=== PATIENT | female | born 1965 | race African-American/Black ===

== ENCOUNTER 2018-02-17 23:39 | Emergency (ER) | payer SELFPAY ==
--- NOTE | 2018-02-18 00:46 | ER ---
Nurse's Notes [facility] Name: Ratna Ureña Age: 52 yrs Sex: Female : 1965 Arrival Date: 02/17/2018 Time: 23:48 Bed 25 Private MD: Diagnosis: Acute Hyperglycemic episode in a type II diabetes Presentation: 02/18 00:03 Presenting complaint: Patient states: she checked her sugar 3 hours after dinner mg2 tonight and its 516 mg/dl. denies n/v, dizziness. she also took her oral antidiabetic pill after meal. Transition of care: patient was not received from another setting of care. Onset of symptoms was February 17, 2018. Risk Assessment: Do you want to hurt yourself or someone else? Patient reports no desire to harm self or others. Initial Sepsis Screen: Does the patient meet any 2 criteria? No. Patient's initial sepsis screen is negative. Does the patient have a suspected source of infection? No. Patient's initial sepsis screen is negative. Care prior to arrival: None. 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 - Social history:: Smoking status: Patient/guardian denies using tobacco, Patient/guardian denies using alcohol, street drugs, IV drugs. - Ebola Screening: : No symptoms or risks identified at this time. - Family history:: not pertinent. - Hospitalizations: : No recent hospitalization is reported. Screenin:07 Abuse screen: Denies threats or abuse. Denies injuries from another. Nutritional mg2 screening: No deficits noted. Tuberculosis screening: No symptoms or risk factors identified. Fall Risk None identified. Assessment: 00:08 General: Appears in no apparent distress. comfortable, Behavior is calm, cooperative. mg2 Pain: Denies pain. Neuro: Level of Consciousness is awake, alert, obeys commands, Oriented to person, place, time, situation. Cardiovascular: Capillary refill < 3 seconds Patient's skin is warm and dry. Respiratory: Airway is patent Respiratory effort is even, unlabored, Respiratory pattern is regular, symmetrical. GI: No signs and/or symptoms were reported involving the gastrointestinal system. : No signs and/or symptoms were reported regarding the genitourinary system. EENT: No signs and/or symptoms were reported regarding the EENT system. Derm: Skin is intact, Skin is pink, warm \T\ dry. normal. Musculoskeletal: Circulation, motion, and sensation intact. 00:53 Reassessment: patient refused treatment and diagnostic procedures. risk explained by dr rd negrete, ama form signed by the patient. dishcarged. Vital Signs: 00:06 BP 139 / 74; Pulse 91; Resp 18; Temp 97.9(O); Pulse Ox 99% on R/A; Weight 99.79 kg; mg2 Height 5 ft. 5 in. (165.10 cm); Pain 0/10; 00:06 Body Mass Index 36.61 (99.79 kg, 165.10 cm) mg2 ED Course: 02/17 23:48 Patient arrived in ED. oliva 02/18 00:02 Willy Vargas, RN is Primary Nurse. mg2 00:05 Triage completed. mg2 00:07 Arm band placed on. mg2 00:08 Patient has correct armband on for positive identification. Placed in gown. Bed in low mg2 position. Door closed. Warm blanket given. 00:14 Michele Negrete MD is Attending Physician. ma 00:54 No provider procedures requiring assistance completed. Patient did not have IV access mg2 during this emergency room visit. Administered Medications: No medications were administered Point of Care Testing: Blood Glucose: 00:07 Blood Glucose: 337 mg/dL; mg2 Ranges: Outcome: 00:45 Discharge ordered by . ma 00:54 AMA AMA form signed mg2 00:54 Condition: stable 00:54 Discharge instructions given to patient, Instructed on discharge instructions, Demonstrated understanding of instructions. 00:55 Patient left the ED. mg2 Signatures: Zeina Roberto William, MD MD wa Gardose, Michele, RN RN mg2
--- NOTE | 2018-02-18 00:46 | EDPHYS ---
Physician Documentation [facility] Name: Ratna Ureña Age: 52 yrs Sex: Female : 1965 Arrival Date: 02/17/2018 Time: 23:48 Bed 25 Private MD: ED Physician Michele Trejo HPI: 02/18 07:42 This 52 yrs old Black Female presents to ER via Ambulatory with complaints of Low Blood wa Sugar. 07:42 The patient or guardian reports hyperglycemia, that was potentially precipitated by not wa taking her DM meds after eating. states was over 500 when she took her medication, Treatment prior to arrival includes:. Onset: The symptoms/episode began/occurred today. Associated signs and symptoms: Pertinent negatives: decreased urine output, diarrhea, polydipsia, polyphagia, polyuria, vomiting. Current symptoms: In the emergency department the patient's symptoms are unchanged from the initial presentation. The patient has experienced similar episodes in the past. The patient has not recently seen a physician. denies any complaints. denies dizziness, chest pain, SOB, or any other concerns. 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 - Social history:: Smoking status: Patient/guardian denies using tobacco, Patient/guardian denies using alcohol, street drugs, IV drugs. - Ebola Screening: : No symptoms or risks identified at this time. - Family history:: not pertinent. - Hospitalizations: : No recent hospitalization is reported. ROS: 07:45 Constitutional: Negative for fever, chills, and weight loss, Eyes: Negative for injury, wa pain, redness, and discharge, ENT: Negative for injury, pain, and discharge, Neck: Negative for injury, pain, and swelling, Cardiovascular: Negative for chest pain, palpitations, and edema, Respiratory: Negative for shortness of breath, cough, wheezing, and pleuritic chest pain, Abdomen/GI: Negative for abdominal pain, nausea, vomiting, diarrhea, and constipation, Back: Negative for injury and pain, : Negative for injury, bleeding, discharge, and swelling, MS/Extremity: Negative for injury and deformity, Skin: Negative for injury, rash, and discoloration, Neuro: Negative for headache, weakness, numbness, tingling, and seizure, Psych: Negative for depression, anxiety, suicide ideation, homicidal ideation, and hallucinations. Exam: 07:45 Constitutional: This is a well developed, well nourished patient who is awake, alert, wa and in no acute distress. Head/Face: Normocephalic, atraumatic. Eyes: Pupils equal round and reactive to light, extra-ocular motions intact. Lids and lashes normal. Conjunctiva and sclera are non-icteric and not injected. Cornea within normal limits. Periorbital areas with no swelling, redness, or edema. ENT: Nares patent. No nasal discharge, no septal abnormalities noted. Tympanic membranes are normal and external auditory canals are clear. Oropharynx with no redness, swelling, or masses, exudates, or evidence of obstruction, uvula midline. Mucous membranes moist. Neck: Trachea midline, no thyromegaly or masses palpated, and no cervical lymphadenopathy. Supple, full range of motion without nuchal rigidity, or vertebral point tenderness. No Meningismus. Chest/axilla: Normal chest wall appearance and motion. Nontender with no deformity. No lesions are appreciated. Cardiovascular: Regular rate and rhythm with a normal S1 and S2. No gallops, murmurs, or rubs. Normal PMI, no JVD. No pulse deficits. Respiratory: Lungs have equal breath sounds bilaterally, clear to auscultation and percussion. No rales, rhonchi or wheezes noted. No increased work of breathing, no retractions or nasal flaring. Abdomen/GI: Soft, non-tender, with normal bowel sounds. No distension or tympany. No guarding or rebound. No evidence of tenderness throughout. Back: No spinal tenderness. No costovertebral tenderness. Full range of motion. Skin: Warm, dry with normal turgor. Normal color with no rashes, no lesions, and no evidence of cellulitis. MS/ Extremity: Pulses equal, no cyanosis. Neurovascular intact. Full, normal range of motion. Neuro: Awake and alert, GCS 15, oriented to person, place, time, and situation. Cranial nerves II-XII grossly intact. Motor strength 5/5 in all extremities. Sensory grossly intact. Cerebellar exam normal. Normal gait. Vital Signs: 00:06 BP 139 / 74; Pulse 91; Resp 18; Temp 97.9(O); Pulse Ox 99% on R/A; Weight 99.79 kg; mg2 Height 5 ft. 5 in. (165.10 cm); Pain 0/10; 00:06 Body Mass Index 36.61 (99.79 kg, 165.10 cm) mg2 MDM: 00:[address] 07:45 Differential diagnosis: acute asymptomatic hyperglycemia. BG improved on arrival as pt wa took own meds. discussed work up to check electrolyte and kidney function. pt declined. states has appt with her PMD to check all that. will have sign AMA. Data reviewed: vital signs, nurses notes. Administered Medications: No medications were administered Point of Care Testing: Blood Glucose: 00:07 Blood Glucose: 337 mg/dL; mg2 Ranges: Critical Glucose Levels:Adult <50 mg/dl or >400 mg/dl <40 mg/dl or >180 mg/dl Disposition: 02/18/18 00:45 Discharged to Home. Impression: Acute Hyperglycemic episode in a type II diabetes. - Condition is Stable. - Discharge Instructions: Hyperglycemia, [id number]. - Medication Reconciliation Form, Thank You Letter, Antibiotic Education, Prescription Opioid Use form. - Follow up: Private Physician; When: 1 - 2 days; Reason: Recheck today's complaints. - Problem is new. - Symptoms have improved. - Notes: return to ER for worsening concerns. see your doctor tomorrow for further evaluation of your kwame blood sugar Signatures: Michele Trejo MD MD wa Gardose, Michele, RN RN mg2 Corrections: (The following items were deleted from the chart) 00:55 00:45 02/18/2018 00:45 Discharged to Home. Impression: Acute Hyperglycemic episode in a mg2 type II diabetes. Condition is Stable. Forms are Medication Reconciliation Form, Thank You Letter, Antibiotic Education, Prescription Opioid Use. Follow up: Private Physician; When: 1 - 2 days; Reason: Recheck today's complaints. Problem is new. Symptoms have improved. wa
[2018-02-18 00:59] VITALS: BP 139/74; TEMP 97.9; O2SAT 99
== END 2018-02-18 00:55 | disposition home or self-care (01) ==
LOC: ER 23:39
DX: E11.65 Type 2 diabetes mellitus with hyperglycemia (principal); I10 Essential (primary) hypertension; E78.00 Pure hypercholesterolemia, unspecified
CPT/HCPCS: 82962; 99282

== ENCOUNTER 2019-08-10 00:16 | Emergency (ER) | payer SELFPAY ==
--- OUTSIDE RECORDS SUMMARY | 2019-08-10 00:19 | XMS REPORT ---
:1965 Author Organization [facility] Address [address] [place] [address] [address] [place] [address] Care Team Providers Name Role Phone Unavailable Unavailable Unavailable Problems This patient has no known problems. Allergies, Adverse Reactions, Alerts This patient has no known allergies or adverse reactions. Medications This patient has no known medications.
[2019-08-10] MEDS ORDERED: FUROSEMIDE 20 MG/ 2ML VIAL ONE (00:21)
[2019-08-10] MEDS ORDERED: NITROGLYCERIN 1 GM PKT TD ONE (00:21)
[2019-08-10] MEDS ORDERED: FUROSEMIDE 40 MG/4 ML VIAL ONE (00:21)
[2019-08-10] MEDS ORDERED: RSI MEDICATION KIT IV ONE ×2 (00:22→07:02)
[2019-08-10] MEDS ORDERED: ROCURONIUM 50 MG/5 ML VIAL IV ONE ×3 (00:23→07:02)
[2019-08-10 00:38] LABS: Arterial Blood Carboxyhemoglob 0.4 % (0-1.5); Blood Gas Oxyhemoglobin 88.5 % (94-97); Blood O2 Saturation 89.6 % (92-98.5)
[2019-08-10] MEDS ORDERED: SUCCINYLCHOLINE 20 MG/ML (10 ML) IV ONE ×2 (00:47→07:00)
[2019-08-10 00:54] LABS: Absolute Lymphocytes (CBC) 4.5 K/uL (0.7-4.9); Basophils % 0.6 % (0-1.3); Hematocrit 38.7 % (36.0-45.0); Lymphocytes % 48.4 % (15.3-44.8); MPV 11.8 fL (7.6-11.3); Protime INR 1.04; RBC Red Blood Cell Count 4.76 M/uL (3.86-4.86)
[2019-08-10] MEDS ORDERED: CEFEPIME 2 GM VIAL ONE (00:56)
[2019-08-10] MEDS ORDERED: NA CHLORIDE 0.9% 250 ML ONE ×2 (00:57→03:10)
[2019-08-10] MEDS ORDERED: VANCOMYCIN 1 GM/VIAL ONE ×2 (00:57→03:10)
[2019-08-10] MEDS ORDERED: DOPAMINE/D5W 400 MG/250 ML BAG IV ONE (00:57)
[2019-08-10] MEDS ORDERED: NA CHLORIDE 0.9% 100 ML IV ONE (00:57)
[2019-08-10] MEDS ORDERED: NA CHLORIDE 0.9% 1,000 ML ONE (00:59)
[2019-08-10 01:10] LABS: ALT/SGPT 23 U/L (12-78); AST/SGOT 19 U/L (15-37); Albumin 3.2 g/dL (3.4-5.0); Alkaline Phosphatase 113 U/L (45-117); BUN Blood Urea Nitrogen 18 mg/dL (7-18); Bicarbonate 26 mmol/L (21-32); Bilirubin Direct < 0.1 mg/dL (0-0.2); Bilirubin Total 0.3 mg/dL (0.2-1.0); Glucose Level 351 mg/dL (74-106); Lipase 102 U/L (73-393); NT PRO-BNP 796 pg/mL (<125); Potassium 3.9 mmol/L (3.5-5.1); Protein, Total 8.2 g/dL (6.4-8.2); Sodium Level 136 mmol/L (136-145); Troponin (Emerg Dept Use Only) < 0.02 ng/mL (0.0-0.045)
--- NOTE | 2019-08-10 01:17 | EDPHYS ---
Physician Documentation [facility] Name: Ratna Ureña Age: 54 yrs Sex: Female : 1965 Arrival Date: 08/10/2019 Time: 00:17 Bed 2 Private MD: ED Physician Brent Malik HPI: 08/10 00:30 This 54 yrs old Black Female presents to ER via Unassigned with complaints of sob and real ams. 00:30 The patient has shortness of breath at rest. Onset: The symptoms/episode began/occurred real at an unknown time. Duration: The symptoms are continuous, and are steadily getting worse. The patient's shortness of breath has no apparent modifying factors. The patient or guardian reports difficulty breathing. Modifying factors: The symptoms are alleviated by nothing. the symptoms are aggravated by nothing. hx htn. Associated signs and symptoms: Pertinent positives: non-productive cough. Severity of symptoms: At their worst the symptoms were severe in the emergency department the symptoms are unchanged. Associated signs and symptoms: The patient has no apparent associated signs or symptoms. Historical: - Allergies: 00:25 No Known Allergies; jv1 - PMHx: 00:25 Diabetes - NIDDM; High Cholesterol; Hypertension; Vertigo; jv1 - PSHx: 00:25 Tonsillectomy; Appendectomy; Tubal ligation; jv1 - Immunization history:: Adult Immunizations unknown. - Social history:: Smoking status: unknown. - Family history:: not pertinent. - Ebola Screening: : Unable to complete screening because. ROS: 00:30 Eyes: Negative for injury, pain, redness, and discharge, ENT: Negative for injury, real pain, and discharge. 00:30 Cardiovascular: Positive for palpitations. 00:30 Respiratory: Positive for shortness of breath. 00:30 Unable to obtain ROS due to patient distress. Exam: 00:30 ENT: Nares patent. No nasal discharge, no septal abnormalities noted. Tympanic real membranes are normal and external auditory canals are clear. Oropharynx with no redness, swelling, or masses, exudates, or evidence of obstruction, uvula midline. Mucous membranes moist. 00:30 Constitutional: The patient appears in obvious distress, severely distressed. 00:30 Cardiovascular: Rate: tachycardic, Rhythm: regular, Pulses: Pulses are 4+ in bilateral radial, brachial, femoral, popliteal, posterior tibial and and dorsalis pedis arteries.. Heart sounds: normal, normal S1and S2, no S3 or S4, no murmur, no rub, no gallop, Edema: 4+ edema to level of left midcalf and right midcalf, JVD: is not appreciated. 00:30 Respiratory: moderate respiratory distress is noted, severe repiratory distress is noted, Respirations: labored breathing, that is moderate, accessory muscle usage, that is moderate, Breath sounds: decreased breath sounds, that are moderate, rhonchi, that are moderate, are heard diffusely, stridor, is not appreciated, + upper airway congestion. wheezing: that is mild, is scattered. Vital Signs: 00:15 BP 164 / 101; Pulse 133; Resp 40; Temp 95.5(O); Pulse Ox 64% on 100% Non-rebreather jb4 mask; Weight 99.79 kg (R); Height 5 ft. 4 in. (162.56 cm) (R); 00:23 BP 191 / 119; Pulse 111; Resp 24; Pulse Ox 93% on BiPAP; jb4 00:45 BP 160 / 86; Pulse 113; Resp 29; Temp 96.8(C); Pulse Ox 94% on 15 lpm ETT ambu; jb4 00:49 BP 88 / 52; Pulse 102; Resp 16; Temp 96.9(C); Pulse Ox 98% on 100% FiO2 ETT vent; jb4 01:00 BP 81 / 61; Pulse 104; Resp 20; Temp 97.2(C); Pulse Ox 96% on 100% FiO2 ETT vent; jb4 01:15 BP 145 / 92; Pulse 134; Resp 20; Temp 96.5(C); Pulse Ox 97% on 100% FiO2 ETT vent; jb4 01:24 BP 142 / 77; Pulse 105; Resp 20 A; Temp 95.6(C); Pulse Ox 100% on 100% FiO2 ETT vent; jb4 01:45 BP 132 / 78; Pulse 98; Resp 20; Temp 95.9(C); Pulse Ox 97% on 100% FiO2 ETT vent; jb4 02:00 BP 127 / 69; Pulse 93; Resp 20; Temp 95.8(C); Pulse Ox 97% on 100% FiO2 ETT vent; jb4 02:15 BP 124 / 74; Pulse 91; Resp 97; Temp 95.7(C); Pulse Ox 97% on 100% FiO2 ETT vent; jb4 02:30 BP 120 / 59; Pulse 90; Resp 20; Temp 95.8(C); Pulse Ox 97% on 100% FiO2 ETT vent; jb4 02:45 BP 119 / 59; Pulse 91; Resp 20; Temp 96.3(C); Pulse Ox 98% on ETT vent; jb4 03:00 BP 114 / 61; Pulse 93; Resp 20; Temp 96.5(C); Pulse Ox 97% on 100% FiO2 ETT vent; jb4 03:15 BP 98 / 50; Pulse 96; Resp 20; Temp 96.9(C); Pulse Ox 100% on 100% FiO2 ETT vent; jb4 00:15 Body Mass Index 37.76 (99.79 kg, 162.56 cm) 4 Procedures: 01:12 Intubation: Ventilated with 100% NRB prior to procedure. Intubated orally using # 4 real Pan blade with 7.5 mm ETT. was successful on first attempt. Ventilated with Ambu bag. Cricoid pressure applied during procedure. Placement verified by CXR, CO2 detector with (+) color change, auscultating bilateral breath sounds, O2 saturation after procedure was 100 %. Patient tolerated well. Central Line: the site was prepped with Betadine, in sterile fashion, a triple lumen catheter was inserted, in the right in 1 attempts. placement was verified, by blood return, the site was dressed with using sterile technique, the patient tolerated the procedure, well. MDM: 00:[address] [facility] 00:33 Data reviewed: vital signs, nurses notes, lab test result(s), EKG, radiologic studies, [facility] CT scan, plain films. 08/10 00:28 Order name: Basic Metabolic Panel; Complete Time: : [facility] 08/10 00:28 Order name: CBC with Diff; Complete Time: : real 08/10 00:28 Order name: LFT's; Complete Time: : [facility] 08/10 00:28 Order name: Magnesium; Complete Time: : [facility] 08/10 00:28 Order name: NT PRO-BNP; Complete Time: :[address] [facility] 08/10 00:28 Order name: PT-INR; Complete Time: 01:[address] [facility] 08/10 00:28 Order name: Troponin (emerg Dept Use Only); Complete Time: 01:[address] [facility] 08/10 00:28 Order name: Blood Culture Adult (2) [facility] 08/10 00:28 Order name: ABG; Complete Time: 02:[address] [facility] 08/10 00:28 Order name: Lactate; Complete Time: 01:[address] [facility] 08/10 00:28 Order name: Lipase; Complete Time: 01:[address] [facility] 08/10 00:44 Order name: Glucose, Ancillary Testing; Complete Time: 01:32 EDMS 08/10 01:35 Order name: ABG [facility] 08/10 00:28 Order name: XRAY Chest (1 view) [facility] 08/10 00:28 Order name: BIPAP [facility] 08/10 01:12 Order name: Chest Single View XRAY: ett placement [facility] 08/10 01:22 Order name: CT Head Brain wo Cont mw2 08/10 01:35 Order name: ABG Arterial Blood Gas [facility] 08/10 00:28 Order name: EKG; Complete Time: 00:[address] [facility] 08/10 00:28 Order name: Cardiac monitoring; Complete Time: 02:[address] [facility] 08/10 00:28 Order name: EKG - Nurse/Tech; Complete Time: 02:[address] [facility] 08/10 00:28 Order name: IV Saline Lock; Complete Time: 02:[address] [facility] 08/10 00:28 Order name: Labs collected and sent; Complete Time: 02:[address] [facility] 08/10 00:28 Order name: O2 Per Protocol; Complete Time: 02:[address] [facility] 08/10 00:28 Order name: O2 Sat Monitoring; Complete Time: 02:[address] [facility] 08/10 00:28 Order name: Kwan; Complete Time: 02:[address] [facility] 08/10 00:28 Order name: Blood Glucose Level; Complete Time: 02:[address] [facility] 08/10 01:35 Order name: NG Tube; Complete Time: 02:[address] [facility] Administered Medications: 00:20 Drug: Nitro-Bid Ointment 2 % 1 inches Route: Transdermal; Site: anterior chest wall; jv1 00:25 Drug: Lasix 60 mg Route: IVP; Site: left antecubital; jv1 02:24 Follow up: Response: No adverse reaction jv1 00:28 CANCELLED (Duplicate Order): Lasix 40 mg IVP once real 00:35 CANCELLED (Duplicate Order): Rocephin 1 grams IV at per protocol once; Given slow IV real push per pharmacy instructions 00:47 Drug: Etomidate 20 mg Route: IVP; Site: left antecubital; jv1 01:05 Follow up: Response: No adverse reaction jv1 00:50 Drug: Rocuronium 60 mg/min Route: IVP; Site: left antecubital; jv1 01:05 Follow up: Response: No adverse reaction jv1 00:57 Drug: Dopamine drip 5 mcg/kg/min - (DOPamine 400 mg, D5W 250 ml) {Note: started at 10 jv1 mcg/min.} Route: IV; Rate: calculated rate; Site: left antecubital; 01:02 Follow up: Response: No adverse reaction; Blood pressure is elevated; dose changed to jv1 15 mcg/min 01:08 Follow up: Response: No adverse reaction; Dose changes to 10 mcg/min connected to brown jv1 port 01:14 Follow up: Response: No adverse reaction; Dose changes to 5 mcg/min jv1 03:43 Follow up: Response: No adverse reaction; IV Status: Infusion continued upon transfer jb4 01:01 Drug: NS 0.9% 500 ml Route: IV; Rate: bolus; Site: right antecubital; jv1 01:12 Follow up: Response: No adverse reaction; IV Status: Order to discontinue infusion; IV jv1 Intake: 200ml 01:07 Drug: Cefepime 2 grams Route: IVPB; Rate: 200 ml/hr; Infused Over: 30 mins; Site: left jv1 antecubital; 01:37 Follow up: Response: No adverse reaction; IV Status: Completed infusion; IV Intake: jv1 100ml 01:59 Drug: vancoMYCIN 1 grams Route: IVPB; Infused Over: 2 hrs; Site: left antecubital; jv1 03:43 Follow up: Response: No adverse reaction; IV Status: Completed infusion; IV Intake: jb4 250ml 03:10 Drug: vancoMYCIN 1 grams Route: IVPB; Infused Over: 2 hrs; Site: left antecubital; ea 03:44 Follow up: Response: No adverse reaction; IV Status: Infusion continued upon transfer jb4 03:20 Drug: Versed 4 mg Route: IVP; Site: right antecubital; jb4 03:41 Follow up: Response: No adverse reaction jb4 03:38 Drug: fentaNYL (PF) 50 mcg {Note: Pt intubated. Rass score 2.} Route: IVP; Site: right jb4 antecubital; 03:42 Follow up: Response: No adverse reaction jb4 Disposition: 08/10/19 01:16 Transfer ordered to [facility]. Diagnosis are Unspecified combined systolic (congestive) and diastolic (congestive) heart failure, Hypoxemia, Respiratory failure, unspecified, Obesity, unspecified, Hypothermia. - Reason for transfer: Higher level of care. - Accepting physician is to u, [facility]. - Condition is Critical. - Problem is new. - Symptoms have improved. Signatures: Dispatcher [employer] EDOR Brent Malik MD MD cha Bryson, James RN RN jb4 Coleen Tolentino RN RN ea Vicente, Joyce, RN RN jv1 Corrections: (The following items were deleted from the chart) 00:28 00:28 Lasix 40 mg IVP once ordered. real real 00:35 00:28 Rocephin 1 grams IV at per protocol once; Given slow IV push per pharmacy real instructions ordered. real 01:49 01:24 Thorax Wo Con+CT.RAD.BRZ ordered. [facility] EDOR 02:57 01:16 08/10/2019 01:16 Transfer ordered to [facility]. Diagnosis is real Unspecified combined systolic (congestive) and diastolic (congestive) heart failure; Hypoxemia; Respiratory failure, unspecified; Obesity, unspecified. Reason for transfer: Higher level of care. Accepting physician is to u, [facility]. Condition is Critical. Problem is new. Symptoms have improved. real 04:00 02:57 08/10/2019 01:16 Transfer ordered to [facility]. Diagnosis is jb4 Unspecified combined systolic (congestive) and diastolic (congestive) heart failure; Hypoxemia; Respiratory failure, unspecified; Obesity, unspecified; Hypothermia. Reason for transfer: Higher level of care. Accepting physician is to u, [facility]. Condition is Critical. Problem is new. Symptoms have improved. real
[2019-08-10 03:08] LABS: Arterial Blood Carboxyhemoglob 0.7 % (0-1.5); Blood Gas Oxyhemoglobin 92.8 % (94-97); Blood O2 Saturation 94.3 % (92-98.5)
[2019-08-10] MEDS ORDERED: MIDAZOLAM HCL 2 MG/2 ML INJ ONE (03:13)
[2019-08-10] MEDS ORDERED: FENTANYL CITR 100 MCG/2 ML ONE (03:27)
--- NOTE | 2019-08-10 04:02 | ER ---
Nurse's Notes [facility] Name: Ratna Ureña Age: 54 yrs Sex: Female : 1965 Arrival Date: 08/10/2019 Time: 00:17 Bed 2 Private MD: Diagnosis: Unspecified combined systolic (congestive) and diastolic (congestive) heart failure;Hypoxemia;Respiratory failure, unspecified;Obesity, unspecified;Hypothermia Presentation: 08/10 00:17 Acuity: ANTONIO 1 dm5 00:17 Presenting complaint: EMS states: called out for "women doesn't feel right", difficulty dm5 breathing and anxiety upon movement and EMS intervention. pt noted to be cool clammy and diaphoretic upon arrival. Pt slow to respond to questions and lethargic. Pt put on NRB at 15L, initial o2 saturation 64%, pt moved to room 2, MD called to bedside. Transition of care: patient was not received from another setting of care. Onset of symptoms was August 09, 2019. Risk Assessment: Do you want to hurt yourself or someone else? Unable to obtain. Initial Sepsis Screen: Does the patient meet any 2 criteria? Altered Mental Status. HR > 90 bpm. Yes Does the patient have a suspected source of infection? Yes: Productive cough/pneumonia. Care prior to arrival: None. 00:17 Method Of Arrival: EMS: [facility] dm5 Historical: - Allergies: 00:25 No Known Allergies; jv1 - PMHx: 00:25 Diabetes - NIDDM; High Cholesterol; Hypertension; Vertigo; jv1 - PSHx: 00:25 Tonsillectomy; Appendectomy; Tubal ligation; jv1 - Immunization history:: Adult Immunizations unknown. - Social history:: Smoking status: unknown. - Family history:: not pertinent. - Ebola Screening: : Unable to complete screening because. Screenin:15 Abuse screen: Denies threats or abuse. Nutritional screening: No deficits noted. jb4 Tuberculosis screening: No symptoms or risk factors identified. Fall Risk None identified. Assessment: 00:25 General: Appears distressed, ill, obese, Behavior is anxious, drowsy, restless. Pain: jb4 Unable to use pain scale. Patient is disoriented. Neuro: Level of Consciousness is Oriented to person, place, Facial symmetry appears normal, Pupils are PERRLA. Cardiovascular: diaphoretic and cool. Respiratory: Airway is patent Respiratory effort is labored, shallow, grunting Respiratory pattern is symmetrical, hyperventilation Breath sounds with crackles bilaterally. GI: No signs and/or symptoms were reported involving the gastrointestinal system. : No signs and/or symptoms were reported regarding the genitourinary system. EENT: No signs and/or symptoms were reported regarding the EENT system. Derm: Skin has lesions on stage 2 bedsore noted to coccyx Skin is diaphoretic, Skin is normal, Skin temperature is cool. 00:38 Reassessment: Kwan inserted. jb4 00:48 Reassessment: Pt intubated 7.5 ET tube, 23 \\T\\ the teeth. jb4 01:01 Reassessment: Central line placed in right groin by ED provider. jb4 01:15 Reassessment: 16 Fr NG tube placed in left nostril. jb4 01:27 Reassessment: PT bathed and linens changed. jb4 01:28 Reassessment: Pt to Ct. jb4 01:40 Reassessment: Back from CT. jb4 02:00 Reassessment: Patient appears in no apparent distress at this time. Patient and/or jb4 family updated on plan of care and expected duration. Pain level reassessed. Vent and all tubes remain in place. Pt remains unconscious, no s/s of pain or distress noted. 03:00 Reassessment: No changes from previously documented assessment. Patient and/or family jb4 updated on plan of care and expected duration. Pain level reassessed. 03:39 Reassessment: Patient appears in no apparent distress at this time. Patient and/or jb4 family updated on plan of care and expected duration. Pain level reassessed. Respiratory: Airway via oral intubation Respiratory effort is even, unlabored, Respiratory pattern is symmetrical, Breath sounds are coarse bilaterally. Vital Signs: 00:15 BP 164 / 101; Pulse 133; Resp 40; Temp 95.5(O); Pulse Ox 64% on 100% Non-rebreather jb4 mask; Weight 99.79 kg (R); Height 5 ft. 4 in. (162.56 cm) (R); 00:23 BP 191 / 119; Pulse 111; Resp 24; Pulse Ox 93% on BiPAP; jb4 00:45 BP 160 / 86; Pulse 113; Resp 29; Temp 96.8(C); Pulse Ox 94% on 15 lpm ETT ambu; jb4 00:49 BP 88 / 52; Pulse 102; Resp 16; Temp 96.9(C); Pulse Ox 98% on 100% FiO2 ETT vent; jb4 01:00 BP 81 / 61; Pulse 104; Resp 20; Temp 97.2(C); Pulse Ox 96% on 100% FiO2 ETT vent; jb4 01:15 BP 145 / 92; Pulse 134; Resp 20; Temp 96.5(C); Pulse Ox 97% on 100% FiO2 ETT vent; jb4 01:24 BP 142 / 77; Pulse 105; Resp 20 A; Temp 95.6(C); Pulse Ox 100% on 100% FiO2 ETT vent; jb4 01:45 BP 132 / 78; Pulse 98; Resp 20; Temp 95.9(C); Pulse Ox 97% on 100% FiO2 ETT vent; jb4 02:00 BP 127 / 69; Pulse 93; Resp 20; Temp 95.8(C); Pulse Ox 97% on 100% FiO2 ETT vent; jb4 02:15 BP 124 / 74; Pulse 91; Resp 97; Temp 95.7(C); Pulse Ox 97% on 100% FiO2 ETT vent; jb4 02:30 BP 120 / 59; Pulse 90; Resp 20; Temp 95.8(C); Pulse Ox 97% on 100% FiO2 ETT vent; jb4 02:45 BP 119 / 59; Pulse 91; Resp 20; Temp 96.3(C); Pulse Ox 98% on ETT vent; jb4 03:00 BP 114 / 61; Pulse 93; Resp 20; Temp 96.5(C); Pulse Ox 97% on 100% FiO2 ETT vent; jb4 03:15 BP 98 / 50; Pulse 96; Resp 20; Temp 96.9(C); Pulse Ox 100% on 100% FiO2 ETT vent; jb4 00:15 Body Mass Index 37.76 (99.79 kg, 162.56 cm) jb4 ED Course: 00:15 Patient has correct armband on for positive identification. Placed in gown. Bed in low jb4 position. Call light in reach. Side rails up X2. monitor car operator on. Pulse ox on. NIBP on. 00:17 Patient arrived in ED. dm5 00:25 Brent Malik MD is Attending Physician. real 00:25 Arm band placed on right wrist. jv1 00:25 Initial lab(s) drawn, by ED staff, sent to lab. Inserted saline lock: 20 gauge in left jb4 antecubital area, using aseptic technique. Blood collected. 00:39 XRAY Chest (1 view) In Process Unspecified. EDMS 00:45 Inserted saline lock: 20 gauge in right antecubital area, using aseptic technique. jb4 00:48 Assisted provider with intubation using 7.5 mm ETT via oral route. ET tube secured at jb4 23cm at the teeth. Set up intubation tray. Intubated by Brent Malik MD Placement verified by CO2 detector w/ + color change, auscultating bilateral breath sounds, Patient tolerated well. 01:01 Assisted provider with central line placement. Set up central line tray. Triple lumen jb4 line placed in right femoral. Line placed by Brent Malik MD Placement verified by blood return, Dressed with Tegaderm, Blood was collected. Patient tolerated well. 01:44 Triage completed. dm5 01:48 CT Head Brain wo Cont In Process Unspecified. EDMS 02:01 Chest Single View XRAY: ett placement In Process Unspecified. EDMS 02:51 Alexandro Pringle, RAMAN is Primary Nurse. jb4 03:59 Patient transferred, IV remains in place. jb4 Administered Medications: 00:20 Drug: Nitro-Bid Ointment 2 % 1 inches Route: Transdermal; Site: anterior chest wall; jv1 00:25 Drug: Lasix 60 mg Route: IVP; Site: left antecubital; jv1 02:24 Follow up: Response: No adverse reaction jv1 00:28 CANCELLED (Duplicate Order): Lasix 40 mg IVP once real 00:35 CANCELLED (Duplicate Order): Rocephin 1 grams IV at per protocol once; Given slow IV real push per pharmacy instructions 00:47 Drug: Etomidate 20 mg Route: IVP; Site: left antecubital; jv1 01:05 Follow up: Response: No adverse reaction jv1 00:50 Drug: Rocuronium 60 mg/min Route: IVP; Site: left antecubital; jv1 01:05 Follow up: Response: No adverse reaction jv1 00:57 Drug: Dopamine drip 5 mcg/kg/min - (DOPamine 400 mg, D5W 250 ml) {Note: started at 10 jv1 mcg/min.} Route: IV; Rate: calculated rate; Site: left antecubital; 01:02 Follow up: Response: No adverse reaction; Blood pressure is elevated; dose changed to jv1 15 mcg/min 01:08 Follow up: Response: No adverse reaction; Dose changes to 10 mcg/min connected to brown jv1 port 01:14 Follow up: Response: No adverse reaction; Dose changes to 5 mcg/min jv1 03:43 Follow up: Response: No adverse reaction; IV Status: Infusion continued upon transfer jb4 01:01 Drug: NS 0.9% 500 ml Route: IV; Rate: bolus; Site: right antecubital; jv1 01:12 Follow up: Response: No adverse reaction; IV Status: Order to discontinue infusion; IV jv1 Intake: 200ml 01:07 Drug: Cefepime 2 grams Route: IVPB; Rate: 200 ml/hr; Infused Over: 30 mins; Site: left [facility] antecubital; 01:37 Follow up: Response: No adverse reaction; IV Status: Completed infusion; IV Intake: jv1 100ml 01:59 Drug: vancoMYCIN 1 grams Route: IVPB; Infused Over: 2 hrs; Site: left antecubital; jv1 03:43 Follow up: Response: No adverse reaction; IV Status: Completed infusion; IV Intake: jb4 250ml 03:10 Drug: vancoMYCIN 1 grams Route: IVPB; Infused Over: 2 hrs; Site: left antecubital; ea 03:44 Follow up: Response: No adverse reaction; IV Status: Infusion continued upon transfer jb4 03:20 Drug: Versed 4 mg Route: IVP; Site: right antecubital; jb4 03:41 Follow up: Response: No adverse reaction jb4 03:38 Drug: fentaNYL (PF) 50 mcg {Note: Pt intubated. Rass score 2.} Route: IVP; Site: right 4 antecubital; 03:42 Follow up: Response: No adverse reaction jb4 Intake: 01:12 IV: 200ml; Total: 200ml. jv1 01:37 IV: 100ml; Total: 300ml. jv1 03:43 IV: 250ml; Total: 550ml. jb4 Output: 03:45 Urine: 900ml (Kwan); Total: 900ml. jb4 Outcome: 01:16 ER care complete, transfer ordered by MD. noble 03:59 Transferred by ground EMS [facility] to [facility], X-rays sent w/ jb4 patient. 03:59 Condition: stable 03:59 Discharge instructions given to EMS, Instructed on the need for transfer, Demonstrated understanding of instructions. 04:00 Patient left the ED. jb4 Addendum: 08/15/2019 07:28 Addendum: Culture Results: Positive blood culture. Phone call Attempt #1 Spoke with s s desk secretary receptionist at [facility] who reports that they do not have a fax machine. Gave verbal report to secretary receptionist who states he will relay the message to the patient's primary nurse, RAMAN López. Signatures: Dispatcher [employer] EDMelanie Tom RN RN dm5 Anderson, Corey, MD MD cha Smirch, Shelby, RN RN ss Bryson, James, RN RN jb4 Coleen Tolentino RN RN ea Vicente, Joyce, RN RN jv1 Corrections: (The following items were deleted from the chart) 08/10 02:47 01:14 Dopamine drip 5 mcg/kg/min - (DOPamine 400 mg, D5W 250 ml) IV at calculated rate jv1 in left antecubital jv1 :40 00:25 General: Appears distressed, ill, obese, Behavior is anxious, drowsy, restless, jb4 jv1 : 00:25 Pain: Unable to use pain scale. Patient is disoriented. jv1 jb4 : 00:25 Neuro: Level of Consciousness is confused, lethargic, Oriented to person, place, jb4 Facial symmetry appears normal, Pupils are PERRLA, jv1 : 00:25 Cardiovascular: Diaphoretic and cool. jv1 jb4 : 00:25 Respiratory: Airway is patent Respiratory effort is labored, shallow, Grunting jb4 Respiratory pattern is symmetrical, hyperventilation Breath sounds with crackles bilaterally. jv1 00:25 GI: No signs and/or symptoms were reported involving the gastrointestinal system. jb4 jv1 03:40 00:25 : No signs and/or symptoms were reported regarding the genitourinary system. jv1jb4 03:40 00:25 EENT: No signs and/or symptoms were reported regarding the EENT system. jv1 jb4 03:40 00:25 Derm: Skin has lesions on stage 2 bedsore noted to coccyx Skin is diaphoretic, jb4 Skin is Skin temperature is cool jv1 03:40 00:38 Reassessment: Kwan inserted jv1 jb4 03: 00:48 Reassessment: Pt intubated 7.5 ET tube, 23 \\T\\ the teeth. jv1 jb4 03:40 01:01 Reassessment: Central placed in right groin by ED provider. jv1 jb4 03:40 01:15 Reassessment: 16 Fr NG tube placed in left nostril jv1 jb4 :40 01:27 Reassessment: Pt bathed , and linens changed. jv1 jb4 03:40 01:28 Reassessment: to CT j jb4 03:40 01:40 Reassessment: back form CT jv1 jb4 03:57 00:25 BP 164 / 101; Pulse 133bpm; Resp 40bpm; Pulse Ox 64% 02 100% Non-rebreather mask; jb4 Temp 95.5F Oral; 99.79 kg Reported; Height 5 ft. 4 in. Reported; BMI: 37.7; jv1 06:24 03:39 Respiratory: Airway via oral intubation Respiratory effort is even, unlabored, jb4 Respiratory pattern is symmetrical, Breath sounds are clear bilaterally. jb4
[2019-08-10] MEDS ORDERED: ETOMIDATE 20 MG/10 ML VIAL IV ONE (07:00)
[2019-08-10] MEDS ORDERED: NA CHLORIDE 0.9% 2,000 ML ONE (07:02)
[2019-08-10] MEDS ORDERED: MAGNESIUM SULFATE 1 gm IVPB 1 GM/100 ML BAG IV ONE (07:17)
--- NOTE | 2019-08-10 07:55 | RAD REPORT ---
EXAM DESCRIPTION: Amy Single View08/10/2019 2:00 am CLINICAL HISTORY: Device placement endotracheal tube placement IMPRESSION: An endotracheal tube has been inserted with its tip well above the freddy. A nasogastric tube has been placed into the stomach
--- NOTE | 2019-08-10 07:56 | RAD REPORT ---
EXAM DESCRIPTION: Amy Single View08/10/2019 12:39 am CLINICAL HISTORY: Shortness of breath COMPARISON: 2014 FINDINGS: Extensive bilateral alveolar opacities The heart is moderately to markedly enlarged IMPRESSION: Extensive bilateral alveolar lung opacities may represent pulmonary edema or pneumonia
[2019-08-10 09:29] VITALS: BP 114/61; TEMP 96.5; O2SAT 97
--- NOTE | 2019-08-10 11:25 | EKG ---
Test Date: 2019-08-10 Test Time: 00:28:51 Currency Exchange Specialist: NAIN MEASUREMENT RESULTS: Intervals: Rate: 108 KS: 168 QRSD: 158 QT: 428 QTc: 573 [place]: P: 42 KS: 168 QRS: -29 T: 83 INTERPRETIVE STATEMENTS: Sinus tachycardia Left bundle branch block Abnormal ECG Compared to ECG 11/26/2014 06:16:30 Sinus rhythm no longer present Left-axis deviation no longer present Electronically Signed On 08-10-19 11:23:51 PROPERTY TECHNICIAN by Davidson Lam
--- NOTE | 2019-08-10 12:19 | RAD REPORT ---
EXAM DESCRIPTION: CT - Head Brain Wo Cont - 08/10/2019 6:04 am CLINICAL HISTORY: 54 years Female WEAKNESS TECHNIQUE: Contiguous axial CT images obtained through the brain without IV contrast. Coronal and sa gittal reformats also provided. This CT exam was performed according to our departmental dose-optimization program, which includes on e or more of the following dose reduction techniques: automated exposure control, adjustment of the m A and/or kV according to patient size, and/or use of iterative reconstruction technique. COMPARISON: No prior exams provided for comparison. FINDINGS: There is no intracranial hemorrhage, extra-axial collection, or acute transcortical infarc tion. The ventricles are normal in size and contour without mass-effect or midline shift. Osseous structures are normal. The paranasal sinuses and mastoid air cells are clear. IMPRESSION: No acute intracranial abnormalities. Electronically signed by: Autumn Johnson MD 08/10/2019 1:53 AM MENU PLANNER Due to temporary technical issues with the PACS/Fluency reporting system, reports are being signed by the in house radiologist as a courtesy to ensure prompt reporting. The interpreting radiologist is f ully responsible for the content of the report.
== END 2019-08-10 04:00 | disposition short-term general hospital (02) ==
LOC: ER 00:16
PROC: 0BH17EZ Insertion of Endotracheal Airway into Trachea, Via Natural or Artificial Opening (ICD-10-PCS; principal; 2019-08-10)
PROC: 5A1935Z Respiratory Ventilation, Less than 24 Consecutive Hours (ICD-10-PCS; 2019-08-10)
PROC: 06HM33Z Insertion of Infusion Device into Right Femoral Vein, Percutaneous Approach (ICD-10-PCS; 2019-08-10)
DX: J96.91 Respiratory failure, unspecified with hypoxia (principal); I50.40 Unspecified combined systolic (congestive) and diastolic (congestive) heart failure; T68.XXXA Hypothermia, initial encounter; E66.9 Obesity, unspecified; I10 Essential (primary) hypertension
CPT/HCPCS: 31500; 36415; 70450; 71045; 80048; 80076; 82805; 82947; 83605; 83690; 83735; 83880; 84484; 85025; 85610; 87040; 87077; 87186; 87205; 93005; 94002; 94660; 99291; J0330; J0692; J1265; J1940; J2250; J3010; J3475; J7030

== ENCOUNTER 2020-07-09 07:48 | Emergency (ER) | payer OTHER, SELFPAY ==
--- OUTSIDE RECORDS SUMMARY | 2020-07-09 07:51 | XMS REPORT | Clinical Summary ---
:1965 Author Organization [facility] Address [address] [place] [address] Care Team Providers Name Role Phone MD Chris Primary Care Provider Unavailable Allergies No Known Allergies Medications Medication Sig Dispensed Refills Start Date End Date Status atorvastatin Take 20 mg by 0 Act leydi (LIPITOR) 20 MG mouth daily. tablet glipiZIDE Take 5 mg by 0 Active (GLUCOTROL) 5 MG mouth 2 (two) tablet times daily before meals. metFORMIN Take 500 mg by 0 Activ e (GLUCOPHAGE) 500 MG mouth 2 (two) tablet times daily with breakfast and dinner. omeprazole Take 20 mg by 0 Activ e (PRILOSEC) 20 MG mouth daily. capsule amLODIPine-valsartan TAKE 1 TABLET BY 0 07/05/2019 Active -hcthiazid 10-160-25 MOUTH ONCE DAILY mg Tab SITagliptin Take 100 mg by 0 07/03/2018 Ac tive (JANUVIA) 100 MG mouth. tablet aspirin 81 MG Take 1 tablet 30 tablet 11 08/21/2019 08/20/2020 Active chewable tablet (81 mg total) by mouth daily. carvedilol (COREG) Take 1 tablet 60 tablet 08/20/20192020 Active 3.125 MG tablet (3.125 mg total) by mouth 2 (two) times daily. lisinopril Take 1 tablet 30 tablet 11 08/21/2019 08/20/2020 Act leydi (PRINIVIL,ZESTRIL) (2.5 mg total) 2.5 MG tablet by mouth daily. torsemide (DEMADEX) Take 1 tablet 30 tablet 11 08/21/201908/20 Active 10 MG tablet (10 mg total) by mouth daily. meclizine (ANTIVERT) Take 1 tablet 30 tablet 0 08/20/201908/21 12.5 mg tablet (12.5 mg total) by mouth 3 (three) times daily as needed for Dizziness for up to 10 days. pantoprazole Take 1 tablet 30 tablet 0 08/21/2019 09/20/2019 E xpired (PROTONIX) 40 MG (40 mg total) by tablet mouth daily for 30 days. tamsulosin (FLOMAX) Take 1 capsule 30 capsule 0 08/21/201908/2019 0.4 mg Cap 24 hr (0.4 mg total) capsule by mouth daily for 30 days. traMADol (ULTRAM) 50 Take 1 tablet 30 tablet 0 08/20/201908/21 mg tablet (50 mg total) by mouth every 6 (six) hours as needed for up to 10 days. Max Daily Amount: 200 mg Active Problems Problem Noted Date Cardiomyopathy 08/11/2019 CHF (congestive heart failure) 08/10/2019 Elevated troponin 08/10/2019 Acute kidney injury (nontraumatic) 08/10/2019 Fluid overload 08/10/2019 Hyperglycemia 08/10/2019 Pneumonia due to infectious organism 08/10/2019 Acute pulmonary edema 08/10/2019 Cardiogenic shock Acute respiratory failure with hypoxia Encounters Date Type Specialty Care Team Description 08/12/2019 Surgery Tripp Toure MD L CATH & PC I 08/11/2019 Outside Orders Lab [facility] 08/10/2019 Hospital Cardiology Lori Jones Acut e respiratory failure with hypoxia (HCC); - Encounter MD Cardiogenic shock (HCC); 08/20/2019 Gerard Morel, Acute on chronic combined systolic and diastolic heart failure (HCC); ANJANA (acute kidney injury) (HCC); [place] SOB (short ness of breath); MD Travis Acute kidney injury (nontraumatic) (HCC); Acute pulmonary edema (HCC); Acute systolic congestive heart failure (HCC); Ischemic cardio myopathy; Elevated tropon in; Other hypervole love; Hyperglycemia 08/10/2019 Travel 08/10/2019 Orders Only General Internal Medicine after 07/09/2019 Social History Tobacco Use Types Packs/Day Years Used Date Unknown If Ever Smoked Sex Assigned at Date Recorded Not on file Last Filed Vital Signs Vital Sign Reading Time Taken Comments Blood Pressure 120/55 08/20/2019 3:00 PM CLINICAL PROJECT COORDINATOR Pulse 87 08/20/2019 3:00 PM CLINICAL PROJECT COORDINATOR Temperature 36.3 C (97.3 F) 08/20/2019 3:00 PM CLINICAL PROJECT COORDINATOR Respiratory Rate 19 08/20/2019 3:00 PM CLINICAL PROJECT COORDINATOR Oxygen Saturation 98% 08/20/2019 3:00 PM CLINICAL PROJECT COORDINATOR Inhaled Oxygen Concentration 21% 08/18/2019 11:19 PM CLINICAL PROJECT COORDINATOR Weight 94.8 kg (209 lb) 08/20/2019 7:00 AM CLINICAL PROJECT COORDINATOR Height 165.1 cm (5' 5") 08/10/2019 8:19 AM CLINICAL PROJECT COORDINATOR Body Mass Index 34.78 08/10/2019 8:19 AM CLINICAL PROJECT COORDINATOR Plan of Treatment Health Maintenance Due Date Last Done Comments BREAST CANCER SCREENING 1965 COLON CANCER SCREENING COLONOSCOPY 1965 PNEUMOCOCCAL VACCINE 0-64 YRS (1 of 1 - PPSV23) 1969 CERVICAL CANCER SCREENING PAP ONLY (Age 21-65) 1984 INFLUENZA VACCINE (#1) 2020 LIPID PANEL 08/10/2022 08/10/2019 Procedures Procedure Name Priority Date/Time Associated Comments Diagnosis RHYTHM STRIP - SCAN 08/24/2019 4:01 PM CLINICAL PROJECT COORDINATOR REPORT OF PROCEDURE - 08/23/2019 12:30 ENDOSCOPY SCAN PM CLINICAL PROJECT COORDINATOR RHYTHM STRIP - SCAN 08/23/2019 12:30 PM CLINICAL PROJECT COORDINATOR VASCULAR DIAGRAM -SCAN 08/23/2019 12:30 PM CLINICAL PROJECT COORDINATOR CARDIAC CATH REPORT - 08/23/2019 12:30 SCAN PM CLINICAL PROJECT COORDINATOR POCT-GLUCOSE METER Routine 08/20/2019 6:01 Resul ts for this PM CLINICAL PROJECT COORDINATOR procedure are i n the results section. POCT-GLUCOSE METER Routine 08/20/2019 1:03 Resul ts for this PM CLINICAL PROJECT COORDINATOR procedure are i n the results section. POCT-GLUCOSE METER Routine 08/20/2019 8:02 Resul ts for this AM CLINICAL PROJECT COORDINATOR procedure are i n the results section. CBC W/PLT COUNT & AUTO Routine 08/20/2019 4:08 R esults for this DIFFERENTIAL AM CLINICAL PROJECT COORDINATOR procedure are i n the results section. CBC W/PLT COUNT & AUTO Routine 08/20/2019 4:08 R esults for this DIFFERENTIAL AM CLINICAL PROJECT COORDINATOR procedure are i n the results section. MAGNESIUM STAT 08/20/2019 4:08 Results for this AM CLINICAL PROJECT COORDINATOR procedure are i n the results section. BASIC METABOLIC PANEL STAT 08/20/2019 4:08 Re sults for this (7) AM CLINICAL PROJECT COORDINATOR procedure are i n the results section. POCT-GLUCOSE METER Routine 08/19/2019 10:23 Resul ts for this PM CLINICAL PROJECT COORDINATOR procedure are i n the results section. POCT-GLUCOSE METER Routine 08/19/2019 9:44 Resul ts for this PM CLINICAL PROJECT COORDINATOR procedure are i n the results section. POCT-GLUCOSE METER Routine 08/19/2019 7:53 Resul ts for this PM CLINICAL PROJECT COORDINATOR procedure are i n the results section. POCT-GLUCOSE METER Routine 08/19/2019 5:32 Resul ts for this PM CLINICAL PROJECT COORDINATOR procedure are i n the results section. POCT-GLUCOSE METER Routine 08/19/2019 4:51 Resul ts for this PM CLINICAL PROJECT COORDINATOR procedure are i n the results section. POCT-GLUCOSE METER Routine 08/19/2019 4:34 Resul ts for this PM CLINICAL PROJECT COORDINATOR procedure are i n the results section. VASCULAR DIAGRAM -SCAN 08/19/2019 3:41 PM CLINICAL PROJECT COORDINATOR POCT-GLUCOSE METER Routine 08/19/2019 1:07 Resul ts for this PM CLINICAL PROJECT COORDINATOR procedure are i n the results section. POCT-GLUCOSE METER Routine 08/19/2019 8:12 Resul ts for this AM CLINICAL PROJECT COORDINATOR procedure are i n the results section. CBC W/PLT COUNT & AUTO Routine 08/19/2019 3:24 R esults for this DIFFERENTIAL AM CLINICAL PROJECT COORDINATOR procedure are i n the results section. CBC W/PLT COUNT & AUTO Routine 08/19/2019 3:24 R esults for this DIFFERENTIAL AM CLINICAL PROJECT COORDINATOR procedure are i n the results section. MAGNESIUM STAT 08/19/2019 3:24 Results for this AM CLINICAL PROJECT COORDINATOR procedure are i n the results section. BASIC METABOLIC PANEL STAT 08/19/2019 3:24 Re sults for this (7) AM CLINICAL PROJECT COORDINATOR procedure are i n the results section. POCT-GLUCOSE METER Routine 08/18/2019 10:46 Resul ts for this PM CLINICAL PROJECT COORDINATOR procedure are i n the results section. POCT-GLUCOSE METER Routine 08/18/2019 10:13 Resul ts for this PM CLINICAL PROJECT COORDINATOR procedure are i n the results section. ECHOCARDIOGRAM REPORT - 08/18/2019 9:13 SCAN PM CLINICAL PROJECT COORDINATOR POCT-GLUCOSE METER Routine 08/18/2019 5:31 Resul ts for this PM CLINICAL PROJECT COORDINATOR procedure are i n the results section. LIMITED 2D Routine 08/18/2019 2:33 Results for this ECHOCARDIOGRAM PM CLINICAL PROJECT COORDINATOR procedure are in the results section. POCT-GLUCOSE METER Routine 08/18/2019 1:08 Resul ts for this PM CLINICAL PROJECT COORDINATOR procedure are i n the results section. POCT-GLUCOSE METER Routine 08/18/2019 7:20 Resul ts for this AM CLINICAL PROJECT COORDINATOR procedure are i n the results section. CALCIUM, IONIZED Routine 08/18/2019 4:30 Results for this AM CLINICAL PROJECT COORDINATOR procedure are i n the results section. PHOSPHORUS Routine 08/18/2019 4:30 Results for this AM CLINICAL PROJECT COORDINATOR procedure are i n the results section. MAGNESIUM Routine 08/18/2019 4:30 Results for this AM CLINICAL PROJECT COORDINATOR procedure are i n the results section. CBC (HEMOGRAM ONLY) Routine 08/18/2019 4:30 Resu lts for this AM CLINICAL PROJECT COORDINATOR procedure are i n the results section. BASIC METABOLIC PANEL Routine 08/18/2019 4:30 Re sults for this (7) AM CLINICAL PROJECT COORDINATOR procedure are i n the results section. POCT-GLUCOSE METER Routine 08/18/2019 12:13 Resul ts for this AM CLINICAL PROJECT COORDINATOR procedure are i n the results section. POCT-GLUCOSE METER Routine 08/17/2019 5:45 Resul ts for this PM CLINICAL PROJECT COORDINATOR procedure are i n the results section. MR CARDIAC WITHOUT & STAT 08/17/2019 1:46 Res ults for this WITH CONTRAST PM CLINICAL PROJECT COORDINATOR procedure are in the results section. POCT-GLUCOSE METER Routine 08/17/2019 11:51 Resul ts for this AM CLINICAL PROJECT COORDINATOR procedure are i n the results section. POCT-GLUCOSE METER Routine 08/17/2019 8:53 Resul ts for this AM CLINICAL PROJECT COORDINATOR procedure are i n the results section. XR CHEST 1 VIEW Routine 08/17/2019 4:28 Results for this PORTABLE/BEDSIDE AM CLINICAL PROJECT COORDINATOR procedure a re in the results section. CALCIUM, IONIZED Routine 08/17/2019 3:59 Results for this AM CLINICAL PROJECT COORDINATOR procedure are i n the results section. PHOSPHORUS Routine 08/17/2019 3:59 Results for this AM CLINICAL PROJECT COORDINATOR procedure are i n the results section. MAGNESIUM Routine 08/17/2019 3:59 Results for this AM CLINICAL PROJECT COORDINATOR procedure are i n the results section. CBC (HEMOGRAM ONLY) Routine 08/17/2019 3:59 Resu lts for this AM CLINICAL PROJECT COORDINATOR procedure are i n the results section. BASIC METABOLIC PANEL Routine 08/17/2019 3:59 Re sults for this (7) AM CLINICAL PROJECT COORDINATOR procedure are i n the results section. POCT-GLUCOSE METER Routine 08/17/2019 1:15 Resul ts for this AM CLINICAL PROJECT COORDINATOR procedure are i n the results section. POCT-GLUCOSE METER Routine 08/17/2019 12:34 Resul ts for this AM CLINICAL PROJECT COORDINATOR procedure are i n the results section. POCT-GLUCOSE METER Routine 08/16/2019 5:59 Resul ts for this PM CLINICAL PROJECT COORDINATOR procedure are i n the results section. POCT-GLUCOSE METER Routine 08/16/2019 11:49 Resul ts for this AM CLINICAL PROJECT COORDINATOR procedure are i n the results section. POCT-GLUCOSE METER Routine 08/16/2019 9:27 Resul ts for this AM CLINICAL PROJECT COORDINATOR procedure are i n the results section. CALCIUM, IONIZED Routine 08/16/2019 4:40 Results for this AM CLINICAL PROJECT COORDINATOR procedure are i n the results section. PHOSPHORUS Routine 08/16/2019 4:40 Results for this AM CLINICAL PROJECT COORDINATOR procedure are i n the results section. MAGNESIUM Routine 08/16/2019 4:40 Results for this AM CLINICAL PROJECT COORDINATOR procedure are i n the results section. CBC (HEMOGRAM ONLY) Routine 08/16/2019 4:40 Resu lts for this AM CLINICAL PROJECT COORDINATOR procedure are i n the results section. BASIC METABOLIC PANEL Routine 08/16/2019 4:40 Re sults for this (7) AM CLINICAL PROJECT COORDINATOR procedure are i n the results section. XR CHEST 1 VIEW Routine 08/16/2019 4:25 Results for this PORTABLE/BEDSIDE AM CLINICAL PROJECT COORDINATOR procedure a re in the results section. POCT-GLUCOSE METER Routine 08/15/2019 11:25 Resul ts for this PM CLINICAL PROJECT COORDINATOR procedure are i n the results section. POCT-GLUCOSE METER Routine 08/15/2019 5:39 Resul ts for this PM CLINICAL PROJECT COORDINATOR procedure are i n the results section. BASIC METABOLIC PANEL STAT 08/15/2019 5:16 Re sults for this (7) PM CLINICAL PROJECT COORDINATOR procedure are i n the results section. POCT-GLUCOSE METER Routine 08/15/2019 11:49 Resul ts for this AM CLINICAL PROJECT COORDINATOR procedure are i n the results section. POCT-GLUCOSE METER Routine 08/15/2019 7:55 Resul ts for this AM CLINICAL PROJECT COORDINATOR procedure are i n the results section. BLOOD GAS, ARTERIAL Routine 08/15/2019 3:56 Resu lts for this AM CLINICAL PROJECT COORDINATOR procedure are i n the results section. CALCIUM, IONIZED Routine 08/15/2019 3:56 Results for this AM CLINICAL PROJECT COORDINATOR procedure are i n the results section. PHOSPHORUS Routine 08/15/2019 3:56 Results for this AM CLINICAL PROJECT COORDINATOR procedure are i n the results section. MAGNESIUM Routine 08/15/2019 3:56 Results for this AM CLINICAL PROJECT COORDINATOR procedure are i n the results section. CBC (HEMOGRAM ONLY) Routine 08/15/2019 3:56 Resu lts for this AM CLINICAL PROJECT COORDINATOR procedure are i n the results section. BASIC METABOLIC PANEL Routine 08/15/2019 3:56 Re sults for this (7) AM CLINICAL PROJECT COORDINATOR procedure are i n the results section. XR CHEST 1 VIEW Routine 08/15/2019 2:04 Results for this PORTABLE/BEDSIDE AM CLINICAL PROJECT COORDINATOR procedure a re in the results section. POCT-GLUCOSE METER Routine 08/14/2019 11:13 Resul ts for this PM CLINICAL PROJECT COORDINATOR procedure are i n the results section. POCT-GLUCOSE METER Routine 08/14/2019 5:11 Resul ts for this PM CLINICAL PROJECT COORDINATOR procedure are i n the results section. POTASSIUM Routine 08/14/2019 4:02 Results for this PM CLINICAL PROJECT COORDINATOR procedure are i n the results section. POCT-GLUCOSE METER Routine 08/14/2019 11:48 Resul ts for this AM CLINICAL PROJECT COORDINATOR procedure are i n the results section. POCT-GLUCOSE METER Routine 08/14/2019 8:01 Resul ts for this AM CLINICAL PROJECT COORDINATOR procedure are i n the results section. PHOSPHORUS Routine 08/14/2019 6:55 Results for this AM CLINICAL PROJECT COORDINATOR procedure are i n the results section. MAGNESIUM Routine 08/14/2019 6:55 Results for this AM CLINICAL PROJECT COORDINATOR procedure are i n the results section. BASIC METABOLIC PANEL Routine 08/14/2019 6:55 Re sults for this (7) AM CLINICAL PROJECT COORDINATOR procedure are i n the results section. XR CHEST 1 VIEW Routine 08/14/2019 6:16 Results for this PORTABLE/BEDSIDE AM CLINICAL PROJECT COORDINATOR procedure a re in the results section. BLOOD GAS, ARTERIAL Routine 08/14/2019 2:46 Resu lts for this AM CLINICAL PROJECT COORDINATOR procedure are i n the results section. CALCIUM, IONIZED Routine 08/14/2019 2:46 Results for this AM CLINICAL PROJECT COORDINATOR procedure are i n the results section. CBC (HEMOGRAM ONLY) Routine 08/14/2019 2:46 Resu lts for this AM CLINICAL PROJECT COORDINATOR procedure are i n the results section. POCT-GLUCOSE METER Routine 08/13/2019 11:07 Resul ts for this PM CLINICAL PROJECT COORDINATOR procedure are i n the results section. POCT-GLUCOSE METER Routine 08/13/2019 6:14 Resul ts for this PM CLINICAL PROJECT COORDINATOR procedure are i n the results section. POCT-GLUCOSE METER Routine 08/13/2019 3:33 Resul ts for this PM CLINICAL PROJECT COORDINATOR procedure are i n the results section. ECG 12-LEAD Routine 08/13/2019 2:59 PM CLINICAL PROJECT COORDINATOR Procedure Note - Interface, External Ris In - 08/13/2019 2:03 PM CLINICAL PROJECT COORDINATOR Ventricular Rate 91 BPM Atrial Rate 91 BPM P-R Interval 170 ms QRS Duration 142 ms Q-T Interval 418 ms QTC Calculation(Bazett) 514 ms P [place] 48 degrees R [place] -21 degrees T [place] 158 degrees Normal sinus rhythm Possible Left atrial enlarge ment Left bundle branch block Abnormal ECG When compared with ECG of 07:52, T wave inversion no longer e vident in Inferior leads ECG 12-LEAD STAT 08/13/2019 2:59 Results for this PM CLINICAL PROJECT COORDINATOR procedure are i n the results section. BLOOD GAS, ARTERIAL Routine 08/13/2019 11:39 Resu lts for this AM CLINICAL PROJECT COORDINATOR procedure are i n the results section. CALCIUM, IONIZED Routine 08/13/2019 11:38 Results for this AM CLINICAL PROJECT COORDINATOR procedure are i n the results section. PHOSPHORUS Routine 08/13/2019 11:38 Results for this AM CLINICAL PROJECT COORDINATOR procedure are i n the results section. MAGNESIUM Routine 08/13/2019 11:38 Results for this AM CLINICAL PROJECT COORDINATOR procedure are i n the results section. POTASSIUM Routine 08/13/2019 11:38 Results for this AM CLINICAL PROJECT COORDINATOR procedure are i n the results section. POCT-GLUCOSE METER Routine 08/13/2019 10:53 Resul ts for this AM CLINICAL PROJECT COORDINATOR procedure are i n the results section. BLOOD GAS, ARTERIAL Routine 08/13/2019 8:39 Resu lts for this AM CLINICAL PROJECT COORDINATOR procedure are i n the results section. POCT-GLUCOSE METER Routine 08/13/2019 8:24 Resul ts for this AM CLINICAL PROJECT COORDINATOR procedure are i n the results section. XR CHEST 1 VIEW Routine 08/13/2019 4:46 Results for this PORTABLE/BEDSIDE AM CLINICAL PROJECT COORDINATOR procedure a re in the results section. BLOOD GAS, ARTERIAL Routine 08/13/2019 4:45 Resu lts for this AM CLINICAL PROJECT COORDINATOR procedure are i n the results section. CALCIUM, IONIZED Routine 08/13/2019 4:45 Results for this AM CLINICAL PROJECT COORDINATOR procedure are i n the results section. PHOSPHORUS Routine 08/13/2019 4:45 Results for this AM CLINICAL PROJECT COORDINATOR procedure are i n the results section. MAGNESIUM Routine 08/13/2019 4:45 Results for this AM CLINICAL PROJECT COORDINATOR procedure are i n the results section. CBC (HEMOGRAM ONLY) Routine 08/13/2019 4:45 Resu lts for this AM CLINICAL PROJECT COORDINATOR procedure are i n the results section. BASIC METABOLIC PANEL Routine 08/13/2019 4:45 Re sults for this (7) AM CLINICAL PROJECT COORDINATOR procedure are i n the results section. LACTIC ACID, VENOUS STAT 08/13/2019 4:45 Resu lts for this AM CLINICAL PROJECT COORDINATOR procedure are i n the results section. POCT-GLUCOSE METER Routine 08/13/2019 12:15 Resul ts for this AM CLINICAL PROJECT COORDINATOR procedure are i n the results section. POCT-GLUCOSE METER Routine 08/12/2019 11:00 Resul ts for this PM CLINICAL PROJECT COORDINATOR procedure are i n the results section. POCT-GLUCOSE METER Routine 08/12/2019 5:51 Resul ts for this PM CLINICAL PROJECT COORDINATOR procedure are i n the results section. L CATH & PCI 08/12/2019 2:19 Chest pain, PM CLINICAL PROJECT COORDINATOR unspecified type CALCIUM, IONIZED Routine 08/12/2019 12:45 Results for this PM CLINICAL PROJECT COORDINATOR procedure are i n the results section. PHOSPHORUS Routine 08/12/2019 12:45 Results for this PM CLINICAL PROJECT COORDINATOR procedure are i n the results section. POTASSIUM Routine 08/12/2019 12:45 Results for this PM CLINICAL PROJECT COORDINATOR procedure are i n the results section. MAGNESIUM Routine 08/12/2019 12:45 Results for this PM CLINICAL PROJECT COORDINATOR procedure are i n the results section. XR CHEST 1 VIEW Routine 08/12/2019 3:24 Results for this PORTABLE/BEDSIDE AM CLINICAL PROJECT COORDINATOR procedure a re in the results section. BLOOD GAS, ARTERIAL Routine 08/12/2019 3:08 Resu lts for this AM CLINICAL PROJECT COORDINATOR procedure are i n the results section. CALCIUM, IONIZED Routine 08/12/2019 3:08 Results for this AM CLINICAL PROJECT COORDINATOR procedure are i n the results section. PHOSPHORUS Routine 08/12/2019 3:08 Results for this AM CLINICAL PROJECT COORDINATOR procedure are i n the results section. MAGNESIUM Routine 08/12/2019 3:08 Results for this AM CLINICAL PROJECT COORDINATOR procedure are i n the results section. CBC (HEMOGRAM ONLY) Routine 08/12/2019 3:08 Resu lts for this AM CLINICAL PROJECT COORDINATOR procedure are i n the results section. BASIC METABOLIC PANEL Routine 08/12/2019 3:08 Re sults for this (7) AM CLINICAL PROJECT COORDINATOR procedure are i n the results section. POCT-GLUCOSE METER Routine 08/12/2019 12:01 Resul ts for this AM CLINICAL PROJECT COORDINATOR procedure are i n the results section. POCT-GLUCOSE METER Routine 08/11/2019 9:49 Resul ts for this PM CLINICAL PROJECT COORDINATOR procedure are i n the results section. TRANSFUSION SERVICE 08/11/2019 8:54 REPORT - SCAN PM CLINICAL PROJECT COORDINATOR BLOOD GAS, ARTERIAL STAT 08/11/2019 8:27 Resu lts for this PM CLINICAL PROJECT COORDINATOR procedure are i n the results section. HGB/HCT (H&H) - STAT STAT 08/11/2019 8:25 Res ults for this LAB PM CLINICAL PROJECT COORDINATOR procedure are i n the results section. GLUCOSE-STAT LAB STAT 08/11/2019 8:25 Results for this PM CLINICAL PROJECT COORDINATOR procedure are i n the results section. POTASSIUM-STAT LAB STAT 08/11/2019 8:25 Resul ts for this PM CLINICAL PROJECT COORDINATOR procedure are i n the results section. SODIUM NA-STAT LAB STAT 08/11/2019 8:25 Resul ts for this PM CLINICAL PROJECT COORDINATOR procedure are i n the results section. RRL CRITICAL LABS STAT 08/11/2019 8:25 Result s for this (ABG,NA,K,H&H,GLUCOSE) PM CLINICAL PROJECT COORDINATOR proce dure are in the results section. OXYGEN SATURATION, STAT 08/11/2019 8:22 Resul ts for this MEASURED PM CLINICAL PROJECT COORDINATOR procedure are i n the results section. POCT-GLUCOSE METER Routine 08/11/2019 5:06 Resul ts for this PM CLINICAL PROJECT COORDINATOR procedure are i n the results section. PHOSPHORUS Routine 08/11/2019 4:03 Results for this PM CLINICAL PROJECT COORDINATOR procedure are i n the results section. POTASSIUM Routine 08/11/2019 4:03 Results for this PM CLINICAL PROJECT COORDINATOR procedure are i n the results section. BLOOD GAS, ARTERIAL Routine 08/11/2019 1:15 Resu lts for this PM CLINICAL PROJECT COORDINATOR procedure are i n the results section. POCT-GLUCOSE METER Routine 08/11/2019 12:20 Resul ts for this PM CLINICAL PROJECT COORDINATOR procedure are i n the results section. MAGNESIUM Routine 08/11/2019 8:22 Results for this AM CLINICAL PROJECT COORDINATOR procedure are i n the results section. POTASSIUM Routine 08/11/2019 8:22 Results for this AM CLINICAL PROJECT COORDINATOR procedure are i n the results section. CALCIUM, IONIZED Routine 08/11/2019 7:11 Results for this AM CLINICAL PROJECT COORDINATOR procedure are i n the results section. POCT-GLUCOSE METER Routine 08/11/2019 5:47 Resul ts for this AM CLINICAL PROJECT COORDINATOR procedure are i n the results section. XR CHEST 1 VIEW Routine 08/11/2019 4:53 Results for this PORTABLE/BEDSIDE AM CLINICAL PROJECT COORDINATOR procedure a re in the results section. BLOOD GAS, ARTERIAL Routine 08/11/2019 4:50 Resu lts for this AM CLINICAL PROJECT COORDINATOR procedure are i n the results section. OXYGEN SATURATION, Routine 08/11/2019 4:50 Resul ts for this MEASURED AM CLINICAL PROJECT COORDINATOR procedure are i n the results section. TROPONIN I Routine 08/11/2019 4:49 Results for this AM CLINICAL PROJECT COORDINATOR procedure are i n the results section. PHOSPHORUS Routine 08/11/2019 4:49 Results for this AM CLINICAL PROJECT COORDINATOR procedure are i n the results section. MAGNESIUM Routine 08/11/2019 4:49 Results for this AM CLINICAL PROJECT COORDINATOR procedure are i n the results section. CBC (HEMOGRAM ONLY) Routine 08/11/2019 4:49 Resu lts for this AM CLINICAL PROJECT COORDINATOR procedure are i n the results section. BASIC METABOLIC PANEL Routine 08/11/2019 4:49 Re sults for this (7) AM CLINICAL PROJECT COORDINATOR procedure are i n the results section. POCT-GLUCOSE METER Routine 08/10/2019 11:53 Resul ts for this PM CLINICAL PROJECT COORDINATOR procedure are i n the results section. BLOOD GAS, ARTERIAL Routine 08/10/2019 11:16 Resu lts for this PM CLINICAL PROJECT COORDINATOR procedure are i n the results section. MAGNESIUM Routine 08/10/2019 11:15 Results for this PM CLINICAL PROJECT COORDINATOR procedure are i n the results section. CALCIUM, IONIZED Routine 08/10/2019 11:15 Results for this PM CLINICAL PROJECT COORDINATOR procedure are i n the results section. POTASSIUM Routine 08/10/2019 11:15 Results for this PM CLINICAL PROJECT COORDINATOR procedure are i n the results section. TROPONIN I Routine 08/10/2019 11:15 Results for this PM CLINICAL PROJECT COORDINATOR procedure are i n the results section. ECHOCARDIOGRAM REPORT - 08/10/2019 9:22 SCAN PM CLINICAL PROJECT COORDINATOR RESPIRATORY PANEL [facility] Routine 08/10/2019 8:01 R esults for this PM CLINICAL PROJECT COORDINATOR procedure are i n the results section. RAPID INFLUENZA A&B Routine 08/10/2019 8:01 Resu lts for this SCREEN PM CLINICAL PROJECT COORDINATOR procedure are i n the results section. BLOOD GAS, ARTERIAL Routine 08/10/2019 7:51 Resu lts for this PM CLINICAL PROJECT COORDINATOR procedure are i n the results section. OXYGEN SATURATION, Routine 08/10/2019 6:32 Resul ts for this MEASURED PM CLINICAL PROJECT COORDINATOR procedure are i n the results section. BLOOD GAS, ARTERIAL Routine 08/10/2019 6:32 Resu lts for this PM CLINICAL PROJECT COORDINATOR procedure are i n the results section. POTASSIUM Routine 08/10/2019 5:51 Results for this PM CLINICAL PROJECT COORDINATOR procedure are i n the results section. MAGNESIUM Routine 08/10/2019 5:51 Results for this PM CLINICAL PROJECT COORDINATOR procedure are i n the results section. TROPONIN I Routine 08/10/2019 5:51 Results for this PM CLINICAL PROJECT COORDINATOR procedure are i n the results section. POCT-GLUCOSE METER Routine 08/10/2019 5:37 Resul ts for this PM CLINICAL PROJECT COORDINATOR procedure are i n the results section. BLOOD GAS, ARTERIAL ÁNGEL 08/10/2019 2:32 Resu lts for this PM CLINICAL PROJECT COORDINATOR procedure are i n the results section. OXYGEN SATURATION, STAT 08/10/2019 2:32 Resul ts for this MEASURED PM CLINICAL PROJECT COORDINATOR procedure are i n the results section. XR CHEST 1 VIEW STAT 08/10/2019 2:22 Results for this PORTABLE/BEDSIDE PM CLINICAL PROJECT COORDINATOR procedure a re in the results section. MAGNESIUM Routine 08/10/2019 12:08 Results for this PM CLINICAL PROJECT COORDINATOR procedure are i n the results section. POCT-GLUCOSE METER Routine 08/10/2019 11:58 Resul ts for this AM CLINICAL PROJECT COORDINATOR procedure are i n the results section. BLOOD CULTURE Routine 08/10/2019 9:41 Results fo r this AM CLINICAL PROJECT COORDINATOR procedure are i n the results section. BLOOD CULTURE Routine 08/10/2019 9:34 Results fo r this AM CLINICAL PROJECT COORDINATOR procedure are i n the results section. URINALYSIS W/ REFLEX Routine 08/10/2019 9:24 Res ults for this URINE CULTURE AM CLINICAL PROJECT COORDINATOR procedure are in the results section. PROCALCITONIN STAT 08/10/2019 9:17 Results fo r this AM CLINICAL PROJECT COORDINATOR procedure are i n the results section. HEMOGLOBIN A1C Routine 08/10/2019 9:17 Results f or this AM CLINICAL PROJECT COORDINATOR procedure are i n the results section. TROPONIN I Routine 08/10/2019 9:17 Results for this AM CLINICAL PROJECT COORDINATOR procedure are i n the results section. ECG 12-LEAD Routine 08/10/2019 7:52 AM CLINICAL PROJECT COORDINATOR Procedure Note - Interface, External Ris In - 08/10/2019 6:55 AM CLINICAL PROJECT COORDINATOR Ventricular Rate 90 BPM Atrial Rate 90 BPM P-R Interval 170 ms QRS Duration 144 ms Q-T Interval 424 ms QTC Calculation(Bazett) 518 ms P [place] 67 degrees R [place] -8 degrees T [place] 247 degrees Normal sinus rhythm Left bundle branch block Abnormal ECG No previous ECGs available ECG 12-LEAD STAT 08/10/2019 7:52 AM CLINICAL PROJECT COORDINATOR Resu lts for this procedure are i n the results section . 2D ECHO W/ DOPPLER STAT 08/10/2019 7:38 AM CLINICAL PROJECT COORDINATOR Results for this (CW/PW/COLOR) procedure are in the results section . ABORH, MANUAL STAT 08/10/2019 7:32 AM CLINICAL PROJECT COORDINATOR Res ults for this procedure are i n the results section . BLOOD GAS, ARTERIAL STAT 08/10/2019 6:44 AM CLINICAL PROJECT COORDINATOR Results for this procedure are i n the results section . BRONCHIAL CULTURE + GRAM STAT 08/10/2019 6:42 AM CLINICAL PROJECT COORDINATOR Results for this STAIN procedure are i n the results section . (CELLAVISION MANUAL DIFF) STAT 08/10/2019 6:37 AM CLINICAL PROJECT COORDINATOR Results for this procedure are i n the results section . CBC W/PLT COUNT & AUTO STAT 08/10/2019 6:37 AM CLINICAL PROJECT COORDINATOR Results for this DIFFERENTIAL procedure are i n the results section . TYPE AND SCREEN, AUTOMATED STAT 08/10/2019 6:37 AM CLINICAL PROJECT COORDINATOR Results for this procedure are i n the results section . LACTIC ACID, ARTERIAL STAT 08/10/2019 6:37 AM CLINICAL PROJECT COORDINATOR Results for this procedure are i n the results section . CALCIUM, IONIZED STAT 08/10/2019 6:37 AM CLINICAL PROJECT COORDINATOR Results for this procedure are i n the results section . TROPONIN I STAT 08/10/2019 6:37 AM CLINICAL PROJECT COORDINATOR Resu lts for this procedure are i n the results section . LIPID PANEL STAT 08/10/2019 6:37 AM CLINICAL PROJECT COORDINATOR Resu lts for this procedure are i n the results section . CBC W/PLT COUNT & AUTO STAT 08/10/2019 6:37 AM CLINICAL PROJECT COORDINATOR Results for this DIFFERENTIAL procedure are i n the results section . FIBRINOGEN STAT 08/10/2019 6:37 AM CLINICAL PROJECT COORDINATOR Resu lts for this procedure are i n the results section . APTT STAT 08/10/2019 6:37 AM CLINICAL PROJECT COORDINATOR Resu lts for this procedure are i n the results section . PROTHROMBIN TIME/INR STAT 08/10/2019 6:37 AM CLINICAL PROJECT COORDINATOR Results for this procedure are i n the results section . PHOSPHORUS STAT 08/10/2019 6:37 AM CLINICAL PROJECT COORDINATOR Resu lts for this procedure are i n the results section . MAGNESIUM STAT 08/10/2019 6:37 AM CLINICAL PROJECT COORDINATOR Resu lts for this procedure are i n the results section . HEPATIC FUNCTION PANEL Routine 08/10/2019 6:37 AM CLINICAL PROJECT COORDINATOR Results for this procedure are i n the results section . COMPREHENSIVE METABOLIC Routine 08/10/2019 6:37 AM CLINICAL PROJECT COORDINATOR Results for this PANEL procedure are i n the results section . B-TYPE NATRIURETIC FACTOR Routine 08/10/2019 6:37 AM CLINICAL PROJECT COORDINATOR Results for this (BNP) procedure are i n the results section . XR ABDOMEN / KUB 1 VIEW STAT 08/10/2019 5:43 AM CLINICAL PROJECT COORDINATOR Results for this procedure are i n the results section . XR CHEST 1 VIEW STAT 08/10/2019 5:41 AM CLINICAL PROJECT COORDINATOR R esults for this PORTABLE/BEDSIDE procedure a re in the results section . MISCELLANEOUS LAB ORDER Routine 08/09/2019 2:47 PM CLINICAL PROJECT COORDINATOR after 07/09/2019 Results RHYTHM STRIP - SCAN (08/24/2019 4:01 PM CLINICAL PROJECT COORDINATOR)Only the most recent of2 results within the time period is included. Narrative Performed At This result has an attachment that is no t available. EKG-SCANNED (08/23/2019 12:30 PM CLINICAL PROJECT COORDINATOR) Narrative Performed At This result has an attachment that is no t available. VASCULAR DIAGRAM -SCAN (08/23/2019 12:30 PM CLINICAL PROJECT COORDINATOR)Only the most recent of2 results within the time period is included. Narrative Performed At This result has an attachment that is no t available. CARDIAC CATH REPORT - SCAN (08/23/2019 12:30 PM CLINICAL PROJECT COORDINATOR) Narrative Performed At This result has an attachment that is no t available. POC-Glucose meter (08/20/2019 6:01 PM CLINICAL PROJECT COORDINATOR)Only the most recent of49 results within the time period is included. POC-Glucose Meter 112 (H)Comment: 70 - 110 mg/dL [facility] : TESTED AT [facility] [address], [id number]: Line Patrolman/Technic martine ID = [id number] for CASSIE QUIROZ Specimen Blood Performing Organization Address City/State/Zipcode Phone Number [address] [address] CENTER CBC with platelet count + automated diff (08/20/2019 4:08 AM CLINICAL PROJECT COORDINATOR)Only the most recent of3 resultswithin the time period is included. Pathologist Sig nature WBC 11.9 (H) 3.5 - 10.5 [facility] K/L [facility] RBC 3.71 (L) 3.93 - 5.22 [facility] M/L [facility] Hemoglobin 9.4 (L) 11.2 - 15.7 [facility] GM/DL [facility] Hematocrit 29.6 (L) 34.1 - 44.9 % [facility] MCV 79.8 79.4 - 94.8 fL [facility] MCH 25.3 (L) 25.6 - 32.2 pg [facility] MCHC 31.8 (L) 32.2 - 35.5 [facility] GM/DL [facility] RDW 14.6 (H) 11.7 - 14.4 % [facility] Platelets 232 150 - 450 K/CU [facility] MPV 12.8 (H) 9.4 - 12.3 fL [facility] nRBC 0 0 - 0 /100 WBC [facility] % Neutros 56 % [facility] % Lymphs 30 % [facility] % Monos 8 % [facility] % Eos 3 % [facility] % Baso 1 % [facility] # Neutros 6.73 (H) 1.56 - 6.13 [facility] # Lymphs 3.56 1.18 - 3.74 [facility] # Monos 0.95 (H) 0.24 - 0.36 [facility] # Eos 0.40 (H) 0.04 - 0.36 [facility] # Baso 0.07 0.01 - 0.08 [facility] Immature 2 (H) 0 - 1 % [facility] Granulocytes-Relative [facility] Specimen Blood Performing Organization Address City/State/Zipcode Phone Number [facility] [address] [place] [address] CENTER Magnesium (08/20/2019 4:08 AM CLINICAL PROJECT COORDINATOR)Only the most recent of17 resultswithin the time period is included. Pathologist Sig nature Magnesium 1.9 1.6 - 2.6 mg/dL [facility] Specimen Blood Narrative Performed At Line Patrolman ID - CHEYENNE W [facility] Performing Organization Address City/[facility]/Zipcode Phone Number [facility] [address] [place] [address] CENTER Basic metabolic panel (08/20/2019 4:08 AM CLINICAL PROJECT COORDINATOR)Only the most recent of11 results within the time period is included. Sodium 141 136 - 145 meq/L [facility] Potassium 3.8 3.5 - 5.1 meq/L [facility] Chloride 104 98 - 107 meq/L [facility] CO2 30 (H) 22 - 29 meq/L [facility] BUN 24 (H) 7 - 21 mg/dL [facility] Creatinine 1.43 (H) 0.57 - 1.25 [facility] mg/dL [facility] Glucose 82 70 - 105 mg/dL [facility] Calcium 9.2 8.4 - 10.2 [facility] mg/dL [facility] EGFR 46Comment: ESTIMATED mL/min/1.73 sq [facility] GFR IS NOT m [facility] ACCURATE GREENWICH CREATININE CLEARANCE IN PREDICTING GLOMERULAR FILTRATION RATE. ESTIMATED GFR IS NOT APPLICABLE FOR DIALYSIS PATIENTS. Specimen Blood Narrative Performed At Line Patrolman ID - CHEYENNE W [facility] Performing Organization Address City/State/Zipcode Phone Number [facility] [address] [place] [address] CENTER ECHOCARDIOGRAM REPORT - SCAN (08/18/2019 9:13 PM CLINICAL PROJECT COORDINATOR) Narrative Performed At This result has an attachment that is no t available. Limited 2D Echocardiogram (08/18/2019 2:33 PM CLINICAL PROJECT COORDINATOR) Pathologist Sig nature Ejection Fraction [facility] ECHO HEARTLAB [facility]CK [facility] Specimen Narrative Performed At Transthoracic Echocardiography Report (T TE) [facility] ECHO HEARTLAB [facility] Demographics Patient Name RATNA AMBROCIO Date of Study 08/18/2019 JUSTIN Gender Female Visit Number [id number] Race Black Room Number C826 Number Date of 1965 Referring Physician Tripp Toure MD Age 54 year(s) Outcome Analyst Ana Blanton, [facility] Riding Teacher Lisa Gant [facility] Interpreting Oumou Branch MD Procedure Type of Study TTE procedure:LIMITED 2D ECHOCARDIOGRAM (Routine) Indications:Known or suspected heart carson lure. Clinical History Pericardial effusion, CHF, Cardiogenic shock, Acute respiratory failure w/ hypoxia, Elevated troponin, ANJANA, Fluid overload, PNA, Acute pulmonary edema, CMP, L cath/PCI 08/12/19 HGB 9.0 HCT 29.2 % Height: 66 inches Weight: 98.88 kg (218 lbs) BSA: 2.07 m^2 BMI: 35.19 kg/m^2 HR: 76 bpm BP: 116/62 mmHg Summary 1. LV is moderately enlarged. All segments are hypokinetic. Estimated LVEF by qualitative assessment is aaogaylr-td-whbvqhxj reduced (30%) . 2. A small to moderate pericardial effusion is present . Greatest. 1.2 cm. 3. RV chamber size is normal . Global RV systolic function is normal . Previous Study Compared to the study on 08/10/2019 the LV systolic function has slightly improved. The pericardial effusion is slightly better. Signature Findings Technical Quality: Technically adequate exam. Left Ventricle Limited 2D exam and Doppler exam to address study indication. The left ventricle is chamber size (by PSLAX dimension) is moderately enlarged (femal e - LVIDd 5.7-6.1cm) . No evidence of LV hypertrop hy. Estimated LVEF by qualitative assessment is mowidlmem-pf-mvdentvw reduced (30%) . All of the LV segments are moderately hypokinetic . Left Atrium LA size is normal (16-34 ml/m2) . Right Ventricle RV chamber size is normal . Global RV systolic function is normal . Right Atrium RA size is normal. Aortic Valve Normal AoV structure. Mitral Valve Mild MV leaflet thickening. Tricuspid Valve TV structure is normal. Pulmonic Valve PV is partially visualized. Aorta Aortic root size (SInus of Valsalva diameter) is norm al . Pericardium A small to moderate pericardial effusion is present . Greatest pericardial end-diastolic size is approx . 1.2 cm. Pericardial tamponade physiology is not evident . IVC/SVC/PA/PV/Pleural The estimated RA pressure by IVC dynamics 5-10mmHg . Chambers/Structures Left Atrium LA Volume: 53 ml LA Vol. Index: 26 ml/m^2 Left Ventricle LVIDd: 5.92 cm LVIDs: 4.74 cm LV Septum Diastolic: 0.8 cm LV PW Diastolic: 0.82 cm LV FS: 19.9 % LVOT Diameter: 1.84 cm Aorta Ao Root S of Jenn.: 3.05 cm Doppler/Quantitative Measurements LVOT LVOT Diameter: 1.84 cm LVOT Area: 2.66 cm^2 Procedure Note Interface, External Ris In - 08/18/2019 5:23 PM CLINICAL PROJECT COORDINATOR Transthoracic Echocardiography Report (TTE) Demographics Patient Name RATNA AMBROCIO Date of Study 08/18/2019 JUSTIN Gende r Female Visit Number [id number] Race Black Room Number [id number] Number Date of 1965 Refer ring Physician Tripp Toure MD Age 54 year(s) Sonog rapher Ana Blanton, [facility] Riding Teacher Lisa Gant, [facility] Inter preting Oumou Branch MD Procedure Type of Study TTE procedure:LIMITED 2D ECHO CARDIOGRAM (Routine) Indications:Known or suspected heart carson lure. Clinical History Pericardial effusion, CHF, Cardiogenic s hock, Acute respiratory failure w/ hypoxia, Elevated troponin, ANJANA, Fluid o verload, PNA, Acute pulmonary edema, CMP, L cath/PCI 08/12/19 HGB 9.0 HCT 29.2 % Height: 66 inches Weight: 98.88 kg (218 lbs) BSA: 2.07 m^2 BMI: 35.19 kg/m^2 HR: 76 bpm BP: 116/62 mmHg Summary 1. LV is moderately enlarged. All segme nts are hypokinetic. Estimated LVEF by qualitative assessmen t is vyhajfio-ay-oqdtkwlq reduced (30%) . 2. A small to moderate pericardial effu jessica is present . Greatest. 1.2 cm. 3. RV chamber size is normal . Global R V systolic function is normal . Previous Study Compared to the study on 08/10/2019 the LV systolic function has slightly improved. The pericardial effusion is s lightly better. Signature Findings Technical Quality: Technically adequate exam. Left Ventricle Limited 2D exam and Doppler exam to address study indication. The left ventricle is chamber size (by PSLAX dimension) is moderately enlarged (female - LVIDd 5.7-6.1cm) . No evidence of LV hypertrophy. Estimated LVEF b y qualitative assessment is bxelkrpsz-mq-hqf erely reduced (30%) . All of the LV segments are mod erately hypokinetic . Left Atrium LA size is bairon l (16-34 ml/m2) . Right Ventricle RV chamber size is normal . Global RV systol ic function is normal . Right Atrium RA size is bairon l. Aortic Valve Normal AoV struc ture. Mitral Valve Mild MV leaflet thickening. Tricuspid Valve TV structure is normal. Pulmonic Valve PV is partially visualized. Aorta Aortic root size (SInus of Valsalva diameter) is normal . Pericardium A small to moder ate pericardial effusion is present . Greatest pericar dial end-diastolic size is approx. 1.2 cm. Pericardial tamp onade physiology is not evident . IVC/SVC/PA/PV/Pleural The estimated RA pressure by IVC dynamics 5-10mmHg . Chambers/Structures Left Atrium LA Volume: 53 ml LA Vol. Index: 26 ml/m^2 Left Ventricle LVIDd: 5.92 cm LVIDs: 4.74 cm LV Septum Diastolic: 0.8 cm LV PW Diastolic: 0.82 cm LV FS: 19.9 % LVOT Diameter: 1.84 cm Aorta Ao Root S of Jenn.: 3.05 cm Doppler/Quantitative Measurements LVOT LVOT Diameter: 1.84 cm LVOT Area: 2.66 cm^2 Performing Organization Address City/State/Zipcode Phone Number [facility] [employer] [facility]ART[facility]ON [facility] Calcium, Ionized (08/18/2019 4:30 AM CLINICAL PROJECT COORDINATOR)Only the most recent of12 results within the time period is included. Pathologist Sig nature Calcium, Ion 1.07 (L) 1.12 - 1.27 mmol/L [facility] pH, Blood 7.54 [facility] Specimen Blood Performing Organization Address City/State/Zipcode Phone Number [facility] [address] [place] [address] CENTER CBC (Hemogram only) (08/18/2019 4:30 AM CLINICAL PROJECT COORDINATOR)Only the most recent of8 results within the time period is included. Pathologist Sig nature WBC 10.7 (H) 3.5 - 10.5 K/L [facility] RBC 3.57 (L) 3.93 - 5.22 M/L [facility] Hemoglobin 9.0 (L) 11.2 - 15.7 GM/DL [facility] Hematocrit 29.2 (L) 34.1 - 44.9 % [facility] MCV 81.8 79.4 - 94.8 fL [facility] MCH 25.2 (L) 25.6 - 32.2 pg [facility] MCHC 30.8 (L) 32.2 - 35.5 GM/DL [facility] RDW 14.6 (H) 11.7 - 14.4 % [facility] Platelets 136 (L) 150 - 450 K/CU MM [facility] MPV 13.0 (H) 9.4 - 12.3 fL [facility] nRBC 0 0 - 0 /100 WBC [facility] Specimen Blood Performing Organization Address City/State/Zipcode Phone Number [facility] [address] [place] [address] CENTER Phosphorus (08/18/2019 4:30 AM CLINICAL PROJECT COORDINATOR)Only the most recent of12 resultswithin the time period is included. Pathologist Sig nature Phosphorus 3.0 2.3 - 4.7 mg/dL [facility] Specimen Blood Narrative Performed At Line Patrolman ID - JEANA Derrick [facility] Performing Organization Address City/State/Zipcode Phone Number [facility] [address] [place] [address] CENTER MR cardiac without & with IV contrast (08/17/2019 1:46 PM CLINICAL PROJECT COORDINATOR) Specimen Narrative Performed At FINAL REPORT [facility] MRI - Chest: 08/17/2019 1:47 PM. Comparison: None available. Clinical History: 54 years old Female with echocardiographic evidence of left ventricular systolic dy sfunction. Indication: This study is performed to assess myocardial damage, viability, and to quantitate left ventri cular and valvular function. Technique: Leny Achieva 1.5 Anya [facility] scanner. * Turbo spin echo and gradient echo imag ing for anatomic definition. * Dynamic cine imaging for cardiac chamb er, wall-motion, and valvular analysis. * Flow quantification sequences for hemo dynamics. * Navigator-gated, whole-heart coronary MRA sequence for cardiac chamber anatomy and coronary artery orig ins. * T2 weighted STIR imaging (with triple IR preparation) for edema analysis. * Delayed gadolinium-enhancement analysi s (inversion recovery gradient echo sequence) after injection of gadolinium-chelate (15 cc of gadobutrol ). RESULT: Potential study limitations: None. CHEST: The chest wall is unremarkable. The me diastinum appears normal. No significant adenopathy is identified. This study was not optimized to assess the lungs however, limited leola ging reveals no gross abnormalities. The main pulmonary artery is enlarged (m ain PA: 3.4 cm). There is moderate to severe pericardial effusion, predominantly along the lateral wall of the left ventricle VASCULAR: The aortic root is symmetric and normal in dimension. The sinotubular junction is preserved. The ascending thoracic aorta and aortic arch: Normal in course, caliber and contour. The arch vessel b ranching pattern demonstrates a common trunk of the innominate and lef t common carotid artery. The imaged arch branch vessels are patent pr oximally. The descending thoracic aorta: Normal in course, caliber and contour. There is no acute aortic pathology, such as dissection, intramural hematoma, or contained rupture. CARDIAC CHAMBERS: The cardiac chambers have normal atriove ntricular and ventriculoarterial concordance, as well as normal systemic and pulmonary venous return. Normal interatr ial septum The interventricular septum appears intact. The cardiac chamber sizes are mild left atrial and moderate left v entricular enlargement. Left Ventricle: The left ventricle is moderately enlarge d, and has moderately reduced systolic function. The left ventricular myocardium is normal in thickness. Quantitative left ventricular functional values are as follows: EDV = 228 cc (normal 88-168 cc); EDVi = 109 cc/m2 (normal 57-92 cc/m2). ESV = 155 cc (normal 23-60 cc); ESVi = 74 cc/m2 (normal 15-34 cc/m2). Stroke volume = 74 cc (normal 58-114 cc) ; SVi = 35 cc/m2 (normal 38-63 cc/m2). LVEF = 32 % (normal 55-75%). Cardiac Output = 6.0 l/min.; Cardiac I ndex = 2.9 l/min/m2. LV mass = 160 gm (normal 72-144 cc); LVMi = 77 gm/m2 (normal 48-77 gm/m2). There is no focal/circumferential increa sed myocardial signal intensity on T2 STIR imaging to suggest myocardial inflammation or edema. Delayed-enhancement imaging reveals unif ormly "nulled" myocardium, signifying that there has been no prior ischemic myocardial damage. There is also no definite evidence of in terstitial fibrosis to suggest an infiltrative process. No mural or apical left ventricular thro mbus is identified. Right ventricle: The right ventricle is normal in size an d shape, and has normal systolic function. Quantitative right ve ntricular functional values are as follows: EDV = 118 cc (normal 84-168 cc); EDVi = 57 cc/m2 (normal 55-92 cc/m2). ESV = 54 cc (normal 17-69 cc); ESVi = 26 cc/m2 (normal 12-38 cc/m2). Stroke volume = 64 cc (normal 57-108 cc) ; SVi = 81 cc/m2 (normal 36-60 cc/m2). RVEF = 54 % (normal 54-78%). VALVES: The mitral valve is mildly thickened. Th ere is trivial mitral regurgitation. Integrating LV volumetric and aortic josafat w quantification data reveals: *Quantitative mitral regurgitant volume: 13 cc/beat *Quantitative mitral regurgitant fractio n: 18 % The aortic valve is structurally normal. There is no aortic regurgitation. Flow quantification through the ascendin g aorta: *Forward volume: 61 cc/beat *Reverse volume: 1 cc/beat *Net forward volume: 60 cc/beat *Aortic regurgitant fraction: 2 % The tricuspid valve is structurally norm al. There is trivial tricuspid regurgitation. Flow quantification sequences through th e SVC and right upper lobe pulmonary vein reveal abnormal flow adrian erns consistent with normal right and elevated left atrial pressures . ABDOMEN: Limited imaging through the upper abdome n reveals no abnormalities of the imaged organs. IMPRESSION: The constellation of finding s is most suggestive of a dilated, non-ischemic cardiomyopathy. 1. Normal left ventricular size with m oderately reduced global systolic function (LVEF: 32%, LVEDVi: 10 9 cc/m2). No discrete myocardial fibrosis on delayed-enhanceme nt imaging to suggest an infiltrative process or prior ischemic i njury. 2. Normal right ventricular size and sys tolic function, (RVEF: 54%; LVEDVi: 57 cc/m2). 3. No significant valvular abnormalities . 4. There is moderate to severe pericardi al effusion, predominantly along the lateral wall of the left ventr icle. No evidence of tamponade physiology noted. Signed: Lino Carrasquillo MD Report Verified Date/Time: 08/17/2019 19:05:37 Procedure Note Interface, External Ris In - 08/17/2019 7:07 PM CLINICAL PROJECT COORDINATOR FINAL REPORT Cardiovascular MRI - Chest: 08/17/2019 1 :47 PM. Comparison: None available. Clinical History: 54 years old Female w ith echocardiographic evidence of left ventricular systolic dy sfunction. Indication: This study is performed to assess myocardial damage, viability, and to quantitate left ventri cular and valvular function. Technique: Leny Achieva 1.5 Anya MR I scanner. * Turbo spin echo and gradient echo imag ing for anatomic definition. * Dynamic cine imaging for cardiac chamb er, wall-motion, and valvular analysis. * Flow quantification sequences for hemo dynamics. * Navigator-gated, whole-heart coronary MRA sequence for cardiac chamber anatomy and coronary artery orig ins. * T2 weighted STIR imaging (with triple IR preparation) for edema analysis. * Delayed gadolinium-enhancement analysi s (inversion recovery gradient echo sequence) after injection of gadolinium-chelate (15 cc of gadobutrol ). RESULT: Potential study limitations: None. CHEST: The chest wall is unremarkable. The med iastinum appears normal. No significant adenopathy is identified. T his study was not optimized to assess the lungs however, limited leola ging reveals no gross abnormalities. The main pulmonary artery is enlarged (m ain PA: 3.4 cm). There is moderate to severe pericardial effusion, predominantly along the lateral wall of the left ventricle VASCULAR: The aortic root is symmetric and normal in dimension. The sinotubular junction is preserved. The ascending thoracic aorta and aortic arch: Normal in course, caliber and contour. The arch vessel br anching pattern demonstrates a common trunk of the innominate and lef t common carotid artery. The imaged arch branch vessels are patent pr oximally. The descending thoracic aorta: Normal i n course, caliber and contour. There is no acute aortic pathology, such as dissection, intramural hematoma, or contained rupture. CARDIAC CHAMBERS: The cardiac chambers have normal atriove ntricular and ventriculoarterial concordance, as well as normal systemic and pulmonary venous return. Normal interatr ial septum The interventricular septum appears intact. The cardiac chamber sizes are mild left atrial and moderate left v entricular enlargement. Left Ventricle: The left ventricle is moderately enlarge d, and has moderately reduced systolic function. The left ventricular myocardium is normal in thickness. Quantitative left ventricular functional values are as follows: EDV = 228 cc (normal 88-168 cc); EDVi = 109 cc/m2 (normal 57-92 cc/m2). ESV = 155 cc (normal 23-60 cc); ESVi = 74 cc/m2 (normal 15-34 cc/m2). Stroke volume = 74 cc (normal 58-114 cc) ; SVi = 35 cc/m2 (normal 38-63 cc/m2). LVEF = 32 % (normal 55-75%). Cardiac Output = 6.0 l/min.; Cardiac In dex = 2.9 l/min/m2. LV mass = 160 gm (normal 72-144 cc); L VMi = 77 gm/m2 (normal 48-77 gm/m2). There is no focal/circumferential increa sed myocardial signal intensity on T2 STIR imaging to suggest myocardial inflammation or edema. Delayed-enhancement imaging reveals unif ormly "nulled" myocardium, signifying that there has been no prior ischemic myocardial damage. There is also no definite evidence of in terstitial fibrosis to suggest an infiltrative process. No mural or apical left ventricular thro mbus is identified. Right ventricle: The right ventricle is normal in size an d shape, and has normal systolic function. Quantitative right ve ntricular functional values are as follows: EDV = 118 cc (normal 84-168 cc); EDVi = 57 cc/m2 (normal 55-92 cc/m2). ESV = 54 cc (normal 17-69 cc); ESVi = 26 cc/m2 (normal 12-38 cc/m2). Stroke volume = 64 cc (normal 57-108 cc) ; SVi = 81 cc/m2 (normal 36-60 cc/m2). RVEF = 54 % (normal 54-78%). VALVES: The mitral valve is mildly thickened. Th ere is trivial mitral regurgitation. Integrating LV volumetric and aortic josafat w quantification data reveals: *Quantitative mitral regurgitant volume: 13 cc/beat *Quantitative mitral regurgitant fractio n: 18 % The aortic valve is structurally normal. There is no aortic regurgitation. Flow quantification through the ascendin g aorta: *Forward volume: 61 cc/beat *Reverse volume: 1 cc/beat *Net forward volume: 60 cc/beat *Aortic regurgitant fraction: 2 % The tricuspid valve is structurally norm al. There is trivial tricuspid regurgitation. Flow quantification sequences through th e SVC and right upper lobe pulmonary vein reveal abnormal flow adrian erns consistent with normal right and elevated left atrial pressures . ABDOMEN: Limited imaging through the upper abdome n reveals no abnormalities of the imaged organs. IMPRESSION: The constellation of finding s is most suggestive of a dilated, non-ischemic cardiomyopathy. 1. Normal left ventricular size with mo derately reduced global systolic function (LVEF: 32%, LVEDVi: 10 9 cc/m2). No discrete myocardial fibrosis on delayed-enhanceme nt imaging to suggest an infiltrative process or prior ischemic i njury. 2. Normal right ventricular size and sys tolic function, (RVEF: 54%; LVEDVi: 57 cc/m2). 3. No significant valvular abnormalities . 4. There is moderate to severe pericardi al effusion, predominantly along the lateral wall of the left ventr icle. No evidence of tamponade physiology noted. Signed: Lino Carrasquillo MD Report Verified Date/Time: 08/17/2019 1 9:05:37 Performing Organization Address City/State/Zipcode Phone Number [facility] XR chest 1 view portable / bedside (08/17/2019 4:28 AM CLINICAL PROJECT COORDINATOR)Only the most recent of9 resultswithin the time period is included. Specimen Narrative Performed At FINAL REPORT [facility] RAD, CHEST, 1 VIEW, NON DEPT INDICATION: Atelectasis COMPARISON: Prior day's exam FINDINGS: Portable frontal view of the c hest. IMPRESSION: Support Lines: None. Lungs and pleura: Interstitial congestio n is more prominent in the current examination, likely differences in technique. No pneumothorax. Heart and mediastinum: Stable enlargemen t of the cardiac silhouette. Additional findings: None. Signed: JR Mohr Robert MD Report Verified Date/Time: 08/17/2019 07:08:44 Reading Location: [employer] Reading Room Procedure Note Interface, External Ris In - 08/17/2019 7:11 AM CLINICAL PROJECT COORDINATOR FINAL REPORT RAD, CHEST, 1 VIEW, NON DEPT INDICATION: Atelectasis COMPARISON: Prior day's exam FINDINGS: Portable frontal view of the c hest. IMPRESSION: Support Lines: None. Lungs and pleura: Interstitial congestio n is more prominent in the current examination, likely differences in technique. No pneumothorax. Heart and mediastinum: Stable enlargemen t of the cardiac silhouette. Additional findings: None. Signed: JR Mohr Robert MD Report Verified Date/Time: 08/17/2019 0 7:08:44 Reading Location: [employer] Reading Room Performing Organization Address City/State/Zipcode Phone Number [facility] Blood gas, arterial (08/15/2019 3:56 AM CLINICAL PROJECT COORDINATOR)Only the most recent of14 results within the time period is included. Pathologist Sig nature pH, Arterial 7.42 7.35 - 7.45 [facility] pCO2, Arterial 44 35 - 45 mmHg [facility] pO2, Arterial 78 (L) 80 - 90 mmHg [facility] O2 Sat, Arterial 95.1 (L) 96.0 - 97.0 % [facility] HCO3, Arterial 28 21 - 29 mmol/L [facility] Base Excess, Arterial 3.0 -2.0 - 3.0 [facility] mmol/L [facility] Patient Temperature 38.0 C [facility] FIO2 21.0 % [facility] Specimen Blood, Arterial Performing Organization Address City/[facility]/Zipcode Phone Number [facility] [address] [place] [address] CENTER Potassium (08/14/2019 4:02 PM CLINICAL PROJECT COORDINATOR)Only the most recent of7 resultswithin the time period is included. Pathologist Sig nature Potassium 4.1Comment: Specimen 3.5 - 5.1 meq/L [facility] slightly hemolyzed [facility] Specimen Blood Narrative Performed At Line Patrolman ID - JEANA Meza [facility] Performing Organization Address [facility] CentercoMobiTX Phone Number [facility] [address] [place] [address] [place] ECG 12 lead (08/13/2019 2:59 PM CLINICAL PROJECT COORDINATOR)Only the most recent of2 resultswithin the time period is included. Specimen Narrative Performed At Ventricular Rate 91 BPM GE MUSE Atrial Rate 91 BPM P-R Interval 170 ms QRS Duration 142 ms Q-T Interval 418 ms QTC Calculation(Bazett) 514 ms P [place] 48 degrees R [place] -21 degrees T [place] 158 degrees Normal sinus rhythm Left atrial enlargement Left bundle branch block Abnormal ECG When compared with ECG of 10-AUG-2019 07 :52, T wave inversion no longer evident in In ferior leads Confirmed by MD Patel Roberto ([id number]) on 08/14 11:48:21 AM Procedure Note Interface, External Ris In - 08/14/2019 11:48 AM CLINICAL PROJECT COORDINATOR Ventricular Rate 91 BPM Atrial Rate 91 BPM P-R Interval 170 ms QRS Duration 142 ms Q-T Interval 418 ms QTC Calculation(Bazett) 514 ms P [place] 48 degrees R [place] -21 degrees T [place] 158 degrees Normal sinus rhythm Left atrial enlargement Left bundle branch block Abnormal ECG When compared with ECG of 10-AUG-2019 07 :52, T wave inversion no longer evident in In ferior leads Confirmed by MD Patel Roberto ([id number]) on 08/14/2019 11:48:21 AM Performing Organization Address City/[facility]/Zipcode Phone Number [employer] MUSE Lactic acid, venous (08/13/2019 4:45 AM CLINICAL PROJECT COORDINATOR) Pathologist Sig [facility] Lactate, Venous 0.8 0.5 - 2.2 mmol/L [facility] Specimen Blood Narrative Performed At Line Patrolman KESHA Meza [facility] Performing Organization Address [facility] Cent[facility]oid Phone Number [address] [address] [place] TRANSFUSION SERVICE REPORT - SCAN (08/11/2019 8:54 PM CLINICAL PROJECT COORDINATOR) Narrative Performed At This result has an attachment that is no t available. Potassium-Stat Lab (08/11/2019 8:25 PM CLINICAL PROJECT COORDINATOR) Pathologist Sig [facility] Potassium 4.0 3.6 - 5.5 meq/L [facility] Specimen Blood, Arterial Performing Organization Address [facility] Cent[facility]oid Phone Number [address] [address] [place] Sodium Na-Stat Lab (08/11/2019 8:25 PM CLINICAL PROJECT COORDINATOR) Pathologist Sig [facility] Sodium 141 135 - 148 meq/L [facility] Specimen Blood, Arterial Performing Organization Address [facility] Centercoid Phone Number [address] [address] [place] Glucose-Stat Lab (08/11/2019 8:25 PM CLINICAL PROJECT COORDINATOR) Pathologist Sig nature Glucose 212 (H) 70 - 110 mg/dL [facility] Specimen Blood, Arterial Performing Organization Address City/[facility] Centercode Phone Number [address] [address] [place] HGB/HCT (H&H)-Stat Lab (08/11/2019 8:25 PM CLINICAL PROJECT COORDINATOR) Pathologist Sig nature Hemoglobin 11.1 (L) 12.0 - 15.0 g/dL [facility] Hematocrit 33.0 (L) 36.0 - 45.0 % [facility] Specimen Blood, Arterial Performing Organization Address [facility]/Zipcode Phone Number [address] [address] [place] Oxygen saturation, measured (08/11/2019 8:22 PM CLINICAL PROJECT COORDINATOR)Only the most recent of4 resultswithin the time period is included. Pathologist Sig nature O2 Saturation (Measured) 59.9 % [facility] Specimen Blood Performing Organization Address [facility] Centercode Phone Number [address] [phone] [place] Troponin I (08/11/2019 4:49 AM CLINICAL PROJECT COORDINATOR)Only the most recent of5 resultswithin the time period is included. Pathologist Sig nature Troponin I 0.17 (H) 0.00 - 0.03 ng/mL [facility] Specimen Blood Narrative Performed At Troponin I (TnI) levels must be interpreted [facility] in the context of the presenting symptoms and the clinical findings. Elevated TnI levels indicate myocardial damage, but are not specific for ischemic heart disease. Elevated TnI levels are seen in patients with other cardiac conditions (including myocarditis and congestive heart failure), and slight TnI elevations occur in patients with other conditions, including sepsis, renal failure, acidosis, acute neurological disease, and persistent tachyarrhythmia. Line Patrolman ID - JEANA M Performing Organization Address [facility] Centercode Phone Number [address] [address] [place] ECHOCARDIOGRAM REPORT - SCAN (08/10/2019 9:22 PM CLINICAL PROJECT COORDINATOR) Narrative Performed At This result has an attachment that is no t available. Respiratory Panel [facility] (08/10/2019 8:01 PM CLINICAL PROJECT COORDINATOR) Human Metapneumovirus Not detected Not detected, [facility] Rhinovirus Not detected Not detected, [facility] Influenza A Not detected Not detected, [facility] INFLUENZA A (NO [facility]) [facility] Influenza A subtype H1 [facility] Influenza A Subtype H3 [facility] Influenza A Subtype [facility] H1-2009 [facility] Influenza B Not detected Not detected, [facility] Respiratory Syncytial Not detected Not detected, [facility] Virus [facility] Parainfluenza Virus 1 Not detected Not detected, [facility] Parainfluenza Virus 2 Not detected Not detected, [facility] Parainfluenza virus 3 Not detected Not detected, [facility] Parainfluenza Virus 4 Not detected Not detected, [facility] Adenovirus Not detected Not detected, [facility] Coronavirus 229E Not detected Not detected, [facility] Coronavirus HKU1 Not detected Not detected, [facility] Coronavirus NL63 Not detected Not detected, [facility] Coronavirus OC43 Not detected Not detected, [facility] Bordetella Pertussis Not detected Not detected, [facility] Chlamydophila Not detected Not detected, [facility] Pneumoniae [facility] Mycoplasma Pneumoniae Not detected Not detected, [facility] Specimen Nasopharyngeal - Nasopharyngeal wall str ucture (body structure) Narrative Performed At Other viruses and bacteria not targeted by [facility] this PCR panel cannot be excluded; therefore clinical correlation and follow up of serology, culture results, and other molecular studies is required. The results are not intended to be used as the sole means for clinical diagnosis or patient management decisions. This sample was tested at the [facility] using the SeesawArray Respiratory Panel. It is FDA cleared and has been verified and approved by the [facility] for clinical use on nasopharyngeal swab specimens. The performance of the FilmArray RP has not been established in individuals who received influenza vaccine. Recent administration of a nasal influenza vaccine may cause false positive results for Influenza A and/or Influenza B. Performing Organization Address [facility]/Zipcode Phone Number [address] [address] [place] Rapid Influenza A&B Screen (08/10/2019 8:01 PM CLINICAL PROJECT COORDINATOR) Rapid Influenza A Negative Negative, [facility] Antigen Inconclusive [facility] Rapid influenza B Negative Negative, [facility] Antigen Inconclusive [facility] Specimen Nasal - Nasopharyngeal wall structure (b doyle structure) Performing Organization Address [facility]/Zipcode Phone Number [address] [address] [place] Blood Culture - Routine (Right Venipuncture) (08/10/2019 9:41 AM CLINICAL PROJECT COORDINATOR)Only the most recent of2 resultswithin the time period is included. Pathologist Sig nature Result No growth in 5 days [facility] Specimen Blood - Entire right upper arm (body str ucture) Performing Organization Address [facility] Centercode Phone Number [address] [address] [place] Urinalysis w/Microscopic + Reflex to Culture (08/10/2019 9:24 AM CLINICAL PROJECT COORDINATOR) Pathologist Sig nature Color, UA Colorless [facility] Clarity, UA Clear [facility] Specific [place], 1.007 1.001 - 1.035 [facility] pH, UA 5.0 5.0 - 8.0 [facility] Protein, UA Negative Negative [facility] Glucose, UA Negative Negative [facility] Ketones, UA Negative Negative [facility] Bilirubin, UA Negative Negative [facility] Blood, UA Negative Negative [facility] Nitrite, UA Negative Negative [facility] Leukocytes, UA Negative Negative [facility] Urobilinogen, UA 0.2 0.2 - 1.0 mg/dL [facility] RBC, UA 0 /HPF [facility] WBC, UA 1 /HPF [facility] Hyaline Casts, UA 7 /LPF [facility] Amorphous Crystals Rare [facility] Specimen Source [facility] Specimen Urine - Urinary catheter, device (physic al object) Narrative Performed At Line Patrolman ID - [auto] [facility] Line Patrolman ID - tech Performing Organization Address [facility]/Zipcode Phone Number [address] [address] [place] Procalcitonin (08/10/2019 9:17 AM CLINICAL PROJECT COORDINATOR) Pathologist Sig nature Procalcitonin 20.02 (HH) <0.05 ng/mL [facility] Specimen Blood - Arterial line (physical object) Narrative Performed At SEPSIS RISK (ng/mL) [facility] Low: 0.05-0.50 Intermediate: 0.51-2.00 High: >=2.01 Performing Organization Address [facility] Centercoid Phone Number [address] [address] [place] Hemoglobin A1c (08/10/2019 9:17 AM CLINICAL PROJECT COORDINATOR) Pathologist Sig nature Hemoglobin A1C 10.0 (H) 4.3 - 6.1 % [facility] Specimen Blood - Arterial line (physical object) Performing Organization Address [facility] Centercode Phone Number [address] [address] [place] 2D Echo W/Doppler(CW/PW/Color) (08/10/2019 7:38 AM CLINICAL PROJECT COORDINATOR) Pathologist Sig nature Ejection Fraction [facility] ECHO [facility] CP[facility] Specimen Narrative Performed At Transthoracic Echocardiography Report (T TE) [facility] ECHO [facility]ART[facility]ON [facility] Demographics Patient Name RATNA AMBROCIO Date of Study 08/10/2019 JUSTIN Gender Female Visit Number [id number] Race Black Room Number [id number] Number Date of 1965 Referring Physician Lori Jones Age 54 year(s) Outcome Analyst Christian Morrell i Riding Teacher Fernando Lafleur Interpreting Rahul Massey Physician Derrick Dillon Procedure Type of Study TTE procedure:2DECHO W DOPPLER(CW/PW/COLOR) (STAT) Indications:Respiratory failure or hypox emia . Clinical History CHF CARDIOGENICK SHOCK RESPIRATORY FAILURE Height: 66 inches Weight: 98.88 kg (218 lbs) BSA: 2.07 m^2 BMI: 35.19 kg/m^2 HR: 107 bpm BP: 113/69 mmHg Summary A moderate circumferential pericardial effusion is present . Greatest pericardial end-diastolic size is approx. 1.4 cm, posteriorly. tamponade physiology is not evident, but clinical correlation recommended since unable to assess PA pressure. The estimated RA pressure by IVC dynamics 11-15mmHg . The left ventricle is chamber size (by PSLAX dimension) is normal (female - LVIDd 3.8-5.2cm) . Normal LV wall thickness. All of the LV segments are severely hypokinetic . Estimated LVEF by qualitative assessment is severely reduced (20-24%) . No significant valve disease detected. Signature Findings Left Ventricle The left ventricle is chamber size (by PSLAX dimension) is normal (female - LVIDd 3.8-5.2cm) . Normal LV wall thickness. All of the LV segments are severely hypokinetic . Estimated LVEF by qualitative assessment is severely reduced (20-24%) . Left Atrium LA size is normal . Right Ventricle Normal right ventricle structure and function. Right Atrium RA cavity size is normal . Aortic Valve Mild AoV cusp thickening. Mitral Valve Normal MV structure. Trace mitral regurgitation. Tricuspid Valve A trace of tricuspid regurgitation. Unable to estimate peak systolic PA pressure; inadequate TR velocity signal. Pulmonic Valve Normal PV structure and function by limited views and Doppler. Aorta Aortic root size (SInus of Valsalva diameter) is norm al . Pericardium A moderate circumferential pericardial effusion is present . Greatest pericardial end-diastolic size is approx. 1.4 cm, posteriorly. IVC/SVC/PA/PV/Pleural The estimated RA pressure by IVC dynamics 11-15mmHg . Chambers/Structures Left Atrium LA Volume: 48.92 ml LA Area: 17.44 cm^2 LA Vol. Index: 24 ml/m^2 Left Ventricle LVIDd: 5.21 cm LVEDV:130.03 ml LV Septum Diastolic: 0.87 cm LV Septum Systolic: 0.85 cm LV PW Diastolic: 0.9 cm LV Length: 7.78 cm LV PW Systolic: 1.07 cm LVEDV Toure's:135.6 ml LVEDVI: 66 ml/m^2 LVESV Toure's:103.93 ml LVESVI: 50 ml/m^2 LVEF Toure's: 23.4 % LVOT Diameter: 1.94 cm Aorta Ascending Aorta: 2.57 cm Doppler/Quantitative Measurements Aortic Valve Peak Velocity: 1.32 m/s Mean Velocity: 0.91 m/s Peak Gradient: 7 mmHg Mean Gradient: 3.8 mmHg AV Area (continuity): 1.63 cm^2 AV VTI: 23.18 cm AV DVI: 0.55 LVOT Peak Velocity: 0.78 m/s Peak Gradient: 2.41 mmHg Mean Velocity: 0.45 m/s Mean Gradient: 1.04 mmHg LVOT Diameter: 1.94 cm LVOT VTI: 12.79 cm LVOT Area: 2.96 cm^2 LVOT SV:37.79 ml LVOT CO: 4.04 l/min LVOT CI: 1.95 l/min/m^2 Procedure Note Interface, External Ris In - 08/10/2019 11:08 AM CLINICAL PROJECT COORDINATOR Transthoracic Echocardiography Report (TTE) Demographics Patient Name RATNA AMBROCIO Date of Study 08/10/2019 JUSTIN Chelsi aparicio Female Visit Number [id number] Race Black Room Number [id number] Number Date of 1965 Refer [facility] Physician Lori Jones Age 54 year(s) Sonog valentina Christiansimeon Moreno Riding Teacher Fernando subramanianing Rahul Massey Physi gigi Dillon MD Procedure Type of Study TTE procedure:2DECHO W DOPPLE R(CW/PW/COLOR) (STAT) Indications:Respiratory failure or hypox emia . Clinical History CHF CARDIOGENICK SHOCK RESPIRATORY FAILURE Height: 66 inches Weight: 98.88 kg (218 lbs) BSA: 2.07 m^2 BMI: 35.19 kg/m^2 HR: 107 bpm BP: 113/69 mmHg Summary A moderate circumferential pericardial effusion is present . Greatest pericardial end-diastolic size is appro x. 1.4 cm, posteriorly. tamponade physiology is not evident, but clinical correlation recommended since unable to assess PA pressure. The estim ated RA pressure by IVC dynamics 11-15mmHg . The left ventricle is chamber size (by PSLAX dimension) is normal (female - LVIDd 3.8-5.2cm) . Normal LV wall thi ckness. All of the LV segments are severely hypokinetic . Estimated LVEF b y qualitative assessment is severely reduced (20-24%) . No significant valve disease detected. Signature Findings Left Ventricle The left ventric le is chamber size (by PSLAX dimension) is no rmal (female - LVIDd 3.8-5.2cm) . Normal LV wall t hickness. All of the LV segments are severely hyp okinetic . Estimated LVEF by qualitative asse ssment is severely reduced (20-24%) . Left Atrium LA size is bairon l . Right Ventricle Normal right tanisha tricle structure and function. Right Atrium RA cavity size i s normal . Aortic Valve Mild AoV cusp th ickening. Mitral Valve Normal MV struct ure. Trace mitral regurgitation. Tricuspid Valve A trace of tricu spid regurgitation. Unable to estima te peak systolic PA pressure; inadequate TR ve locity signal. Pulmonic Valve Normal PV struct ure and function by limited views and Doppler. Aorta Aortic root size (SInus of Valsalva diameter) is normal . Pericardium A moderate circu mferential pericardial effusion is present . Greate st pericardial end-diastolic size is approx. 1.4 c m, posteriorly. IVC/SVC/PA/PV/Pleural The estimated RA pressure by IVC dynamics 11-15mmHg . Chambers/Structures Left Atrium LA Volume: 48.92 ml LA Area: 17.44 cm^2 LA Vol. Index: 24 ml/m^2 Left Ventricle LVIDd: 5.21 cm LVEDV:130.03 ml LV Septum Diastolic: 0.87 cm LV Septum Systolic: 0.85 cm LV PW Diastolic: 0.9 cm LV Length: 7.78 cm LV PW Systolic: 1.07 cm LVEDV Toure's:135.6 ml LVEDVI: 66 ml/m^2 LVESV Toure's:103.93 ml LVESVI: 50 ml/m^2 LVEF Toure's: 23.4 % LVOT Diameter: 1.94 cm Aorta Ascending Aorta: 2.57 cm Doppler/Quantitative Measurements Aortic Valve Peak Velocity: 1.32 m/s Mean Velocity: 0.91 m/s Peak Gradient: 7 mmHg Mean Gradient: 3.8 mmHg AV Area (continuity): 1.63 cm^2 AV VTI: 23.18 cm AV DVI: 0.55 LVOT Peak Velocity: 0.78 m/s Pea k Gradient: 2.41 mmHg Mean Velocity: 0.45 m/s Ashli n Gradient: 1.04 mmHg LVOT Diameter: 1.94 cm LVO T VTI: 12.79 cm LVOT Area: 2.96 cm^2 LVO T SV:37.79 ml LVOT CO: 4.04 l/min LVO T CI: 1.95 l/min/m^2 Performing Organization Address City/[facility] Cent[facility] Phone Number [facility] MKCKESSON CPACS ABORH, manual (08/10/2019 7:32 AM CLINICAL PROJECT COORDINATOR) Pathologist Sig nature ABO Grouping A [facility] Rh Factor POS [facility] Specimen Blood Performing Organization Address [facility]/Zipcode Phone Number [address] [address] Bronchial culture + gram stain (08/10/2019 6:42 AM CLINICAL PROJECT COORDINATOR) Result No growth [facility] Gram Stain Result <1+ WBCs [facility] Gram Stain Result No organisms seen [facility] Specimen BAL - Lung structure (body structure) Performing Organization Address [facility] Centercode Phone Number [address] [address] CENTER Manual Differential (08/10/2019 6:37 AM CLINICAL PROJECT COORDINATOR) Pathologist Sig nature % Neutros 75 % [facility] % Lymphs 14 % [facility] % Monos 5 % [facility] % Bands 6 0 - 10 % [facility] # Neutros 7.05 (H) 1.56 - 6.13 K/ul [facility] # Lymphs 1.32 1.18 - 3.74 K/ul [facility] # Monos 0.47 (H) 0.24 - 0.36 K/uL [facility] # Bands 0.56 0.00 - 0.80 K/uL [facility] Total Counted [address] [facility] nRBC (manual) 1 (H) 0 - 0 /100 WBC [facility] WBC Morphology Normal [facility] Platelet Morphology Normal [facility] Polychromasia 1+ few [facility] Hypochromia 1+ few [facility] Specimen Blood Performing Organization Address [facility] Centercoid Phone Number [address] [address] CENTER Type and screen, automated (08/10/2019 6:37 AM CLINICAL PROJECT COORDINATOR) Pathologist Sig nature ABO/RH AUTOMATED A POSITIVE [facility] Ab Scrn NEGATIVE [facility] Specimen Blood Performing Organization Address [facility] Phone Number [address] [address] Lactic Acid, Arterial (08/10/2019 6:37 AM CLINICAL PROJECT COORDINATOR) Pathologist Sig nature Lactate, Art 2.1 0.5 - 2.2 mmol/L [facility] Specimen Blood, Arterial Narrative Performed At Line Patrolman KESHA - TONY [facility] Performing Organization Address [facility] Centercoid Phone Number [address] [address] CENTER aPTT (08/10/2019 6:37 AM CLINICAL PROJECT COORDINATOR) Pathologist Sig nature PTT 27.5 22.5 - 36.0 seconds [facility] Specimen Blood Performing Organization Address [facility] Centercode Phone Number [address] [address] CENTER Prothromin time/INR (08/10/2019 6:37 AM CLINICAL PROJECT COORDINATOR) Pathologist Sig nature Protime 14.4 (H) 11.9 - 14.2 seconds [facility] INR 1.2 <=5.9 [facility] Specimen Blood Narrative Performed At Effective 12/16/2018: PT Reference Range [facility] Change New: 11.9-14.2 Previous: 11.7-14.7 RECOMMENDED COUMADIN/WARFARIN INR THERAPY RANGES STANDARD DOSE: 2.0-3.0 Includes: PROPHYLAXIS for venous thrombosis, systemic embolization; TREATMENT for venous thrombosis and/or pulmonary embolus. HIGH RISK: Target INR is 2.5-3.5 for patients wiht mechanical heart valves. Performing Organization Address City/[facility] Centercoid Phone Number [address] [address] CENTER Fibrinogen (08/10/2019 6:37 AM CLINICAL PROJECT COORDINATOR) Pathologist Sig nature Fibrinogen 455 (H) 225 - 434 mg/dl [facility] Specimen Blood Performing Organization Address [facility] Phone Number [address] [address] CENTER B-type Natriuretic Factor (BNP) (08/10/2019 6:37 AM CLINICAL PROJECT COORDINATOR) Pathologist Sig nature BNP 415 (H) 0 - 100 pg/mL [facility] Specimen Blood Narrative Performed At Line Patrolman ID - BS [facility] Performing Organization Address [facility] Phone Number [address] [address] CENTER Hepatic function panel (08/10/2019 6:37 AM CLINICAL PROJECT COORDINATOR) Pathologist Sig nature Protein, Total 6.7 6.0 - 8.3 gm/dL [facility] Albumin 3.2 (L) 3.5 - 5.0 g/dL [facility] Total Bilirubin 0.3 0.2 - 1.2 mg/dL [facility] Bilirubin, Direct 0.2 0.1 - 0.5 mg/dL [facility] Alkaline Phosphatase 84 40 - 150 U/L [facility] AST 15 5 - 34 U/L [facility] ALT 12 6 - 55 U/L [facility] Specimen Blood Narrative Performed At Line Patrolman ID - BS [facility] [place] Performing Organization Address [facility] Centercode Phone Number [address] [address] [place] Lipid panel (08/10/2019 6:37 AM CLINICAL PROJECT COORDINATOR) Pathologist Sig nature Triglycerides 58 mg/dL [facility] Cholesterol 165 mg/dL [facility] [place] HDL 53 mg/dL [facility] [place] LDL Calculated 100 mg/dL [facility] [place] Specimen Blood Narrative Performed At Triglyceride Reference Range: [facility] Low Risk <150 Borderline 150-199 High Risk 200-499 Very High Risk >=500 Cholesterol Reference Range: Low Risk <200 Borderline 200-239 High Risk >240 HDL Cholesterol Reference Range: Low Risk >=60 High Risk <40 LDL Cholesterol Reference Range: Optimal <100 Near Optimal 100-129 Borderline 130-159 High 160-189 Very High >=190 Line Patrolman ID - BS Performing Organization Address City/[facility]/Zipcode Phone Number [address] [address] [place] Comprehensive metabolic panel (08/10/2019 6:37 AM CLINICAL PROJECT COORDINATOR) Protein, Total 6.7 6.0 - 8.3 [facility] gm/dL [facility] Albumin 3.2 (L) 3.5 - 5.0 [facility] g/dL [facility] Alkaline 84 40 - 150 U/L [facility] Phosphatase [facility] Total Bilirubin 0.3 0.2 - 1.2 [facility] mg/dL [facility] Sodium 134 (L) 136 - 145 [facility] meq/L [facility] Potassium 4.3 3.5 - 5.1 [facility] meq/L [facility] Chloride 105 98 - 107 [facility] meq/L [facility] CO2 23 22 - 29 meq/L [facility] BUN 22 (H) 7 - 21 mg/dL [facility] Creatinine 1.33 (H) 0.57 - 1.25 [facility] mg/dL [facility] Glucose 378 (H) 70 - 105 [facility] mg/dL [facility] Calcium 8.3 (L) 8.4 - 10.2 [facility] mg/dL [facility] AST 15 5 - 34 U/L [facility] ALT 12 6 - 55 U/L [facility] EGFR 50Comment: mL/min/1.73 [facility] ESTIMATED GFR IS sq [facility] NOT ACCURATE MEDICAL CENTER CREATININE CLEARANCE IN PREDICTING GLOMERULAR FILTRATION RATE. ESTIMATED GFR IS NOT APPLICABLE FOR DIALYSIS PATIENTS. Specimen Blood Narrative Performed At Line Patrolman ID - BS [facility] Performing Organization Address City/State/Zipcode Phone Number [facility] [address] [place] [address] CENTER XR abdomen / KUB 1 view (08/10/2019 5:43 AM CLINICAL PROJECT COORDINATOR) Specimen Narrative Performed At FINAL REPORT GE RIS RAD, CHEST, 1 VIEW, NON DEPT, RAD, ABDOM EN/KUB, 1 VIEW AP INDICATION: chf COMPARISON: None FINDINGS: Portable frontal view of the c hest. IMPRESSION: Chest x-ray Support Lines: Endotracheal tube termina elijah 2.7 cm above the freddy. Enteric tube courses into the stomach. Lungs and pleura: Perihilar opacities an d bibasilar consolidation with air bronchograms concerning for pne umonia or alveolar edema. Small pleural effusions may be present, particularly on the left. No pneumothorax. Heart and mediastinum: Enlarged cardiac silhouette suggests cardiomegaly. Mediastinal contours are w ithin normal limits. Additional findings: None. Abdominal x-ray: NG tube tip terminates in the stomach. B owel gas pattern is nonobstructive/nonspecific. No pneumatos is intestinalis. No portal venous gas. Moderate fecal burden. Supin e imaging suboptimal for exclusion of free air. Degenerative dewey ges of the spine. Signed: Jaylan Jo MD Report Verified Date/Time: 08/10/2019 06:03:22 Procedure Note Interface, External Ris In - 08/10/2019 6:05 AM CLINICAL PROJECT COORDINATOR FINAL REPORT RAD, CHEST, 1 VIEW, NON DEPT, RAD, ABDOM EN/KUB, 1 VIEW AP INDICATION: chf COMPARISON: None FINDINGS: Portable frontal view of the c hest. IMPRESSION: Chest x-ray Support Lines: Endotracheal tube termina elijah 2.7 cm above the freddy. Enteric tube courses into the stomach. Lungs and pleura: Perihilar opacities an d bibasilar consolidation with air bronchograms concerning for pne umonia or alveolar edema. Small pleural effusions may be present, particularly on the left. No pneumothorax. Heart and mediastinum: Enlarged cardiac silhouette suggests cardiomegaly. Mediastinal contours are w ithin normal limits. Additional findings: None. Abdominal x-ray: NG tube tip terminates in the stomach. B owel gas pattern is nonobstructive/nonspecific. No pneumatos is intestinalis. No portal venous gas. Moderate fecal burden. Supin e imaging suboptimal for exclusion of free air. Degenerative dewey ges of the spine. Signed: Jaylan Jo MD Report Verified Date/Time: 08/10/2019 0 6:03:22 Performing Organization Address City/State/Zipcode Phone Number [employer] RIS Resp panel (08/09/2019 2:47 PM CLINICAL PROJECT COORDINATOR) Pathologist Sig nature Scan Result [facility] Specimen Nasal Narrative Performed At This result has an attachment that is no t available. Performing Organization Address City/State/Zipcode Phone Number [facility] [address] [facility] Insurance Payer Benefit Plan / Subscriber ID Effective Dates Phone Addre ss Type Group [employer] - MGD [employer] HMO POS [id number] 2019-Present HMO/POS CARE QPOS Advance Directives For more information, please contact: [phone] Code Status Date Activated Date Inactivated Comments Full Code 08/10/2019 5:18 AM 08/20/2019 8:56 PM This code status was determined by: Patient
--- OUTSIDE RECORDS SUMMARY | 2020-07-09 07:56 | XMS REPORT | Continuity of Care Document ---
:1965 Author Organization [facility] t Address [address] [place] [address] Care Team Providers Name Role Phone Chris HARTMANN Primary Care Physician Unavailable Lab, Fam Pob I Attending Clinician Unavailable Amalia HARTMANN Attending Clinician Doctor Unassigned, Name Attending Clinician Unavailable Tuan Jones MD Attending Clinician Maria Teresa HARTMANN, Kennetha Attending Clinician Jenna HARTMANN, Travis Attending Clinician [phone] Mesfin HARTMANN Attending Clinician [facility] Attending Clinician Unavailable TUAN JONES Attending Clinician Unavailable TUAN JONES Admitting Clinician Unavailable Payers Payer Name Policy Type Policy Number Effective Date Expiration Date Isac eldridge AETNA - MGD [id number] [address] [facility] CAREAETNA HMO 00:00:00 - Medical POS Center [id number] Problems Condition Condition Condition Status Onset Resolution Last Treating Co mments Source Name Details Category Date Date Treatment Clinician Date Cardiomyop Cardiomyop Disease Active [facility] athy 08-11 [facility] Medical 00 Center CHF CHF Disease Active [facility] (congestiv (congestiv 08-10 Elizabeth kes - e heart e heart 00:00: Medical failure) failure) 00 Center Elevated Elevated Disease Active [facility] troponin troponin 08[facility]10 [facility] - [facility]: Medical 00 [place] Acute Acute Disease Active [facility] kidney kidney 08-10 [facility] - injury injury 00:00: Medical (nontrauma (nontrauma 00 Ce nter tic) tic) Fluid Fluid Disease Active [facility] overload overload 08-10 [facility] - 00:[facility]: Medical 00 [place] Hyperglyce Hyperglyce Disease Active [facility] love love 08-10 [facility] - 00:[facility]: Medical 00 [place] Pneumonia Pneumonia Disease Active [facility] due to due to 08-10 [facility] - infectious infectious 00:00: Me dical organism organism 00 [place] Acute Acute Disease Active [facility] pulmonary pulmonary 08-10 Luke s - edema edema 00:00: Medical 00 [place] Cardiogeni Cardiogeni Disease Active [facility] shock c shock [facility] Acute Acute Disease Active [facility] respirator respirator Elizabeth kes - y failure y failure Medi julissa with with Center hypoxia hypoxia Allergies, Adverse Reactions, Alerts This patient has no known allergies or adverse reactions. Social History Social Habit Start Date Stop Date Quantity Comments Source Sex Assigned At [facility] Medications Ordered Filled Start Stop Current Ordering Indication Dosage Frequency Signature Comments Components Source Medication Medication Date Date Medication? Clinician (SIG) Name Name aspirin 81 No 81mg QD Take [address] [facility] MG chewable 08-21 tablet (81 L ukes - tablet 00:00: 23:59 mg total) Medic al 00 :00 by mouth Center daily. lisinopril No 2.5mg QD Take [address] [facility] (PRINIVIL,Z 08-21 tablet [facility] - ESTRIL) 2.5 00:00: 23:59 (2.5 mg Me dical MG tablet 00 :00 total) by Cente r mouth daily. torsemide No 10mg QD Take 1 [facility] (DEMADEX) 08-21 tablet (10 [facility]enny [facility] - 10 MG 00:00: 23:59 mg total) Medica l tablet 00 :00 by mouth Center daily. pantoprazol No 40mg QD Take [address] [facility] [address] e 08-21 tablet (40 [facility] - (PROTONIX) 00:00: 23:59 mg total) M edical 40 MG 00 :00 by mouth Center tablet daily for 30 days. tamsulosin 2020- No .4mg QD Take [address] (FLOMAX) 08-21 03- capsule [facility] - 0.4 mg Cap 00:00: 23:59 (0.4 mg Med ical 24 hr 00 :00 total) by Center capsule mouth daily for 30 days. atorvastati 2019-0 Yes 20mg QD Take [address] n (LIPITOR) 08-20 by mouth Luke s - 20 MG 18:56: daily. Medical tablet 23 Center glipiZIDE 0 Yes 5mg Take [address] [facility] (GLUCOTROL) 08-20 by mouth 2 Elizabeth kes - 5 MG tablet 18:56: (two) Medic al 23 times Center daily before meals. metFORMIN 0 Yes 500mg Take [address] [facility] (GLUCOPHAGE 1-31 mg by [facility] - ) 500 MG 18:56: mouth 2 Medica l tablet 23 (two) Center times daily with breakfast and dinner. omeprazole Yes 20mg QD Take [address] (PRILOSEC) 08-20 by mouth [facility] - 20 MG 18:56: daily. Medical capsule 23 Center carvedilol 2020- No 3.125mg Q.5D Take [address] (COREG) 08-20 tablet [facility] - 3.125 MG 00:00: 23:59 (3.125 mg Med ical tablet 00 :00 total) by Center mouth 2 (two) times daily. meclizine 2019- No 12.5mg Take [address] (ANTIVERT) 08-20 02-10 tablet [facility] - 12.5 mg 00:00: 23:59 (12.5 mg Medic al tablet 00 :00 total) by Center mouth 3 (three) times daily as needed for Dizziness for up to 10 days. traMADol 2020- No 50mg Take [address] [facility] (ULTRAM) 50 08-20 02-10 tablet (50 L ukes - mg tablet 00:00: 23:59 mg total) Me dical 00 :00 by mouth Center every 6 (six) hours as needed for up to 10 days. Max Daily Amount: 200 mg amLODIPine- 2018-07 Yes TAKE [address] [facility] [facility] valsartan-h 2-16 TABLET BY [facility]enny es - cthiazid 00:00: MOUTH ONCE Med ical 10-160-25 00 DAILY Center mg Tab SITagliptin 2017-07 Yes 100mg Take [address] (JANUVIA) 2-14 mg by [facility] - 100 MG 00:00: mouth. Medical tablet 00 Center Vital Signs Vital Name Observation Time Observation Value Comments Source Systolic blood 2019-08-20 15:00:00 120 mm[Hg] [facility] Diastolic blood 2019-08-20 15:00:00 55 mm[Hg] [facility] S t [facility] Heart rate 2019-08-20 15:00:00 87 /min [facility] Body temperature 2019-08-20 15:00:00 36.28 Stefanie [facility] Respiratory rate 2019-08-20 15:00:00 19 /min [facility] Oxygen saturation in 2019-08-20 15:00:00 98 /min [facility] Arterial blood by Medical Ce nter Pulse oximetry Body weight 2019-08-20 07:00:00 94.802 kg [facility] BMI 2019-08-20 07:00:00 34.78 kg/m2 [facility] Body height 2019-08-10 08:19:00 165.1 cm [facility] Procedures Procedure Date / Time Performing Clinician Source Performed RHYTHM STRIP - SCAN 2019-08-24 16:01:15 Provider, Default [facility] REPORT OF PROCEDURE - 2019-08-23 12:30:11 Provider, Default [facility] ENDOSCOPY SCAN [facility] RHYTHM STRIP - SCAN 2019-08-23 12:30:09 Provider, Default [facility] VASCULAR DIAGRAM -SCAN 2019-08-23 12:30:08 Provider, Default [facility] CARDIAC CATH REPORT - SCAN 2019-08-23 12:30:06 Provider, Default [facility] POCT-GLUCOSE METER 2019-08-20 18:01:00 Alisia [facility] POCT-GLUCOSE METER 2019-08-20 13:03[facility] 2019-08-20 08:02:00 [facility] BASIC METABOLIC PANEL (7) 2019-08-20 04:08:00 [facility] MAGNESIUM 2019-08-20 04:08:00 [facility] W/PLT COUNT & AUTO 2019-08-20 04:08:00 [facility] POCT-GLUCOSE METER 2019-08-19 22:23:00 [facility] 2019-08-19 21:44:00 [facility] POCT-GLUCOSE METER 2019-08-19 19:53:00 [facility] POCT-GLUCOSE METER 2019-08-19 17:32:00 [facility] PO[facility]UCOSE METER 2019-08-19 16:51:00 [facility] POCT-GLUCOSE METER 2019-08-19 16:34:00 [facility] VASCULAR DIAGRAM -SCAN 2019-08-19 15:41:28 Lynnette Fernández [facility] POCT-GLUCOSE METER 2019-08-19 13:07:00 [facility]SE [facility]ER 2019-08-19 08:12:00 Gerard Morel [facility] BASIC METABOLIC PANEL (7) 2019-08-19 03:24:00 [facility] 2019-08-19 03:24:00 [facility] CBC W/PLT COUNT & AUTO 2019-08-19 03:24:00 [facility] POCT-GLUCOSE METER 2019-08-18 22:46:00 Maria Teresa [facility] POCT-GLUCOSE METER 2019-08-18 22:13:00 Maria Teresa [facility] ECHOCARDIOGRAM REPORT - 2019-08-18 21:13:[address]nette Fernández [facility] SCAN Scanning [facility] POCT-GLUCOSE METER 2019-08-18 17:31:00 Maria Teresa [facility] LIMITED 2D ECHOCARDIOGRAM 2019-08-18 14:33:05 Tripp Toure [facility] POCT-GLUCOSE METER 2019-08-18 13:08:00 Maria Teresa [facility] POCT-GLUCOSE METER 2019-08-18 07:20:00 Maria Teresa [facility] BASIC METABOLIC PANEL (7) 2019-08-18 04:30:00 Shaylee Fraire [facility] CBC (HEMOGRAM ONLY) 2019-08-18 04:30:00 [facility]UM 2019-08-18 04:30:00 [facility] PHOSPHORUS 2019-08-18 04:30:00 [facility]o [facility] CALCIUM, IONIZED 2019-08-18 04:30:00 Juno [facility] POCT-GLUCOSE METER 2019-08-18 00:13:00 Maria Teresa [facility] POCT-GLUCOSE METER 2019-08-17 17:45:00 Maria Teresa [facility] MR CARDIAC WITHOUT & WITH 2019-08-17 13:46:00 Tripp Toure [facility] POCT-GLUCOSE METER 2019-08-17 11:51:00 Maria Teresa [facility] POCT-GLUCOSE METER 2019-08-17 08:53:00 Maria Teresa [facility] XR CHEST 1 VIEW 2019-08-17 04:28:[address] [facility] PORTABLE/BEDSIDE Medical [place] BASIC METABOLIC PANEL (7) 2019-08-17 03:59:00 Shaylee Fraire [facility] CBC (HEMOGRAM ONLY) 2019-08-17 03:59:00 [facility]UM 2019-08-17 03:59:00 Shaylee Fraire [facility] PHOSPHORUS 2019-08-17 03:59:00 Juno [facility] CALCIUM, IONIZED 2019-08-17 03:59:00 Juno [facility] POCT-GLUCOSE METER 2019-08-17 01:15:00 Gerard Morel [facility] POCT-GLUCOSE METER 2019-08-17 00:34:00 Gerard Morel [facility] POCT-GLUCOSE METER 2019-08-16 17:59:00 Muedie [facility] POCT-GLUCOSE METER 2019-08-16 11:49:00 Muedie [facility] POCT-GLUCOSE METER 2019-08-16 09:27:00 Gerard Morel [facility] BASIC METABOLIC PANEL (7) 2019-08-16 04:40:00 Shaylee Fraire [facility] CBC (HEMOGRAM ONLY) 2019-08-16 04:40:00 Shaylee Fraire [facility] MAGNESIUM 2019-08-16 04:40:00 Shaylee Fraire [facility] PHOSPHORUS 2019-08-16 04:40:00 Juno [facility] CALCIUM, IONIZED 2019-08-16 04:40:00 Juno [facility] XR CHEST 1 VIEW 2019-08-16 04:25:00 [facility] POCT-GLUCOSE METER 2019-08-15 23:25:00 Muigai, [facility] POCT-GLUCOSE METER 2019-08-15 17:39:00 Maria Teresa [facility] BASIC METABOLIC PANEL (7) 2019-08-15 17:16:00 Delmis Hill [facility] POCT-GLUCOSE METER 2019-08-15 11:49:00 Maria Teresa [facility] POCT-GLUCOSE METER 2019-08-15 07:55:00 Maria Teresa [facility] BASIC METABOLIC PANEL (7) 2019-08-15 03:56:00 Shaylee Fraire [facility] CBC (HEMOGRAM ONLY) 2019-08-15 03:56:00 [facility] MAGNESIUM 2019-08-15 03:56:00 [facility]o [facility] PHOSPHORUS 2019-08-15 03:56:00 [facility] CALCIUM, IONIZED 2019-08-15 03:56:00 Juno [facility] BLOOD GAS, ARTERIAL 2019-08-15 03:56:[address] [facility] XR CHEST 1 VIEW 2019-08-15 02:04:00 [facility] POCT-GLUCOSE METER 2019-08-14 23:13:00 Maria Teresa [facility] POCT-GLUCOSE METER 2019-08-14 17:11:00 Maria Teresa [facility] POTASSIUM 2019-08-14 16:02:00 Delmis Hill [facility] POCT-GLUCOSE METER 2019-08-14 11:48:00 Muedie [facility] POCT-GLUCOSE METER 2019-08-14 08:01:00 Maria Teresa [facility] BASIC METABOLIC PANEL (7) 2019-08-14 06:55:00 Shaylee Fraire [facility] MAGNESIUM 2019-08-14 06:55:00 Shaylee Fraire [facility] PHOSPHORUS 2019-08-14 06:55:00 [facility] XR CHEST 1 VIEW 2019-08-14 06:16:00 Shaylee Fraire [facility]/BEDSIDE Medical Center CBC (HEMOGRAM ONLY) 2019-08-14 02:46:[address] [facility] CALCIUM, IONIZED 2019-08-14 02:46:00 Juno [facility] BLOOD GAS, ARTERIAL 2019-08-14 02:46:00 [facility] POCT-GLUCOSE METER 2019-08-13 23:07:00 Gerard Morel [facility] POCT-GLUCOSE METER 2019-08-13 18:14:00 Muedie [facility] POCT-GLUCOSE METER 2019-08-13 15:33:00 MuGerard irizarry [facility] ECG 12-LEAD 2019-08-13 14:59:37 Unknown, Hl7 Doctor [facility] BLOOD GAS, ARTERIAL 2019-08-13 11:39:00 Delmis Hill [facility] POTASSIUM 2019-08-13 11:38:00 Delmis Hill [facility] MAGNESIUM 2019-08-13 11:38:00 Delmis Hill [facility] PHOSPHORUS 2019-08-13 11:38:00 Delmis Hill [facility] CALCIUM, IONIZED 2019-08-13 11:38:00 Delmis Hill [facility] POCT-GLUCOSE METER 2019-08-13 10:53:00 MuGerard irizarry [facility] BLOOD GAS, ARTERIAL 2019-08-13 08:39:00 Delmis Hill [facility] POCT-GLUCOSE METER 2019-08-13 08:24:00 Gerard Morel [facility] XR CHEST 1 VIEW 2019-08-13 04:46:00 Juno [facility]/BEDSIDE Medical [place] LACTIC ACID, VENOUS 2019-08-13 04:45:[address] [facility] BASIC METABOLIC PANEL (7) 2019-08-13 04:45:00 Shaylee Fraire [facility] CBC (HEMOGRAM ONLY) 2019-08-13 04:45:[address] [facility] MAGNESIUM 2019-08-13 04:45:00 Juno [facility] PHOSPHORUS 2019-08-13 04:45:00 Juno [facility] CALCIUM, IONIZED 2019-08-13 04:45:00 Juno [facility] BLOOD GAS, ARTERIAL 2019-08-13 04:45:[address] [facility] POCT-GLUCOSE METER 2019-08-13 00:15:00 Maria Teresa [facility] POCT-GLUCOSE METER 2019-08-12 23:00:00 Maria Teresa [facility] POCT-GLUCOSE METER 2019-08-12 17:51:00 Maria Teresa [facility] L CATH & PCI 2019-08-12 14:19:00 Tripp Toure [facility] MAGNESIUM 2019-08-12 12:45:00 Delmis Hill [facility] POTASSIUM 2019-08-12 12:45:00 Delmis Hill [facility] PHOSPHORUS 2019-08-12 12:45:00 Delmis Hill [facility] CALCIUM, IONIZED 2019-08-12 12:45:00 Delmis Hill [place] XR CHEST 1 VIEW 2019-08-12 03:24:00 [facility] Medical [place] BASIC METABOLIC PANEL (7) 2019-08-12 03:08:00 Shaylee Fraire [facility] CBC (HEMOGRAM ONLY) 2019-08-12 03:08:[address] [facility] MAGNESIUM 2019-08-12 03:08:00 Juno [facility] PHOSPHORUS 2019-08-12 03:08:00 Juno [facility] CALCIUM, IONIZED 2019-08-12 03:08:00 Juno [facility] BLOOD GAS, ARTERIAL 2019-08-12 03:08:[address] [facility] POCT-GLUCOSE METER 2019-08-12 00:01:00 Gerard Morel [facility] POCT-GLUCOSE METER 2019-08-11 21:49:00 Gerard Morel [facility] TRANSFUSION SERVICE REPORT 2019-08-11 20:54:09 ProviderLynnette [facility] BLOOD GAS, ARTERIAL 2019-08-11 20:27:00 Sheldon Dun[facility]arp [facility] RRL CRITICAL LABS 2019-08-11 20:25:00 [facility] ([facility]G,NA,K,H&H,GLUCOSE) [facility] C enter SODIUM NA-STAT LAB 2019-08-11 20:25:00 Donnell Dunbare Polycarp [facility] POTASSIUM-STAT LAB 2019-08-11 20:25:00 Bettina Tanwie Polycarp [facility] GLUCOSE-STAT LAB 2019-08-11 20:25:00 Donnell Dunbare Polycarp [facility] HGB/HCT (H&H) - STAT LAB 2019-08-11 20:25:00 Sheldon Dunbara [facility] OXYGEN SATURATION, 2019-08-11 20:22:00 Donnell Dunbare Polycarp [facility] POCT-GLUCOSE METER 2019-08-11 17:06:00 Lori Jones [facility] POTASSIUM 2019-08-11 16:03:00 Delmis Hill [facility] PHOSPHORUS 2019-08-11 16:03:00 Delmis Hill [facility] BLOOD GAS, ARTERIAL 2019-08-11 13:15:00 Delmis Hill [facility] POCT-GLUCOSE METER 2019-08-11 12:20:00 Lori Jones [facility] POTASSIUM 2019-08-11 08:22:00 Delmis Hill [facility] MAGNESIUM 2019-08-11 08:22:00 Delmis Hill [facility] CALCIUM, IONIZED 2019-08-11 07:11:00 [facility] POCT-GLUCOSE METER 2019-08-11 05:47:00 [facility] 1 VIEW 2019-08-11 04:53:00 [facility] [place] OXYGEN SATURATION, 2019-08-11 04:50:00 [facility]LOOD [facility], ARTERIAL 2019-08-11 04:50:[address] [facility] BASIC METABOLIC PANEL (7) 2019-08-11 04:49:00 Shaylee Fraire [facility] CBC (HEMOGRAM ONLY) 2019-08-11 04:49:00 Shaylee Fraire [facility] MAGNESIUM 2019-08-11 04:49:00 Shaylee Fraire [facility] PHOSPHORUS 2019-08-11 04:49:00 Juno [facility] TROPONIN I 2019-08-11 04:49:00 Delmis Hill [facility] POCT-GLUCOSE METER 2019-08-10 23:53:00 [facility] BLOOD GAS, ARTERIAL 2019-08-10 23:16:00 Delmis Hill [facility] TROPONIN I 2019-08-10 23:15:00 Delmis Hill [facility] POTASSIUM 2019-08-10 23:15:00 Delmis Hill [facility] CALCIUM, IONIZED 2019-08-10 23:15:00 Delmis Hill [place] MAGNESIUM 2019-08-10 23:15:00 Delmis Hill [facility] ECHOCARDIOGRAM REPORT - 2019-08-10 21:22:04 Provider, Default CH I [facility] RAPID INFLUENZA A&B SCREEN 2019-08-10 20:01:00 Delmis Hill [facility] RESPIRATORY PANEL [facility] 2019-08-10 20:01:00 Delmis Hill [facility] BLOOD GAS, ARTERIAL 2019-08-10 19:51:00 Delmis Hill [facility] BLOOD GAS, ARTERIAL 2019-08-10 18:32:00 Delims Hill [facility] OXYGEN SATURATION, 2019-08-10 18:32:00 Delmis Hill [facility] TROPONIN I 2019-08-10 17:51:00 Delmis Hill [facility] MAGNESIUM 2019-08-10 17:51:00 Delmis Hill [facility] POTASSIUM 2019-08-10 17:51:00 Delmis Hill [facility] POCT-GLUCOSE METER 2019-08-10 17:37:00 Lori Jones [facility] OXYGEN SATURATION, 2019-08-10 14:32:00 Delmis Hill [facility] BLOOD GAS, ARTERIAL 2019-08-10 14:32:00 Gerard Morel [facility] XR CHEST 1 VIEW 2019-08-10 14:22:00 Delmis Hill [facility] PORTABLE/BEDSIDE Medical Center MAGNESIUM 2019-08-10 12:08:00 Delmis Hill [facility] POCT-GLUCOSE METER 2019-08-10 11:58:00 Karen Lori [facility] BLOOD CULTURE 2019-08-10 09:41:00 Delmis Hill [facility] BLOOD CULTURE 2019-08-10 09:34:00 Delmis Hill [facility] URINALYSIS W/ REFLEX URINE 2019-08-10 09:24:00 Delmis Hill [facility] TROPONIN I 2019-08-10 09:17:00 Delmis Hill [facility] HEMOGLOBIN A1C 2019-08-10 09:17:00 Delmis Hill [facility] PROCALCITONIN 2019-08-10 09:17:00 Delmis Hill [facility] ECG 12-LEAD 2019-08-10 07:52:14 Unknown, Hl7 Doctor [facility] 2D ECHO W/ DOPPLER 2019-08-10 07:38:37 Shaylee Fraire [facility] (CW/PW/COLOR) [facility] ABORH, MANUAL 2019-08-10 07:32:00 Mar Lau [facility] BLOOD GAS, ARTERIAL 2019-08-10 06:44:00 Shaylee Fraire [facility] BRONCHIAL CULTURE + GRAM 2019-08-10 06:42:00 Shaylee Fraire CH, I [facility] B-TYPE NATRIURETIC FACTOR 2019-08-10 06:37:00 Shaylee Fraire [facility] (BNP) [facility] COMPREHENSIVE METABOLIC 2019-08-10 06:37:00 Shaylee Fraire [facility] HEPATIC FUNCTION PANEL 2019-08-10 06:37:00 Shaylee Fraire [facility] MAGNESIUM 2019-08-10 06:37:00 Shaylee Fraire [facility] PHOSPHORUS 2019-08-10 06:37:00 Shaylee Fraire [facility] PROTHROMBIN TIME/INR 2019-08-10 06:37:00 Shaylee Fraire [facility] APTT 2019-08-10 06:37:00 Shaylee Fraire [facility] FIBRINOGEN 2019-08-10 06:37:00 [facility] LIPID PANEL 2019-08-10 06:37:00 [facility] TROPONIN I 2019-08-10 06:37:00 [facility] CALCIUM, IONIZED 2019-08-10 06:37:00 Juno [facility] LACTIC ACID, ARTERIAL 2019-08-10 06:37:00 Shaylee Fraire [facility] TYPE AND SCREEN, AUTOMATED 2019-08-10 06:37:00 [facility] CBC W/PLT COUNT & AUTO 2019-08-10 06:37:00 Juno [facility] (CELLAVISION MANUAL DIFF) 2019-08-10 06:37:00 Shaylee Fraire [facility] XR ABDOMEN / KUB 1 VIEW 2019-08-10 05:43:00 Shaylee Fraire [facility] XR CHEST 1 VIEW 2019-08-10 05:41:00 Shaylee Fraire [facility]/BEDSIDE Medical Center MISCELLANEOUS LAB ORDER 2019-08-09 14:47:00 Lori Jones [facility] Plan of Care Planned Activity Planned Date Details Comments Source Future Scheduled 2022-08-10 Lipid panel [facility] s - Test 00:00:00 (procedure) [code = Medical Center 39507928] Future Scheduled 2020-03-21 INFLUENZA VACCINE (#1) [facility] - Test 00:00:00 [code = INFLUENZA Medical Ce nter VACCINE (#1)] Future Scheduled 1984 Screening for [facility]enny es - Test 00:00:00 malignant neoplasm of Medica l Center cervix (procedure) [code = 703426965] Future Scheduled 1969 PNEUMOCOCCAL VACCINE [facility] - Test 00:00:00 0-64 YRS (1 of 1 - Medical C enter PPSV23) [code = PNEUMOCOCCAL VACCINE 0-64 YRS (1 of 1 - PPSV23)] Future Scheduled [address] [facility] - Test 00:00:00 malignant neoplasm of [facility] breast (procedure) [code = 614511700] Future Scheduled [address] [facility] - Test 00:00:00 malignant neoplasm of [facility] colon (procedure) [code = 433932451] Encounters Start End Encounter Admission Attending Care Care Encounter Source Date/Time Date/Time Type Type Clinicians Facility Department ID 2020-07-08 2020-07-08 Laboratory Lab, [facility] [id number] 10:53:20 11:13:20 Only Fam Pob I [facility] [id number] Hiram [id number] Professio [phone] [place] [address] [address] 2019-12-06 2019-12-06 [facility] [id number] 08:03:38 08:33:38 ne Visit Ree Hiram [id number] [place] [id number] Profjessicaio [phone] [facility] [address] [facility] 2019-09-06 2019-09-06 Office Amalia [facility] [id number] 11:49:56 12:57:57 Visit Ree Hiram [id number] [place] [id number] Professio [phone] [facility] [address] [facility] 2019-09-06 2019-09-06 Orders Doctor MONO [id number] 00:00:00 00:00:00 Only Unassigned, HEMANTH [id number] [facility] [id number] [id number] Results Test Description Test Time Test Comments Results Result Comments Source POC-Glucose meter 2019-08-20 18:12:00 Test Item Value Reference Range Interpretation Comme nts POC-Glucose Meter (test code = 112 mg/dL 70-110 H : TESTED AT [facility] [address] [place] [address]) [facility], 7[address] 30: Floor Installer/Techni gigi ID = [id number] for CASSIE QUIROZ Lab Interpretation (test code = Abnormal 24337-9) [facility] [id number] 18:12:00 Test Item Value Reference Range Interpretation Comments POC-GLUCOSE METER 112 mg/dL 70-110 H : TESTED A T [facility] 6720 (BEAKER) (test code = [facility] [place], [address]38) [address]: Floor Installer/Techni gigi ID = [id number] for DANETTE GEORGENDDemi POCT-GLUCOSE [id number] 13:45:00 Test Item Value Reference Range Interpretation Comments POC-GLUCOSE METER 176 mg/dL 70-110 H : TESTED A T [facility] 6720 (BEAKER) (test code = [facility], 1538) [address]: Floor Installer/Techni gigi ID = [id number] for DANETTE GEORGENDY POCT-GLUCOSE [id number] 08:14:00 Test Item Value Reference Range Interpretation Comments POC-GLUCOSE METER 71 mg/dL 70-110 : TESTED A T [facility] 6720 (BEAKER) (test code = [facility] [place], 1538) [address]: Floor Installer/Techni gigi ID = [id number] for CASSIE GRANT Basic metabolic [id number] 05:21:00 Test Item Value Reference Range Interpretation Comments Sodium (test code = 141 meq/L 082-054 5212-2) Potassium (test code = 3.8 meq/L 3.5-5.1 2823-3) Chloride (test code = 104 meq/L 98-107 2075-0) CO2 (test code = 30 meq/L 22-29 H 8-9) BUN (test code = 24 mg/dL 7-21 H 3094-0) Creatinine (test code 1.43 mg/dL 0.57-1.25 H = 2160-0) Glucose (test code = 82 mg/dL 70-105 2345-7) Calcium (test code = 9.2 mg/dL 8.4-10.2 38280-3) EGFR (test code = 46 mL/min/1.73 [place] [address]-3) NOT ACCURATE CREATININE CLEARANCE IN PREDICTING GLOMERULAR FILTRATION RATE . ESTIMATED GFR I S NOT APPLICABLE FOR DIALYSIS PATIENTS. ALON (test code = ALON) Floor Installer ID Marisa QUINN W Lab Interpretation Abnormal (test code = 05180-2) [facility] 05:21:00 Test Item Value Reference Range Interpretation Comments Magnesium (test code = 1.9 mg/dL 1.6-2.6 41821-8) ALON (test code = ALON) Floor Installer ID Marisa QUINN W Lab Interpretation (test Normal code = 27018-2) [facility] 05:21:00 Test Item Value Reference Range Interpretation Comments MAGNESIUM (BEAKER) (test code = 1.9 mg/dL 1.6-2.6 627) Floor Installer ID Marisa QUINN WBASIC METABOLIC [id number] 05:21:00 Test Item Value Reference Range Interpretation Comments SODIUM (BEAKER) 141 meq/L 136-145 (test code = 381) POTASSIUM (BEAKER) 3.8 meq/L 3.5-5.1 (test code = 379) CHLORIDE (BEAKER) 104 meq/L 98-107 (test code = 382) CO2 (BEAKER) (test 30 meq/L 22-29 H code = 355) BLOOD UREA NITROGEN 24 mg/dL 7-21 H (BEAKER) (test code = 354) CREATININE (BEAKER) 1.43 mg/dL 0.57-1.25 H (test code = 358) GLUCOSE RANDOM 82 mg/dL 70-105 (BEAKER) (test code = 652) CALCIUM (BEAKER) 9.2 mg/dL 8.4-10.2 (test code = 697) EGFR (BEAKER) (test 46 mL/min/1.73 ESTIMA SOLO GFR IS code = 1092) sq m NOT ACCURATE CREATININE CLEARANCE IN PREDICTING GLOMERULAR FILTRATION RATE . ESTIMATED GFR I S NOT APPLICABLE FOR DIALYSIS PATIEN TS. Floor Installer ID Marisa QUINN WCBC with platelet count + automated [id number] 04:48:00 Test Item Value Reference Range Interpretation Comments WBC (test code = 6690-2) 11.9 3.5- 10.5 K/L H RBC (test code = 789-8) 3.71 3.93- 5.22 M/L L MCHC (test code = 786-4) 31.8 32.2- 35.5 GM/DL L Hematocrit (test code = 4544-3) 29.6 % 34.1-44.9 L MCV (test code = 787-2) 79.8 fL 79.4-94.8 MCH (test code = 785-6) 25.3 pg 25.6-32.2 L RDW (test code = 788-0) 14.6 % 11.7-14.4 H Platelets (test code = 777-3) 232 150- 450 K/CU MM MPV (test code = 28698-5) 12.8 fL 9.4-12.3 H nRBC (test code = 413) 0 0- 0 /100 WBC % Neutros (test code = 429) 56 % % Lymphs (test code = 430) 30 % % Monos (test code = 431) 8 % % Eos (test code = 432) 3 % % Baso (test code = 437) 1 % # Neutros (test code = 670) 6.73 1.56- 6.13 K/L H # Lymphs (test code = 414) 3.56 1.18- 3.74 K/L # Monos (test code = 415) 0.95 0.24- 0.36 K/L H # Eos (test code = 416) 0.40 0.04- 0.36 K/L H # Baso (test code = 417) 0.07 0.01- 0.08 K/L Immature Granulocytes-Relative 2 % 0-1 H (test code = 2801) Lab Interpretation (test code = Abnormal 08310-8) [facility] W/PLT COUNT & AUTO [id number] 04:48:00 Test Item Value Reference Range Interpretation Comments WHITE BLOOD CELL COUNT (BEAKER) 11.9 K/ L 3.5-10.5 H (test code = 775) RED BLOOD CELL COUNT (BEAKER) 3.71 M/ L 3.93-5.22 L (test code = 761) HEMOGLOBIN (BEAKER) (test code = 9.4 GM/DL 11.2-15.7 L 410) HEMATOCRIT (BEAKER) (test code = 29.6 % 34.1-44.9 L 411) MEAN CORPUSCULAR VOLUME (BEAKER) 79.8 fL 79.4-94.8 (test code = 753) MEAN CORPUSCULAR HEMOGLOBIN 25.3 pg 25.6-32.2 L (BEAKER) (test code = 751) MEAN CORPUSCULAR HEMOGLOBIN CONC 31.8 GM/DL 32.2-35.5 L (BEAKER) (test code = 752) RED CELL DISTRIBUTION WIDTH 14.6 % 11.7-14.4 H (BEAKER) (test code = 412) PLATELET COUNT (BEAKER) (test 232 K/CU MM 150-450 code = 756) MEAN PLATELET VOLUME (BEAKER) 12.8 fL 9.4-12.3 H (test code = 754) NUCLEATED RED BLOOD CELLS 0 /100 WBC 0-0 (BEAKER) (test code = 413) NEUTROPHILS RELATIVE PERCENT 56 % (BEAKER) (test code = 429) LYMPHOCYTES RELATIVE PERCENT 30 % (BEAKER) (test code = 430) MONOCYTES RELATIVE PERCENT 8 % (BEAKER) (test code = 431) EOSINOPHILS RELATIVE PERCENT 3 % (BEAKER) (test code = 432) BASOPHILS RELATIVE PERCENT 1 % (BEAKER) (test code = 437) NEUTROPHILS ABSOLUTE COUNT 6.73 K/ L 1.56-6.13 H (BEAKER) (test code = 670) LYMPHOCYTES ABSOLUTE COUNT 3.56 K/ L 1.18-3.74 (BEAKER) (test code = 414) MONOCYTES ABSOLUTE COUNT (BEAKER) 0.95 K/ L 0.24-0.36 H (test code = 415) EOSINOPHILS ABSOLUTE COUNT 0.40 K/ L 0.04-0.36 H (BEAKER) (test code = 416) BASOPHILS ABSOLUTE COUNT (BEAKER) 0.07 K/ L 0.01-0.08 (test code = 417) IMMATURE GRANULOCYTES-RELATIVE 2 % 0-1 H PERCENT (BEAKER) (test code = 2801) POCT-GLUCOSE [id number] 22:35:00 Test Item Value Reference Range Interpretation Comments POC-GLUCOSE METER 198 mg/dL 70-110 H : TESTED A T [facility] 6720 (BEAKER) (test code [facility], = 1538) [address]: Floor Installer/Techni gigi ID = [id number] for Renee Norton POCT-GLUCOSE [id number] 21:56:00 Test Item Value Reference Range Interpretation Comments POC-GLUCOSE METER 209 mg/dL 70-110 H : TESTED A T [facility] 6720 (BEAKER) (test code = [facility], [facility]8) [address]: Floor Installer/Techni gigi ID = [id number] for AMY KRISHNA, EPEKA POCT-GLUCOSE [id number] 20:07:00 Test Item Value Reference Range Interpretation Comments POC-GLUCOSE METER 205 mg/dL 70-110 H : TESTED A T [facility] 6720 (BEAKER) (test code = [facility], [facility]8) [address]: Floor Installer/Techni gigi ID = [id number] for ME MALIK, LAURA POCT-GLUCOSE [id number] 17:43:00 Test Item Value Reference Range Interpretation Comments POC-GLUCOSE METER 112 mg/dL 70-110 H : TESTED A T [facility] 6720 (BEAKER) (test code = [facility], [facility]8) [address]: Floor Installer/Techni gigi ID = [id number] for REVA-MILADY, S HIKARA POCT-GLUCOSE [id number] 17:03:00 Test Item Value Reference Range Interpretation Comments POC-GLUCOSE METER 57 mg/dL 70-110 L : TESTED A T [facility] 6720 (BEAKER) (test code = [facility], [facility]8) [address]: Floor Installer/Techni gigi ID = [id number] for TAYL OR-MILADY, SHIKARA POCT-GLUCOSE [id number] 16:46:00 Test Item Value Reference Range Interpretation Comments POC-GLUCOSE METER 57 mg/dL 70-110 L : TESTED A T [facility] 6720 (BEAKER) (test code = [facility], [facility]8) [address]: Floor Installer/Techni gigi ID = [id number] for TAYL OR-MILADY, SHIKARA POCT-GLUCOSE [id number] 13:18:00 Test Item Value Reference Range Interpretation Comments POC-GLUCOSE METER 197 mg/dL 70-110 H : TESTED A T [facility] 6720 (BEAKER) (test code = [facility], [facility]8) [address]: Floor Installer/Techni gigi ID = [id number] for REVA-MILADY, S HIKARA POCT-GLUCOSE [id number] 08:23:00 Test Item Value Reference Range Interpretation Comments POC-GLUCOSE METER 294 mg/dL 70-110 H : [facility] ([facility] (test code = [place], 1538) [address]: Floor Installer/Techni gigi ID = [id number] for Isac GOMEZ [id number] 05:37:00 Test Item Value Reference Range Interpretation Comments MAGNESIUM (BEAKER) (test code = 1.9 mg/dL 1.6-2.6 627) Floor Installer ID - JEANA MBASIC METABOLIC [id number] 05:37:00 Test Item Value Reference Range Interpretation Comments SODIUM (BEAKER) 137 meq/L 136-145 (test code = 381) POTASSIUM (BEAKER) 3.6 meq/L 3.5-5.1 (test code = 379) CHLORIDE (BEAKER) 100 meq/L 98-107 (test code = 382) CO2 (BEAKER) (test 27 meq/L 22-29 code = 355) BLOOD UREA NITROGEN 20 mg/dL 7-21 (BEAKER) (test code = 354) CREATININE (BEAKER) 1.34 mg/dL 0.57-1.25 H (test code = 358) GLUCOSE RANDOM 272 mg/dL 70-105 H (BEAKER) (test code = 652) CALCIUM (BEAKER) 8.8 mg/dL 8.4-10.2 (test code = 697) EGFR (BEAKER) (test 50 mL/min/1.73 ESTIMA SOLO GFR IS code = 1092) sq m NOT ACCURATE CREATININE CLEARANCE IN PREDICTING GLOMERULAR FILTRATION RATE . ESTIMATED GFR I S NOT APPLICABLE FOR DIALYSIS PATIEN TS. Floor Installer ID - JEANA [facility] W/PLT COUNT & AUTO [id number] 04:37:00 Test Item Value Reference Range Interpretation Comments WHITE BLOOD CELL COUNT (BEAKER) 10.5 K/ L 3.5-10.5 (test code = 775) RED BLOOD CELL COUNT (BEAKER) 3.73 M/ L 3.93-5.22 L (test code = 761) HEMOGLOBIN (BEAKER) (test code = 9.5 GM/DL 11.2-15.7 L 410) HEMATOCRIT (BEAKER) (test code = 30.2 % 34.1-44.9 L 411) MEAN CORPUSCULAR VOLUME (BEAKER) 81.0 fL 79.4-94.8 (test code = 753) MEAN CORPUSCULAR HEMOGLOBIN 25.5 pg 25.6-32.2 L (BEAKER) (test code = 751) MEAN CORPUSCULAR HEMOGLOBIN CONC 31.5 GM/DL 32.2-35.5 L (BEAKER) (test code = 752) RED CELL DISTRIBUTION WIDTH 14.4 % 11.7-14.4 (BEAKER) (test code = 412) PLATELET COUNT (BEAKER) (test 196 K/CU MM 150-450 code = 756) MEAN PLATELET VOLUME (BEAKER) 13.1 fL 9.4-12.3 H (test code = 754) NUCLEATED RED BLOOD CELLS 0 /100 WBC 0-0 (BEAKER) (test code = 413) NEUTROPHILS RELATIVE PERCENT 53 % (BEAKER) (test code = 429) LYMPHOCYTES RELATIVE PERCENT 32 % (BEAKER) (test code = 430) MONOCYTES RELATIVE PERCENT 8 % (BEAKER) (test code = 431) EOSINOPHILS RELATIVE PERCENT 4 % (BEAKER) (test code = 432) BASOPHILS RELATIVE PERCENT 1 % (BEAKER) (test code = 437) NEUTROPHILS ABSOLUTE COUNT 5.56 K/ L 1.56-6.13 (BEAKER) (test code = 670) LYMPHOCYTES ABSOLUTE COUNT 3.33 K/ L 1.18-3.74 (BEAKER) (test code = 414) MONOCYTES ABSOLUTE COUNT (BEAKER) 0.88 K/ L 0.24-0.36 H (test code = 415) EOSINOPHILS ABSOLUTE COUNT 0.38 K/ L 0.04-0.36 H (BEAKER) (test code = 416) BASOPHILS ABSOLUTE COUNT (BEAKER) 0.07 K/ L 0.01-0.08 (test code = 417) IMMATURE GRANULOCYTES-RELATIVE 3 % 0-1 H PERCENT (BEAKER) (test code = 2801) POCT-GLUCOSE [id number] 22:58:00 Test Item Value Reference Range Interpretation Comments POC-GLUCOSE METER 393 mg/dL 70-110 H : TESTED Beth T [facility] 6720 (BEAKER) (test code = [place], 1538) [address]: Floor Installer/Techni gigi ID = [id number] for WH ITE, NEVILLE POCT-GLUCOSE [id number] 22:25:00 Test Item Value Reference Range Interpretation Comments POC-GLUCOSE METER 409 mg/dL 70-110 HH : Notified RN/MD: (JOSE) (test code = TESTED AT [facility] 6720 1538) [facility], [address]: Floor Installer/Techni gigi ID = [id number] for NEVILLE ESPINOZA POCT-GLUCOSE [id number] 17:43:00 Test Item Value Reference Range Interpretation Comments POC-GLUCOSE METER 227 mg/dL 70-110 H : TESTED A T [facility] 6720 (JOSE) (test code = NATHEN Barragan [facility], 1538) [address]: Floor Installer/Techni gigi ID = [id number] for GONZALEZ VILLEGAS Limited 2D [id number] 17:23:31Ejection FractionSLEH ECHO HEARTLAB MKCKESSON CPACSInterface, External Ris In - 08/18/2019 5:23 PM CSTTransthoracic Echocardiography Report (TTE) Demographics Patient Name MAO AMBROCIO Date of Study 08/18/2019 JUSTIN GenderFemale Visit Number [id number] Race Black Room Number C826 Number Date of 1965 Referring Physician Tripp Augustin Age 54 year(s) 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 LV is moderately enlarged. All segments are hypokinetic. Estimated LVEF by qualitative assessment is xtzsidhs-ij-nogaaqcy reduced (30%) . 2. A small to moderate pericardial effusion is present . Greatest. 1.2 cm. 3. RV chamber size is normal . GlobalRV systolic function is normal . Previous Study [...] No evidence of LV hypertrophy. Estimated LVEF by qualitative assessment is koqofreis-nx-pnjbqddg reduced (30%) . All of the LV segments are moderately hypokinetic . Left Atrium LA size is normal(16-34 ml/m2) . Right Ventricle RV chamber size is normal . Global RVsystolic function is normal . Right Atrium RA size is normal. Aortic Valve Normal AoV structure. Mitral Valve Mild MV leaflet thickening. Tricuspid Valve TV structure is normal. Pulmonic Valve PV is partially visualized. Aorta Aortic root size (SInus of Valsalva diameter) is normal . Pericardium A small to moderate pericardial effusion is present . Greatest pericardial end-diastolic size is approx. 1.2 cm. Pericardial tamponade physiology is not evident . IVC/SVC/PA/PV/Pleural The estimated RA pressure by IVC dynamics 5-10mmHg . Chambers/Structures Left Atrium LA Volume: 53 ml LAVol. Index: 26 ml/m^2 Left Ventricle LVIDd: 5.92 cm LVIDs: 4.74 cm LV Septum Diastolic: 0.8 cm LV PW Diastolic: 0.82 cm LV FS: 19.9 % LVOT Diameter: 1.84 cm Aorta Ao Root Sof Jenn.: 3.05 cm Doppler/Quantitative Measurements LVOT LVOT Diameter: 1.84 cm LVOT Area: 2.66 cm^2[facility] [id number] 13:20:00 Test Item Value Reference Range Interpretation Comments POC-GLUCOSE METER 335 mg/dL 70-110 H : TESTED A T [facility] 6720 (BEAKER) (test code = NATHEN Barragan [place], 1538) [address]: Floor Installer/Techni gigi ID = [id number] for GONZALEZ VILLEGAS POCT-GLUCOSE [id number] 07:31:00 Test Item Value Reference Range Interpretation Comments POC-GLUCOSE METER 182 mg/dL 70-110 H : TESTED A T [facility] 6720 (BEAKER) (test code = NATHEN Barragan [facility], 1538) [address]: Floor Installer/Techni gigi ID = [id number] for GONZALEZ VILLEGAS [id number] 05:42:00 Test Item Value Reference Range Interpretation Comments Phosphorus (test code = 3.0 mg/dL 2.3-4.7 2777-1) ALON (test code = ALON) Floor Installer ID - JEANA M Lab Interpretation (test Normal code = 81485-6) [facility] 05:42:00 Test Item Value Reference Range Interpretation Comments PHOSPHORUS (BEAKER) (test code = 3.0 mg/dL 2.3-4.7 604) Floor Installer ID - JEANA [id number] 05:42:00 Test Item Value Reference Range Interpretation Comments MAGNESIUM (BEAKER) (test code = 2.1 mg/dL 1.6-2.6 627) Floor Installer ID - JEANA MBASIC METABOLIC [id number] 05:42:00 Test Item Value Reference Range Interpretation Comments SODIUM (BEAKER) 140 meq/L 136-145 (test code = 381) POTASSIUM (BEAKER) 3.7 meq/L 3.5-5.1 (test code = 379) CHLORIDE (BEAKER) 104 meq/L 98-107 (test code = 382) CO2 (BEAKER) (test 30 meq/L 22-29 H code = 355) BLOOD UREA NITROGEN 21 mg/dL 7-21 (BEAKER) (test code = 354) CREATININE (BEAKER) 1.18 mg/dL 0.57-1.25 (test code = 358) GLUCOSE RANDOM 191 mg/dL 70-105 H (BEAKER) (test code = 652) CALCIUM (BEAKER) 8.8 mg/dL 8.4-10.2 (test code = 697) EGFR (BEAKER) (test 57 mL/min/1.73 ESTIMA SOLO GFR IS code = 1092) sq m NOT ACCURATE CREATININE CLEARANCE IN PREDICTING GLOMERULAR FILTRATION RATE . ESTIMATED GFR I S NOT APPLICABLE FOR DIALYSIS PATIEN TS. Floor Installer ID - JEANA [facility] (Hemogram only)2019-08-18 05:07:00 Test Item Value Reference Range Interpretation Comments WBC (test code = 6690-2) 10.7 3.5- 10.5 K/L H RBC (test code = 789-8) 3.57 3.93- 5.22 M/L L MCHC (test code = 786-4) 30.8 32.2- 35.5 GM/DL L Hematocrit (test code = 4544-3) 29.2 % 34.1-44.9 L MCV (test code = 787-2) 81.8 fL 79.4-94.8 MCH (test code = 785-6) 25.2 pg 25.6-32.2 L RDW (test code = 788-0) 14.6 % 11.7-14.4 H Platelets (test code = 777-3) 136 150- 450 K/CU MM L MPV (test code = 20149-5) 13.0 fL 9.4-12.3 H nRBC (test code = 413) 0 0- 0 /100 WBC Lab Interpretation (test code = Abnormal 69743-4) [facility] (HEMOGRAM ONLY)2019-08-18 05:07:00 Test Item Value Reference Range Interpretation Comments WHITE BLOOD CELL COUNT (BEAKER) 10.7 K/ L 3.5-10.5 H (test code = 775) RED BLOOD CELL COUNT (BEAKER) 3.57 M/ L 3.93-5.22 L (test code = 761) HEMOGLOBIN (BEAKER) (test code = 9.0 GM/DL 11.2-15.7 L 410) HEMATOCRIT (BEAKER) (test code = 29.2 % 34.1-44.9 L 411) MEAN CORPUSCULAR VOLUME (BEAKER) 81.8 fL 79.4-94.8 (test code = 753) MEAN CORPUSCULAR HEMOGLOBIN 25.2 pg 25.6-32.2 L (BEAKER) (test code = 751) MEAN CORPUSCULAR HEMOGLOBIN CONC 30.8 GM/DL 32.2-35.5 L (BEAKER) (test code = 752) RED CELL DISTRIBUTION WIDTH 14.6 % 11.7-14.4 H (BEAKER) (test code = 412) PLATELET COUNT (BEAKER) (test 136 K/CU MM 150-450 L code = 756) MEAN PLATELET VOLUME (BEAKER) 13.0 fL 9.4-12.3 H (test code = 754) NUCLEATED RED BLOOD CELLS 0 /100 WBC 0-0 (BEAKER) (test code = 413) Calcium, [id number] 04:59:00 Test Item Value Reference Range Interpretation Comments Calcium, Ion (test code = 1993-) 1.07 mmol/L 1.12-1.27 L pH, Blood (test code = 44213-6) 7.54 Lab Interpretation (test code = Abnormal 57483-6) [facility], [id number] 04:59:00 Test Item Value Reference Range Interpretation Comments CALCIUM IONIZED (BEAKER) (test 1.07 mmol/L 1.12-1.27 L code = 698) PH, BLOOD (BEAKER) (test code = 7.54 1810) POCT-GLUCOSE [id number] 00:24:00 Test Item Value Reference Range Interpretation Comments POC-GLUCOSE METER 252 mg/dL 70-110 H : TESTED A T [facility] 6720 (BEAKER) (test code = [place], 1538) [address]: Floor Installer/Techni gigi ID = [id number] for RAJESH CHONG MR, CARDIAC, [id number] 19:05:00Reason for exam:->MyocarditisFINAL REPORT Cardiovascular MRI - Chest: 08/17/2019 1:47 PM. Comparison: None available. Clinical History: 54 years old Female with echocardiographic evidence of left ventricular systolic dysfunction. Indication: This study is performed to assess myocardial damage, viability,and to quantitate left ventricular and valvular function. Technique: Leny Achieva 1.5 Anya MRI scanner.* Turbo spin echo and gradient echo imaging for anatomic definition.* Dynamic cine imaging for cardiac chamber, wall-motion, and valvular analysis.* Flow quantification sequences for hemodynamics.* Navigator-gated, whole-heart coronary MRA sequence for cardiac chamber anatomy and coronary artery origins.* T2 weighted STIR imaging (with triple IR preparation) for edema analysis.* Delayed gadolinium-enhancement analysis (inversion recovery gradient echo sequence) after injection of gadolinium-chelate (15 cc of gadobutrol ). RESULT: Potential study limitations: None. CHEST: The chest wall is u nremarkable. The mediastinum appears normal. No significant adenopathy is identified. This study was not optimized to assess the lungs however, limited imaging reveals no gross abnormalities. The main pulmonary artery is enlarged (main PA: 3.4 cm). There is moderate to severe pericardial effusion, p redominantly along the lateral wall of the left ventricle VASCULAR:The aortic root is symmetric and normal in dimension. The sinotubular junction is preserved. The ascending thoracic aorta and aortic arch: Normal in course, caliber and contour. The arch vessel branching pattern demonstrates a common trunk of the innominate and left common carotid artery. The imaged arch branch vessels are patent proximally. The descending thoracic aorta: Normal in course, caliber and contour. There is no acuteaortic pathology, such as dissection, intramural hematoma, or contained rupture. CARDIAC CHAMBERS:The cardiac chambers have normal atrioventricular and ventriculoarterial concordance, as well as normalsystemic and pulmonary venous return. Normal interatrial septum The interventricular septum appearsintact. The cardiac chamber sizes are mild left atrial and moderate left ventricular enlargement. Le ft Ventricle:The left ventricle is moderately enlarged, and has moderately reduced systolic function. The left ventricular myocardium is normal in thickness. Quantitative left ventricular functional values are as follows:EDV = 228 cc (normal 88-168 cc); EDVi = 109 cc/m2 (normal 57-92 cc/m2).ESV = 155 cc (normal 23-60 cc); ESVi = 74 cc/m2 (normal 15-34 cc/m2).Stroke volume = 74 cc (normal 58-114 cc); SVi = 35 cc/m2 (normal 38-63 cc/m2).LVEF = 32 % (normal 55-75%).Cardiac Output = 6.0 l/min.; Cardiac Index = 2.9 l/min/m2.LV mass = 160 gm (normal 72-144 cc); LVMi = 77 gm/m2 (normal 48-77 gm/m2). There is no focal/circumferential increased myocardial signal intensity on T2 STIR imaging to suggest myocardial inflammation or edema. Delayed-enhancement imaging reveals uniformly "nulled" myocardium, signifying that there has been no prior ischemic myocardial damage. There is also no definite evidence of interstitial fibrosis to suggest an infiltrative process. No mural or apical left ventricular thrombus is identified. Right ventricle:The right ventricle is normal in size and shape, and has normal systolic function. Quantitative right ventricular functional values are as follows:EDV = 118 cc (normal 84-168 cc); EDVi = 57 cc/m2 (normal 55-92 cc/m2).ESV = 54 cc (normal 17-69 cc); ESVi = 26 cc/m2 (normal 12-38 cc/m2).Stroke volume = 64 cc (normal 57-108 cc); SVi = 81 cc/m2 (normal 36-60 cc/m2).RVEF = 54 % (normal 54-78%). VALVES:The mitral valve is mildly thickened. There is trivial mitral regurgitation.Integrating LV volumetric and aortic flow quantification data reveals:*Quantitative mitral regurgitant volume: 13 cc/beat*Quantitative mitral regurgitant fraction: 18 % The aortic valve is structurally normal. There is no aortic regurgitation.Flow quantification through the ascending aorta:*Forward volume: 61 cc/beat*Reverse volume: 1 cc/beat*Net forward volume: 60 cc/beat*Aorticregurgitant fraction: 2 % The tricuspid valve is structurally normal. There is trivial tricuspid reg urgitation. Flow quantification sequences through the SVC and right upper lobe pulmonary vein revealabnormal flow patterns consistent with normal right and elevated left atrial pressures. ABDOMEN:Limited imaging through the upper abdomen reveals no abnormalities of the imaged organs. IMPRESSION: The constellation of findings is most suggestive of a dilated, non-ischemic cardiomyopathy. 1. Normal left ventricular size with moderately reduced global systolic function (LVEF: 32%, LVEDVi: 109 cc/m2).No discrete myocardial fibrosis on delayed-enhancement imaging to suggest an infiltrative process orprior ischemic injury. 2. Normal right ventricular size and systolic function, (RVEF: 54%; LVEDVi: 57 cc/m2). 3. No significant valvular abnormalities. 4. There is moderate to severe pericardial effusion, predominantly along the lateral wall of the left ventricle. No evidence of tamponade physiology noted. Signed: Zenon Carrasquillo MDReport Verified Date/Time: 08/17/2019 19:05:37 MR cardiac without & with IV [id number] 19:05:00Interface, External Ris In - 08/17/2019 7:07 PM CSTFINAL REPORT Cardiovascular MRI - Chest: 08/17/2019 1:47 PM. Comparison: None available. Clinical History: 54 years old Female with echocardiographic evidence of left ventricular systolic dysfunction. Indication: This study is performed to assess myocardial damage, viability, and to quantitate left ventricular and valvular function. Technique: Leny Achieva 1.5 Anya MRI scanner.* Turbo spin echo and gradient echo imaging for anatomic definition.* Dynamic cine imaging for cardiac chamber, wall-motion, and valvular analysis.* Flow quantification sequences for hemodynamics.* Navigator- gated, whole-heart coronary MRA sequence for cardiac chamber anatomy and coronary artery origins.* T2 weighted STIR imaging (with tripleIR preparation) for edema analysis.* Delayed gadolinium-enhancement analysis (inversion recovery gradient echo sequence) after injection of gadolinium-chelate (15 cc of gadobutrol ). RESULT: Potential study limitations: None. CHEST: The chest wall is unremarkable. The mediastinum appears normal. No significant adenopathy is identified. This study was not optimized to assess the lungs however, limited imaging reveals no gross abnormalities. The main pulmonary artery is enlarged (main PA: 3.4 cm). There is moderate to severe pericardial effusion, predominantly along the lateral wall of the left ventricle VASCULAR:The aortic root is symmetric and normal in dimension. The sinotubular junction is preserved. The ascending thoracic aorta and aortic arch: Normal in course, caliber and contour. The arch vessel branching pattern demonstrates a common trunk of the innominate and left common carotidartery. The imaged arch branch vessels are patent proximally. The descending thoracic aorta: Normal in course, caliber and contour. There is no acute aortic pathology, such as dissection, intramuralhematoma, or contained rupture. CARDIAC CHAMBERS:The cardiac chambers have normal atrioventricular and ventriculoarterial concordance, as well as normal systemic and pulmonary venous return. Normal inte ratrial septum The interventricular septum appears intact. The cardiac chamber sizes are mild leftatrial and moderate left ventricular enlargement. Left Ventricle:The left ventricle is moderately enlarged, and has moderately reduced systolic function. The left ventricular myocardium is normal in thickness. Quantitative left ventricular functional values are as follows:EDV = 228 cc (normal 88-168 cc); EDVi = 109 cc/m2 (normal 57-92 cc/m2).ESV = 155 cc (normal 23-60 cc); ESVi = 74 cc/m2 (mombtk00-37 cc/m2).Stroke volume = 74 cc (normal 58-114 cc); SVi = 35 cc/m2 (normal 38-63 cc/m2).LVEF = 32 % (normal 55- 75%).Cardiac Output = 6.0 l/min.; Cardiac Index = 2.9 l/min/m2.LV mass = 160 gm (normal 72-144 cc); LVMi = 77 gm/m2 (normal 48-77 gm/m2). There is no focal/circumferential increased myocardial signal intensity on T2 STIR imaging to suggest myocardial inflammation or edema. Delayed-enhancement imaging reveals uniformly "nulled" myocardium, signifying that there has been no prior ischemic myocardial damage. There is also no definite evidence of interstitial fibrosis to suggest an infiltrative process. No mural or apical left ventricular thrombus is identified. Right ventricle:The right ventricle is normal in size and shape, and has normal systolic function. Quantitative right ventricular functional values are as follows:EDV = 118 cc (normal 84-168 cc); EDVi = 57 cc/m2 (normal 55-92 cc/m2).ESV = 54 cc (normal 17-69 cc); ESVi = 26 cc/m2 (normal 12-38 cc/m2).Stroke volume = 64 cc (normal 57-108 cc); SVi = 81 cc/m2 (normal 36-60 cc/m2).RVEF = 54 % (normal 54-78%). VALVES:Themitral valve is mildly thickened. There is trivial mitral regurgitation.Integrating LV volumetric and aortic flow quantification data reveals:*Quantitative mitral regurgitant volume: 13 cc/beat*Quantitative mitral regurgitant fraction: 18 % The aortic valve is structurally normal. There is no aortic regurgitation.Flow quantification through the ascending aorta:*Forward volume: 61 cc/beat*Reverse volume: 1 cc/beat*Net forward volume: 60 cc/beat*Aortic regurgitant fraction: 2 % The tricuspid valve isstructurally normal. There is trivial tricuspid regurgitation. Flow quantification sequences through the SVC and right upper lobe pulmonary vein reveal abnormal flow patterns consistent with normal right and elevated left atrial pressures. ABDOMEN:Limited imaging through the upper abdomen reveals no abnormalities of the imaged organs. IMPRESSION: The constellation of findings is most suggestive of a dilated, non-ischemic cardiomyopathy. 1. Normal left ventricular size with moderately reduced global systolic function (LVEF: 32%, LVEDVi: 109 cc/m2). No discrete myocardial fibrosis on delayed-enhancement imaging to suggest an infiltrative process or prior ischemic injury. 2. Normal right ventricular size and systolic function, (RVEF: 54%; LVEDVi: 57 cc/m2). 3. No significant valvular abnormalities. 4. There is moderate to severe pericardial effusion, predominantly along the lateral wall of the left ventricle. No evidence of tamponade physiology noted. Signed: Zenon Carrasquilloepdavid VerifiedDate/Time: 08/17/2019 19:05:37 [facility] [id number] 17:57:00 Test Item Value Reference Range Interpretation Comments POC-GLUCOSE METER 292 mg/dL 70-110 H : TESTED A T [facility] ([employer]) (test code = [facility], 1538) 12802: Floor Installer/Techni gigi ID = [id number] for BELL MILAN POCT-GLUCOSE [id number] 12:03:00 Test Item Value Reference Range Interpretation Comments POC-GLUCOSE METER 203 mg/dL 70-110 H : TESTED A T [facility] [address] ([employer]) (test code = [facility], 1538) 63480: Floor Installer/Techni gigi ID = [id number] for ERWIN BELL Simms POCT-GLUCOSE [id number] 09:04:00 Test Item Value Reference Range Interpretation Comments POC-GLUCOSE METER 175 mg/dL 70-110 H : TESTED A T [facility] (BEAKER) (test code = [facility] [place], 1538) 21762: Floor Installer/Techni gigi ID = [id number] for LIZ ROSADO RAD, CHEST, 1 VIEW, NON [id number] 07:08:00Reason for exam:- >AtelectasisShould this be performed at the bedside?->YesFINAL REPORT RAD, CHEST, 1 VIEW, NON DEPT INDICATION: Atelectasis COMPARISON:Prior day's exam FINDINGS: Portable frontal view of the chest. IMPRESSION: Support Lines: None. Lungs and pleura: Interstitial congestion is more prominent in the current examination, likely differences in technique. No pneumothorax.Heart and mediastinum: Stable enlargement of the cardiac silhouette .Additional findings: None. Signed: JR Mohr Robert MDReport Verified Date/Time: 08/17/2019 07:08:44 Reading Location: [facility] Reading Room XR chest 1 view portable / [id number] 07:08:00Interface, External Ris In - 08/17/2019 7:11 AM CSTFINAL REPORT RAD, CHEST, 1 VIEW, NON DEPT INDICATION: Atelectasis COMPARISON: Prior day's exam FINDINGS: Portable frontal viewof the chest. IMPRESSION: Support Lines: None. Lungs and pleura: Interstitial congestion is more prominent in the current examination, likely differences in technique. No pneumothorax.Heart and mediastinum: Stable enlargement of the cardiac silhouette.Additional findings: None. Signed: JR Mohr Robert MDReport Verified Date/Time: 08/17/2019 07:08:44 Reading Location: [facility] Rad[facility] Reading Room [facility] [id number] 04:49:00 Test Item Value Reference Range Interpretation Comments MAGNESIUM (BEAKER) 2.3 mg/dL 1.6-2.6 Specimen moderately (test code = 627) hemolyzed Floor Installer ID - JEANA [id number] 04:49:00 Test Item Value Reference Range Interpretation Comments PHOSPHORUS (BEAKER) 2.8 mg/dL 2.3-4.7 Specimen moderately (test code = 604) hemolyzed Floor Installer ID - JEANA MBASIC METABOLIC [id number] 04:49:00 Test Item Value Reference Range Interpretation Comments SODIUM (BEAKER) 141 meq/L 136-145 (test code = 381) POTASSIUM (BEAKER) 4.2 meq/L 3.5-5.1 Specimen moderately (test code = 379) hemolyzed CHLORIDE (BEAKER) 106 meq/L 98-107 (test code = 382) CO2 (BEAKER) (test 28 meq/L 22-29 code = 355) BLOOD UREA NITROGEN 26 mg/dL 7-21 H (BEAKER) (test code = 354) CREATININE (BEAKER) 1.22 mg/dL 0.57-1.25 Specimen moderately (test code = 358) hemolyzed GLUCOSE RANDOM 181 mg/dL 70-105 H (BEAKER) (test code = 652) CALCIUM (BEAKER) 8.5 mg/dL 8.4-10.2 (test code = 697) EGFR (BEAKER) (test 55 mL/min/1.73 ESTIMA SOLO GFR IS code = 1092) sq m NOT ACCURATE CREATININE CLEARANCE IN PREDICTING GLOMERULAR FILTRATION RATE . ESTIMATED GFR I S NOT APPLICABLE FOR DIALYSIS PATIEN TS. Floor Installer ID - JEANA MCALCIUM, [id number] 04:44:00 Test Item Value Reference Range Interpretation Comments CALCIUM IONIZED (BEAKER) (test 1.14 mmol/L 1.12-1.27 code = 698) PH, BLOOD (BEAKER) (test code = 7.43 1810) CBC (HEMOGRAM ONLY)2019-08-17 04:26:00 Test Item Value Reference Range Interpretation Comments WHITE BLOOD CELL COUNT (BEAKER) 10.2 K/ L 3.5-10.5 (test code = 775) RED BLOOD CELL COUNT (BEAKER) 3.32 M/ L 3.93-5.22 L (test code = 761) HEMOGLOBIN (BEAKER) (test code = 8.4 GM/DL 11.2-15.7 L 410) HEMATOCRIT (BEAKER) (test code = 26.7 % 34.1-44.9 L 411) MEAN CORPUSCULAR VOLUME (BEAKER) 80.4 fL 79.4-94.8 (test code = 753) MEAN CORPUSCULAR HEMOGLOBIN 25.3 pg 25.6-32.2 L (BEAKER) (test code = 751) MEAN CORPUSCULAR HEMOGLOBIN CONC 31.5 GM/DL 32.2-35.5 L (BEAKER) (test code = 752) RED CELL DISTRIBUTION WIDTH 14.6 % 11.7-14.4 H (BEAKER) (test code = 412) PLATELET COUNT (BEAKER) (test 176 K/CU MM 150-450 code = 756) MEAN PLATELET VOLUME (BEAKER) 12.8 fL 9.4-12.3 H (test code = 754) NUCLEATED RED BLOOD CELLS 0 /100 WBC 0-0 (BEAKER) (test code = 413) POCT-GLUCOSE [id number] 01:27:00 Test Item Value Reference Range Interpretation Comments POC-GLUCOSE METER 190 mg/dL 70-110 H : TESTED A T [facility] 67[facility] (BEAKER) (test code = [facility], 153) 74597: Floor Installer/Techni gigi ID = [id number] for October POCT-GLUCOSE [id number] 00:45:00 Test Item Value Reference Range Interpretation Comments POC-GLUCOSE METER 163 mg/dL 70-110 H : TESTED A T [facility] [address] (BEAKER) (test code = [facility], 153) 74636: Floor Installer/Techni gigi ID = [id number] for JUAN MANUEL OSMAN POCT-GLUCOSE [id number] 18:11:00 Test Item Value Reference Range Interpretation Comments POC-GLUCOSE METER 159 mg/dL 70-110 H : TESTED A T [facility] [address] (BEAKER) (test code = [facility], 153) 67010: Floor Installer/Techni gigi ID = [id number] for GONZALEZ VILLEGAS POCT-GLUCOSE [id number] 12:01:00 Test Item Value Reference Range Interpretation Comments POC-GLUCOSE METER 265 mg/dL 70-110 H : TESTED A T [facility] [address] (BEAKER) (test code = [facility] [place], 1538) 02041: Floor Installer/Techni gigi ID = [id number] for MA GONZALEZ PETERSEN POCT-GLUCOSE [id number] 09:38:00 Test Item Value Reference Range Interpretation Comments POC-GLUCOSE METER 258 mg/dL 70-110 H : TESTED A T [facility] [address] (BEAKER) (test code = NATHEN Barragan [facility], 1538) 03313: Floor Installer/Techni gigi ID = [id number] for GONZALEZ VILLEGAS Blood Culture - Routine (Right Venipuncture)2019-08-16 08:00:00 Test Item Value Reference Range Interpretation Comments Result (test code = No growth in 5 days 6463-4) [id number] 08:00:00 Test Item Value Reference Range Interpretation Comments CULTURE (BEAKER) (test No growth in 5 days code = 1095) BLOOD [id number] 08:00:00 Test Item Value Reference Range Interpretation Comments CULTURE (BEAKER) (test No growth in 5 days code = 1095) RAD, CHEST, 1 VIEW, NON [id number] 07:07:00Reason for exam:->Mechanical ventilationShould this be performed at the bedside?->YesFINAL REPORT RAD, CHEST, 1 VIEW, NON DEPT INDICATION: Mechanical ventilation C OMPARISON: Prior day's exam FINDINGS: Portable frontal view of the chest. IMPRESSION: Support Lines: None. Lungs and pleura: Bibasilar subsegmental atelectasis versus atypical infection. Edema should be excluded clinically. No pneumothorax.Heart and mediastinum: Stable contours. Additional findings: None. Signed: JR Mohr Robert MDReport Verified Date/Time: 08/16/2019 07:07:14 Reading Location: [facility] Radiology Reading Room CALCIUM, [id number] 06:31:00 Test Item Value Reference Range Interpretation Comments CALCIUM IONIZED (BEAKER) (test 1.12 mmol/L 1.12-1.27 code = 698) PH, BLOOD (BEAKER) (test code = 7.40 1810) [id number] 05:20:00 Test Item Value Reference Range Interpretation Comments PHOSPHORUS (BEAKER) (test code = 3.2 mg/dL 2.3-4.7 604) Floor Installer KESHA QUINN [id number] 05:20:00 Test Item Value Reference Range Interpretation Comments MAGNESIUM (BEAKER) (test code = 2.3 mg/dL 1.6-2.6 627) Floor Installer KESHA QUINN WBASIC METABOLIC [id number] 05:20:00 Test Item Value Reference Range Interpretation Comments SODIUM (BEAKER) 138 meq/L 136-145 (test code = 381) POTASSIUM (BEAKER) 3.8 meq/L 3.5-5.1 (test code = 379) CHLORIDE (BEAKER) 103 meq/L 98-107 (test code = 382) CO2 (BEAKER) (test 26 meq/L 22-29 code = 355) BLOOD UREA NITROGEN 41 mg/dL 7-21 H (BEAKER) (test code = 354) CREATININE (BEAKER) 1.81 mg/dL 0.57-1.25 H (test code = 358) GLUCOSE RANDOM 314 mg/dL 70-105 H (BEAKER) (test code = 652) CALCIUM (BEAKER) 9.0 mg/dL 8.4-10.2 (test code = 697) EGFR (BEAKER) (test 35 mL/min/1.73 ESTIMA SOLO GFR IS code = 1092) sq m NOT ACCURATE CREATININE CLEARANCE IN PREDICTING GLOMERULAR FILTRATION RATE . ESTIMATED GFR I S NOT APPLICABLE FOR DIALYSIS PATIEN TS. Floor Installer KESHA QUINN WCBC (HEMOGRAM ONLY)2019-08-16 05:06:00 Test Item Value Reference Range Interpretation Comments WHITE BLOOD CELL COUNT (BEAKER) 10.2 K/ L 3.5-10.5 (test code = 775) RED BLOOD CELL COUNT (BEAKER) 3.58 M/ L 3.93-5.22 L (test code = 761) HEMOGLOBIN (BEAKER) (test code = 8.8 GM/DL 11.2-15.7 L 410) HEMATOCRIT (BEAKER) (test code = 29.1 % 34.1-44.9 L 411) MEAN CORPUSCULAR VOLUME (BEAKER) 81.3 fL 79.4-94.8 (test code = 753) MEAN CORPUSCULAR HEMOGLOBIN 24.6 pg 25.6-32.2 L (BEAKER) (test code = 751) MEAN CORPUSCULAR HEMOGLOBIN CONC 30.2 GM/DL 32.2-35.5 L (BEAKER) (test code = 752) RED CELL DISTRIBUTION WIDTH 14.6 % 11.7-14.4 H (BEAKER) (test code = 412) PLATELET COUNT (BEAKER) (test 186 K/CU MM 150-450 code = 756) MEAN PLATELET VOLUME (BEAKER) 12.5 fL 9.4-12.3 H (test code = 754) NUCLEATED RED BLOOD CELLS 0 /100 WBC 0-0 (BEAKER) (test code = 413) POCT-GLUCOSE [id number] 23:36:00 Test Item Value Reference Range Interpretation Comments POC-GLUCOSE METER 370 mg/dL 70-110 H : TESTED A T [facility] 67[address] (BEAKER) (test code = [facility], 1538) 03322: Floor Installer/Techni gigi ID = [id number] for NICOLASA BRYANT POCT-GLUCOSE [id number] 17:52:00 Test Item Value Reference Range Interpretation Comments POC-GLUCOSE METER 264 mg/dL 70-110 H : TESTED A T [facility] [address] (BEAKER) (test code = [facility], 1538) 29116: Floor Installer/Techni gigi ID = [id number] for BELL MILAN BASIC METABOLIC [id number] 17:16:00 Test Item Value Reference Range Interpretation Comments SODIUM (BEAKER) 141 meq/L 136-145 (test code = 381) POTASSIUM (BEAKER) 4.0 meq/L 3.5-5.1 (test code = 379) CHLORIDE (BEAKER) 105 meq/L 98-107 (test code = 382) CO2 (BEAKER) (test 27 meq/L 22-29 code = 355) BLOOD UREA NITROGEN 41 mg/dL 7-21 H (BEAKER) (test code = 354) CREATININE (BEAKER) 1.90 mg/dL 0.57-1.25 H (test code = 358) GLUCOSE RANDOM 249 mg/dL 70-105 H (BEAKER) (test code = 652) CALCIUM (BEAKER) 8.9 mg/dL 8.4-10.2 (test code = 697) EGFR (BEAKER) (test 33 mL/min/1.73 ESTIMA SOLO GFR IS code = 1092) sq m NOT ACCURATE CREATININE CLEARANCE IN PREDICTING GLOMERULAR FILTRATION RATE . ESTIMATED GFR I S NOT APPLICABLE FOR DIALYSIS PATIEN TS. Floor Installer ID - DARRIAN WPOCT-GLUCOSE [id number] 12:02:00 Test Item Value Reference Range Interpretation Comments POC-GLUCOSE METER 329 mg/dL 70-110 H : TESTED A T [facility] [address] (BEAKER) (test code = [facility] [employer] [facility], 1538) 55383: Floor Installer/Techni gigi ID = [id number] for BELL MILAN POCT-GLUCOSE [id number] 08:08:00 Test Item Value Reference Range Interpretation Comments POC-GLUCOSE METER 162 mg/dL 70-110 H : TESTED A T [facility] [address] ([employer]) (test code = [employer] [facility], 1538) 04575: Floor Installer/Techni gigi ID = [id number] for BELL MILAN RAD, CHEST, 1 VIEW, NON [id number] 06:15:00Reason for exam:->Mechanical ventilationShould this be performed at the bedside?->YesFINAL REPORT RAD, CHEST, 1 VIEW, NON DEPT INDICATION: Mechanical ventilation C OMPARISON: Prior day's exam FINDINGS: Portable frontal view of the chest. IMPRESSION: Support Lines: Stable. Lungs and pleura: Unchanged scattered parenchymal opacities and and right pleural opacity. No pneumothorax.Heart and mediastinum: Stable contours. Additional findings: None. Signed: Farida Whitmore MDReport Verified Date/Time: 08/15/2019 06:15:16 Blood gas, [id number] 05:55:00 Test Item Value Reference Range Interpretation Comments pH, Arterial (test code = 2744-1) 7.42 7.35-7.45 pCO2, Arterial (test code = 44 35- 45 mmHg 2019-02) pO2, Arterial (test code = 2703-7) 78 80- 90 mmHg L O2 Sat, Arterial (test code = 95.1 % 96-97 L 2708-6) HCO3, Arterial (test code = 28 mmol/L 21-29 1960-4) Base Excess, Arterial (test code = 3.0 mmol/L -2-3 1925-7) Patient Temperature (test code = 38.0 C 8310-5) FIO2 (test code = 1819) 21 % Lab Interpretation (test code = Abnormal 33363-1) [facility] [id number] 05:55:00 Test Item Value Reference Range Interpretation Comments PH ARTERIAL (BEAKER) (test code = 7.42 7.35-7.45 383) PCO2 ARTERIAL (BEAKER) (test code 44 mmHg 35-45 = 384) PO2 ARTERIAL (BEAKER) (test code = 78 mmHg 80-90 L 385) O2 SATURATION ARTERIAL (BEAKER) 95.1 % 96.0-97.0 L (test code = 386) HCO3 ARTERIAL (BEAKER) (test code 28 mmol/L 21-29 = 388) BASE EXCESS ARTERIAL (BEAKER) 3.0 mmol/L -2.0-3.0 (test code = 387) PATIENT TEMPERATURE (BEAKER) (test 38.0 C code = 1818) FIO2 (BEAKER) (test code = 1819) 21.0 % CALCIUM, [id number] 05:55:00 Test Item Value Reference Range Interpretation Comments CALCIUM IONIZED (BEAKER) (test 1.09 mmol/L 1.12-1.27 L code = 698) PH, BLOOD (BEAKER) (test code = 7.43 1810) [id number] 04:48:00 Test Item Value Reference Range Interpretation Comments MAGNESIUM (BEAKER) 2.3 mg/dL 1.6-2.6 Specimen slightly (test code = 627) hemolyzed Floor Installer ID - CHEYENNE [id number] 04:48:00 Test Item Value Reference Range Interpretation Comments PHOSPHORUS (BEAKER) 3.2 mg/dL 2.3-4.7 Specimen slightly (test code = 604) hemolyzed Floor Installer ID - CHEYENNE WBASIC METABOLIC [id number] 04:48:00 Test Item Value Reference Range Interpretation Comments SODIUM (BEAKER) 143 meq/L 136-145 (test code = 381) POTASSIUM (BEAKER) 4.0 meq/L 3.5-5.1 Specimen slightly (test code = 379) hemolyzed CHLORIDE (BEAKER) 108 meq/L 98-107 H (test code = 382) CO2 (BEAKER) (test 26 meq/L 22-29 code = 355) BLOOD UREA NITROGEN 41 mg/dL 7-21 H (BEAKER) (test code = 354) CREATININE (BEAKER) 1.87 mg/dL 0.57-1.25 H Specimen slightly (test code = 358) hemolyzed GLUCOSE RANDOM 176 mg/dL 70-105 H (BEAKER) (test code = 652) CALCIUM (BEAKER) 8.8 mg/dL 8.4-10.2 (test code = 697) EGFR (BEAKER) (test 34 mL/min/1.73 ESTIMA SOLO GFR IS code = 1092) sq m NOT ACCURATE CREATININE CLEARANCE IN PREDICTING GLOMERULAR FILTRATION RATE . ESTIMATED GFR I S NOT APPLICABLE FOR DIALYSIS PATIEN TS. Floor Installer ID - CHEYENNE [facility] (HEMOGRAM ONLY)2019-08-15 04:22:00 Test Item Value Reference Range Interpretation Comments WHITE BLOOD CELL COUNT (BEAKER) 13.4 K/ L 3.5-10.5 H (test code = 775) RED BLOOD CELL COUNT (BEAKER) 3.59 M/ L 3.93-5.22 L (test code = 761) HEMOGLOBIN (BEAKER) (test code = 9.0 GM/DL 11.2-15.7 L 410) HEMATOCRIT (BEAKER) (test code = 29.2 % 34.1-44.9 L 411) MEAN CORPUSCULAR VOLUME (BEAKER) 81.3 fL 79.4-94.8 (test code = 753) MEAN CORPUSCULAR HEMOGLOBIN 25.1 pg 25.6-32.2 L (BEAKER) (test code = 751) MEAN CORPUSCULAR HEMOGLOBIN CONC 30.8 GM/DL 32.2-35.5 L (BEAKER) (test code = 752) RED CELL DISTRIBUTION WIDTH 14.5 % 11.7-14.4 H (BEAKER) (test code = 412) PLATELET COUNT (BEAKER) (test 170 K/CU MM 150-450 code = 756) MEAN PLATELET VOLUME (BEAKER) 12.1 fL 9.4-12.3 (test code = 754) NUCLEATED RED BLOOD CELLS 0 /100 WBC 0-0 (BEAKER) (test code = 413) POCT-GLUCOSE [id number] 23:25:00 Test Item Value Reference Range Interpretation Comments POC-GLUCOSE METER 165 mg/dL 70-110 H : TESTED A T [facility] (BEAKER) (test code = [facility], 1538) 13372: Floor Installer/Techni gigi ID = [id number] for NICOLASA BRYANT POCT-GLUCOSE [id number] 17:23:00 Test Item Value Reference Range Interpretation Comments POC-GLUCOSE METER 190 mg/dL 70-110 H : TESTED A T [facility] 67[facility] (BEAKER) (test code = [facility] [employer] [facility], 1538) 09537: Floor Installer/Techni gigi ID = [id number] for BELL MILAN [id number] 16:38:00 Test Item Value Reference Range Interpretation Comments Potassium (test code = 4.1 meq/L 3.5-5.1 Speci men 2823-3) slightly hemolyzed ALON (test code = ALON) Floor Installer ID - JEANA M Lab Interpretation Normal (test code = 33565-5) [id number] 16:38:00 Test Item Value Reference Range Interpretation Comments POTASSIUM (BEAKER) 4.1 meq/L 3.5-5.1 Specimen slightly (test code = 379) hemolyzed Floor Installer ID - JEANA MPOCT-GLUCOSE [id number] 11:59:00 Test Item Value Reference Range Interpretation Comments POC-GLUCOSE METER 238 mg/dL 70-110 H : TESTED A T [facility]20 (BEAKER) (test code = [facility] [employer] [facility], 1538) 97734: Floor Installer/Techni ggii ID = [id number] for BELL MILAN ECG 12 [id number] 11:48:25Interface, External Ris In 08/14/2019 11:48 AM CSTVentricular Rate 91 BPMAtrial Rate 91 BPMP-R Interval 170 msQRS Duration 142 msQ-T Interval 418 msQTC Calculation(Bazett) 514 msP [place] 48 degreesR [place] -21 degreesT [place] 158 degreesNormal sinus rhythmLeft atrial enlargementLeft bundle branch blockAbnormal ECGWhen compared with ECG of 10-AUG-2019 07:52,T wave inversion no longer evident in Inferior leadsConfirmed by MD Patel Roberto ([id number]) on 08/14/2019 11:48:21 [facility] NON [id number] 08:50:00Reason for exam:->Mechanical ventilationShould this be performed at the bedside?->YesFINAL REPORT Portable chest. CLINICAL HISTORY: Mechanical ventilation. COMPARI SON STUDY: Chest x-ray from yesterday. FINDINGS: The cardiac silhouette is enlarged. The pulmonary parenchyma demonstrates portal venous congestion with increased interstitial and airspace opacities, similar to slightly more pronounced as compared to previous. There has been interval intubation and rem oval of the nasogastric tube. The remaining support lines and tubes are unchanged. No pneumothorax is seen. Degenerative changes are noted. IMPRESSION: Extubation and removal of nasogastric tube. Slight worsening of pulmonary opacities. Signed: Maicol Jaimeeport Verified Date/Time: 08/14/2019 0 8:50:12 Reading Location: [address] Ortho Consult Reading Room POCT-GLUCOSE [id number] 08:12:00 Test Item Value Reference Range Interpretation Comments POC-GLUCOSE METER 230 mg/dL 70-110 H : TESTED A T [facility] [address] (BEAKER) (test code = MILDREDKYLIE Barragan [facility], 1538) 91689: Floor Installer/Techni gigi ID = [id number] for BELL MILAN [id number] 07:22:00 Test Item Value Reference Range Interpretation Comments PHOSPHORUS (BEAKER) (test code = 4.1 mg/dL 2.3-4.7 604) Floor Installer ID - JEANA [id number] 07:22:00 Test Item Value Reference Range Interpretation Comments MAGNESIUM (BEAKER) (test code = 2.2 mg/dL 1.6-2.6 627) Floor Installer ID - JEANA MBASIC METABOLIC [id number] 07:22:00 Test Item Value Reference Range Interpretation Comments SODIUM (BEAKER) 144 meq/L 136-145 (test code = 381) POTASSIUM (BEAKER) 3.7 meq/L 3.5-5.1 (test code = 379) CHLORIDE (BEAKER) 107 meq/L 98-107 (test code = 382) CO2 (BEAKER) (test 28 meq/L 22-29 code = 355) BLOOD UREA NITROGEN 35 mg/dL 7-21 H (BEAKER) (test code = 354) CREATININE (BEAKER) 1.82 mg/dL 0.57-1.25 H (test code = 358) GLUCOSE RANDOM 221 mg/dL 70-105 H (BEAKER) (test code = 652) CALCIUM (BEAKER) 8.5 mg/dL 8.4-10.2 (test code = 697) EGFR (BEAKER) (test 35 mL/min/1.73 ESTIMA SOLO GFR IS code = 1092) sq m NOT ACCURATE CREATININE CLEARANCE IN PREDICTING GLOMERULAR FILTRATION RATE . ESTIMATED GFR I S NOT APPLICABLE FOR DIALYSIS PATIEN TS. Floor Installer ID - JEANA [facility] [place] (HEMOGRAM ONLY)2019-08-14 03:02:00 Test Item Value Reference Range Interpretation Comments WHITE BLOOD CELL COUNT (BEAKER) 12.3 K/ L 3.5-10.5 H (test code = 775) RED BLOOD CELL COUNT (BEAKER) 3.35 M/ L 3.93-5.22 L (test code = 761) HEMOGLOBIN (BEAKER) (test code = 8.7 GM/DL 11.2-15.7 L 410) HEMATOCRIT (BEAKER) (test code = 27.3 % 34.1-44.9 L 411) MEAN CORPUSCULAR VOLUME (BEAKER) 81.5 fL 79.4-94.8 (test code = 753) MEAN CORPUSCULAR HEMOGLOBIN 26.0 pg 25.6-32.2 (BEAKER) (test code = 751) MEAN CORPUSCULAR HEMOGLOBIN CONC 31.9 GM/DL 32.2-35.5 L (BEAKER) (test code = 752) RED CELL DISTRIBUTION WIDTH 14.5 % 11.7-14.4 H (BEAKER) (test code = 412) PLATELET COUNT (BEAKER) (test 200 K/CU MM 150-450 code = 756) MEAN PLATELET VOLUME (BEAKER) 12.5 fL 9.4-12.3 H (test code = 754) NUCLEATED RED BLOOD CELLS 0 /100 WBC 0-0 (BEAKER) (test code = 413) CALCIUM, [id number] 03:02:00 Test Item Value Reference Range Interpretation Comments CALCIUM IONIZED (BEAKER) (test 1.10 mmol/L 1.12-1.27 L code = 698) PH, BLOOD (BEAKER) (test code = 7.38 1810) BLOOD GAS, [id number] 02:59:00 Test Item Value Reference Range Interpretation Comments PH ARTERIAL (BEAKER) (test code = 7.37 7.35-7.45 383) PCO2 ARTERIAL (BEAKER) (test code 52 mmHg 35-45 H = 384) PO2 ARTERIAL (BEAKER) (test code = 146 mmHg 80-90 H 385) O2 SATURATION ARTERIAL (BEAKER) 98.8 % 96.0-97.0 H (test code = 386) HCO3 ARTERIAL (BEAKER) (test code 29 mmol/L 21-29 = 388) BASE EXCESS ARTERIAL (BEAKER) 3.6 mmol/L -2.0-3.0 H (test code = 387) PATIENT TEMPERATURE (BEAKER) (test 37.5 C code = 1818) FIO2 (BEAKER) (test code = 1819) 24.0 % POCT-GLUCOSE [id number] 23:18:00 Test Item Value Reference Range Interpretation Comments POC-GLUCOSE METER 218 mg/dL 70-110 H : TESTED A T [facility] 6720 (BEAKER) (test code = [facility] or[employer]io [facility], 1538) [address]: Floor Installer/Techni gigi ID = [id number] for DO HALEIGHDEMARIO NICOLASA POCT-GLUCOSE [id number] 18:25:00 Test Item Value Reference Range Interpretation Comments POC-GLUCOSE METER 201 mg/dL 70-110 H : TESTED A T [facility] 6720 (BEAKER) (test code = [facility] [employer] [facility], 1538) [address]: Floor Installer/Techni gigi ID = [id number] for GONZALEZ VILLEGAS POCT-GLUCOSE [id number] 16:02:00 Test Item Value Reference Range Interpretation Comments POC-GLUCOSE METER 189 mg/dL 70-110 H : TESTED A T [facility] 6720 (BEAKER) (test code = NATHEN [place], 1538) [address]: Floor Installer/Techni gigi ID = [id number] for CO ONCE, [place] [id number] 12:13:00 Test Item Value Reference Range Interpretation Comments MAGNESIUM (BEAKER) 2.4 mg/dL 1.6-2.6 Specimen slightly (test code = 627) hemolyzed Floor Installer ID - JEANA MCheck Serum Potassium level 2 hours after oral potassium replacement completed or 30 min after intravenous potassium replacement. [id number] 12:13:00 Test Item Value Reference Range Interpretation Comments PHOSPHORUS (BEAKER) 3.8 mg/dL 2.3-4.7 Specimen slightly (test code = 604) hemolyzed Floor Installer ID - JEANA MCheck Serum Potassium level 2 hours after oral potassium replacement completed or 30 min after intravenous potassium replacement. [id number] 12:13:00 Test Item Value Reference Range Interpretation Comments POTASSIUM (BEAKER) 4.1 meq/L 3.5-5.1 Specimen slightly (test code = 379) hemolyzed Floor Installer ID - JEANA MCheck Serum Potassium level 2 hours after oral potassium replacement completed or 30 min after intravenous potassium replacement.BLOOD GAS, [id number] 11:52:00 Test Item Value Reference Range Interpretation Comments PH ARTERIAL (BEAKER) (test code = 7.44 7.35-7.45 383) PCO2 ARTERIAL (BEAKER) (test code 44 mmHg 35-45 = 384) PO2 ARTERIAL (BEAKER) (test code = 155 mmHg 80-90 H 385) O2 SATURATION ARTERIAL (BEAKER) 99.0 % 96.0-97.0 H (test code = 386) HCO3 ARTERIAL (BEAKER) (test code 29 mmol/L 21-29 = 388) BASE EXCESS ARTERIAL (BEAKER) 4.3 mmol/L -2.0-3.0 H (test code = 387) PATIENT TEMPERATURE (BEAKER) (test 37.5 C code = 1818) FIO2 (BEAKER) (test code = 1819) 36.0 % CALCIUM, [id number] 11:49:00 Test Item Value Reference Range Interpretation Comments CALCIUM IONIZED (BEAKER) (test 1.12 mmol/L 1.12-1.27 code = 698) PH, BLOOD (BEAKER) (test code = 7.45 1810) Check serum Ionized Calcium level after 4 hours after IV Calcium replacement. POCT-GLUCOSE [id number] 11:05:00 Test Item Value Reference Range Interpretation Comments POC-GLUCOSE METER 207 mg/dL 70-110 H : TESTED A T [facility] 6720 (BEAKER) (test code = [facility]agan [facility], 1538) [address]: Floor Installer/Techni gigi ID = [id number] for CO ONCE, [place] BLOOD GAS, [id number] 08:57:00 Test Item Value Reference Range Interpretation Comments PH ARTERIAL (BEAKER) (test code = 7.40 7.35-7.45 383) PCO2 ARTERIAL (BEAKER) (test code 47 mmHg 35-45 H = 384) PO2 ARTERIAL (BEAKER) (test code = 209 mmHg 80-90 H 385) O2 SATURATION ARTERIAL (BEAKER) 99.4 % 96.0-97.0 H (test code = 386) HCO3 ARTERIAL (BEAKER) (test code 28 mmol/L 21-29 = 388) BASE EXCESS ARTERIAL (BEAKER) 2.9 mmol/L -2.0-3.0 (test code = 387) PATIENT TEMPERATURE (BEAKER) (test 37.5 C code = 1818) FIO2 (BEAKER) (test code = 1819) 40.0 % POCT-GLUCOSE [id number] 08:36:00 Test Item Value Reference Range Interpretation Comments POC-GLUCOSE METER 267 mg/dL 70-110 H : TESTED A T [facility] 6720 (BEAKER) (test code = [facility], 1538) 88767: Floor Installer/Techni gigi ID = [id number] for CO ONCE, [place] RAD, CHEST, 1 VIEW, NON [id number] 08:19:00Reason for exam:->Mechanical ventilationShould this be performed at the bedside?->YesFINAL REPORT RAD, CHEST, 1 VIEW, NON DEPT INDICATION: Mechanical ventilation C OMPARISON: Prior day's exam FINDINGS: Portable frontal view of the chest. IMPRESSION: Support Lines: NG tube descends below the diaphragm. ET tube is unchanged. Right IJ catheter tip overlies the SVC Lungs and pleura: Inspiration is decreased intervertebral there is increased interstitial edema No p neumothorax.Heart and mediastinum: Stable contours. Stable surgical changes.Additional findings: None. Signed: Vilma Nicoleeport Verified Date/Time: 08/13/2019 08:19:28 [facility] [id number] 05:56:00 Test Item Value Reference Range Interpretation Comments PHOSPHORUS (BEAKER) (test code = 4.5 mg/dL 2.3-4.7 604) Floor Installer ID - JEANA [id number] 05:56:00 Test Item Value Reference Range Interpretation Comments MAGNESIUM (BEAKER) (test code = 2.4 mg/dL 1.6-2.6 627) Floor Installer ID - JEANA MBASIC METABOLIC [id number] 05:56:00 Test Item Value Reference Range Interpretation Comments SODIUM (BEAKER) 143 meq/L 136-145 (test code = 381) POTASSIUM (BEAKER) 4.2 meq/L 3.5-5.1 (test code = 379) CHLORIDE (BEAKER) 107 meq/L 98-107 (test code = 382) CO2 (BEAKER) (test 27 meq/L 22-29 code = 355) BLOOD UREA NITROGEN 33 mg/dL 7-21 H (BEAKER) (test code = 354) CREATININE (BEAKER) 1.57 mg/dL 0.57-1.25 H (test code = 358) GLUCOSE RANDOM 317 mg/dL 70-105 H (BEAKER) (test code = 652) CALCIUM (BEAKER) 8.8 mg/dL 8.4-10.2 (test code = 697) EGFR (BEAKER) (test 41 mL/min/1.73 ESTIMA SOLO GFR IS code = 1092) sq m NOT ACCURATE CREATININE CLEARANCE IN PREDICTING GLOMERULAR FILTRATION RATE . ESTIMATED GFR I S NOT APPLICABLE FOR DIALYSIS PATIEN TS. Floor Installer ID - JEANA [facility] (HEMOGRAM ONLY)2019-08-13 05:45:00 Test Item Value Reference Range Interpretation Comments WHITE BLOOD CELL COUNT (BEAKER) 13.0 K/ L 3.5-10.5 H (test code = 775) RED BLOOD CELL COUNT (BEAKER) 3.93 M/ L 3.93-5.22 (test code = 761) HEMOGLOBIN (BEAKER) (test code = 9.9 GM/DL 11.2-15.7 L 410) HEMATOCRIT (BEAKER) (test code = 31.9 % 34.1-44.9 L 411) MEAN CORPUSCULAR VOLUME (BEAKER) 81.2 fL 79.4-94.8 (test code = 753) MEAN CORPUSCULAR HEMOGLOBIN 25.2 pg 25.6-32.2 L (BEAKER) (test code = 751) MEAN CORPUSCULAR HEMOGLOBIN CONC 31.0 GM/DL 32.2-35.5 L (BEAKER) (test code = 752) RED CELL DISTRIBUTION WIDTH 14.6 % 11.7-14.4 H (BEAKER) (test code = 412) PLATELET COUNT (BEAKER) (test 147 K/CU MM 150-450 L code = 756) MEAN PLATELET VOLUME (BEAKER) 13.2 fL 9.4-12.3 H (test code = 754) NUCLEATED RED BLOOD CELLS 0 /100 WBC 0-0 (BEAKER) (test code = 413) BLOOD GAS, [id number] 05:45:00 Test Item Value Reference Range Interpretation Comments PH ARTERIAL (BEAKER) (test code = 7.37 7.35-7.45 383) PCO2 ARTERIAL (BEAKER) (test code 48 mmHg 35-45 H = 384) PO2 ARTERIAL (BEAKER) (test code = 206 mmHg 80-90 H 385) O2 SATURATION ARTERIAL (BEAKER) 99.3 % 96.0-97.0 H (test code = 386) HCO3 ARTERIAL (BEAKER) (test code 27 mmol/L 21-29 = 388) BASE EXCESS ARTERIAL (BEAKER) 1.2 mmol/L -2.0-3.0 (test code = 387) PATIENT TEMPERATURE (BEAKER) (test 37.5 C code = 1818) FIO2 (BEAKER) (test code = 1819) 40.0 % CALCIUM, [id number] 05:45:00 Test Item Value Reference Range Interpretation Comments CALCIUM IONIZED (BEAKER) (test 1.11 mmol/L 1.12-1.27 L code = 698) PH, BLOOD (BEAKER) (test code = 7.38 1810) Lactic acid, [id number] 05:44:00 Test Item Value Reference Range Interpretation Comments Lactate, Venous (test code 0.8 mmol/L 0.5-2.2 = 2872) ALON (test code = ALON) Floor Installer ID - JEANA M Lab Interpretation (test Normal code = 73559-0) [facility], [id number] 05:44:00 Test Item Value Reference Range Interpretation Comments LACTATE BLOOD VENOUS (2) (BEAKER) 0.8 mmol/L 0.5-2.2 (test code = 2872) Floor Installer ID - JEANA MPOCT-GLUCOSE [id number] 00:27:00 Test Item Value Reference Range Interpretation Comments POC-GLUCOSE METER 261 mg/dL 70-110 H : TESTED A T [facility] 6720 (BEAKER) (test code = [facility], 1538) 88063: Floor Installer/Techni gigi ID = [id number] for DO MUSAOctober POCT-GLUCOSE [id number] 23:11:00 Test Item Value Reference Range Interpretation Comments POC-GLUCOSE METER 259 mg/dL 70-110 H : TESTED A T [facility] 6720 (BEAKER) (test code = [facility], 1538) 51515: Floor Installer/Techni gigi ID = [id number] for DO MUSAOctober POCT-GLUCOSE [id number] 18:03:00 Test Item Value Reference Range Interpretation Comments POC-GLUCOSE METER 272 mg/dL 70-110 H : TESTED A T [facility] 6720 (BEAKER) (test code = [facility], 1538) 58960: Floor Installer/Techni gigi ID = [id number] for YAKOV HAYWARD [id number] 13:20:00 Test Item Value Reference Range Interpretation Comments MAGNESIUM (BEAKER) 2.1 mg/dL 1.6-2.6 Specimen slightly (test code = 627) hemolyzed Floor Installer ID - Marbin Serum Potassium level 2 hours after oral potassium replacement completed or 30 min after intravenous potassium replacement. [id number] 13:20:00 Test Item Value Reference Range Interpretation Comments PHOSPHORUS (BEAKER) 3.4 mg/dL 2.3-4.7 Specimen slightly (test code = 604) hemolyzed Floor Installer ID - Marbin Serum Potassium level 2 hours after oral potassium replacement completed or 30 min after intravenous potassium replacement. [id number] 13:20:00 Test Item Value Reference Range Interpretation Comments POTASSIUM (BEAKER) 3.8 meq/L 3.5-5.1 Specimen slightly (test code = 379) hemolyzed Floor Installer ID - [place] Serum Potassium level 2 hours after oral potassium replacement completed or 30 min after intravenous potassium replacement.CALCIUM, [id number] 13:10:00 Test Item Value Reference Range Interpretation Comments CALCIUM IONIZED (BEAKER) (test 1.12 mmol/L 1.12-1.27 code = 698) PH, BLOOD (BEAKER) (test code = 7.49 1810) Check serum Ionized Calcium level after 4 hours after IV Calcium replacement. Bronchial culture + gram [id number] 13:08:00 Test Item Value Reference Range Interpretation Comments Result (test code = 6463-4) No growth Gram Stain Result (test No organisms seen code = 1123) [facility] + [facility]AM [id number] 13:08:00 Test Item Value Reference Range Interpretation Comments CULTURE (BEAKER) (test code No growth = 1095) GRAM STAIN RESULT (BEAKER) <1+ WBCs (test code = 1123) GRAM STAIN RESULT (BEAKER) No organisms seen (test code = 47386) Resp [id number] 07:16:00Scan ResultQUEST NON-INTERFACED LABCHI [facility] HospitalRAD, [facility]ST, 1 VIEW, NON [id number] 05:35:00Reason for exam:- >Mechanical ventilationShould this be performed at the bedside?->YesFINAL REPORT RAD, CHEST, 1 VIEW, NON DEPT INDICATION: Mechanical ventilation COMPARISON: Prior day's exam FINDINGS: Portable frontal view of the chest. IMPRESSION: Support Lines: Stable. Lungs and pleura: Unchanged bibasilar opacities and trace pleural effusions. No new airspace consolidation. No pneumothorax.Heart and mediastinum: Stable contours. Stable surgical changes.Additional findings: None. Signed: Farida Whitmore MDRs[facility]ary[facility] Verified Date/Time: 08/12/2019 05:35:26 CALCIUM, [id number] 04:40:00 Test Item Value Reference Range Interpretation Comments CALCIUM IONIZED (BEAKER) (test 1.11 mmol/L 1.12-1.27 L code = 698) PH, BLOOD (BEAKER) (test code = 7.50 1810) BLOOD GAS, [id number] 04:39:00 Test Item Value Reference Range Interpretation Comments PH ARTERIAL (BEAKER) (test code = 7.49 7.35-7.45 H 383) PCO2 ARTERIAL (BEAKER) (test code 37 mmHg 35-45 = 384) PO2 ARTERIAL (BEAKER) (test code = 141 mmHg 80-90 H 385) O2 SATURATION ARTERIAL (BEAKER) 99.0 % 96.0-97.0 H (test code = 386) HCO3 ARTERIAL (BEAKER) (test code 27 mmol/L 21-29 = 388) BASE EXCESS ARTERIAL (BEAKER) 4.1 mmol/L -2.0-3.0 H (test code = 387) PATIENT TEMPERATURE (BEAKER) (test 37.5 C code = 1818) FIO2 (BEAKER) (test code = 1819) 40.0 % [id number] 03:53:00 Test Item Value Reference Range Interpretation Comments MAGNESIUM (BEAKER) 1.9 mg/dL 1.6-2.6 Specimen slightly (test code = 627) hemolyzed Floor Installer ID Marisa QUINN [id number] 03:53:00 Test Item Value Reference Range Interpretation Comments PHOSPHORUS (BEAKER) 3.6 mg/dL 2.3-4.7 Specimen slightly (test code = 604) hemolyzed Floor Installer ID - [place] WBASIC METABOLIC [id number] 03:53:00 Test Item Value Reference Range Interpretation Comments SODIUM (BEAKER) 140 meq/L 136-145 (test code = 381) POTASSIUM (BEAKER) 3.9 meq/L 3.5-5.1 Specimen slightly (test code = 379) hemolyzed CHLORIDE (BEAKER) 106 meq/L 98-107 (test code = 382) CO2 (BEAKER) (test 25 meq/L 22-29 code = 355) BLOOD UREA NITROGEN 27 mg/dL 7-21 H (BEAKER) (test code = 354) CREATININE (BEAKER) 1.66 mg/dL 0.57-1.25 H Specimen slightly (test code = 358) hemolyzed GLUCOSE RANDOM 254 mg/dL 70-105 H (BEAKER) (test code = 652) CALCIUM (BEAKER) 8.9 mg/dL 8.4-10.2 (test code = 697) EGFR (BEAKER) (test 39 mL/min/1.73 ESTIMA SOLO GFR IS code = 1092) sq m NOT ACCURATE CREATININE CLEARANCE IN PREDICTING GLOMERULAR FILTRATION RATE . ESTIMATED GFR I S NOT APPLICABLE FOR DIALYSIS PATIEN TS. Floor Installer ID - [facility] (HEMOGRAM ONLY)2019-08-12 03:24:00 Test Item Value Reference Range Interpretation Comments WHITE BLOOD CELL COUNT (BEAKER) 13.1 K/ L 3.5-10.5 H (test code = 775) RED BLOOD CELL COUNT (BEAKER) 4.07 M/ L 3.93-5.22 (test code = 761) HEMOGLOBIN (BEAKER) (test code = 10.3 GM/DL 11.2-15.7 L 410) HEMATOCRIT (BEAKER) (test code = 32.2 % 34.1-44.9 L 411) MEAN CORPUSCULAR VOLUME (BEAKER) 79.1 fL 79.4-94.8 L (test code = 753) MEAN CORPUSCULAR HEMOGLOBIN 25.3 pg 25.6-32.2 L (BEAKER) (test code = 751) MEAN CORPUSCULAR HEMOGLOBIN CONC 32.0 GM/DL 32.2-35.5 L (BEAKER) (test code = 752) RED CELL DISTRIBUTION WIDTH 14.4 % 11.7-14.4 (BEAKER) (test code = 412) PLATELET COUNT (BEAKER) (test 137 K/CU MM 150-450 L code = 756) MEAN PLATELET VOLUME (BEAKER) 12.4 fL 9.4-12.3 H (test code = 754) NUCLEATED RED BLOOD CELLS 0 /100 WBC 0-0 (BEAKER) (test code = 413) POCT-GLUCOSE [id number] 00:12:00 Test Item Value Reference Range Interpretation Comments POC-GLUCOSE METER 226 mg/dL 70-110 H : TESTED A T [facility] 6720 (BEAKER) (test code = [place], 1538) [address]: Floor Installer/Techni gigi ID = [id number] for October POCT-GLUCOSE [id number] 22:01:00 Test Item Value Reference Range Interpretation Comments POC-GLUCOSE METER 201 mg/dL 70-110 H : TESTED A T [facility] 6720 (BEAKER) (test code = NATHEN Barragan [facility], 1538) [address]: Floor Installer/Techni gigi ID = [id number] for Ana Hoover HGB/HCT (H&H)-Stat [id number] 20:34:00 Test Item Value Reference Range Interpretation Comments Hemoglobin (test code = 786-4) 11.1 g/dL 12-15 L Hematocrit (test code = 4544-3) 33.0 % 36-45 L Lab Interpretation (test code = Abnormal 91656-8) [facility]-Stat [id number] 20:34:00 Test Item Value Reference Range Interpretation Comments Glucose (test code = 2345-7) 212 mg/dL 70-110 H Lab Interpretation (test code = Abnormal 10048-3) [facility] CenterBLOOD [facility]AS, [id number] 20:34:00 Test Item Value Reference Range Interpretation Comments PH ARTERIAL (BEAKER) (test code = 7.53 7.35-7.45 H 383) PCO2 ARTERIAL (BEAKER) (test code 33 mmHg 35-45 L = 384) PO2 ARTERIAL (BEAKER) (test code = 120 mmHg 80-90 H 385) O2 SATURATION ARTERIAL (BEAKER) 98.7 % 96.0-97.0 H (test code = 386) HCO3 ARTERIAL (BEAKER) (test code 26 mmol/L 21-29 = 388) BASE EXCESS ARTERIAL (BEAKER) 3.7 mmol/L -2.0-3.0 H (test code = 387) PATIENT TEMPERATURE (BEAKER) (test 37.0 C code = 1818) FIO2 (BEAKER) (test code = 1819) 100.0 % GLUCOSE-STAT [id number] 20:34:00 Test Item Value Reference Range Interpretation Comments GLUCOSE RANDOM (BEAKER) (test code 212 mg/dL 70-110 H = 652) HGB/HCT (H&H) - STAT [id number] 20:34:00 Test Item Value Reference Range Interpretation Comments HEMOGLOBIN (BEAKER) (test code = 11.1 g/dL 12.0-15.0 L 410) HEMATOCRIT (BEAKER) (test code = 33.0 % 36.0-45.0 L 411) Oxygen saturation, [id number] 20:33:00 Test Item Value Reference Range Interpretation Comments O2 Saturation (Measured) (test code = 59.9 % 02917-4) [facility] [id number] 20:33:00 Test Item Value Reference Range Interpretation Comments Sodium (test code = 2951-2) 141 meq/L 135-148 Lab Interpretation (test code = Normal 89772-7) [facility]assium[facility]Stat [id number] 20:33:00 Test Item Value Reference Range Interpretation Comments Potassium (test code = 2823-3) 4.0 meq/L 3.6-5.5 Lab Interpretation (test code = Normal 92284-7) [facility] [id number] 20:33:00 Test Item Value Reference Range Interpretation Comments SODIUM (BEAKER) (test code = 381) 141 meq/L 135-148 POTASSIUM-STAT [id number] 20:33:00 Test Item Value Reference Range Interpretation Comments POTASSIUM (BEAKER) (test code = 4.0 meq/L 3.6-5.5 379) OXYGEN SATURATION, [id number] 20:33:00 Test Item Value Reference Range Interpretation Comments O2 SATURATION (MEASURED) (BEAKER) 59.9 % (test code = 1455) [id number] 19:30:00 Test Item Value Reference Range Interpretation Comments PHOSPHORUS (BEAKER) 3.6 mg/dL 2.3-4.7 Specimen slightly (test code = 604) hemolyzed Floor Installer ID - BSCheck Serum Potassium level 2 hours after oral potassium replacement completed or 30min after intravenous potassium replacement.POTASSIUM 2019-08-11 19:03:00 Test Item Value Reference Range Interpretation Comments POTASSIUM (BEAKER) 4.9 meq/L 3.5-5.1 Specimen slightly (test code = 379) hemolyzed Floor Installer ID - BSCheck Serum Potassium level 2 hours after oral potassium replacement completed or 30min after intravenous potassium replacement.POCT- GLUCOSE [id number] 17:18:00 Test Item Value Reference Range Interpretation Comments POC-GLUCOSE METER 187 mg/dL 70-110 H : TESTED A T [facility] 6720 (BEAKER) (test code = [facility], 1538) 52423: Floor Installer/Techni gigi ID = [id number] for GONZALEZ VILLEGAS BLOOD GAS, [id number] 13:29:00 Test Item Value Reference Range Interpretation Comments PH ARTERIAL (BEAKER) (test code = 7.51 7.35-7.45 H 383) PCO2 ARTERIAL (BEAKER) (test code 34 mmHg 35-45 L = 384) PO2 ARTERIAL (BEAKER) (test code = 165 mmHg 80-90 H 385) O2 SATURATION ARTERIAL (BEAKER) 99.3 % 96.0-97.0 H (test code = 386) HCO3 ARTERIAL (BEAKER) (test code 27 mmol/L 21-29 = 388) BASE EXCESS ARTERIAL (BEAKER) 4.0 mmol/L -2.0-3.0 H (test code = 387) PATIENT TEMPERATURE (BEAKER) (test 37.5 C code = 1818) FIO2 (BEAKER) (test code = 1819) 40.0 % POCT-GLUCOSE [id number] 12:31:00 Test Item Value Reference Range Interpretation Comments POC-GLUCOSE METER 354 mg/dL 70-110 H : TESTED A T [facility] 6720 (BEAKER) (test code = [facility], 1538) 62638: Floor Installer/Techni gigi ID = [id number] for MA GONZALEZ PETERSEN [id number] 08:49:00 Test Item Value Reference Range Interpretation Comments MAGNESIUM (BEAKER) 2.4 mg/dL 1.6-2.6 Specimen moderately (test code = 627) hemolyzed Floor Installer ID - JEANA [id number] 08:49:00 Test Item Value Reference Range Interpretation Comments POTASSIUM (BEAKER) 3.8 meq/L 3.5-5.1 Specimen moderately (test code = 379) hemolyzed Floor Installer ID - JEANA MRAD, CHEST, 1 VIEW, NON [id number] 08:45:00Reason for exam:->Mechanical ventilationShould this be performed at the bedside?->Yes FINAL REPORT RAD, CHEST, 1 VIEW, NON DEPT INDICATION: Mechanical ventilation COMPARISON: Prior day's exam FINDINGS: Portable frontal view of the chest. IMPRESSION: Support Lines: Right IJ catheter tip overlies the SVC. ET tube tip is 3 cm superior to the freddy. NG tube descends below the diaphragm. Lungs and pleura: Decreased airspace and pleural opacities. No pneumothorax.Heart and mediastinum: Stable contours. Stable surgical changes.Additional findings: None. Signed: Vilma Nicole MDReport Verified Date/Time: 08/11/2019 08:45:03 Reading Location: [facility] Radiology Reading Room Respiratory Panel [id number] 07:26:00 Test Item Value Reference Range Interpretation Comments Human Metapneumovirus Not detected Not detected, (test code = 29048-0) Equivocal Rhinovirus (test code = Not detected Not detected, 25554-4) Equivocal INFLUENZA A (NO Not detected Not detected, SUBTYPE) (test code = Equivocal 90173-1) Influenza A subtype H1 (test code = 11242-9) Influenza A Subtype H3 (test code = 28933-2) Influenza A Subtype H1-2009 (test code = 76331-7) Influenza B (test code Not detected Not detected, = 20173-3) Equivocal Respiratory Syncytial Not detected Not detected, Virus (test code = Equivocal 83706-7) Parainfluenza Virus 1 Not detected Not detected, (test code = 75711-7) Equivocal Parainfluenza Virus 2 Not detected Not detected, (test code = 41030-4) Equivocal Parainfluenza virus 3 Not detected Not detected, (test code = 71976-3) Equivocal Parainfluenza Virus 4 Not detected Not detected, (test code = 93504-7) Equivocal Adenovirus (test code = Not detected Not detected, 56090-4) Equivocal Coronavirus 229E (test Not detected Not detected, code = 02545-5) Equivocal Coronavirus HKU1 (test Not detected Not detected, code = 10807-2) Equivocal Coronavirus NL63 (test Not detected Not detected, code = 01350-2) Equivocal Coronavirus OC43 (test Not detected Not detected, code = 78529-4) Equivocal Bordetella Pertussis Not detected Not detected, (test code = 08410-8) Equivocal Chlamydophila Not detected Not detected, Pneumoniae (test code = Equivocal 65153-8) Mycoplasma Pneumoniae Not detected Not detected, (test code = 97746-6) Equivocal ALON (test code = ALON) Other viruses and bacteria not targeted by this PCR panel cannot be excluded; therefore clinical correlation and follow up of serology, culture results, and other molecular studies is required. The results are not intended to be used as the sole means for clinical diagnosis or patient management decisions. This sample was tested at the [facility] Molecular Diagnostics Laboratory using the BeVocalArray Respiratory Panel. It is FDA cleared and has been verified and approved by the [facility] Molecular Diagnostics Laboratory for clinical use on nasopharyngeal swab specimens. The performance of the FilmArray RP has not been established in individuals who received influenza vaccine. Recent administration of a nasal influenza vaccine may cause false positive results for Influenza A and/orInfluenza B. [facility] [id number] 07:26:00 Test Item Value Reference Range Interpretation Comments HUMAN METAPNEUMOVIRUS Not detected Not detected, (BEAKER) (test code = 2683) Equivocal RHINOVIRUS (BEAKER) (test Not detected Not detected, code = 2684) Equivocal INFLUENZA A (BEAKER) (test Not detected Not detected, code = 2685) Equivocal INFLUENZA A (NO SUBTYPE) (test code = 3606) INFLUENZA A SUBTYPE H1 (BEAKER) (test code = 2686) INFLUENZA A SUBTYPE H3 (BEAKER) (test code = 2687) INFLUENZA A SUBTYPE H1-2009 (BEAKER) (test code = 3198) INFLUENZA B (BEAKER) (test Not detected Not detected, code = 2688) Equivocal RESPIRATORY SYNCYTIAL VIRUS Not detected Not detected, (BEAKER) (test code = 3199) Equivocal PARAINFLUENZA VIRUS 1 Not detected Not detected, (BEAKER) (test code = 2691) Equivocal PARAINFLUENZA VIRUS 2 Not detected Not detected, (BEAKER) (test code = 2692) Equivocal PARAINFLUENZA VIRUS 3 Not detected Not detected, (BEAKER) (test code = 2693) Equivocal PARAINFLUENZA VIRUS 4 Not detected Not detected, (BEAKER) (test code = 3200) Equivocal ADENOVIRUS (BEAKER) (test Not detected Not detected, code = 2694) Equivocal CORONAVIRUS 229E (BEAKER) Not detected Not detected, (test code = 3201) Equivocal CORONAVIRUS HKU1 (BEAKER) Not detected Not detected, (test code = 3202) Equivocal CORONAVIRUS NL63 (BEAKER) Not detected Not detected, (test code = 3203) Equivocal CORONAVIRUS OC43 (BEAKER) Not detected Not detected, (test code = 3204) Equivocal BORDETELLA PERTUSSIS Not detected Not detected, (BEAKER) (test code = 3205) Equivocal CHLAMYDOPHILA PNEUMONIAE Not detected Not detected, (BEAKER) (test code = 3206) Equivocal MYCOPLASMA PNEUMONIAE Not detected Not detected, (BEAKER) (test code = 3207) Equivocal Other viruses and bacteria not targeted by this PCR panel cannot be excluded; therefore clinical correlation and follow up of serology, culture results, and other molecular studies is required. The results are not intended to be used as the sole means for clinical diagnosis or patient management decisions. This sample was tested at the [facility] Molecular Diagnostics Laboratory using the BeVocalArray Respiratory Panel. It is FDA cleared and has been verified and approved by the [facility] Molecular Diagnostics Laboratory for clinical use on nasopharyngeal swab specimens.The performance of the FilmArrayRP has not been established in individuals who received influenza vaccine. Recent administration ofa nasal influenza vaccine may cause false positive results for Influenza A and/orInfluenza B.CALCIUM, [id number] 07:18:00 Test Item Value Reference Range Interpretation Comments CALCIUM IONIZED (BEAKER) (test 1.13 mmol/L 1.12-1.27 code = 698) PH, BLOOD (BEAKER) (test code = 7.60 1810) [id number] 06:09:00 Test Item Value Reference Range Interpretation Comments MAGNESIUM (BEAKER) 2.2 mg/dL 1.6-2.6 Specimen slightly (test code = 627) hemolyzed Floor Installer ID - JEANA [id number] 06:09:00 Test Item Value Reference Range Interpretation Comments PHOSPHORUS (BEAKER) 1.7 mg/dL 2.3-4.7 L Specimen slightly (test code = 604) hemolyzed Floor Installer ID - JEANA MBASIC METABOLIC [id number] 06:09:00 Test Item Value Reference Range Interpretation Comments SODIUM (BEAKER) 137 meq/L 136-145 (test code = 381) POTASSIUM (BEAKER) 3.6 meq/L 3.5-5.1 Specimen slightly (test code = 379) hemolyzed CHLORIDE (BEAKER) 104 meq/L 98-107 (test code = 382) CO2 (BEAKER) (test 25 meq/L 22-29 code = 355) BLOOD UREA NITROGEN 21 mg/dL 7-21 (BEAKER) (test code = 354) CREATININE (BEAKER) 1.39 mg/dL 0.57-1.25 H Specimen slightly (test code = 358) hemolyzed GLUCOSE RANDOM 322 mg/dL 70-105 H (BEAKER) (test code = 652) CALCIUM (BEAKER) 9.0 mg/dL 8.4-10.2 (test code = 697) EGFR (BEAKER) (test 48 mL/min/1.73 ESTIMA SOLO GFR IS code = 1092) sq m NOT ACCURATE CREATININE CLEARANCE IN PREDICTING GLOMERULAR FILTRATION RATE . ESTIMATED GFR I S NOT APPLICABLE FOR DIALYSIS PATIEN TS. Floor Installer ID - JEANA MPOCT-GLUCOSE [id number] 05:58:00 Test Item Value Reference Range Interpretation Comments POC-GLUCOSE METER 301 mg/dL 70-110 H : Notified RN/MD: Will (BEAKER) (test code = Repeat Test: TESTED AT 1538) [facility] [address] [facility], [address]: Floor Installer/Techni gigi ID = [id number] for DO October Troponin [id number] 05:46:00 Test Item Value Reference Range Interpretation Comments Troponin I (test code = 0.17 ng/mL 0-0.03 H 73650-9) ALON (test code = ALON) Troponin I (TnI) levels must be interpreted in the context of the presenting symptoms and the clinical findings. Elevated TnI levels indicate myocardial damage, but are not specific for ischemic heart disease. Elevated TnI levels are seen in patients with other cardiac conditions (including myocarditis and congestive heart failure), and slight TnI elevations occur in patients with other conditions, including sepsis, renal failure, acidosis, acute neurological disease, and persistent tachyarrhythmia.Opera tor ID - JEANA M Lab Interpretation (test Abnormal code = 12381-3) [facility] [id number] 05:46:00 Test Item Value Reference Range Interpretation Comments TROPONIN I (BEAKER) (test code = 0.17 ng/mL 0.00-0.03 H 397) Troponin I (TnI) levels must be interpreted in the context of the presenting symptoms and the clinical findings. Elevated TnI levels indicate myocardial damage, but are not specific for ischemic heart disease. Elevated TnI levels are seen in patients with other cardiac conditions (including myocarditis and congestive heart failure), and slight TnI elevations occur in patients with other conditions, including sepsis, renal failure, acidosis, acute neurological disease, and persistent tachyarrhythmia.Floor Installer ID - JEANA MCBC (HEMOGRAM ONLY) 2019-08-11 05:24:00 Test Item Value Reference Range Interpretation Comments WHITE BLOOD CELL COUNT (BEAKER) 12.2 K/ L 3.5-10.5 H (test code = 775) RED BLOOD CELL COUNT (BEAKER) 4.19 M/ L 3.93-5.22 (test code = 761) HEMOGLOBIN (BEAKER) (test code = 10.9 GM/DL 11.2-15.7 L 410) HEMATOCRIT (BEAKER) (test code = 32.2 % 34.1-44.9 L 411) MEAN CORPUSCULAR VOLUME (BEAKER) 76.8 fL 79.4-94.8 L (test code = 753) MEAN CORPUSCULAR HEMOGLOBIN 26.0 pg 25.6-32.2 (BEAKER) (test code = 751) MEAN CORPUSCULAR HEMOGLOBIN CONC 33.9 GM/DL 32.2-35.5 (BEAKER) (test code = 752) RED CELL DISTRIBUTION WIDTH 14.1 % 11.7-14.4 (BEAKER) (test code = 412) PLATELET COUNT (BEAKER) (test 147 K/CU MM 150-450 L code = 756) MEAN PLATELET VOLUME (BEAKER) 12.3 fL 9.4-12.3 (test code = 754) NUCLEATED RED BLOOD CELLS 0 /100 WBC 0-0 (BEAKER) (test code = 413) BLOOD GAS, [id number] 05:16:00 Test Item Value Reference Range Interpretation Comments PH ARTERIAL (BEAKER) (test code = 7.57 7.35-7.45 H 383) PCO2 ARTERIAL (BEAKER) (test code 30 mmHg 35-45 L = 384) PO2 ARTERIAL (BEAKER) (test code = 121 mmHg 80-90 H 385) O2 SATURATION ARTERIAL (BEAKER) 98.7 % 96.0-97.0 H (test code = 386) HCO3 ARTERIAL (BEAKER) (test code 26 mmol/L 21-29 = 388) BASE EXCESS ARTERIAL (BEAKER) 5.0 mmol/L -2.0-3.0 H (test code = 387) PATIENT TEMPERATURE (BEAKER) (test 38.0 C code = 1818) FIO2 (BEAKER) (test code = 1819) 50.0 % OXYGEN SATURATION, [id number] 05:12:00 Test Item Value Reference Range Interpretation Comments O2 SATURATION (MEASURED) (BEAKER) 69.3 % (test code = 1455) TROPONIN [id number] 00:20:00 Test Item Value Reference Range Interpretation Comments TROPONIN I (BEAKER) (test code = 0.22 ng/mL 0.00-0.03 HH 397) Troponin I (TnI) levels must be interpreted in the context of the presenting symptoms and the clinical findings. Elevated TnI levels indicate myocardial damage, but are not specific for ischemic heart disease. Elevated TnI levels are seen in patients with other cardiac conditions (including myocarditis and congestive heart failure), and slight TnI elevations occur in patients with other conditions, including sepsis, renal failure, acidosis, acute neurological disease, and persistent tachyarrhythmia.Floor Installer ID - BSPOCT-GLUCOSE METER 2019-08-11 00:05:00 Test Item Value Reference Range Interpretation Comments POC-GLUCOSE METER 260 mg/dL 70-110 H : [facility] (BE[facility]ER[facility] (test code = [address] [place], [address]) [address]: Floor Installer/Techni gigi ID = [id number] for DO October [id number] 00:00:00 Test Item Value Reference Range Interpretation Comments MAGNESIUM (BEAKER) 2.2 mg/dL 1.6-2.6 Specimen slightly (test code = 627) hemolyzed Floor Installer ID - [id number] 00:00:00 Test Item Value Reference Range Interpretation Comments POTASSIUM (BEAKER) 3.6 meq/L 3.5-5.1 Specimen slightly (test code = 379) hemolyzed Floor Installer ID - BSBLOOD GAS, [id number] 23:59:00 Test Item Value Reference Range Interpretation Comments PH ARTERIAL (BEAKER) (test code = 7.57 7.35-7.45 H 383) PCO2 ARTERIAL (BEAKER) (test code 29 mmHg 35-45 L = 384) PO2 ARTERIAL (BEAKER) (test code = 108 mmHg 80-90 H 385) O2 SATURATION ARTERIAL (BEAKER) 98.4 % 96.0-97.0 H (test code = 386) HCO3 ARTERIAL (BEAKER) (test code 26 mmol/L 21-29 = 388) BASE EXCESS ARTERIAL (BEAKER) 4.6 mmol/L -2.0-3.0 H (test code = 387) PATIENT TEMPERATURE (BEAKER) (test 38.0 C code = 1818) FIO2 (BEAKER) (test code = 1819) 50.0 % CALCIUM, [id number] 23:59:00 Test Item Value Reference Range Interpretation Comments CALCIUM IONIZED (BEAKER) (test 1.09 mmol/L 1.12-1.27 L code = 698) PH, BLOOD (BEAKER) (test code = 7.58 1810) Check serum Ionized Calcium level after 4 hours after IV Calcium replacement. Rapid Influenza A&B [id number] 21:04:00 Test Item Value Reference Range Interpretation Comments Rapid Influenza A Antigen Negative Negative, Inconclusive (test code = 63926-6) Rapid influenza B Antigen Negative Negative, Inconclusive (test code = 61639-0) Lab Interpretation (test code Normal = 28617-6) [facility]FL[facility]ZA [facility]&B [id number] 21:04:00 Test Item Value Reference Range Interpretation Comments RAPID INFLUENZA A AG (BEAKER) Negative Negative, Inconclusive (test code = 1622) RAPID INFLUENZA B AG (BEAKER) Negative Negative, Inconclusive (test code = 1623) BLOOD GAS, [id number] 20:08:00 Test Item Value Reference Range Interpretation Comments PH ARTERIAL (BEAKER) (test code = 7.56 7.35-7.45 H 383) PCO2 ARTERIAL (BEAKER) (test code 29 mmHg 35-45 L = 384) PO2 ARTERIAL (BEAKER) (test code = 124 mmHg 80-90 H 385) O2 SATURATION ARTERIAL (BEAKER) 98.8 % 96.0-97.0 H (test code = 386) HCO3 ARTERIAL (BEAKER) (test code 25 mmol/L 21-29 = 388) BASE EXCESS ARTERIAL (BEAKER) 3.7 mmol/L -2.0-3.0 H (test code = 387) PATIENT TEMPERATURE (BEAKER) (test 38.0 C code = 1818) FIO2 (BEAKER) (test code = 1819) 50.0 % OXYGEN SATURATION, [id number] 19:14:00 Test Item Value Reference Range Interpretation Comments O2 SATURATION (MEASURED) (BEAKER) 63.1 % (test code = 1455) BLOOD GAS, [id number] 18:51:00 Test Item Value Reference Range Interpretation Comments PH ARTERIAL (BEAKER) (test code = 7.61 7.35-7.45 HH 383) PCO2 ARTERIAL (BEAKER) (test code 23 mmHg 35-45 L = 384) PO2 ARTERIAL (BEAKER) (test code = 176 mmHg 80-90 H 385) O2 SATURATION ARTERIAL (BEAKER) 99.4 % 96.0-97.0 H (test code = 386) HCO3 ARTERIAL (BEAKER) (test code 22 mmol/L 21-29 = 388) BASE EXCESS ARTERIAL (BEAKER) 1.8 mmol/L -2.0-3.0 (test code = 387) PATIENT TEMPERATURE (BEAKER) (test 38.0 C code = 1818) FIO2 (BEAKER) (test code = 1819) 50.0 % TROPONIN [id number] 18:40:00 Test Item Value Reference Range Interpretation Comments TROPONIN I (BEAKER) (test code = 0.22 ng/mL 0.00-0.03 HH 397) Troponin I (TnI) levels must be interpreted in the context of the presenting symptoms and the clinical findings. Elevated TnI levels indicate myocardial damage, but are not specific for ischemic heart disease. Elevated TnI levels are seen in patients with other cardiac conditions (including myocarditis and congestive heart failure), and slight TnI elevations occur in patients with other conditions, including sepsis, renal failure, acidosis, acute neurological disease, and persistent tachyarrhythmia.Floor Installer ID - [id number] 18:32:00 Test Item Value Reference Range Interpretation Comments POTASSIUM (BEAKER) (test code = 3.7 meq/L 3.5-5.1 379) Floor Installer ID - [id number] 18:32:00 Test Item Value Reference Range Interpretation Comments MAGNESIUM (BEAKER) (test code = 2.6 mg/dL 1.6-2.6 627) Floor Installer ID - BSPOCT-GLUCOSE [id number] 17:52:00 Test Item Value Reference Range Interpretation Comments POC-GLUCOSE METER 305 mg/dL 70-110 H : TESTED A T [facility] [address] (BEAKER) (test code = N[address] [place], [address]38) [address]: Floor Installer/Techni gigi ID = [id number] for Isac GOMEZ BLOOD GAS, [id number] 14:40:00 Test Item Value Reference Range Interpretation Comments PH ARTERIAL (BEAKER) (test code = 7.57 7.35-7.45 H 383) PCO2 ARTERIAL (BEAKER) (test code 24 mmHg 35-45 L = 384) PO2 ARTERIAL (BEAKER) (test code = 211 mmHg 80-90 H 385) O2 SATURATION ARTERIAL (BEAKER) 99.6 % 96.0-97.0 H (test code = 386) HCO3 ARTERIAL (BEAKER) (test code 21 mmol/L 21-29 = 388) BASE EXCESS ARTERIAL (BEAKER) 0.3 mmol/L -2.0-3.0 (test code = 387) PATIENT TEMPERATURE (BEAKER) (test 37.0 C code = 1818) FIO2 (BEAKER) (test code = 1819) 60.0 % OXYGEN SATURATION, [id number] 14:38:00 Test Item Value Reference Range Interpretation Comments O2 SATURATION (MEASURED) (BEAKER) 67.6 % (test code = 1455) RAD, CHEST, 1 VIEW, NON [id number] 14:31:00Reason for exam:->line placementFINAL REPORT RAD, CHEST, 1 VIEW, NON DEPT INDICATION: line placement COMPARISON: Prior day's exam FINDINGS: Portable frontal view of the chest. IMPRESSION: Support Lines: Right IJ catheter tip overlies the SVC. ET tube tip is 2 cm superior to the freddy. NG tube descends below the diaphragm. Lungs and pleura: Decreased airspace and pleural opacities. No pneumothorax.Heart and mediastinum: Stable contours. Stable surgical changes.Additional findings: None. Signed: Vilma Nicoleeport Verified Date/Time: 08/10/2019 14:31:42 Reading Location: [facility] Radiology Read ing Room [id number] 14:04:00 Test Item Value Reference Range Interpretation Comments MAGNESIUM (BEAKER) (test code = 1.9 mg/dL 1.6-2.6 627) Floor Installer ID - ROSIANGManual [id number] 12:45:00 Test Item Value Reference Range Interpretation Comments % Neutros (test code = 2816) 75 % % Lymphs (test code = 2817) 14 % % Monos (test code = 2818) 5 % % Bands (test code = 2826) 6 % 0-10 # Neutros (test code = 2830) 7.05 K/ul 1.56-6.13 H # Lymphs (test code = 2831) 1.32 K/ul 1.18-3.74 # Monos (test code = 2832) 0.47 K/uL 0.24-0.36 H # Bands (test code = 2840) 0.56 K/uL 0-0.8 Total Counted (test code = 1351) 100 nRBC (manual) (test code = 1353) 1 0- 0 /100 WBC H WBC Morphology (test code = 487) Normal Platelet Morphology (test code = Normal 486) Polychromasia (test code = 478) 1+ few Hypochromia (test code = 963) 1+ few Lab Interpretation (test code = Abnormal 63809-5) [facility] W/PLT COUNT & AUTO [id number] 12:45:00 Test Item Value Reference Range Interpretation Comments WHITE BLOOD CELL COUNT (BEAKER) 9.4 K/ L 3.5-10.5 (test code = 775) RED BLOOD CELL COUNT (BEAKER) 4.13 M/ L 3.93-5.22 (test code = 761) HEMOGLOBIN (BEAKER) (test code = 10.5 GM/DL 11.2-15.7 L 410) HEMATOCRIT (BEAKER) (test code = 33.6 % 34.1-44.9 L 411) MEAN CORPUSCULAR VOLUME (BEAKER) 81.4 fL 79.4-94.8 (test code = 753) MEAN CORPUSCULAR HEMOGLOBIN 25.4 pg 25.6-32.2 L (BEAKER) (test code = 751) MEAN CORPUSCULAR HEMOGLOBIN CONC 31.3 GM/DL 32.2-35.5 L (BEAKER) (test code = 752) RED CELL DISTRIBUTION WIDTH 14.2 % 11.7-14.4 (BEAKER) (test code = 412) PLATELET COUNT (BEAKER) (test 168 K/CU MM 150-450 code = 756) MEAN PLATELET VOLUME (BEAKER) 12.4 fL 9.4-12.3 H (test code = 754) NUCLEATED RED BLOOD CELLS 0 /100 WBC 0-0 (BEAKER) (test code = 413) (CELLAVISION MANUAL DIFF)2019-08-10 12:45:00 Test Item Value Reference Range Interpretation Comments NEUTROPHILS - REL 75 % (CELLAVISION)(BEAKER) (test code = 2816) LYMPHOCYTES - REL 14 % (CELLAVISION)(BEAKER) (test code = 2817) MONOCYTES - REL 5 % (CELLAVISION)(BEAKER) (test code = 2818) BANDS - REL (CELLAVISION)(BEAKER) 6 % 0-10 (test code = 2826) NEUTROPHILS - ABS 7.05 K/ul 1.56-6.13 H (CELLAVISION)(BEAKER) (test code = 2830) LYMPHOCYTES - ABS 1.32 K/ul 1.18-3.74 (CELLAVISION)(BEAKER) (test code = 2831) MONOCYTES - ABS 0.47 K/uL 0.24-0.36 H (CELLAVISION)(BEAKER) (test code = 2832) BANDS - ABS (CELLAVISION)(BEAKER) 0.56 K/uL 0.00-0.80 (test code = 2840) TOTAL COUNTED (BEAKER) (test code 100 = 1351) MANUAL NRBC PER 100 CELLS (BEAKER) 1 /100 WBC 0-0 H (test code = 1353) WBC MORPHOLOGY (BEAKER) (test code Normal = 487) PLT MORPHOLOGY (BEAKER) (test code Normal = 486) POLYCHROMATOPHILLIC RBCS(BEAKER) 1+ few (test code = 478) HYPOCHROMIA (BEAKER) (test code = 1+ few 963) POCT-GLUCOSE [id number] 12:10:00 Test Item Value Reference Range Interpretation Comments POC-GLUCOSE METER 366 mg/dL 70-110 H : TESTED A T [facility] [address] (BEAKER) (test code = [place], [address]38) [address]: Floor Installer/Techni gigi ID = [id number] for Isac GOMEZ 2D Echo W/Doppler(CW/PW/Color)2019-08-10 11:07:54Ejection FractionSLEH ECHO HEARTLAB MKCKESSON CPACSInterface, External Ris In - 08/10/2019 11:08 AM C STTransthoracic Echocardiography Report (TTE) Demographics Patient Name MAO AMBROCIO Date of Study 08/10/2019 JUSTIN GenderFemale Visit Number [id number] Race Black Room Number C826 Number Date of 1965 Referring Physician Lori Jones Age 54 year(s) 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 Greatest pericardial end-diastolic size is approx. 1.4 cm, posteriorly. tamponade physiology is not evident, but clinical correlation recommended since unable to assess PA pressure. The estimated RA pressure by IVC dynamics 11- 15mmHg . The left ventricle is chamber size [...] TR velocity signal. Pulmonic Valve Normal PV st ructure and function by limited views and Doppler. Aorta Aortic root size (SInus of Valsalva diameter) is normal . Pericardium A moderate circumferential pericardial effusion is present . Greatest pericardial end-diastolic size is approx. 1.4 cm, posteriorly. IVC/SVC/PA/PV/Pleural The estimated RA pressure by IVC dynamics 11-15mmHg . Chambers/Structures Left Atrium LA Volume: 48.92 ml LA Area: 17.44 cm^2 LA Vol. Index: 24 ml/m^2 Left Ventricle LVIDd: 5.21 cm LVEDV:130.03 ml LV Septum Diastolic: 0.87cm LV Septum Systolic: 0.85 cm LV PW [...] LVOT CO: 4.04 l/min LVOT CI: 1.95 l/min/m^2CCity [facility] CenterUrinalysis w/Microscopic + Reflex to [id number] 11:01:00 Test Item Value Reference Range Interpretation Comments Color, UA (test code = Colorless 5778-6) Clarity, UA (test code Clear = 5767-9) Specific [place], UA 1.007 1.001-1.035 (test code = 5811-5) pH, UA (test code = 5.0 5.0-8.0 5803-2) Protein, UA (test code Negative Negative = 65415-5) Glucose, UA (test code Negative Negative = 365) Ketones, UA (test code Negative Negative = 2514-8) Bilirubin, UA (test Negative Negative code = 26587-8) Blood, UA (test code = Negative Negative 80126-8) Nitrite, UA (test code Negative Negative = 5802-4) Leukocytes, UA (test Negative Negative code = 5799-2) Urobilinogen, UA (test 0.2 mg/dL 0.2-1 code = 00284-6) RBC, UA (test code = 0 /HPF 26488-3) WBC, UA (test code = 1 /HPF 5821-4) Hyaline Casts, UA (test 7 /LPF code = 06776-1) Amorphous Crystals Rare (test code = 67360-2) Specimen Source (test code = 2795) ALON (test code = ALON) Floor Installer ID - [auto]Floor Installer ID - tech [facility]/ REFLEX URINE [id number] 11:01:00 Test Item Value Reference Range Interpretation Comments COLOR (BEAKER) (test code = 470) Colorless CLARITY (BEAKER) (test code = 469) Clear SPECIFIC GRAVITY UA (BEAKER) (test 1.007 1.001-1.035 code = 468) PH UA (BEAKER) (test code = 467) 5.0 5.0-8.0 PROTEIN UA (BEAKER) (test code = Negative Negative 464) GLUCOSE UA (BEAKER) (test code = Negative Negative 365) KETONES UA (BEAKER) (test code = Negative Negative 371) BILIRUBIN UA (BEAKER) (test code = Negative Negative 462) BLOOD UA (BEAKER) (test code = 461) Negative Negative NITRITE UA (BEAKER) (test code = Negative Negative 465) LEUKOCYTE ESTERASE UA (BEAKER) Negative Negative (test code = 466) UROBILINOGEN UA (BEAKER) (test code 0.2 mg/dL 0.2-1.0 = 463) RBC UA (BEAKER) (test code = 519) 0 /HPF WBC UA (BEAKER) (test code = 520) 1 /HPF HYALINE CASTS (BEAKER) (test code = 7 /LPF 514) AMORPHOUS CRYSTALS (BEAKER) (test Rare code = 1584) SOURCE(BEAKER) (test code = 2795) Floor Installer ID - [auto]Floor Installer ID - [id number] 10:34:00 Test Item Value Reference Range Interpretation Comments Procalcitonin (test code = 20.02 ng/mL <0.05 97688-4) ALON (test code = ALON) SEPSIS RISK (ng/mL)Low: 0.05-0.50Intermedi ate: 0.51-2.00High: >=2.01 Lab Interpretation (test Abnormal code = 36809-7) [facility] [id number] 10:34:00 Test Item Value Reference Range Interpretation Comments PROCALCITONIN (BEAKER) (test code 20.02 ng/mL <0.05 HH = 3036) SEPSIS RISK (ng/mL)Low: 0.05-0.50Intermediate: 0.51-2.00High: >=2.01Hemoglobin [id number] 10:24:00 Test Item Value Reference Range Interpretation Comments Hemoglobin A1C (test code = 4548-4) 10.0 % 4.3-6.1 H Lab Interpretation (test code = Abnormal 89196-4) [facility] CenterHEMOGLOBIN [id number] 10:24:00 Test Item Value Reference Range Interpretation Comments HEMOGLOBIN A1C (BEAKER) (test code = 10.0 % 4.3-6.1 H 368) TROPONIN [id number] 10:12:00 Test Item Value Reference Range Interpretation Comments TROPONIN I (BEAKER) (test code = 0.23 ng/mL 0.00-0.03 397) Troponin I (TnI) levels must be interpreted in the context of the presenting symptoms and the clinical findings. Elevated TnI levels indicate myocardial damage, but are not specific for ischemic heart disease. Elevated TnI levels are seen in patients with other cardiac conditions (including myocarditis and congestive heart failure), and slight TnI elevations occur in patients with other conditions, including sepsis, renal failure, acidosis, acute neurological disease, and persistent tachyarrhythmia.Floor Installer ID - LAABORH, [id number] 07:55:00 Test Item Value Reference Range Interpretation Comments ABO Grouping (test code = 2588) A Rh Factor (test code = 2589) POS [facility] CenterCALCIUM, [id number] 07:39:00 Test Item Value Reference Range Interpretation Comments CALCIUM IONIZED (BEAKER) (test 0.98 mmol/L 1.12-1.27 L code = 698) PH, BLOOD (BEAKER) (test code = 7.50 1810) Type and screen, [id number] 07:35:00 Test Item Value Reference Range Interpretation Comments ABO/RH AUTOMATED (BEAKER) (test A POSITIVE code = 2260) Ab Scrn (test code = 890-4) NEGATIVE [id number] 07:29:00 Test Item Value Reference Range Interpretation Comments Protein, Total (test 6.7 6.0- 8.3 gm/dL code = 2885-2) Albumin (test code = 3.2 g/dL 3.5-5 L 31029-7) Alkaline Phosphatase 84 U/L 40-150 (test code = 6768-6) Total Bilirubin (test 0.3 mg/dL 0.2-1.2 code = 1974-2) Sodium (test code = 134 meq/L 136-145 L 2951-2) Potassium (test code = 4.3 meq/L 3.5-5.1 2823-3) Chloride (test code = 105 meq/L 98-107 2075-0) CO2 (test code = 23 meq/L 22-29 8-9) BUN (test code = 22 mg/dL 7-21 H 3094-0) Creatinine (test code 1.33 mg/dL 0.57-1.25 H = 2160-0) Glucose (test code = 378 mg/dL 70-105 H 2345-7) Calcium (test code = 8.3 mg/dL 8.4-10.2 L 18021-1) AST (test code = 15 U/L 5-34 1920-8) ALT (test code = 12 U/L 6-55 1742-6) EGFR (test code = 50 mL/min/1.73 [place] [address]-3) NOT ACCURATE CREATININE CLEARANCE IN PREDICTING GLOMERULAR FILTRATION RATE . ESTIMATED GFR I S NOT APPLICABLE FOR DIALYSIS PATIENTS. ALON (test code = ALON) Floor Installer ID - BS Lab Interpretation Abnormal (test code = 15118-2) [facility] [id number] 07:29:00 Test Item Value Reference Range Interpretation Comments Triglycerides (test 58 mg/dL code = 2571-8) Cholesterol (test code 165 mg/dL = 2093-3) HDL (test code = 53 mg/dL 2084-9) LDL Calculated (test 100 mg/dL code = 70301-7) ALON (test code = ALON) Triglyceride Reference Range: Low Risk <150 Borderline 150-199 High Risk 200-499 Very High Risk >=500 Cholesterol Reference Range: Low Risk <200 Borderline 200-239 High Risk >240 HDL Cholesterol Reference Range: Low Risk >=60 High Risk <40 LDL Cholesterol Reference Range: Optimal <100 Near Optimal 100-129 Borderline 130-159 High 160-189 Very High >=190 Floor Installer ID - BS [facility] function [id number] 07:29:00 Test Item Value Reference Range Interpretation Comments Protein, Total (test code = 6.7 6.0- 8.3 gm/dL 2885-2) Albumin (test code = 3.2 g/dL 3.5-5 L 42679-0) Total Bilirubin (test code = 0.3 mg/dL 0.2-1.2 1974-2) Bilirubin, Direct (test code 0.2 mg/dL 0.1-0.5 = 1968-7) Alkaline Phosphatase (test 84 U/L 40-150 code = 6768-6) AST (test code = 1920-8) 15 U/L 5-34 ALT (test code = 1742-6) 12 U/L 6-55 ALON (test code = ALON) Floor Installer ID - BS Lab Interpretation (test Abnormal code = 48862-0) [facility]2020-[facility] 07:29:00 Test Item Value Reference Range Interpretation Comments PHOSPHORUS (BEAKER) (test code = 3.3 mg/dL 2.3-4.7 604) Floor Installer ID - [id number] 07:29:00 Test Item Value Reference Range Interpretation Comments MAGNESIUM (BEAKER) (test code = 1.4 mg/dL 1.6-2.6 L 627) Floor Installer ID - BSLIPID [id number] 07:29:00 Test Item Value Reference Range Interpretation Comments TRIGLYCERIDES (BEAKER) (test code = 58 mg/dL 540) CHOLESTEROL (BEAKER) (test code = 165 mg/dL 631) HDL CHOLESTEROL (BEAKER) (test code 53 mg/dL = 976) LDL CHOLESTEROL CALCULATED (BEAKER) 100 mg/dL (test code = 633) Triglyceride Reference Range: Low Risk <150 Borderline 150-199 High Risk 200-499 Very High Risk >=500Cholesterol Reference Range: Low Risk <200 Borderline 200-239 High Risk >240HDL Cholesterol Reference Range: Low Risk >=60 High Risk <40LDL Cholesterol Reference Range: Optimal <100 Near Optimal 100-129 Borderline 130-159 High 160-189 Very High >=190 Floor Installer ID - BSHEPATIC FUNCTION [id number] 07:29:00 Test Item Value Reference Range Interpretation Comments TOTAL PROTEIN (BEAKER) (test code = 6.7 gm/dL 6.0-8.3 770) ALBUMIN (BEAKER) (test code = 1145) 3.2 g/dL 3.5-5.0 L BILIRUBIN TOTAL (BEAKER) (test code 0.3 mg/dL 0.2-1.2 = 377) BILIRUBIN DIRECT (BEAKER) (test 0.2 mg/dL 0.1-0.5 code = 706) ALKALINE PHOSPHATASE (BEAKER) (test 84 U/L 40-150 code = 346) AST (SGOT) (BEAKER) (test code = 15 U/L 5-34 353) ALT (SGPT) (BEAKER) (test code = 12 U/L 6-55 347) Floor Installer ID - BSCOMPREHENSIVE METABOLIC [id number] 07:29:00 Test Item Value Reference Range Interpretation Comments TOTAL PROTEIN 6.7 gm/dL 6.0-8.3 (BEAKER) (test code = 770) ALBUMIN (BEAKER) 3.2 g/dL 3.5-5.0 L (test code = 1145) ALKALINE PHOSPHATASE 84 U/L 40-150 (BEAKER) (test code = 346) BILIRUBIN TOTAL 0.3 mg/dL 0.2-1.2 (BEAKER) (test code = 377) SODIUM (BEAKER) (test 134 meq/L 136-145 L code = 381) POTASSIUM (BEAKER) 4.3 meq/L 3.5-5.1 (test code = 379) CHLORIDE (BEAKER) 105 meq/L 98-107 (test code = 382) CO2 (BEAKER) (test 23 meq/L 22-29 code = 355) BLOOD UREA NITROGEN 22 mg/dL 7-21 H (BEAKER) (test code = 354) CREATININE (BEAKER) 1.33 mg/dL 0.57-1.25 H (test code = 358) GLUCOSE RANDOM 378 mg/dL 70-105 H (BEAKER) (test code = 652) CALCIUM (BEAKER) 8.3 mg/dL 8.4-10.2 L (test code = 697) AST (SGOT) (BEAKER) 15 U/L 5-34 (test code = 353) ALT (SGPT) (BEAKER) 12 U/L 6-55 (test code = 347) EGFR (BEAKER) (test 50 mL/min/1.73 ESTIMA SOLO GFR IS code = 1092) sq m NOT ACCURATE CREATININE CLEARANCE IN PREDICTING GLOMERULAR FILTRATION RATE . ESTIMATED GFR I S NOT APPLICABLE FOR DIALYSIS PATIEN TS. Floor Installer ID - BSB-type Natriuretic Factor (BNP)2019-08-10 07:27:00 Test Item Value Reference Range Interpretation Comments BNP (test code = 54806-6) 415 pg/mL 0-100 H ALON (test code = ALON) Floor Installer ID - BS Lab Interpretation (test Abnormal code = 16166-9) [facility] Center[facility] NATRIURETIC FACTOR (BNP)2019-08-10 07:27:00 Test Item Value Reference Range Interpretation Comments B-TYPE NATRIURETIC PEPTIDE (BEAKER) 415 pg/mL 0-100 H (test code = 700) Floor Installer ID - BSTROPONIN [id number] 07:27:00 Test Item Value Reference Range Interpretation Comments TROPONIN I (BEAKER) (test code = 0.15 ng/mL 0.00-0.03 H 397) Troponin I (TnI) levels must be interpreted in the context of the presenting symptoms and the clinical findings. Elevated TnI levels indicate myocardial damage, but are not specific for ischemic heart disease. Elevated TnI levels are seen in patients with other cardiac conditions (including myocarditis and congestive heart failure), and slight TnI elevations occur in patients with other conditions, including sepsis, renal failure, acidosis, acute neurological disease, and persistent tachyarrhythmia.Floor Installer ID - [id number] 07:09:00 Test Item Value Reference Range Interpretation Comments Fibrinogen (test code = 3255-7) 455 mg/dl 225-434 H Lab Interpretation (test code = Abnormal 82685-5) [facility] CenterProthromin time/[id number] 07:09:00 Test Item Value Reference Range Interpretation Comments Protime (test code = 14.4 11.9- 14.2 H 5902-2) seconds INR (test code = 1.2 <=5.9 6301-6) ALON (test code = ALON) Effective 12/16/2018: PT Reference Range ChangeNew: 11.9-14.2 Previous: 11.7-14.7 RECOMMENDED COUMADIN/WARFARIN INR THERAPY RANGESSTANDARD DOSE: 2.0-3.0 Includes: PROPHYLAXIS for venous thrombosis, systemic embolization; TREATMENT for venous thrombosis and/or pulmonary embolus.HIGH RISK: Target INR is 2.5-3.5 for patients wiht mechanical heart valves. Lab Interpretation Abnormal (test code = 11782-3) [facility]eraPTT2020-[facility] 07:09:00 Test Item Value Reference Range Interpretation Comments PTT (test code = 14014-6) 27.5 22.5- 36.0 seconds Lab Interpretation (test code = Normal 24502-5) [facility] CenterLactic Acid, [id number] 07:09:00 Test Item Value Reference Range Interpretation Comments Lactate, Art (test code = 2.1 mmol/L 0.5-2.2 6294) ALON (test code = ALON) Floor Installer ID - LA Lab Interpretation (test Normal code = 23038-8) [facility] CenterPROTHROMBIN TIME/[id number] 07:09:00 Test Item Value Reference Range Interpretation Comments PROTIME (BEAKER) (test code = 14.4 seconds 11.9-14.2 H 759) INR (BEAKER) (test code = 370) 1.2 <=5.9 Effective 12/16/2018: PT Reference Range ChangeNew: 11.9-14.2 Previous: 11.7- 14.7RECOMMENDED COUMADIN/WARFARIN INR THERAPY RANGESSTANDARD DOSE: 2.0-3.0 Includes: PROPHYLAXIS for venous thrombosis, systemic embolization; TREATMENT for venous thrombosis and/or pulmonary embolus.HIGH RISK: Target INR is2.5-3.5 for patients wiht mechanical heart valves.LACTIC ACID, [id number] 07:09:00 Test Item Value Reference Range Interpretation Comments LACTATE BLOOD ARTERIAL (2) 2.1 mmol/L 0.5-2.2 (BEAKER) (test code = 2874) Floor Installer ID - [id number] 07:09:00 Test Item Value Reference Range Interpretation Comments FIBRINOGEN LEVEL (BEAKER) (test 455 mg/dl 225-434 H code = 658) [id number] 07:09:00 Test Item Value Reference Range Interpretation Comments PARTIAL THROMBOPLASTIN TIME 27.5 seconds 22.5-36.0 (BEAKER) (test code = 760) BLOOD GAS, [id number] 06:52:00 Test Item Value Reference Range Interpretation Comments PH ARTERIAL (BEAKER) (test code = 7.41 7.35-7.45 383) PCO2 ARTERIAL (BEAKER) (test code 37 mmHg 35-45 = 384) PO2 ARTERIAL (BEAKER) (test code 198 mmHg 80-90 H = 385) O2 SATURATION ARTERIAL (BEAKER) 99.4 % 96.0-97.0 H (test code = 386) HCO3 ARTERIAL (BEAKER) (test code 23 mmol/L 21-29 = 388) BASE EXCESS ARTERIAL (BEAKER) -0.9 mmol/L -2.0-3.0 (test code = 387) PATIENT TEMPERATURE (BEAKER) 37.5 C (test code = 1818) FIO2 (BEAKER) (test code = 1819) 100.0 % RAD, CHEST, 1 VIEW, NON [id number] 06:03:00Reason for exam:->chfShould this be performed at the bedside?->YesFINAL REPORT RAD, CHEST, 1 VIEW, NON DEPT, RAD, ABDOMEN/KUB, 1 VIEW AP INDICATION: chf COMPARISON: None FINDINGS: Portable frontal view of the chest. IMPRESSION: Chest x-raySupport Lines: Endotracheal tube terminates 2.7 cm above the freddy. Enteric tube courses into the stomach. Lungs and pleura: Perihilar opacities and bibasilar consolidation with air bronchograms concerning for pneumonia or alveolar edema. Small pleural effusions may be present, particularly on the left. No pneumothorax.Heart and mediastinum: Enlarged cardiac silhouette suggests cardiomegaly. Mediastinalcontours are within normal limits. Additional findings: None. Abdominal x-ray:NG tube tip terminatesin the stomach. Bowel gas pattern is nonobstructive/nonspecific. No pneumatosis intestinalis. No portal venous gas. Moderate fecal burden. Supine imaging suboptimal for exclusion of free air. Degenerative changes of the spine. Signed: Jaylan Jo MDReport Verified Date/Time: 08/10/2019 06:03:22 RAD, ABDOMEN/KUB, 1 VIEW [id number] 06:03:00Reason for exam:->check tube placementShould this be performed at the bedside?->YesFINAL REPORT RAD, CHEST, 1 VIEW, NON DEPT, RAD, ABDOMEN/KUB, 1 VIEW AP INDICATION: chf COMPARISON: None FINDINGS: Portable frontal view of the chest. IMPRESSION: Chest x-raySupport Lines: Endotracheal tube terminates 2.7 cm above the freddy. Enteric tube courses into the stomach. Lungs and pleura: Perihilar opacities and bibasilar consolidation with air bronchograms concerning for pneumonia or alveolar edema. Small pleural effusions may be present, particularly on the left. No pneumothorax.Heart and mediastinum: Enlarged cardiac silhouette suggests cardiomegaly. Mediastinal contours are within normal limits. Additional findings: None. Abdominal x-ray:NG tube tip terminatesin the stomach. Bowel gas pattern is nonobstructive/nonspecific. No pneumatosis intestinalis. No portal venous gas. Moderate fecal burden. Supine imaging suboptimal for exclusion of free air. Degenerative changes of the spine. Signed: Jaylan Jo MDReport Verified Date/Time: 08/10/2019 06:03:22 XR abdomen / KUB 1 [id number] 06:03:00Interface, External Ris In - 08/10/2019 6:05 AM CSTFINAL REPORT RAD, CHEST, 1 VIEW, NON DEPT, RAD, ABDOMEN/KUB, 1 VIEW AP INDICATION: chf COMPARISON: None FINDINGS: Portable frontal view of the chest. IMPRESSION: Chest x-raySupport Lines: Endotracheal tube terminates 2.7 cm above the freddy. Enteric tube courses into the stomach. Lungs and pleura: Perihilar opacities and bibasilar consolidation with air bronchograms concerning for pneumonia or alveolar edema. Small pleural effusions may be present, particularly on the left. No pneumothorax.Heart and mediastinum: Enlarged cardiac silhouette suggests cardiomegaly. Mediastinal contours are within normal limits. Additional findings: None. Abdominal x-ray:NG tube tip terminates in the stomach. Bowel gas pattern is nonobstructive/nonspecific. No pneumatosis intestinalis. No portal venous gas. Moderate fecal burden. Supine imaging suboptimal for exclusion of free air. Degenerative changes of the spine. Signed: Jaylan JoMDReport Verified Date/Time: 08/10/2019 06:03:22 [facility]
--- OUTSIDE RECORDS SUMMARY | 2020-07-09 07:56 | XMS REPORT | Summary of Care ---
:1965 Author Organization [facility] Address [address] [place] [address] Care Team Providers Name Role Phone Pcp, Does Not Have A Primary Care Provider Reason for Visit Reason Comments LAB Encounter Details Date Type Department Care Team Description 07/08/2020 Laboratory Only [facility] Briana Danielson, [place] [address] [facility] [address] [place], [place] [id number] Exposure to Medicine - [facility], Adc Fam Pob I SARS-associated [address] [facility] coronaviru s ([address] Dx) [place] [address] Allergies No Known Allergiesdocumented as of this encounter (statuses as of 07/08/2020) Medications Medication Sig Dispensed Refills Start Date End Date Status omeprazole 40 mg Take 1 capsule 30 capsule 1 04/27/2018 Active capsule by mouth daily. Mzbkilrooc-Gydlvwicm-AN Take 1 tablet by 90 tablet 3 0 Active TZ 10-160-25 mg mouth daily. TabIndications: Essential hypertension atorvastatin 40 mg Take 1 tablet by 90 tablet 3 09/06/2019 Active tabletIndications: mouth at Hyperlipidemia, bedtime. unspecified hyperlipidemia type glipizide-metformin Take 1 tablet by 270 tablet 3 09/06/2019 Active 5-500 mg per mouth 3 (three) tabletIndications: Type times daily 2 diabetes mellitus before meals. with hyperglycemia, without long-term current use of insulin SITagliptin (JANUVIA) Take 1 tablet by 90 tablet 3 09/06/2019 Active 100 mg mouth daily. tabletIndications: Type 2 diabetes mellitus with hyperglycemia, without long-term current use of insulin Insulin Glargine inject 20 Units 5 Each 3 09/06/2019 Active (LANTUS SOLOSTAR U-100 under the skin INSULIN) 100 unit/mL (3 daily. mL) injectionIndications: Type 2 diabetes mellitus with hyperglycemia, without long-term current use of insulin Insulin [place], Use as directed 50 Each 5 09/06/2019 Active Disposable, (EASY COMFORT PEN NEEDLES) 31 gauge x 5/16" NdleIndications: Type 2 diabetes mellitus with hyperglycemia, without long-term current use of insulin documented as of this encounter (statuses as of 07/08/2020) Active Problems Not on filedocumented as of this encounter (statuses as of 07/08/2020) Social History Tobacco Use Types Packs/Day Years Used Date Never Smoker Smokeless Tobacco: Never Used Alcohol Use Drinks/Week oz/Week Comments No 0 Standard drinks or equivalent 0.0 Sex Assigned at Date Recorded Not on file documented as of this encounter Last Filed Vital Signs Not on filedocumented in this encounter Nursing Notes Fatimah Hoskins MA - 07/08/2020 12:00 PM Francisco Ureña is a 55 year old female here for a Rule Out Covid-19 Nasopharyngeal Swab. Patient educated on plan of care for visit, swabbing technique, risks and benefits of test and length of time to receive results. Verbal consent obtained to perform test. CDC Fact Sheet for Patients provided to patient. All droplet and contact precautions taken with appropriate PPE worn while interacting with patient. - Goggles - N95 Mask - Gloves - Gown RR=16 O2 Sat=97 Patient swabbed using appropriate nasopharyngeal technique, and patient tolerated well. Patient was discharged in stable condition. 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 documented in this encounter Plan of Treatment Name Type Priority Associated Diagnoses Order S chedule COVID-19 (MOLECULAR LAB Routine Exposure to Expected : 07/08/2020, TESTING SARS-associated Expires: 021 NUCLEIC ACID coronavirus AMPLIFICATION) Health Maintenance Due Date Last Done Comments HEPATITIS C (HCV) SCREEN 1965 PNEUMOCOCCAL 0-64 YEARS COMBINED 1969 SERIES (1 of 1 - PPSV23) EYE EXAM 1973 Depression Screening 1975 DTaP,Tdap,and Td Vaccines (1 - 1982 Tdap) PAP SMEAR 1984 Breast Cancer Screening 2003 (MAMMOGRAM) COLON CANCER SCREENING ANNUAL 2013 FIT/FOBT COLON CANCER SCREENING FIT DNA 2013 EVERY 3 YEARS COLON CANCER SCREENING 2013 SIGMOIDOSCOPY EVERY 5 YEARS COLONOSCOPY 2013 Colorectal Cancer Screening 2013 Zoster Recombinant Vaccine 2013 (SHINGRIX) (1 of 2) LDL-C 07/19/2017 07/19/2016 URINE MICROALBUMIN 07/19/2017 07/19/2016 CREATININE (SERUM) 04/27/2019 04/27/2018, 07/19/2016, 11/03/2015 HgA1C 03/06/2020 09/06/2019, 07/03/2018, 10/18/2016, Additional history exists INFLUENZA VACCINE (#1) 2020 FOOT EXAM 09/06/2020 09/06/2019, 09/06/2019 documented as of this encounter Results Not on filedocumented in this encounter Visit Diagnoses Diagnosis Exposure to SARS-associated coronavirus - Primary documented in this encounter Additional Health Concerns Infection Onset Date Last Indicated Resolved Time COVID-19 Rule Out 07/08/2020 07/08/2020 documented as of this encounter Guarantor Name Account Type Relation to Date of Phone Billing Patient Address Ratna Ureña Personal/Family Self 1965 [address] (Home) [place] [address] (Work) documented as of this encounter
--- NOTE | 2020-07-09 08:55 | EDPHYS ---
Physician Documentation [facility] Name: Ratna Ureña Age: 55 yrs Sex: Female : 1965 Arrival Date: 07/09/2020 Time: 07:52 Bed 14 Private MD: ED Physician Prasanna Natarajan HPI: 07/09 07:53 This 55 yrs old Black Female presents to ER via Unassigned with complaints of diarrhea, rn muscle aches, headache. 07:53 The patient presents to the emergency department with diarrhea. Onset: The rn symptoms/episode began/occurred 2 day(s) ago. Possible causes: unknown. The symptoms are aggravated by nothing. The symptoms are alleviated by nothing. Severity of symptoms: At their worst the symptoms were mild in the emergency department the symptoms have improved. The patient has not experienced similar symptoms in the past. The patient has been recently seen by a physician:. Reports 2 days of diarrhea, non-bloody, myalgias, headache, fatigue, and now loss of taste and smell, + exposure to COVID, nephew, got tested yesterday, called 911 today to come in and possibly get faster test. Reports back and abd pain improved, abd pain resolved. . Historical: - Allergies: 08:02 No Known Allergies; vg1 - Home Meds: 08:02 valsartan Oral [Active]; Glipizide Oral [Active]; Januvia oral oral [Active]; vg1 Lisinopril Oral [Active]; - PMHx: 08:02 Diabetes - NIDDM; High Cholesterol; Hypertension; Vertigo; vg1 - PSHx: 08:02 Tonsillectomy; Appendectomy; Tubal ligation; vg1 - Immunization history:: Adult Immunizations up to date, Flu vaccine is not up to date. - Social history:: Smoking status: Patient denies any tobacco usage or history of. - Family history:: not pertinent. - Hospitalizations: : No recent hospitalization is reported. ROS: 07:53 Constitutional: Negative for fever, chills, and weight loss, Eyes: Negative for injury, rn pain, redness, and discharge, Neck: Negative for injury, pain, and swelling, Cardiovascular: Negative for chest pain, palpitations, and edema, Respiratory: Negative for shortness of breath, cough, wheezing, and pleuritic chest pain, Abdomen/GI: Negative for abdominal pain, nausea, vomiting, and constipation, Back: Negative for injury MS/Extremity: Negative for injury and deformity, Skin: Negative for injury, rash, and discoloration, Neuro: Negative for numbness, tingling, and seizure. Exam: 07:53 Constitutional: This is a well developed, well nourished patient who is awake, alert, rn and in no acute distress. Head/Face: Normocephalic, atraumatic. ENT: MMM Cardiovascular: Regular rate and rhythm. No pulse deficits. Respiratory: Speaking full unlabored sentences. No increased work of breathing, no retractions or nasal flaring. Abdomen/GI: soft, non-tender, non-distended, no masses, neg porter Skin: Warm, dry MS/ Extremity: Pulses equal, no cyanosis. Neuro: Awake and alert, GCS 15 Vital Signs: 07:45 BP 119 / 59; Pulse 82; Resp 16; Temp 98.6; Pulse Ox 97% on R/A; Weight 97.52 kg; Height vg1 5 ft. 5 in. (165.10 cm); Pain 0/10; 09:08 BP 109 / 55; Pulse 77; Resp 17; Pulse Ox 99% on R/A; tw2 07:45 Body Mass Index 35.78 (97.52 kg, 165.10 cm) vg1 MDM: 07:52 Patient medically screened. rn 08:51 Differential diagnosis: viral gastroenteritis, gastroenteritis, flu, COVID-19. Data rn reviewed: vital signs, nurses notes, lab test result(s), and as a result, I will discharge patient. Counseling: I had a detailed discussion with the patient and/or guardian regarding: the historical points, exam findings, and any diagnostic results supporting the discharge/admit diagnosis, lab results, the need for outpatient follow up, to return to the emergency department if symptoms worsen or persist or if there are any questions or concerns that arise at home. Special discussion: I discussed with the patient/guardian in detail that at this point there is no indication for admission to the hospital. It is understood, however, that if the symptoms persist or worsen the patient needs to return immediately for re-evaluation. ED course: Flu neg, COVID sent yesterday, stable vitals, benign abd exam. . 07/09 07:53 Order name: Flu; Complete Time: 08:51 rn Administered Medications: No medications were administered Disposition: 07/09/20 08:55 Discharged to Home. Impression: Coronavirus infection, unspecified, Diarrhea, unspecified. - Condition is Stable. - Discharge Instructions: Diarrhea, Adult, COVID-19. - Medication Reconciliation Form, Thank You Letter, Antibiotic Education, Prescription Opioid Use, Work release form form. - Follow up: Private Physician; When: As needed; Reason: Recheck today's complaints, Re-evaluation by your physician. - Problem is new. - Symptoms have improved. Signatures: Dispatcher [employer] EDMS Prasanna Natarajan MD MD rn Wise, Tara, RN RN tw2 Tanya Butler RN RN vg1 Corrections: (The following items were deleted from the chart) 09:09 08:55 07/09/2020 08:55 Discharged to Home. Impression: Coronavirus infection, tw2 unspecified; Diarrhea, unspecified. Condition is Stable. Forms are Medication Reconciliation Form, Thank You Letter, Antibiotic Education, Prescription Opioid Use. Follow up: Private Physician; When: As needed; Reason: Recheck today's complaints, Re-evaluation by your physician. Problem is new. Symptoms have improved. rn
--- NOTE | 2020-07-09 08:55 | ER ---
Nurse's Notes [facility] Name: Ratna Ureña Age: 55 yrs Sex: Female : 1965 Arrival Date: 07/09/2020 Time: 07:52 Bed 14 Private MD: Diagnosis: Coronavirus infection, unspecified;Diarrhea, unspecified Presentation: 07/09 07:45 Chief complaint: EMS states: Back pain and diarrhea that started last night. Stated vg1 patient also has loss of taste. At this time patient does not have any back pain. 07:45 Coronavirus screen: Client denies travel out of the [place] in the last 14 days. Client vg1 presents with at least one sign or symptom that may indicate coronavirus-19. Standard/surgical mask placed on the client. Provider contacted for isolation considerations. Ebola Screen: Patient negative for fever greater than or equal to 101.5 degrees Fahrenheit, and additional compatible Ebola Virus Disease symptoms. Initial Sepsis Screen: Does the patient meet any 2 criteria? No. Patient's initial sepsis screen is negative. Does the patient have a suspected source of infection? No. Patient's initial sepsis screen is negative. Risk Assessment: Do you want to hurt yourself or someone else? Patient reports no desire to harm self or others. Onset of symptoms was July 06, 2020. 07:45 Method Of Arrival: EMS: [facility] vg1 07:45 Acuity: ANTONIO 4 vg1 Historical: - Allergies: 08:02 No Known Allergies; vg1 - Home Meds: 08:02 valsartan Oral [Active]; Glipizide Oral [Active]; Januvia oral oral [Active]; vg1 Lisinopril Oral [Active]; - PMHx: 08:02 Diabetes - NIDDM; High Cholesterol; Hypertension; Vertigo; vg1 - PSHx: 08:02 Tonsillectomy; Appendectomy; Tubal ligation; vg1 - Immunization history:: Adult Immunizations up to date, Flu vaccine is not up to date. - Social history:: Smoking status: Patient denies any tobacco usage or history of. - Family history:: not pertinent. - Hospitalizations: : No recent hospitalization is reported. Screenin:56 Abuse screen: Denies threats or abuse. Nutritional screening: No deficits noted. tw2 Tuberculosis screening: No symptoms or risk factors identified. Fall Risk None identified. Assessment: 07:55 General: Appears in no apparent distress. comfortable, Behavior is calm, cooperative. vg1 Pain: Denies pain. Neuro: Level of Consciousness is awake, alert, obeys commands, Oriented to person, place, time, situation. Cardiovascular: Capillary refill < 3 seconds in bilateral fingers Patient's skin is warm and dry. Respiratory: Airway is patent Respiratory effort is even, unlabored, Respiratory pattern is regular, symmetrical. GI: Abdomen is flat, non-distended, Reports diarrhea. : No signs and/or symptoms were reported regarding the genitourinary system. EENT: No signs and/or symptoms were reported regarding the EENT system. Derm: Skin is pink, warm \T\ dry. Musculoskeletal: Range of motion: intact in all extremities. 09:08 Reassessment: Patient appears in no apparent distress at this time. No changes from tw2 previously documented assessment. Patient and/or family updated on plan of care and expected duration. Pain level reassessed. Patient is alert, oriented x 3, equal unlabored respirations, skin warm/dry/pink. Vital Signs: 07:45 BP 119 / 59; Pulse 82; Resp 16; Temp 98.6; Pulse Ox 97% on R/A; Weight 97.52 kg; Height vg1 5 ft. 5 in. (165.10 cm); Pain 0/10; 09:08 BP 109 / 55; Pulse 77; Resp 17; Pulse Ox 99% on R/A; tw2 07:45 Body Mass Index 35.78 (97.52 kg, 165.10 cm) vg1 ED Course: 07:52 Patient arrived in ED. rn 07:52 Prasanna Natarajan MD is Attending Physician. rn 07:52 Bed in low position. tw2 07:56 Tanya Butler RN is Primary Nurse. vg1 08:01 Triage completed. vg1 08:09 Flu Sent. vg1 08:56 Arm band placed on. tw2 09:08 No provider procedures requiring assistance completed. Patient did not have IV access tw2 during this emergency room visit. Administered Medications: No medications were administered Outcome: 08:55 Discharge ordered by MD. rn 09:08 Discharged to home ambulatory. tw2 09:08 Condition: stable 09:08 Discharge instructions given to patient, Instructed on discharge instructions, follow up and referral plans. Demonstrated understanding of instructions, follow-up care. 09:09 Patient left the ED. tw2 Signatures: Prasanna Natarajan MD MD rn Jazmine Silva RN RN tw2 Tanya Butler RN RN vg1
[2020-07-11 09:07] VITALS: BP 109/55; O2SAT 99
== END 2020-07-09 09:09 | disposition home or self-care (01) ==
LOC: ER 07:48
DX: U07.1 COVID-19 (principal); R19.7 Diarrhea, unspecified; E11.9 Type 2 diabetes mellitus without complications; I10 Essential (primary) hypertension; E78.00 Pure hypercholesterolemia, unspecified
CPT/HCPCS: 87804; 99283

== ENCOUNTER 2020-09-14 02:56 | Observation (INO) | payer SELFPAY ==
--- OUTSIDE RECORDS SUMMARY | 2020-09-14 03:03 | XMS REPORT | Continuity of Care Document ---
:1965 Author Organization [facility] t Address [address] [place] [place] [address] Care Team Providers Name Role Phone Pcp Primary Care Physician Unavailable Amalia HARTMANN Attending Clinician Travis West MD Attending Clinician [phone] VESNA MARINA Attending Clinician Unavailable VESNA MARINA Admitting Clinician Unavailable Payers Payer Name Policy Type Policy Number Effective Date Expiration Date S jazmyn AETNA - MGD [id number] [address] [facility] CAREAETNA O 00:00:00 - Medical POS Center [id number] Problems Condition Condition Condition Status Onset Resolution Last Treating Co mments Source Name Details Category Date Date Treatment Clinician Date Cardiomyop Cardiomyop Disease Active [facility] athy 08-11 [facility] Fluid Fluid Disease Active [facility] overload overload 08-10 [facility] Hyperglyce Hyperglyce Disease Active 2019- [facility] love love 08-10 [facility] Pneumonia Pneumonia Disease Active 2020- [facility] due to due to 08-10 [facility] - infectious infectious 00:00: Me dical organism organism 00 Center Acute Acute Disease Active 2019- [facility] pulmonary pulmonary 08-10 [facility] - edema edema 00:00: Medical 00 Center CHF CHF Disease Active [facility] (congestiv (congestiv 08-10 [facility] kes - e heart e heart 00:00: Medical failure) failure) 00 Center Elevated Elevated Disease Active [facility] troponin troponin 08-10 [facility] 00 [facility] Acute Acute Disease Active [facility] kidney kidney 08-10 [facility] - injury injury 00:00: Medical (nontrauma (nontrauma 00 Ce nter tic) tic) Cardiogeni Cardiogeni Disease Active [facility] c shock c shock [facility] Acute Acute Disease Active [facility] respirator respirator kes - y failure y failure Medi julissa with with Center hypoxia hypoxia Allergies, Adverse Reactions, Alerts This patient has no known allergies or adverse reactions. Social History Social Habit Start Date Stop Date Quantity Comments Source Sex Assigned At [facility] Medications Ordered Filled Start Stop [...] dical MG tablet 00 :00 total) by [facility] mouth daily. torsemide No 10mg QD Take [...] Center tablet daily for 30 days. tamsulosin No .4mg QD Take [address] (FLOMAX) 08-21 capsule [facility] - 0.4 mg Cap 00:00: 23:59 (0.4 mg Med ical 24 hr 00 :00 total) by Center capsule mouth daily for 30 days. atorvastati 2019-0 Yes 20mg QD Take [address] n (LIPITOR) 08-20 by mouth [facility] - 20 MG 18:56: daily. Medical tablet 23 Center glipiZIDE 2019-0 Yes 5mg Take [address] (GLUCOTROL) 31 by mouth 2 [facility] kes - 5 MG tablet 18:56: (two) Medic al 23 times Center daily before meals. metFORMIN 2019-0 Yes 500mg Take [address] [facility] (GLUCOPHAGE 1-31 mg by [facility] - ) 500 MG 18:56: mouth 2 Medica l tablet 23 (two) Center times daily with breakfast and dinner. omeprazole 0 Yes 20mg QD Take [address] (PRILOSEC) 08-20 by mouth [facility] - 20 MG 18:56: daily. Medical capsule 23 Center carvedilol 2020- No 3.125mg Q.5D Take [address] (COREG) 08-20 tablet [facility] - 3.125 MG 00:00: 23:59 (3.125 mg Med ical tablet 00 :00 total) by Center mouth 2 (two) times daily. amLODIPine- 2018-07 Yes TAKE [address] [facility] valsartan-h 2-16 TABLET BY [facility]enny [facility] - cthiazid 00:00: MOUTH ONCE Med ical 10-160-25 00 DAILY Center mg Tab SITagliptin 2017-07 Yes 100mg Take [address] (JANUVIA) 2-14 mg by [facility] - 100 MG 00:00: mouth. Medical tablet 00 Center Procedures This patient has no known procedures. Plan of Care Planned Activity Planned Date Details Comments Source Future Scheduled 2022-08-[address] [address] [facility] - Test 00:00:00 (procedure) [code = Medical Center 43648772] Future Scheduled 2020-03-21 INFLUENZA VACCINE (#1) [facility] - Test 00:00:00 [code = INFLUENZA Medical nter VACCINE (#1)] Future Scheduled [address] [facility] - Test 00:00:00 malignant neoplasm of Medica l Center cervix (procedure) [code = 360129729] Future Scheduled [address] [facility] - Test 00:00:00 0-64 YRS (1 of 1 - Medical C enter PPSV23) [code = PNEUMOCOCCAL VACCINE 0-64 YRS (1 of 1 - PPSV23)] Future Scheduled [address] [facility] - Test 00:00:[address] [facility] breast (procedure) [code = 652409326] Future Scheduled [address] [facility] - Test 00:00:[address] [facility] colon (procedure) [code = 846458807] Encounters Start End Encounter Admission Attending Care Care Encounter Source Date/Time Date/Time Type Type Clinicians Facility Department ID 2020-09-07 2020-09-07 Guadalupe Holland [facility] [id number] 00:00:00 00:00:00 Ree Romero [id number] [place] [id number] [facility] [id number] [facility] [address] Building Results Test Description Test Time Test Comments Results Result Comments Source POCT-GLUCOSE METER 2019-08-20 18:12:00 Test Item Value Reference Range Interpretation Comme nts POC-GLUCOSE METER (BEAKER) 112 mg/dL 70-110 H : TESTED AT [facility] [address] [facility] (test code = 1538) [facility], [address]: Pharmacy Scheduler/Techni gigi ID = [id number] for QUIROZ, ERANDY POCT-GLUCOSE [id number] 13:45:00 Test Item Value Reference Range Interpretation Comments POC-GLUCOSE METER 176 mg/dL 70-110 H : TESTED A T [facility] [address] (BEAKER) (test code = [facility], 1538) [address]: Pharmacy Scheduler/Techni gigi ID = [id number] for ZA VALA, ERANDY POCT-GLUCOSE [id number] 08:14:00 Test Item Value Reference Range Interpretation Comments POC-GLUCOSE METER 71 mg/dL 70-110 : TESTED A T [facility] [address] (BEAKER) (test code = [facility], 1538) [address]: Pharmacy Scheduler/Techni gigi ID = [id number] for ZAVA LA, ERANDY [id number] 05:21:00 Test Item Value Reference Range Interpretation Comments MAGNESIUM (BEAKER) (test code = 1.9 mg/dL 1.6-2.6 627) Pharmacy Scheduler ID Marisa QUINN WBASIC METABOLIC [id number] 05:21:00 Test Item Value Reference Range Interpretation [...] S NOT APPLICABLE FOR DIALYSIS PATIEN TS. Pharmacy Scheduler ID Marisa QUINN WCBC W/PLT COUNT & AUTO [id number] 04:48:00 Test Item Value Reference Range Interpretation [...] PERCENT (BEAKER) (test code = 2801) POCT-GLUCOSE [id number] 22:35:00 Test Item Value Reference Range Interpretation Comments POC-GLUCOSE METER 198 mg/dL 70-110 H : TESTED A T [facility] [address] (BEAKER) (test code [facility], = 1538) [address]: Pharmacy Scheduler/Techni gigi ID = [id number] for Egbe , Renee POCT-GLUCOSE [id number] 21:56:00 Test Item Value Reference Range Interpretation Comments POC-GLUCOSE METER 209 mg/dL 70-110 H : TESTED A T [facility] [address] (BEAKER) (test code = [facility], 1538) [address]: Pharmacy Scheduler/Techni gigi ID = [id number] for WE NZY, EPEKA POCT-GLUCOSE [id number] 20:07:00 Test Item Value Reference Range Interpretation Comments POC-GLUCOSE METER 205 mg/dL 70-110 H : TESTED A T [facility] [address] (BEAKER) (test code = [facility], [facility]8) [address]: Pharmacy Scheduler/Techni gigi ID = [id number] for MALIKIRASEMA CamposOE POCT-GLUCOSE [id number] 17:43:00 Test Item Value Reference Range Interpretation Comments POC-GLUCOSE METER 112 mg/dL 70-110 H : TESTED A T [facility] [address] (BEAKER) (test code = [facility], [facility]) [address]: Pharmacy Scheduler/Techni gigi ID = [id number] for REVA-MILADY, S HIKARA POCT-GLUCOSE [id number] 17:03:00 Test Item Value Reference Range Interpretation Comments POC-GLUCOSE METER 57 mg/dL 70-110 L : TESTED A T [facility] [address] (BEAKER) (test code = [facility], [facility]) [address]: Pharmacy Scheduler/Techni gigi ID = [id number] for TAYL OR-MILADY, SHIKARA POCT-GLUCOSE [id number] 16:46:00 Test Item Value Reference Range Interpretation Comments POC-GLUCOSE METER 57 mg/dL 70-110 L : TESTED A T [facility] [address] (BEAKER) (test code = [facility], [facility]) [address]: Pharmacy Scheduler/Techni gigi ID = [id number] for TAYL OR-MILADY, SHIKARA POCT-GLUCOSE [id number] 13:18:00 Test Item Value Reference Range Interpretation Comments POC-GLUCOSE METER 197 mg/dL 70-110 H : TESTED A T [facility] [address] (BEAKER) (test code = [facility], [facility]) [address]: Pharmacy Scheduler/Techni gigi ID = [id number] for REVA-MILADY, S HIKARA POCT-GLUCOSE [id number] 08:23:00 Test Item Value Reference Range Interpretation Comments POC-GLUCOSE METER 294 mg/dL 70-110 H : TESTED A T [facility] [address] (BEAKER) (test code = [facility], [facility]) [address]: Pharmacy Scheduler/Techni gigi ID = [id number] for REVA-MILADY, S HIKARA [id number] 05:37:00 Test Item Value Reference Range Interpretation Comments MAGNESIUM (BEAKER) (test code = 1.9 mg/dL 1.6-2.6 627) Pharmacy Scheduler ID - JEANA MBASIC METABOLIC [id number] 05:37:00 Test Item Value Reference Range Interpretation [...] S NOT APPLICABLE FOR DIALYSIS PATIEN TS. Pharmacy Scheduler ID - JEANA MCBC W/PLT COUNT & AUTO [id number] 04:37:00 Test Item Value Reference Range Interpretation [...] PERCENT (BEAKER) (test code = 2801) POCT-GLUCOSE [id number] 22:58:00 Test Item Value Reference Range Interpretation Comments POC-GLUCOSE METER 393 mg/dL 70-110 H : TESTED A T [facility] [address] (JOSE) (test [facility] = [facility]agan [facility], 1538) [address]: Pharmacy Scheduler/Techni gigi ID = [id number] for WH ITE, NEVILLE POCT-GLUCOSE [id number] 22:25:00 Test Item Value Reference Range Interpretation Comments POC-GLUCOSE METER 409 mg/dL 70-110 HH : Notified RN/MD: (JOSE) (test code = TESTED AT [facility] [address] 1538) [facility] [place] [address]: Pharmacy Scheduler/Techni gigi ID = [id number] for WH ITE, NEVILLE POCT-GLUCOSE [id number] 17:43:00 Test Item Value Reference Range Interpretation Comments POC-GLUCOSE METER 227 mg/dL 70-110 H : TESTED A T [facility] [address] (BEAKER) (test code = [facility], 1538) [address]: Pharmacy Scheduler/Techni gigi ID = [id number] for GONZALEZ VILLEGAS POCT-GLUCOSE [id number] 13:20:00 Test Item Value Reference Range Interpretation Comments POC-GLUCOSE METER 335 mg/dL 70-110 H : TESTED A T [facility] [address] (BEAKER) (test code = [facility], 1538) [address]: Pharmacy Scheduler/Techni gigi ID = [id number] for NATASHA VILLEGASNA POCT-GLUCOSE [id number] 07:31:00 Test Item Value Reference Range Interpretation Comments POC-GLUCOSE METER 182 mg/dL 70-110 H : TESTED A T [facility] [address] (BEAKER) (test code = [facility], 1538) [address]: Pharmacy Scheduler/Techni gigi ID = [id number] for CHARLES LDIVNATASHA IBARRANA [id number] 05:42:00 Test Item Value Reference Range Interpretation Comments PHOSPHORUS (BEAKER) (test code = 3.0 mg/dL 2.3-4.7 604) Pharmacy Scheduler ID - JEANA [id number] 05:42:00 Test Item Value Reference Range Interpretation Comments MAGNESIUM (BEAKER) (test code = 2.1 mg/dL 1.6-2.6 627) Pharmacy Scheduler ID - JEANA MBASIC METABOLIC [id number] 05:42:00 Test Item Value Reference Range Interpretation [...] S NOT APPLICABLE FOR DIALYSIS PATIEN TS. Pharmacy Scheduler ID - JEANA MCBC (HEMOGRAM ONLY)2019-08-18 05:07:00 Test Item Value Reference [...] 0-0 (BEAKER) (test code = 413) CALCIUM, [id number] 04:59:00 Test Item Value Reference Range Interpretation Comments CALCIUM IONIZED (BEAKER) (test 1.07 mmol/L 1.12-1.27 L code = 698) PH, BLOOD (BEAKER) (test code = 7.54 1810) POCT-GLUCOSE [id number] 00:24:00 Test Item Value Reference Range Interpretation Comments POC-GLUCOSE METER 252 mg/dL 70-110 H : TESTED A T [facility] [address] (JOSE) (test code = [place] [place], 1538) [address]: Pharmacy Scheduler/Techni gigi ID = [id number] for RAJESH CHONG MR, CARDIAC, [id number] 19:05:00Reason for exam:->MyocarditisFINAL REPORT Cardiovascular MRI - [...] of tamponade physiology noted. Signed: Lino Carrasquillo [facility] Verified Date/Time: 08/17/2019 19:05:37 POCT-GLUCOSE METER 2019-08-17 17:57:00 Test Item Value Reference Range Interpretation Comments POC-GLUCOSE METER 292 mg/dL 70-110 H : TESTED A T [facility] [address] (BEAKER) (test code = [facility], 1538) [address]: Pharmacy Scheduler/Techni gigi ID = [id number] for BELL MILAN POCT-GLUCOSE [id number] 12:03:00 Test Item Value Reference Range Interpretation Comments POC-GLUCOSE METER 203 mg/dL 70-110 H : TESTED A T [facility] [address] (BEAKER) (test code = [facility] R [facility], 1538) [address]: Pharmacy Scheduler/Techni gigi ID = [id number] for ERWIN Y, BELL POCT-GLUCOSE [id number] 09:04:00 Test Item Value Reference Range Interpretation Comments POC-GLUCOSE METER 175 mg/dL 70-110 H : TESTED A T [facility] [address] (BEAKER) (test code = [facility], 1538) [address]: Pharmacy Scheduler/Techni gigi ID = [id number] for LIZ ROSADO RAD, CHEST, 1 VIEW, NON [id number] 07:08:00Reason for exam:- >AtelectasisShould this be performed [...] MDReport Verified Date/Time: 08/17/2019 07:08:44 Reading Location: [facility] Radiology Reading Room [id number] 04:49:00 Test Item Value Reference Range Interpretation Comments MAGNESIUM (BEAKER) 2.3 mg/dL 1.6-2.6 Specimen moderately (test code = 627) hemolyzed Pharmacy Scheduler ID - JEANA [id number] 04:49:00 Test Item Value Reference Range Interpretation Comments PHOSPHORUS (BEAKER) 2.8 mg/dL 2.3-4.7 Specimen moderately (test code = 604) hemolyzed Pharmacy Scheduler ID - JEANA MBASIC METABOLIC [id number] 04:49:00 Test Item Value Reference Range Interpretation [...] S NOT APPLICABLE FOR DIALYSIS PATIEN TS. Pharmacy Scheduler ID - JEANA MCALCIUM, [id number] 04:44:00 Test Item Value Reference Range Interpretation [...] 0-0 (BEAKER) (test code = 413) POCT-GLUCOSE [id number] 01:27:00 Test Item Value Reference Range Interpretation Comments POC-GLUCOSE METER 190 mg/dL 70-110 H : TESTED A T [facility] [address] (BEAKER) (test code = [facility] [place], 1538) [address]: Pharmacy Scheduler/Techni gigi ID = [id number] for DO MUSAOctober POCT-GLUCOSE [id number] 00:45:00 Test Item Value Reference Range Interpretation Comments POC-GLUCOSE METER 163 mg/dL 70-110 H : TESTED A T [facility] [address] (BEAKER) (test code = [facility], 1538) 26[address]: Pharmacy Scheduler/Techni gigi ID = [id number] for PA RRIS, JUAN ADNEE POCT-GLUCOSE [id number] 18:11:00 Test Item Value Reference Range Interpretation Comments POC-GLUCOSE METER 159 mg/dL 70-110 H : TESTED A T [facility] [address] (BEAKER) (test code = [facility], 1538) 20841: Pharmacy Scheduler/Techni gigi ID = [id number] for VA LDIVIEZ, GONZALEZ POCT-GLUCOSE [id number] 12:01:00 Test Item Value Reference Range Interpretation Comments POC-GLUCOSE METER 265 mg/dL 70-110 H : TESTED A T [facility] [address] (BEAKER) (test code = [facility], 1538) 96603: Pharmacy Scheduler/Techni gigi ID = [id number] for VA LDIVIEZ, GONZALEZ POCT-GLUCOSE [id number] 09:38:00 Test Item Value Reference Range Interpretation Comments POC-GLUCOSE METER 258 mg/dL 70-110 H : TESTED A T [facility] [address] (BEAKER) (test code = [facility], [facility]8) 15274: Pharmacy Scheduler/Techni gigi ID = [id number] for VA LDIVIEZ, GONZALEZ BLOOD [id number] 08:00:00 Test Item Value Reference Range Interpretation Comments CULTURE (BEAKER) (test No growth in 5 days code = 1095) BLOOD [id number] 08:00:00 Test Item Value Reference Range Interpretation Comments CULTURE (BEAKER) (test No growth in 5 days code = 1095) RAD, CHEST, 1 VIEW, NON [id number] 07:07:00Reason for exam:->Mechanical ventilationShould this be performed [...] MDReport Verified Date/Time: 08/16/2019 07:07:14 Reading Location: [facility] Radiology Reading Room CALCIUM, [id number] 06:31:00 Test Item Value Reference Range Interpretation Comments CALCIUM IONIZED (BEAKER) (test 1.12 mmol/L 1.12-1.27 code = 698) PH, BLOOD (BEAKER) (test code = 7.40 1810) [id number] 05:20:00 Test Item Value Reference Range Interpretation Comments PHOSPHORUS (BEAKER) (test code = 3.2 mg/dL 2.3-4.7 604) Pharmacy Scheduler ID - [place] [id number] 05:20:00 Test Item Value Reference Range Interpretation Comments MAGNESIUM (BEAKER) (test code = 2.3 mg/dL 1.6-2.6 627) Pharmacy Scheduler ID - [place] WBASIC METABOLIC [id number] 05:20:00 Test Item Value Reference Range Interpretation [...] S NOT APPLICABLE FOR DIALYSIS PATIEN TS. Pharmacy Scheduler ID - [place] [facility] (HEMOGRAM ONLY)2019-08-16 05:06:00 Test Item Value Reference [...] 0-0 (BEAKER) (test code = 413) POCT-GLUCOSE [id number] 23:36:00 Test Item Value Reference Range Interpretation Comments POC-GLUCOSE METER 370 mg/dL 70-110 H : TESTED A T [facility] [address] (BEAKER) (test code = [facility] [place], 1538) [address]: Pharmacy Scheduler/Techni gigi ID = [id number] for NICOLASA BRYANT POCT-GLUCOSE [id number] 17:52:00 Test Item Value Reference Range Interpretation Comments POC-GLUCOSE METER 264 mg/dL 70-110 H : TESTED A T [facility] [address] (BEAKER) (test code = [facility], 1538) 70653: Pharmacy Scheduler/Techni gigi ID = [id number] for BELL MILAN BASIC METABOLIC [id number] 17:16:00 Test Item Value Reference Range Interpretation [...] S NOT APPLICABLE FOR DIALYSIS PATIEN TS. Pharmacy Scheduler ID - DARRIAN WPOCT-GLUCOSE [id number] 12:02:00 Test Item Value Reference Range Interpretation Comments POC-GLUCOSE METER 329 mg/dL 70-110 H : TESTED A T [facility] 67[address] (BEAKER) (test code = [facility], 1538) 41900: Pharmacy Scheduler/Techni gigi ID = [id number] for BELL MILAN POCT-GLUCOSE [id number] 08:08:00 Test Item Value Reference Range Interpretation Comments POC-GLUCOSE METER 162 mg/dL 70-110 H : TESTED A T [facility] 67[address] (BEAKER) (test code = [facility], 1538) 89388: Pharmacy Scheduler/Techni gigi ID = [id number] for BELL MILAN RAD, CHEST, 1 VIEW, NON [id number] 06:15:00Reason for exam:->Mechanical ventilationShould this be performed [...] Farida Whitmore MDReport Verified Date/Time: 08/15/2019 06:15:16 BLOOD GAS, [id number] 05:55:00 Test Item Value Reference Range Interpretation [...] (test code = 1819) 21.0 % CALCIUM, [id number] 05:55:00 Test Item Value Reference Range Interpretation Comments CALCIUM IONIZED (BEAKER) (test 1.09 mmol/L 1.12-1.27 L code = 698) PH, BLOOD (BEAKER) (test code = 7.43 1810) [id number] 04:48:00 Test Item Value Reference Range Interpretation Comments MAGNESIUM (BEAKER) 2.3 mg/dL 1.6-2.6 Specimen slightly (test code = 627) hemolyzed Pharmacy Scheduler ID - [place] [id number] 04:48:00 Test Item Value Reference Range Interpretation Comments PHOSPHORUS (BEAKER) 3.2 mg/dL 2.3-4.7 Specimen slightly (test code = 604) hemolyzed Pharmacy Scheduler ID - [place] WBASIC METABOLIC [id number] 04:48:00 Test Item Value Reference Range Interpretation [...] S NOT APPLICABLE FOR DIALYSIS PATIEN TS. Pharmacy Scheduler ID - [place] [facility] (HEMOGRAM ONLY)2019-08-15 04:22:00 Test Item [...] 0-0 (BEAKER) (test code = 413) POCT-GLUCOSE [id number] 23:25:00 Test Item Value Reference Range Interpretation Comments POC-GLUCOSE METER 165 mg/dL 70-110 H : TESTED A T [facility] 6720 (BEAKER) (test code = [facility], 1538) 52046: Pharmacy Scheduler/Techni gigi ID = [id number] for NICOLASA BRYANT POCT-GLUCOSE [id number] 17:23:00 Test Item Value Reference Range Interpretation Comments POC-GLUCOSE METER 190 mg/dL 70-110 H : TESTED A T [facility] 6720 (BEAKER) (test code = [facility], 1538) 14271: Pharmacy Scheduler/Techni gigi ID = [id number] for BELL MILAN [id number] 16:38:00 Test Item Value Reference Range Interpretation Comments POTASSIUM (BEAKER) 4.1 meq/L 3.5-5.1 Specimen slightly (test code = 379) hemolyzed Pharmacy Scheduler ID - JEANA MPOCT-GLUCOSE [id number] 11:59:00 Test Item Value Reference Range Interpretation Comments POC-GLUCOSE METER 238 mg/dL 70-110 H : TESTED A T [facility] 6720 (BEAKER) (test code = [facility], 1538) 48026: Pharmacy Scheduler/Techni gigi ID = [id number] for BELL MILAN RAD, CHEST, 1 VIEW, NON [id number] 08:50:00Reason for exam:->Mechanical ventilationShould this be performed [...] Slight worsening of pulmonary opacities. Signed: Maicol Jaime MDReport Verified Date/Time: 08/14/2019 0 8:50:12 Reading Location: [place] [id number] Ortho Consult Reading Room POCT-GLUCOSE [id number] 08:12:00 Test Item Value Reference Range Interpretation Comments POC-GLUCOSE METER 230 mg/dL 70-110 H : TESTED A T [facility] 6720 (BEAKER) (test code = [facility] [place], 1538) [address]: Pharmacy Scheduler/Techni gigi ID = [id number] for BELL MILAN [id number] 07:22:00 Test Item Value Reference Range Interpretation Comments PHOSPHORUS (BEAKER) (test code = 4.1 mg/dL 2.3-4.7 604) Pharmacy Scheduler ID - JEANA [id number] 07:22:00 Test Item Value Reference Range Interpretation Comments MAGNESIUM (BEAKER) (test code = 2.2 mg/dL 1.6-2.6 627) Pharmacy Scheduler ID - JEANA MBASIC METABOLIC [id number] 07:22:00 Test Item Value Reference Range Interpretation [...] S NOT APPLICABLE FOR DIALYSIS PATIEN TS. Pharmacy Scheduler ID - JEANA [facility] (HEMOGRAM ONLY)2019-08-14 03:02:00 Test Item Value Reference [...] 0-0 (BEAKER) (test code = 413) CALCIUM, [id number] 03:02:00 Test Item Value Reference Range Interpretation Comments CALCIUM IONIZED (BEAKER) (test 1.10 mmol/L 1.12-1.27 L code = 698) PH, BLOOD (BEAKER) (test code = 7.38 1810) BLOOD GAS, [id number] 02:59:00 Test Item Value Reference Range Interpretation [...] (test code = 1819) 24.0 % POCT-GLUCOSE [id number] 23:18:00 Test Item Value Reference Range Interpretation Comments POC-GLUCOSE METER 218 mg/dL 70-110 H : TESTED A T [facility] 6720 (BEAKER) (test code = [facility], 1538) 78584: Pharmacy Scheduler/Techni gigi ID = [id number] for DO KAREEN, NICOLASA POCT-GLUCOSE [id number] 18:25:00 Test Item Value Reference Range Interpretation Comments POC-GLUCOSE METER 201 mg/dL 70-110 H : TESTED A T [facility] 6720 (BEAKER) (test code = [facility], 1538) 82714: Pharmacy Scheduler/Techni gigi ID = [id number] for GONZALEZ VILLEGAS POCT-GLUCOSE [id number] 16:02:00 Test Item Value Reference Range Interpretation Comments POC-GLUCOSE METER 189 mg/dL 70-110 H : TESTED A T [facility] 6720 (BEAKER) (test code = [facility], 1538) 61761: Pharmacy Scheduler/Techni gigi ID = [id number] for CO JANEL, BELGICA [id number] 12:13:00 Test Item Value Reference Range Interpretation Comments MAGNESIUM (BEAKER) 2.4 mg/dL 1.6-2.6 Specimen slightly (test code = 627) hemolyzed [facility] 2 hours after oral potassium replacement completed or 30 min after intravenous potassium replacement. [id number] 12:13:00 Test Item Value Reference Range Interpretation Comments PHOSPHORUS (BEAKER) 3.8 mg/dL 2.3-4.7 Specimen slightly (test code = 604) hemolyzed Pharmacy Scheduler ID - JEANA MCheck Serum Potassium level 2 hours after oral potassium replacement completed or 30 min after intravenous potassium replacement. [id number] 12:13:00 Test Item Value Reference Range Interpretation Comments POTASSIUM (BEAKER) 4.1 meq/L 3.5-5.1 Specimen slightly (test code = 379) hemolyzed Pharmacy Scheduler ID - JEANA MCheck Serum Potassium level 2 hours after oral potassium replacement completed or 30 min after intravenous potassium replacement.BLOOD GAS, [id number] 11:52:00 Test Item Value Reference Range Interpretation [...] (test code = 1819) 36.0 % CALCIUM, [id number] 11:49:00 Test Item Value Reference Range Interpretation Comments CALCIUM IONIZED (BEAKER) (test 1.12 mmol/L 1.12-1.27 code = 698) PH, BLOOD (BEAKER) (test code = 7.45 1810) Check serum Ionized Calcium level after 4 hours after IV Calcium replacement. POCT-GLUCOSE [id number] 11:05:00 Test Item Value Reference Range Interpretation Comments POC-GLUCOSE METER 207 mg/dL 70-110 H : [facility] (BEAKER) (test code = NATHEN Barragan [facility], 1538) [address]: Pharmacy Scheduler/Techni gigi ID = [id number] for CO ONCE, [place] BLOOD GAS, [id number] 08:57:00 Test Item Value Reference Range Interpretation [...] (test code = 1819) 40.0 % POCT-GLUCOSE [id number] 08:36:00 Test Item Value Reference Range Interpretation Comments POC-GLUCOSE METER 267 mg/dL 70-110 H : TESTED A T [facility] 6720 (BEAKER) (test code = [place]ATHEN [place], 1538) [address]: Pharmacy Scheduler/Techni gigi ID = [id number] for CO ONCE, [place] RAD, CHEST, 1 VIEW, NON [id number] 08:19:00Reason for exam:->Mechanical ventilationShould this be performed [...] contours. Stable surgical changes.Additional findings: None. Signed: Katia Nicole Verified Date/Time: 08/13/2019 08:19:28 Reading Location: [facility] Radiology Reading Room [id number] 05:56:00 Test Item Value Reference Range Interpretation Comments PHOSPHORUS (BEAKER) (test code = 4.5 mg/dL 2.3-4.7 604) Pharmacy Scheduler ID - JEANA [id number] 05:56:00 Test Item Value Reference Range Interpretation Comments MAGNESIUM (BEAKER) (test code = 2.4 mg/dL 1.6-2.6 627) Pharmacy Scheduler ID - JEANA MBASIC METABOLIC [id number] 05:56:00 Test Item Value Reference Range Interpretation [...] S NOT APPLICABLE FOR DIALYSIS PATIEN TS. Pharmacy Scheduler ID - JEANA MCBC (HEMOGRAM ONLY)2019-08-13 05:45:00 [...] (BEAKER) (test code = 413) BLOOD GAS, [id number] 05:45:00 Test Item Value Reference Range Interpretation [...] (test code = 1819) 40.0 % CALCIUM, [id number] 05:45:00 Test Item Value Reference Range Interpretation Comments CALCIUM IONIZED (BEAKER) (test 1.11 mmol/L 1.12-1.27 L code = 698) PH, BLOOD (BEAKER) (test code = 7.38 1810) LACTIC ACID, [id number] 05:44:00 Test Item Value Reference Range Interpretation Comments LACTATE BLOOD VENOUS (2) (BEAKER) 0.8 mmol/L 0.5-2.2 (test code = 2872) Pharmacy Scheduler ID - JEANA MPOCT-GLUCOSE [id number] 00:27:00 Test Item Value Reference Range Interpretation Comments POC-GLUCOSE METER 261 mg/dL 70-110 H : TESTED A T [facility] 6720 (BEAKER) (test code = [facility], 1538) [address]: Pharmacy Scheduler/Techni gigi ID = [id number] for DO October POCT-GLUCOSE [id number] 23:11:00 Test Item Value Reference Range Interpretation Comments POC-GLUCOSE METER 259 mg/dL 70-110 H : TESTED A T [facility] 6720 (BEAKER) (test code = [facility], 1538) [address]: Pharmacy Scheduler/Techni gigi ID = [id number] for DO NNOctober POCT-GLUCOSE [id number] 18:03:00 Test Item Value Reference Range Interpretation Comments POC-GLUCOSE METER 272 mg/dL 70-110 H : TESTED A T [facility] 6720 (BEAKER) (test code = [place]ATHEN [place], 1538) [address]: Pharmacy Scheduler/Techni gigi ID = [id number] for YAKOV HAYWARD [id number] 13:20:00 Test Item Value Reference Range Interpretation Comments MAGNESIUM (BEAKER) 2.1 mg/dL 1.6-2.6 Specimen slightly (test code = 627) hemolyzed Pharmacy Scheduler ID - AAHAMIDCheck Serum Potassium level 2 hours after oral potassium replacement completed or 30 min after intravenous potassium replacement. [id number] 13:20:00 Test Item Value Reference Range Interpretation Comments PHOSPHORUS (BEAKER) 3.4 mg/dL 2.3-4.7 Specimen slightly (test code = 604) hemolyzed Pharmacy Scheduler ID - AAHAMIDCheck Serum Potassium level 2 hours after oral potassium replacement completed or 30 min after intravenous potassium replacement. [id number] 13:20:00 Test Item Value Reference Range Interpretation Comments POTASSIUM (BEAKER) 3.8 meq/L 3.5-5.1 Specimen slightly (test code = 379) hemolyzed Pharmacy Scheduler ID - AAHAMIDCheck Serum Potassium level 2 hours after oral potassium replacement completed or 30 min after intravenous potassium replacement.CALCIUM, [id number] 13:10:00 Test Item Value Reference Range Interpretation Comments CALCIUM IONIZED (BEAKER) (test 1.12 mmol/L 1.12-1.27 code = 698) PH, BLOOD (BEAKER) (test code = 7.49 1810) Check serum Ionized Calcium level after 4 hours after IV Calcium replacement. BRONCHIAL CULTURE + GRAM [id number] 13:08:00 Test Item Value Reference Range Interpretation Comments CULTURE (BEAKER) (test code No growth = 1095) GRAM STAIN RESULT (BEAKER) <1+ WBCs (test code = 1123) GRAM STAIN RESULT (BEAKER) No organisms seen (test code = 08079) RAD, CHEST, 1 VIEW, NON [id number] 05:35:00Reason for exam:->Mechanical ventilationShould this be performed at the bedside?->YesFINAL REPORT RAD, CHEST, 1 VIEW, NON DEPT INDICATION: Mechanical ventilation C OMPARISON: Prior day's exam FINDINGS: Portable frontal view of the chest. IMPRESSION: Support Lines: Stable. Lungs and pleura: Unchanged bibasilar opacities and trace pleural effusions. No new airspace consolidation. No pneumothorax.Heart and mediastinum: Stable contours. Stable surgical changes.Add itional findings: None. Signed: Farida Whitmore MDReport Verified Date/Time: 08/12/2019 05:35:26 CALCIUM, [id number] 04:40:00 Test Item Value Reference Range Interpretation Comments CALCIUM IONIZED (BEAKER) (test 1.11 mmol/L 1.12-1.27 L code = 698) PH, BLOOD (BEAKER) (test code = 7.50 1810) BLOOD GAS, [id number] 04:39:00 Test Item Value Reference Range Interpretation [...] (BEAKER) (test code = 1819) 40.0 % [id number] 03:53:00 Test Item Value Reference Range Interpretation Comments MAGNESIUM (BEAKER) 1.9 mg/dL 1.6-2.6 Specimen slightly (test code = 627) hemolyzed Pharmacy Scheduler ID - CHEYENNE [id number] 03:53:00 Test Item Value Reference Range Interpretation Comments PHOSPHORUS (BEAKER) 3.6 mg/dL 2.3-4.7 Specimen slightly (test code = 604) hemolyzed Pharmacy Scheduler ID - [place] WBASIC METABOLIC [id number] 03:53:00 Test Item Value Reference Range Interpretation [...] S NOT APPLICABLE FOR DIALYSIS PATIEN TS. Pharmacy Scheduler ID - CHEYENNE WCBC (HEMOGRAM ONLY)2019-08-12 03:24:00 Test Item Value Reference [...] 0-0 (BEAKER) (test code = 413) POCT-GLUCOSE [id number] 00:12:00 Test Item Value Reference Range Interpretation Comments POC-GLUCOSE METER 226 mg/dL 70-110 H : TESTED A T [facility] 6720 (BEAKER) (test code = [facility], 1538) 98[address]: Pharmacy Scheduler/Techni gigi ID = [id number] for October POCT-GLUCOSE [id number] 22:01:00 Test Item Value Reference Range Interpretation Comments POC-GLUCOSE METER 201 mg/dL 70-110 H : TESTED A T [facility] 6720 (BEAKER) (test code = [facility], 1538) [address]: Pharmacy Scheduler/Techni gigi ID = [id number] for Ana Hoover BLOOD GAS, [id number] 20:34:00 Test Item Value Reference Range Interpretation [...] (test code = 1819) 100.0 % GLUCOSE-STAT [id number] 20:34:00 Test Item Value Reference Range Interpretation Comments GLUCOSE RANDOM (BEAKER) (test code 212 mg/dL 70-110 H = 652) HGB/HCT (H&H) - STAT [id number] 20:34:00 Test Item Value Reference Range Interpretation Comments HEMOGLOBIN (BEAKER) (test code = 11.1 g/dL 12.0-15.0 L 410) HEMATOCRIT (BEAKER) (test code = 33.0 % 36.0-45.0 L 411) SODIUM NA-STAT [id number] 20:33:00 Test Item Value Reference Range Interpretation Comments SODIUM (BEAKER) (test code = 381) 141 meq/L 135-148 POTASSIUM-STAT [id number] 20:33:00 Test Item Value Reference Range Interpretation Comments POTASSIUM (BEAKER) (test code = 4.0 meq/L 3.6-5.5 379) OXYGEN SATURATION, [id number] 20:33:00 Test Item Value Reference Range Interpretation Comments O2 SATURATION (MEASURED) (BEAKER) 59.9 % (test code = 1455) [id number] 19:30:00 Test Item Value Reference Range Interpretation Comments PHOSPHORUS (BEAKER) 3.6 mg/dL 2.3-4.7 Specimen slightly (test code = 604) hemolyzed Pharmacy Scheduler ID - BSCheck Serum Potassium level 2 hours after oral potassium replacement completed or 30min after intravenous potassium replacement.POTASSIUM 2019-08-11 19:03:00 Test Item Value Reference Range Interpretation Comments POTASSIUM (BEAKER) 4.9 meq/L 3.5-5.1 Specimen slightly (test code = 379) hemolyzed Pharmacy Scheduler ID - BSCheck Serum Potassium level 2 hours after oral potassium replacement completed or 30min after intravenous potassium replacement.POCT- GLUCOSE [id number] 17:18:00 Test Item Value Reference Range Interpretation Comments POC-GLUCOSE METER 187 mg/dL 70-110 H : TESTED A T [facility] 6720 (BEAKER) (test code = [place], 1538) [address]: Pharmacy Scheduler/Techni gigi ID = [id number] for [place] GONZALEZ PETERSEN BLOOD GAS, [id number] 13:29:00 Test Item Value Reference Range Interpretation [...] (test code = 1819) 40.0 % POCT-GLUCOSE [id number] 12:31:00 Test Item Value Reference Range Interpretation Comments POC-GLUCOSE METER 354 mg/dL 70-110 H : TESTED A T [facility] 6720 (BEAKER) (test code = NATHEN Barragan [place], 1538) [address]: Pharmacy Scheduler/Techni gigi ID = [id number] for GONZALEZ VILLEGAS [id number] 08:49:00 Test Item Value Reference Range Interpretation Comments MAGNESIUM (BEAKER) 2.4 mg/dL 1.6-2.6 Specimen moderately (test code = 627) hemolyzed Pharmacy Scheduler ID - JEANA [id number] 08:49:00 Test Item Value Reference Range Interpretation Comments POTASSIUM (BEAKER) 3.8 meq/L 3.5-5.1 Specimen moderately (test code = 379) hemolyzed Pharmacy Scheduler ID - JEANA MRAD, CHEST, 1 VIEW, NON [id number] 08:45:00Reason for exam:->Mechanical ventilationShould this be performed [...] contours. Stable surgical changes.Additional findings: None. Signed: Katia Nicole Verified Date/Time: 08/11/2019 08:45:03 Reading Location: [facility] Radiology Reading [facility] [id number] 07:26:00 Test Item Value Reference Range Interpretation [...] decisions. This sample was tested at the [facility] Molecular Diagnostics Laboratory using the FTBpro Respiratory Panel. It is FDA cleared and has been verified and approved by the [facility] Molecular Diagnostics Laboratory for clinical use on nasopharyngeal swab specimens.The performance of the FilmArrayRP has not been established in individuals who received influenza vaccine. Recent administration ofa nasal influenza vaccine may cause false positive results for Influenza A and/orInfluenza B.CALCIUM, [id number] 07:18:00 Test Item Value Reference Range Interpretation Comments CALCIUM IONIZED (BEAKER) (test 1.13 mmol/L 1.12-1.27 code = 698) PH, BLOOD (BEAKER) (test code = 7.60 1810) [id number] 06:09:00 Test Item Value Reference Range Interpretation Comments MAGNESIUM (BEAKER) 2.2 mg/dL 1.6-2.6 Specimen slightly (test code = 627) hemolyzed Pharmacy Scheduler ID - JEANA [id number] 06:09:00 Test Item Value Reference Range Interpretation Comments PHOSPHORUS (BEAKER) 1.7 mg/dL 2.3-4.7 L Specimen slightly (test code = 604) hemolyzed Pharmacy Scheduler ID - JEANA MBASIC METABOLIC [id number] 06:09:00 Test Item Value Reference Range Interpretation [...] S NOT APPLICABLE FOR DIALYSIS PATIEN TS. Pharmacy Scheduler ID - JEANA MPOCT-GLUCOSE [id number] 05:58:00 Test Item Value Reference Range Interpretation Comments POC-GLUCOSE METER 301 mg/dL 70-110 H : Notified RN/MD: Will (BEAKER) (test code = Repeat Test: TESTED AT 1538) [facility] 67[address] [facility] [place], [address]: Pharmacy Scheduler/Techni gigi ID = [id number] for October TROPONIN [id number] 05:46:00 Test Item Value Reference Range Interpretation [...] failure, acidosis, acute neurological disease, and persistent tachyarrhythmia.Pharmacy Scheduler ID - JEANA [facility] (HEMOGRAM ONLY) 2019-08-11 05:24:00 Test Item Value [...] (BEAKER) (test code = 413) BLOOD GAS, [id number] 05:16:00 Test Item Value Reference Range Interpretation [...] code = 1819) 50.0 % OXYGEN SATURATION, [id number] 05:12:00 Test Item Value Reference Range Interpretation Comments O2 SATURATION (MEASURED) (BEAKER) 69.3 % (test code = 1455) TROPONIN [id number] 00:20:00 Test Item Value Reference Range Interpretation [...] failure, acidosis, acute neurological disease, and persistent tachyarrhythmia.Pharmacy Scheduler ID - BSPOCT-GLUCOSE METER 2019-08-11 00:05:00 Test Item Value Reference Range Interpretation Comments POC-GLUCOSE METER 260 mg/dL 70-110 H : TESTED A T [facility] 6720 (BEAKER) (test code = NATHEN Barragan [place], 1538) [address]: Pharmacy Scheduler/Techni gigi ID = [id number] for DO October [id number] 00:00:00 Test Item Value Reference Range Interpretation Comments MAGNESIUM (BEAKER) 2.2 mg/dL 1.6-2.6 Specimen slightly (test code = 627) hemolyzed Pharmacy Scheduler ID - [id number] 00:00:00 Test Item Value Reference Range Interpretation Comments POTASSIUM (BEAKER) 3.6 meq/L 3.5-5.1 Specimen slightly (test code = 379) hemolyzed Pharmacy Scheduler ID - BSBLOOD GAS, [id number] 23:59:00 Test Item Value Reference Range Interpretation [...] (test code = 1819) 50.0 % CALCIUM, [id number] 23:59:00 Test Item Value Reference Range Interpretation Comments CALCIUM IONIZED (BEAKER) (test 1.09 mmol/L 1.12-1.27 L code = 698) PH, BLOOD (BEAKER) (test code = 7.58 1810) Check serum Ionized Calcium level after 4 hours after IV Calcium replacement. RAPID INFLUENZA A&B [id number] 21:04:00 Test Item Value Reference Range Interpretation Comments RAPID INFLUENZA A AG (BEAKER) Negative Negative, Inconclusive (test code = 1622) RAPID INFLUENZA B AG (BEAKER) Negative Negative, Inconclusive (test code = 1623) BLOOD GAS, [id number] 20:08:00 Test Item Value Reference Range Interpretation [...] code = 1819) 50.0 % OXYGEN SATURATION, [id number] 19:14:00 Test Item Value Reference Range Interpretation Comments O2 SATURATION (MEASURED) (BEAKER) 63.1 % (test code = 1455) BLOOD GAS, [id number] 18:51:00 Test Item Value Reference Range Interpretation Comments PH ARTERIAL (BEAKER) (test code = 7.61 7.35-7.45 383) PCO2 ARTERIAL (BEAKER) (test code 23 [...] (test code = 1819) 50.0 % TROPONIN [id number] 18:40:00 Test Item Value Reference Range Interpretation Comments TROPONIN I (BEAKER) (test code = 0.22 ng/mL 0.00-0.03 397) Troponin I (TnI) levels [...] failure, acidosis, acute neurological disease, and persistent tachyarrhythmia.Pharmacy Scheduler ID - [id number] 18:32:00 Test Item Value Reference Range Interpretation Comments POTASSIUM (BEAKER) (test code = 3.7 meq/L 3.5-5.1 379) Pharmacy Scheduler ID - [id number] 18:32:00 Test Item Value Reference Range Interpretation Comments MAGNESIUM (BEAKER) (test code = 2.6 mg/dL 1.6-2.6 627) Pharmacy Scheduler ID - BSPOCT-GLUCOSE [id number] 17:52:00 Test Item Value Reference Range Interpretation Comments POC-GLUCOSE METER 305 mg/dL 70-110 H : TESTED A T [facility] 6720 (BEAKER) (test code = [place]ATHEN [place], 1538) [address]: Pharmacy Scheduler/Techni gigi ID = [id number] for Isac GOMEZ IZABELLA BLOOD GAS, [id number] 14:40:00 Test Item Value Reference Range Interpretation [...] code = 1819) 60.0 % OXYGEN SATURATION, [id number] 14:38:00 Test Item Value Reference Range Interpretation Comments O2 SATURATION (MEASURED) (BEAKER) 67.6 % (test code = 1455) RAD, CHEST, 1 VIEW, NON [id number] 14:31:00Reason for exam:->line placementFINAL REPORT RAD, CHEST, [...] contours. Stable surgical changes.Additional findings: None. Signed: Katia Nicole MDReport Verified Date/Time: 08/10/2019 14:31:42 Reading Location: [facility] Read ing Room [id number] 14:04:00 Test Item Value Reference Range Interpretation Comments MAGNESIUM (BEAKER) (test code = 1.9 mg/dL 1.6-2.6 627) Pharmacy Scheduler ID - ROSIANGCBC W/PLT COUNT & AUTO [id number] 12:45:00 Test Item Value Reference Range Interpretation [...] (test code = 1+ few 963) POCT-GLUCOSE [id number] 12:10:00 Test Item Value Reference Range Interpretation Comments POC-GLUCOSE METER 366 mg/dL 70-110 H : TESTED A T [facility] 6720 (BEAKER) (test code = [place]EN [place], 1538) [address]: Pharmacy Scheduler/Techni gigi ID = [id number] for Isac GOMEZ URINALYSIS W/ REFLEX URINE [id number] 11:01:00 Test Item Value Reference Range Interpretation [...] = 1584) SOURCE(BEAKER) (test code = 2795) Pharmacy Scheduler ID - [auto]Pharmacy Scheduler ID - [id number] 10:34:00 Test Item Value Reference Range Interpretation Comments PROCALCITONIN (BEAKER) (test code 20.02 ng/mL <0.05 HH = 3036) SEPSIS RISK (ng/mL)Low: 0.05-0.50Intermediate: 0.51-2.00High: >=2.01HEMOGLOBIN [id number] 10:24:00 Test Item Value Reference Range Interpretation Comments HEMOGLOBIN A1C (BEAKER) (test code = 10.0 % 4.3-6.1 H 368) TROPONIN [id number] 10:12:00 Test Item Value Reference Range Interpretation [...] failure, acidosis, acute neurological disease, and persistent tachyarrhythmia.Pharmacy Scheduler ID - LACALCIUM, IONIZED 2019-08-10 07:39:00 Test Item Value Reference Range Interpretation Comments CALCIUM IONIZED (BEAKER) (test 0.98 mmol/L 1.12-1.27 L code = 698) PH, BLOOD (BEAKER) (test code = 7.50 1810) [id number] 07:29:00 Test Item Value Reference Range Interpretation Comments PHOSPHORUS (BEAKER) (test code = 3.3 mg/dL 2.3-4.7 604) Pharmacy Scheduler ID - [id number] 07:29:00 Test Item Value Reference Range Interpretation Comments MAGNESIUM (BEAKER) (test code = 1.4 mg/dL 1.6-2.6 L 627) Pharmacy Scheduler ID - BSLIPID [id number] 07:29:00 Test Item Value Reference Range Interpretation [...] Borderline 130-159 High 160-189 Very High >=190 Pharmacy Scheduler ID - BSHEPATIC FUNCTION [id number] 07:29:00 Test Item Value Reference Range Interpretation [...] (test code = 12 U/L 6-55 347) Pharmacy Scheduler ID - BSCOMPREHENSIVE METABOLIC [id number] 07:29:00 Test Item Value Reference Range Interpretation [...] S NOT APPLICABLE FOR DIALYSIS PATIEN TS. Pharmacy Scheduler ID - BSB-TYPE NATRIURETIC FACTOR (BNP)2019-08-10 07:27:00 Test Item Value Reference Range Interpretation Comments B-TYPE NATRIURETIC PEPTIDE (BEAKER) 415 pg/mL 0-100 H (test code = 700) Pharmacy Scheduler ID - BSTROPONIN [id number] 07:27:00 Test Item Value Reference Range Interpretation [...] failure, acidosis, acute neurological disease, and persistent tachyarrhythmia.Pharmacy Scheduler ID - BSPROTHROMBIN TIME/INR 2019-08-10 07:09:00 Test Item Value Reference Range Interpretation [...] for patients wiht mechanical heart valves.LACTIC ACID, [id number] 07:09:00 Test Item Value Reference Range Interpretation Comments LACTATE BLOOD ARTERIAL (2) 2.1 mmol/L 0.5-2.2 (BEAKER) (test code = 2874) Pharmacy Scheduler ID - [id number] 07:09:00 Test Item Value Reference Range Interpretation Comments FIBRINOGEN LEVEL (BEAKER) (test 455 mg/dl 225-434 H code = 658) [id number] 07:09:00 Test Item Value Reference Range Interpretation Comments PARTIAL THROMBOPLASTIN TIME 27.5 seconds 22.5-36.0 (BEAKER) (test code = 760) BLOOD GAS, [id number] 06:52:00 Test Item Value Reference Range Interpretation [...] 100.0 % RAD, CHEST, 1 VIEW, NON [id number] 06:03:00Reason for exam:->chfShould this be performed at [...] Degenerative changes of the spine. Signed: Jaylan Pratt MDReport Verified Date/Time: 08/10/2019 06:03:22 RAD, ABDOMEN/KUB, 1 VIEW [id number] 06:03:00Reason for exam:->check tube placementShould this be [...] Degenerative changes of the spine. Signed: Jaylan Pratt MDReport Verified Date/Time: 08/10/2019 06:03:22
[2020-09-14 04:50] LABS: Absolute Lymphocytes (CBC) 1.4 K/uL (0.7-4.9); Basophils % 0.8 % (0-1.3); Hematocrit 31.4 % (36.0-45.0); Lymphocytes % 22.5 % (15.3-44.8); MPV 10.2 fL (7.6-11.3); RBC Red Blood Cell Count 3.95 M/uL (3.86-4.86)
[2020-09-14 04:58] LABS: Protime INR 0.95
[2020-09-14 05:03] LABS: ALT/SGPT 24 U/L (12-78); AST/SGOT 15 U/L (15-37); Albumin 3.3 g/dL (3.4-5.0); Alkaline Phosphatase 114 U/L (45-117); BUN Blood Urea Nitrogen 23 mg/dL (7-18); Bicarbonate 26 mmol/L (21-32); Bilirubin Direct 0.1 mg/dL (0-0.2); Bilirubin Total 0.3 mg/dL (0.2-1.0); Glucose Level 246 mg/dL (74-106); Lipase 104 U/L (73-393); Magnesium 1.6 mg/dL (1.8-2.4); NT PRO-BNP 454 pg/mL (<125); Potassium 4.2 mmol/L (3.5-5.1); Sodium Level 136 mmol/L (136-145); Troponin (Emerg Dept Use Only) < 0.02 ng/mL (0.0-0.045)
[2020-09-14 05:35] LABS: Urine Blood NEGATIVE (NEG); Urine Glucose TRACE (NEG); Urine Protein NEGATIVE (NEG); Urine pH 7.5 (5.0-7.0)
[2020-09-14] MEDS ORDERED: FUROSEMIDE 20 MG/ 2ML VIAL ONE (05:45)
[2020-09-14] MEDS ORDERED: ACETYLCYST 6,000 MG/30 ML VIAL ONE (05:46)
[2020-09-14] MEDS ORDERED: Magnesium Sulfate 2gm IVPB 2 G/50 ML BAG IV ONE (06:13)
[2020-09-14] MEDS ORDERED: ONDANSETRON 4 MG/2 ML VIAL ONE (06:30)
--- NOTE | 2020-09-14 06:33 | ER ---
Nurse's Notes [facility] Name: Ratna Ureña Age: 55 yrs Sex: Female : 1965 Arrival Date: 09/14/2020 Time: 02:59 Bed 16 Private MD: out of town, doctor Diagnosis: Cardiomegaly;Hypomagnesemia;Type 2 diabetes mellitus;Systolic (congestive) heart failure;Chest pain, unspecified-left upper back Presentation: 09/14 03:06 Chief complaint: EMS states: patient woke with episode of diaphoresis, does not fell fu right. Coronavirus screen: At this time, the client does not indicate any symptoms associated with coronavirus-19. Ebola Screen: No symptoms or risks identified at this time. Initial Sepsis Screen: Does the patient meet any 2 criteria? No. Patient's initial sepsis screen is negative. Does the patient have a suspected source of infection? No. Patient's initial sepsis screen is negative. Risk Assessment: Do you want to hurt yourself or someone else? Patient reports no desire to harm self or others. Onset of symptoms was September 14, 2020. 03:06 Method Of Arrival: EMS: [facility] fu 03:06 Acuity: ANTONIO 3 fu Historical: - Allergies: 03:11 No Known Allergies; fu - PMHx: 03:11 Diabetes - NIDDM; High Cholesterol; Hypertension; fu - PSHx: 03:11 Tonsillectomy; Tubal ligation; fu - Immunization history:: Adult Immunizations not up to date. - Social history:: Smoking status: Patient denies any tobacco usage or history of. Patient/guardian denies using tobacco products. - Family history:: not pertinent. Screenin:14 Abuse screen: Denies threats or abuse. Nutritional screening: No deficits noted. fu Tuberculosis screening: No symptoms or risk factors identified. Fall Risk None identified. Assessment: 03:13 General: Appears in no apparent distress. Behavior is calm, cooperative, appropriate fu for age. Pain: Denies pain. Neuro: Level of Consciousness is awake, alert, obeys commands, Oriented to person, place, time, situation, Moves all extremities. Speech is normal, Facial symmetry appears normal. Cardiovascular: Reports diaphoresis. Respiratory: Respiratory effort is even, unlabored, Respiratory pattern is regular. GI: No signs and/or symptoms were reported involving the gastrointestinal system. EENT: No signs and/or symptoms were reported regarding the EENT system. Derm: Skin is diaphoretic. 04:57 Reassessment: Patient and/or family updated on plan of care and expected duration. Pain fu level reassessed. Patient is alert, oriented x 3, equal unlabored respirations, skin warm/dry/pink. patient resting in bed. 05:01 Reassessment: Received call from lab notifying lab alert. D dimer 656, Dr. Malik fu notified. 07:00 Reassessment: RECD REPORT FROM YUE CAMARGO. 55YO BF P/W GENERAL MALAISE. ADMIT IN PROCESS. bp Vital Signs: 03:06 BP 142 / 73; Pulse 80; Resp 19; Temp 97.8; Pulse Ox 100% on R/A; Pain 0/10; fu 03:15 BP 135 / 75; Pulse 78; Resp 18; Pulse Ox 98% on R/A; Weight 99.79 kg (R); Height 5 ft. fu 5 in. (165.10 cm); Pain 0/10; 04:56 BP 146 / 73; Pulse 78; Resp 14; Pulse Ox 99% on R/A; Pain 0/10; fu 07:15 BP 151 / 76; Pulse 83; Resp 15; Pulse Ox 100% ; bp 03:15 Body Mass Index 36.61 (99.79 kg, 165.10 cm) fu ED Course: 02:59 Patient arrived in ED. sg 03:00 out of town, doctor is Private Physician. sg 03:06 Fabian Yin, RAMAN is Primary Nurse. fu 03:10 Brent Malik MD is Attending Physician. real 03:10 Triage completed. fu 03:14 Bed in low position. Call light in reach. Side rails up X2. secured entrance monitor on. Pulse fu ox on. NIBP on. 04:25 Inserted saline lock: 22 gauge in right antecubital area, using aseptic technique. ds4 Blood collected. 04:26 NT PRO-BNP Sent. ll2 04:26 Basic Metabolic Panel Sent. ll2 04:26 CBC with Diff Sent. ll2 04:26 LFT's Sent. ll2 04:27 XRAY Chest (1 view) In Process Unspecified. EDMS 04:27 Magnesium Sent. ll2 04:57 No provider procedures requiring assistance completed. fu 05:41 CT Chest For PE Angio In Process Unspecified. EDMS 06:28 Paco Torrez MD is Hospitalizing Provider. [facility] 10:30 Primary Nurse role handed off by Fabian Yin RN dm5 16:22 Jamshid Dumont, RN is Primary Nurse. bp Administered Medications: 05:30 Drug: Lasix 20 mg Route: IVP; Site: right antecubital; ll2 05:46 Drug: Mucomyst - Acetylcysteine 600 mg Route: PO; ll2 06:05 Drug: Magnesium Sulfate 1 grams Route: IVPB; Infused Over: 1 hrs; Site: right fu antecubital; 06:40 Drug: Zofran (Ondansetron) 4 mg Route: IVP; Site: right antecubital; fu Outcome: 06:32 Decision to Hospitalize by Provider. [facility] 17:05 Patient left the ED. aa5 Signatures: Dispatcher [employer] EDMS Melanie Jalloh RN RN dm5 Guy Issa RN Brent Quinn MD MD cha Calderon, Audri RN RN aa5 Jose Jackson ds4 Fabian Yin RN RN fu Peltier, Brian, RN RN bp Yue Ross RN RN ll2 Corrections: (The following items were deleted from the chart) 04:56 04:55 BP 135 / 75; Pulse 78bpm; Resp 18bpm; Pulse Ox 98% RA; 99.79 kg Reported; Height fu 5 ft. 5 in.; BMI: 36.6; Pain 0/10; fu
--- NOTE | 2020-09-14 06:34 | EDPHYS ---
Physician Documentation [facility] Name: Ratna Ureña Age: 55 yrs Sex: Female : 1965 Arrival Date: 09/14/2020 Time: 02:59 Bed 16 Private MD: out of town, doctor ED Physician Brent Malik HPI: 09/14 04:07 This 55 yrs old Black Female presents to ER via EMS with complaints of Doesn't Feel real Right. 04:07 got sweaty at home, no pain any where. Onset: The symptoms/episode began/occurred just real prior to arrival. Severity of symptoms: At their worst the symptoms were mild in the emergency department the symptoms have resolved and did so just prior to arrival. The patient has not experienced similar symptoms in the past. Historical: - Allergies: 03:11 No Known Allergies; fu - PMHx: 03:11 Diabetes - NIDDM; High Cholesterol; Hypertension; fu - PSHx: 03:11 Tonsillectomy; Tubal ligation; fu - Immunization history:: Adult Immunizations not up to date. - Social history:: Smoking status: Patient denies any tobacco usage or history of. Patient/guardian denies using tobacco products. - Family history:: not pertinent. ROS: 04:07 Constitutional: Negative for fever, chills, and weight loss, Eyes: Negative for injury, real pain, redness, and discharge, ENT: Negative for injury, pain, and discharge, Neck: Negative for injury, pain, and swelling, Cardiovascular: Negative for chest pain, palpitations, and edema, Respiratory: Negative for shortness of breath, cough, wheezing, and pleuritic chest pain, Abdomen/GI: Negative for abdominal pain, nausea, vomiting, diarrhea, and constipation, Back: Negative for injury and pain, : Negative for injury, bleeding, discharge, and swelling, MS/Extremity: Negative for injury and deformity, Neuro: Negative for headache, weakness, numbness, tingling, and seizure, Psych: Negative for depression, anxiety, suicide ideation, homicidal ideation, and hallucinations, Allergy/Immunology: Negative for hives, rash, and allergies, Endocrine: Negative for neck swelling, polydipsia, polyuria, polyphagia, and marked weight changes, Hematologic/Lymphatic: Negative for swollen nodes, abnormal bleeding, and unusual bruising. 04:07 Skin: Positive for diaphoresis. Exam: 04:07 Constitutional: This is a well developed, well nourished patient who is awake, alert, real and in no acute distress. Head/Face: Normocephalic, atraumatic. Eyes: Pupils equal round and reactive to light, extra-ocular motions intact. Lids and lashes normal. Conjunctiva and sclera are non-icteric and not injected. Cornea within normal limits. Periorbital areas with no swelling, redness, or edema. ENT: Nares patent. No nasal discharge, no septal abnormalities noted. Tympanic membranes are normal and external auditory canals are clear. Oropharynx with no redness, swelling, or masses, exudates, or evidence of obstruction, uvula midline. Mucous membranes moist. Neck: Trachea midline, no thyromegaly or masses palpated, and no cervical lymphadenopathy. Supple, full range of motion without nuchal rigidity, or vertebral point tenderness. No Meningismus. Chest/axilla: Normal chest wall appearance and motion. Nontender with no deformity. No lesions are appreciated. Cardiovascular: Regular rate and rhythm with a normal S1 and S2. No gallops, murmurs, or rubs. Normal PMI, no JVD. No pulse deficits. Respiratory: Lungs have equal breath sounds bilaterally, clear to auscultation and percussion. No rales, rhonchi or wheezes noted. No increased work of breathing, no retractions or nasal flaring. Abdomen/GI: Soft, non-tender, with normal bowel sounds. No distension or tympany. No guarding or rebound. No evidence of tenderness throughout. Back: No spinal tenderness. No costovertebral tenderness. Full range of motion. Skin: Warm, dry with normal turgor. Normal color with no rashes, no lesions, and no evidence of cellulitis. MS/ Extremity: Pulses equal, no cyanosis. Neurovascular intact. Full, normal range of motion. Neuro: Awake and alert, GCS 15, oriented to person, place, time, and situation. Cranial nerves II-XII grossly intact. Motor strength 5/5 in all extremities. Sensory grossly intact. Cerebellar exam normal. Normal gait. Psych: Awake, alert, with orientation to person, place and time. Behavior, mood, and affect are within normal limits. 04:07 Musculoskeletal/extremity: Extremities: all appear grossly normal, with no appreciated pain with palpation, ROM: no acute changes, intact in all extremities, full active range of motion, full passive range of motion, Circulation is intact in all extremities. Sensation intact. Compartment Syndrome exam of affected extremity: is normal. DVT Exam: No signs of deep vein thrombosis. no pain, no swelling, no tenderness, negative Homans' sign noted on exam, no appreciated bluish discoloration, no erythema, no increased warmth. 05:00 ECG was reviewed by the Attending Physician. [facility] Vital Signs: 03:06 BP 142 / 73; Pulse 80; Resp 19; Temp 97.8; Pulse Ox 100% on R/A; Pain 0/10; fu 03:15 BP 135 / 75; Pulse 78; Resp 18; Pulse Ox 98% on R/A; Weight 99.79 kg (R); Height 5 ft. fu 5 in. (165.10 cm); Pain 0/10; 04:56 BP 146 / 73; Pulse 78; Resp 14; Pulse Ox 99% on R/A; Pain 0/10; fu 07:15 BP 151 / 76; Pulse 83; Resp 15; Pulse Ox 100% ; bp 03:15 Body Mass Index 36.61 (99.79 kg, 165.10 cm) fu MDM: 03:10 Patient medically screened. [facility] 04:09 Data reviewed: vital signs, nurses notes, lab test result(s), EKG, radiologic studies, [facility] plain films. Data interpreted: clarification operator: rate is 80 beats/min, Pulse oximetry: on room air is 100 %. Test interpretation: by ED physician or midlevel provider: ECG, plain radiologic studies. Counseling: I had a detailed discussion with the patient and/or guardian regarding: the historical points, exam findings, and any diagnostic results supporting the discharge/admit diagnosis, lab results, radiology results, the need for outpatient follow up, for definitive care, a machine puller, a family practitioner. 09/14 04:06 Order name: Basic Metabolic Panel [facility] 09/14 04:06 Order name: CBC with Diff [facility] 09/14 04:06 Order name: LFT's [facility] 09/14 04:06 Order name: Magnesium [facility] 09/14 04:06 Order name: NT PRO-BNP [facility] 09/14 04:06 Order name: PT-INR; Complete Time: 05:02 [facility] 09/14 04:06 Order name: Troponin (emerg Dept Use Only); Complete Time: 05:08 [facility] 09/14 04:06 Order name: Lipase; Complete Time: 05:08 [facility] 09/14 04:06 Order name: Urine Culture [facility] 09/14 04:07 Order name: Basic Metabolic Panel; Complete Time: 05:08 [facility] 09/14 04:07 Order name: CBC with Automated Diff; Complete Time: 05:02 [facility] 09/14 04:07 Order name: Liver (Hepatic) Function; Complete Time: 05:08 [facility] 09/14 04:07 Order name: Magnesium; Complete Time: 05:08 [facility] 09/14 04:07 Order name: NT PRO-BNP; Complete Time: 05:08 [facility] 09/14 04:06 Order name: XRAY Chest (1 view) [facility] 09/14 04:39 Order name: D-Dimer; Complete Time: 05:02 [facility] 09/14 04:43 Order name: Urine --Ancillary (enter results); Complete Time: 05:54 tt3 09/14 04:43 Order name: Urine Dipstick--Ancillary (enter results); Complete Time: 05:54 tt3 09/14 05:03 Order name: CT Chest For PE Angio [facility] 09/14 09:00 Order name: CBC with Automated Diff [facility] 09/14 09:00 Order name: CBC with Automated Diff [facility] 09/14 09:00 Order name: Comprehensive Metabolic Panel [facility] 09/14 09:00 Order name: Comprehensive Metabolic Panel [facility] 09/14 09:00 Order name: Protime (+INR) [facility] 09/14 09:00 Order name: Protime (+INR) [facility] 09/14 09:00 Order name: PTT, Activated Partial Thromb [facility] 09/14 09:00 Order name: PTT, Activated Partial Thromb [facility] 09/14 13:37 Order name: Troponin I [facility] 09/14 04:06 Order name: EKG; Complete Time: 04:07 [facility] 09/14 04:06 Order name: Cardiac monitoring; Complete Time: 04:26 [facility] 09/14 04:06 Order name: EKG - Nurse/Tech; Complete Time: 04:26 [facility] 09/14 04:06 Order name: IV Saline Lock; Complete Time: 04:26 [facility] 09/14 04:06 Order name: Labs collected and sent; Complete Time: 04:26 [facility] 09/14 04:06 Order name: O2 Per Protocol; Complete Time: : [facility] 09/14 04:06 Order name: O2 Sat Monitoring; Complete Time: [facility] 09/14 04:06 Order name: Urine Dipstick-Ancillary (obtain specimen); Complete Time: : [facility] 09/14 09:00 Order name: CONS Pharmacy Consult [facility] 09/14 09:00 Order name: Regular EDMS EC:00 Rate is 79 beats/min. Rhythm is regular. QRS [place] is Normal. MS interval is normal. QRS real interval is prolonged. QT interval is normal. No Q waves. T waves are Normal. No ST changes noted. Clinical impression: NSR w/ Non-specific ST/T Changes and No evidence of ischemia. Interpreted by me. Reviewed by me. Administered Medications: 05:30 Drug: Lasix 20 mg Route: IVP; Site: right antecubital; ll2 05:46 Drug: Mucomyst - Acetylcysteine 600 mg Route: PO; ll2 06:05 Drug: Magnesium Sulfate 1 grams Route: IVPB; Infused Over: 1 hrs; Site: right fu antecubital; 06:40 Drug: Zofran (Ondansetron) 4 mg Route: IVP; Site: right antecubital; fu Disposition: 09/14/20 06:32 Hospitalization ordered by Paco Torrez for Observation. Preliminary diagnosis are Cardiomegaly, Hypomagnesemia, Type 2 diabetes mellitus, Systolic (congestive) heart failure, Chest pain, unspecified - left upper back. - Bed requested for [facility] ER HOLD. - Status is Observation. aa5 - Condition is Fair. - Problem is new. - Symptoms have improved. Signatures: Dispatcher [employer] EDLA Melanie Jalloh RN RN dm5 Brent Malik MD MD cha Calderon, Audri RN RN aa5 Fabian Yin RN RN fu [place], Lacie, RN RN ll2 Corrections: (The following items were deleted from the chart) 04:38 04:11 D-DIMER+COAG.LAB.BRZ ordered. EDLA EDMS 10:33 06:32 Hospitalization Ordered by Paco Torrez MD for Observation. Preliminary dm5 diagnosis is Cardiomegaly; Hypomagnesemia; Type 2 diabetes mellitus; Systolic (congestive) heart failure; Chest pain, unspecified - left upper back. Bed requested for Telemetry/MedSurg (observation). Status is Observation. Condition is Fair. Problem is new. Symptoms have improved. real 10:34 10:33 09/14/2020 06:32 Hospitalization Ordered by Paco Torrez MD for Observation. dm5 Preliminary diagnosis is Cardiomegaly; Hypomagnesemia; Type 2 diabetes mellitus; Systolic (congestive) heart failure; Chest pain, unspecified - left upper back. Bed requested for [facility] ER HOLD. Status is Observation. Condition is Fair. Problem is new. Symptoms have improved. dm5 17:05 10:34 09/14/2020 06:32 Hospitalization Ordered by Paco Torrez MD for Observation. aa5 Preliminary diagnosis is Cardiomegaly; Hypomagnesemia; Type 2 diabetes mellitus; Systolic (congestive) heart failure; Chest pain, unspecified - left upper back. Bed requested for [facility] ER HOLD. Status is Observation. Condition is Fair. Problem is new. Symptoms have improved. dm5
--- NOTE | 2020-09-14 07:46 | RAD REPORT ---
EXAM DESCRIPTION: RAD - Chest Single View - 09/14/2020 4:27 am CLINICAL HISTORY: COUGH, diaphoresis, hypertension COMPARISON: Portable August 10 imaging ; portable November 2014 TECHNIQUE: AP portable chest image was obtained 09/14/2020 4:27 am . FINDINGS: No focal mass or consolidation identified. Retrocardiac left base assessment is more limit ed due to portable technique, overlying soft tissues and cardiomegaly. Patient has mild vascular engo rgement as well. Interstitial markings are prominent. Lung castillo are much better aerated than on the prior examinations in which the patient had significant illness. The patient's November 2014 study is pro bably baseline for the patient. Current examination is only slightly worse than the study. No measura ble pleural effusion and no pneumothorax. No acute bony abnormality seen. No acute aortic findings cerda spected. IMPRESSION: Significant cardiomegaly with mild failure/ volume overload findings.
[2020-09-14] MEDS ORDERED: ONDANSETRON 4 MG/2 ML VIAL IV PRN (08:58)
[2020-09-14] MEDS ORDERED: ACETAMINOPHEN 500 MG TAB PO PRN (08:58)
[2020-09-14] MEDS ORDERED: MORPHINE 2 MG/ML SYR IV PRN (08:58)
[2020-09-14] MEDS ORDERED: NA CHLORIDE 0.9% 1,000 ML IV SCH (09:00)
[2020-09-14 10:32] VITALS: BMI 36.6
[2020-09-14] MEDS ORDERED: NA CHLORIDE 0.9% 500 ML ONE (11:05)
--- NOTE | 2020-09-14 15:38 | P.SSS ---
Patient History Date of Service: 09/14/20 Reason for admission: Patient with generalized weakness but unintentional overdo se with Mucomyst History of Present Illness: Patient is a 55-year-old female who came to the hospital with generalized weakness. She came for not feeling well for the last few days. She came to the Emergency room for further evaluation. In the emergency room patient was worked up and labs were unremarkable. Patient receive Mucomyst Were contrast but patient received the larger dose and anticipated. Emergency room physician wanted me to observe the patient During the day. Patient will be admitted for observation. If she does well then anticipate discharge home later today Allergies No Known Drug Allergies Allergy (Verified 11/26/14 08:26) Unknown No Known Allerg Allergy (Uncoded 02/22/16 12:06) Unknown No Known Allergies Allergy (Uncoded 04/25/17 09:01) Unknown Home Medications: Valsartan/Hydrochlorothiazide [Diovan Hct 160-25 mg Tablet] 1 each PO DAILY #30 tablet 09/27/13 Glimepiride [Amaryl] 4 mg PO BID #60 tablet 11/28/14 - Past Medical/Surgical History Has patient received pneumonia vaccine in the past: No Diabetic: Yes -: TYPE 2 DIABETES -: HYPERTENSION -: CHF -: TONSILLECTOMY -: APPENDECTOMY -: TUBAL LIGATION -: L EYE CATARACT SURGERY - Family History Father -: Diabetes Mother -: Diabetes - Social History Smoking Status: Unknown if ever smoked Alcohol use: No CD- Drugs: No Caffeine use: Yes Place of Residence: Home Review of Systems 10-point ROS is otherwise unremarkable Physical Examination - Vital Signs Temperature: 98 F Blood Pressure: 120/85 Pulse: 80 Respirations: 18 Pulse Ox (%): 96 - Physical Exam General: Alert, In no apparent distress, Oriented x3 HEENT: Atraumatic, PERRLA, Mucous membr. moist/pink, EOMI, Sclerae nonicteric Neck: Supple, 2+ carotid pulse no bruit, No LAD, Without JVD or thyroid abnormality Respiratory: Clear to auscultation bilaterally, Normal air movement Cardiovascular: Regular rate/rhythm, Normal S1 S2, No murmurs Gastrointestinal: Normal bowel sounds, Soft and benign, Non-distended, No tenderness, No rebound, No guarding Musculoskeletal: No clubbing, No swelling, No tenderness Integumentary: No rashes Neurological: Normal gait, Normal speech, Normal strength at 5/5 x4 extr, Normal tone, Sensation intact, Cranial nerves 3-12 intact, Normal affect Lymphatics: No axilla or inguinal lymphadenopathy - Studies Laboratory Data (last 24 hrs) 09/14/20 04:23: PT 10.9, INR 0.95 09/14/20 04:23: WBC 6.40, Hgb 10.0 L, Hct 31.4 L, Plt Count 203 09/14/20 04:23: Sodium 136, Potassium 4.2, BUN 23 H, Creatinine 1.00, Glucose 246 H, Magnesium 1.6 L, Total Bilirubin 0.3, AST 15, ALT 24, Alkaline Phosphatase 114, Lipase 104 Treatment Summary: Patient has done well during hospitalization. Patient was monitored for 6 hours after the Mucomyst and we called poison control and they said there was nothing to really do at this time. No toxicity related to Mucomyst. Patient will discharge without patient followup with PCP for generalized weakness. - Disposition Disposition: ROUTINE DISCHARGE Condition: GOOD Patient Discharge Instructions: -OK TO DC IV AND DC HOME. -FOLLOW-UP WITH PCP IN 1-2 WEEKS. -PLEASE MAKE SURE ALL DIAGNOSTIC STUDIES ARE AVAILABLE AND HAVE BEEN REVIEWED WITH PATIENT PRIOR TO DISCHARGE. -RETURN TO THE ER IF symptoms worsen. -CALL DR. PAL AT [phone] IF ANY QUESTIONS REGARDING HOSPITAL STAY. -PLEASE CALL THE FLOOR AT [phone] IF ANY MEDICATION OR NURSING QUESTIONS Diet: AHA Activity: Fall precautions Critical Care: No Time Spent Managing Pts Care (In Minutes): 45
--- NOTE | 2020-09-14 15:58 | RAD REPORT ---
EXAM DESCRIPTION: CT - Chest For Pe Angio - 09/14/2020 6:59 am CLINICAL HISTORY: The patient is 55 years old and is Female; Chest pain;Dyspnea;PE TECHNIQUE: Axial computed tomographic angiography images of the chest with intravenous contrast. S agittal and coronal reformatted images were created and reviewed. This CT exam was performed using one or more of the following dose reduction techniques: automated exposure control, adjustment of t he mA and/or kV according to patient size, and/or use of iterative reconstruction technique. MIP re constructed images were created and reviewed. COMPARISON: No relevant prior studies available. FINDINGS: Pulmonary arteries: Unremarkable. No pulmonary embolism. Aorta: No acute findings. No thoracic aortic aneurysm. Lungs: Nonspecific groundglass changes in the lung bases bilaterally. No mass. Pleural space: Unremarkable. No significant effusion. No pneumothorax. Heart: Cardiomegaly. Small pericardial effusion. No evidence of RV dysfunction. Bones/joints: No acute fracture. No dislocation. Soft tissues: Unremarkable. Lymph nodes: Unremarkable. No enlarged lymph nodes. IMPRESSION: 1. No evidence of pulmonary embolism. 2. Nonspecific groundglass changes in the lung bases bilaterally. 3. Cardiomegaly. 4. Small pericardial effusion. Electronically signed by: Todd Gonzáles MD 09/14/2020 6:02 AM ORE ROASTER Due to temporary technical issues with the PACS/Fluency reporting system, reports are being signed by the in house radiologists without review as a courtesy to insure prompt reporting. The interpreting radiologist is fully responsible for the content of the report.
--- NOTE | 2020-09-15 08:26 | ECHO ---
HEIGHT: 5 ft 5 in WEIGHT: 220 lb 0 oz DATE OF STUDY: 09/14/[address]: Paco Torrez MD 2-DIMENSIONAL: YES M.MODE: YES DOPPLER: YES COLOR FLOW: YES TDS: NO PORTABLE: NO DEFINITY: NO BUBBLE STUDY: NO DIAGNOSIS: CONGESTIVE HEART FAILURE CARDIAC HISTORY: CATHERIZATION: SURGERY: PROSTHETIC VALVE: PACEMAKER: MEASUREMENTS (cm) DIASTOLIC (NORMALS) SYSTOLIC (NORMALS) IVSd 1.0 (0.6-1.2) LA Diam 3.6 (1.9-4.0) LVEF 43% LVIDd 5.0 (3.5-5.7) LVIDs 4.2 (2.0-3.5) %FS 15% LVPWd 1.3 (0.6-1.2) Ao Diam 2.8 (2.0-3.7) 2 DIMENSIONAL ASSESSMENT: RIGHT ATRIUM: NORMAL LEFT ATRIUM: NORMAL RIGHT VENTRICLE: NORMAL LEFT VENTRICLE: MILDLY DEPRESSED TRICUSPID VALVE: NORMAL MITRAL VALVE: NORMAL PULMONIC VALVE: NORMAL AORTIC VALVE: NORMAL PERICARDIAL EFFUSION: NONE AORTIC ROOT: NORMAL LEFT VENTRICULAR WALL MOTION: ANTEROSPETAL HYPOKINESIS. DOPPLER/COLOR FLOW: SEE BELOW. COMMENTS: MILDLY DEPRESSED LEFT VENTRICULAR EJECTION FRACTION 40-45%. ANTEROSEPTAL HYPOKINESIS. TECHNOLOGIST: MARTY MATTA
--- NOTE | 2020-09-15 14:13 | EKG ---
Test Date: 2020-09-14 Test Time: 04:38:43 [employer] Technical Operator: EDD MEASUREMENT RESULTS: Intervals: Rate: 79 VA: 196 QRSD: 144 QT: 460 QTc: 527 [place]: P: 67 VA: 196 QRS: -5 T: 59 INTERPRETIVE STATEMENTS: Normal sinus rhythm Left bundle branch block Abnormal ECG Compared to ECG 08/10/2019 00:28:51 Sinus tachycardia no longer present Electronically Signed On 09-15-20 14:09:26 [employer]UE CR[employer]BER by Davidson Lam
[2020-10-03 02:05] VITALS: BP 120/85; TEMP 98
== END 2020-09-14 16:25 | disposition home or self-care (01) ==
LOC: ER 02:56 → ERHOLD 08:58
PROVIDERS: ADMIT Hospitalist; ATTEND Hospitalist
DX: E83.42 Hypomagnesemia (principal); I11.0 Hypertensive heart disease with heart failure; I50.20 Unspecified systolic (congestive) heart failure; R07.9 Chest pain, unspecified; M54.6 Pain in thoracic spine; E11.9 Type 2 diabetes mellitus without complications; Z79.84 Long term (current) use of oral hypoglycemic drugs; E78.00 Pure hypercholesterolemia, unspecified; R94.31 Abnormal electrocardiogram [ECG] [EKG]
CPT/HCPCS: 36415; 71045; 71275; 80048; 80076; 81003; 81025; 83690; 83735; 83880; 84484; 85025; 85379; 85610; 87077; 87086; 87088; 87186; 93005; 93306; 96374; 96375; 99284; G0378; J1940; J2405; J3475; J7040; Q9967

== ENCOUNTER 2022-01-01 11:33 | Emergency (ER) | payer BC ==
--- OUTSIDE RECORDS SUMMARY | 2022-01-01 11:39 | XMS REPORT | Continuity of Care Document ---
:1965 Author Organization [facility] t Address [address] [place] [address] Care Team Providers Name Role Phone Barbie GODINEZ Primary Care Physician Unavailable ZACHARY Attending Clinician Unavailable NAVNEET Attending Clinician Unavailable KRISH Attending Clinician Unavailable KRISH Attending Clinician Unavailable CAMERON Attending Clinician Unavailable Doctor Unassigned, Name Attending Clinician Unavailable Isac MA Attending Clinician Unavailable Aquiles CASEY S Attending Clinician Navneet HARTMANN Attending Clinician Beth CANELA Attending Clinician Unavailable VESNA MARINA Attending Clinician Unavailable Isac MA Admitting Clinician Unavailable Beth CANELA Admitting Clinician Unavailable VESNA MARINA Admitting Clinician Unavailable Payers Payer Name Policy Type Policy Number Effective Date Expiration Date S ource [place] - [facility] [id number] 2020 OF COUNTS INCLUDE 234 BEDS AT THE [facility] 00:00:00 [facility] VOCATIONAL [id number] 9600-12-29 2021 REHABILITATION 00:00:00 00:00:00 Problems Condition Condition Condition Status Onset Resolution Last Treating Co mments Source Name Details Category Date Date Treatment Clinician Date Cardiogeni Cardiogeni Disease Active U nivers c shock c shock 9-20 ity of 00:00: [place] 00 Medical Branch Cardiomyop Cardiomyop Disease Active 2019-0 U nivers athy athy 1-22 ity of 00:00: [place] 00 Medical Branch Acute Acute Disease Active 2020-0 Univers kidney kidney 1-21 ity of injury injury 00:00: [place] (nontrauma (nontrauma 00 Me dical tic) tic) Branch Acute Acute Disease Active Univers respirator respirator -21 it y of y failure y failure 00:00: Wadebeth s with with 00 Medical hypoxia hypoxia Branch CHF CHF Disease Active Univers (congestiv (congestiv 08-10 it y of e heart e heart 00:00: [place] failure) failure) 00 Medica l Branch Elevated Elevated Disease Active Unive rs troponin troponin 08-10 ity of 00:00: [place] Medical [facility] Fluid Fluid Disease Active Univers overload overload 08-10 ity of 00:00: [place] [facility] Hyperglyce Hyperglyce Disease Active U nivers love love 08-10 ity of 00:00: [place] [facility] Pneumonia Pneumonia Disease Active Uni vers due to due to 08-10 ity of infectious infectious 00:00: xa organism organism 00 [facility] Allergies, Adverse Reactions, Alerts Allergy Allergy Status Severity Reaction(s) Onset Inactive Treating Comm ents Source Name Type Date Date Clinician NO KNOWN Allergy Active [facility] NO KNOWN Drug Active [facility] [place] ALLERGIE Class ity of S [facility] Social History Social Habit Start Date Stop Date Quantity Comments Source Exposure to Not sure [facility] SARS-CoV-2 (event) [facility] Alcohol intake 2021-07-30 2021-07-30 0 /d [facility] 00:00:00 00:00:00 [facility] Tobacco use and 2016-08-07 2016-08-07 Never used [facility] exposure 00:00:00 00:00:00 [facility] Sex [birth year] [facility] 00:00:00 00:00:00 [facility] Smoking Status Start Date Stop Date Source Never smoker [facility] Medications Ordered Filled Start Stop Current Ordering Indication Dosage Frequency Signature Comments Components Source Medication Medication Date Date Medication? Clinician (SIG) Name Name Insulin Yes [id number] Use as Univ ers [place], 1-10 directed ity of Disposable, 00:00: once daily [place] (PEN 00 with Medical NEEDLE) 31 lantus Branch gauge x 5/16" Ndle Insulin Yes [id number] 15 units Un christi Glargine 1-10 daily in ity of (LANTUS 00:00: the [place] SOLOSTAR 00 morning. Medical U-100 Max daily Branch INSULIN) dose of 30 100 unit/mL units (3 mL) injection Insulin 0 Yes [id number] Use as Univ ers [place], 1-10 directed ity of Disposable, 00:00: once daily [place] (PEN with Medical NEEDLE) 31 lantus Branch gauge x 5/16" Ndle Insulin 2021-0 Yes [id number] 15 units Un christi Glargine 1-10 daily in ity of (LANTUS 00:00: the [place] [facility] morning. Medical U-100 Max daily Branch INSULIN) dose of 30 100 unit/mL units (3 mL) injection Insulin 0 Yes [id number] Use as Univ ers [place], 1-10 directed ity of Disposable, 00:00: once daily [place] (PEN with Medical NEEDLE) 31 lantus Branch gauge x 5/16" Ndle Insulin 2021-0 Yes [id number] 15 units Un christi Glargine 1-10 daily in ity of (LANTUS 00:00: the [facility] . Medical U-100 Max daily Branch INSULIN) dose of 30 100 unit/mL units (3 mL) injection Insulin 0 Yes [id number] Use as Univ ers [place], 1-10 directed ity of Disposable, 00:00: once daily [place] (PEN with Medical NEEDLE) 31 lantus Branch gauge x 5/16" Ndle Insulin 2021-0 Yes [id number] 15 units Un christi Glargine 1-10 daily in ity of (LANTUS 00:00: the [facility] . Medical U-100 Max daily Branch INSULIN) dose of 30 100 unit/mL units (3 mL) injection aspirin 81 2021-0 Yes 81mg Take 81 mg U nivers mg chewable 1-05 by mouth ity of tablet 09:23: daily. [place] [address] Medical Branch CARVEDILOL 0 Yes Take by Uni vers ORAL 1-05 mouth 2 ity of 09:23: (two) [place] 13 times Medical daily. Branch aspirin 81 2021-0 Yes 81mg Take 81 mg U nivers mg chewable 1-05 by mouth ity of tablet 09:23: daily. [place] 13 Medical Branch CARVEDILOL 0 Yes Take by Uni vers ORAL 1-05 mouth 2 ity of 09:23: (two) [place] 13 times Medical daily. Branch aspirin 81 2021-0 Yes 81mg Take 81 mg U nivers mg chewable 1-05 by mouth ity of tablet 09:23: daily. [address] Branch CARVEDILOL 0 Yes Take by Uni vers ORAL 1-05 mouth 2 ity of 09:23: (two) [place] 13 times Medical daily. Branch aspirin 81 2021-0 Yes 81mg Take 81 mg U nivers mg chewable 1-05 by mouth ity of tablet 09:23: daily. [address] Branch CARVEDILOL 2021-0 Yes Take by Uni vers ORAL 1-05 mouth 2 ity of 09:23: (two) [place] 13 times Medical daily. Branch ofloxacin Yes INSTILL 1 Uni vers 0.3 % 1-03 DROP TO ity of ophthalmic 00:00: THE RIGHT [place] solution 00 EYE THE Medical NIGHT Branch BEFORE AND THE MORNING OF SURGERY, THEN POST OP INSTILL 1 DROP THREE TIMES DAILY FOR 1 WEEK prednisoLON 2021-0 Yes START Unive rs E acetate 1 1-03 AFTER ity of % 00:00: SURGERY. [place] ophthalmic 00 INSTILL 1 Medi julissa suspension DROP INTO Bran ch drops RIGHT EYE THREE TIMES DAILY FOR 1 WEEK THEN DECREASE TO 1 DROP TWICE DAILY FOR 1 WEEK, THEN 1 DROP ONCE DAILY FOR 2 WEEKS ofloxacin 0 Yes INSTILL 1 Uni vers 0.3 % 1-03 DROP TO ity of ophthalmic 00:00: THE RIGHT [place] solution 00 EYE THE Medical NIGHT Branch BEFORE AND THE MORNING OF SURGERY, THEN POST OP INSTILL 1 DROP THREE TIMES DAILY FOR 1 WEEK prednisoLON 2021-0 Yes START Unive rs E acetate 1 1-03 AFTER ity of % 00:00: SURGERY. [place] ophthalmic 00 INSTILL 1 Medi julissa suspension DROP INTO Bran ch drops RIGHT EYE THREE TIMES DAILY FOR 1 WEEK THEN DECREASE TO 1 DROP TWICE DAILY FOR 1 WEEK, THEN 1 DROP ONCE DAILY FOR 2 WEEKS ofloxacin 0 Yes INSTILL 1 Uni vers 0.3 % 1-03 DROP TO ity of ophthalmic 00:00: THE RIGHT [place] solution 00 EYE THE Medical NIGHT Branch BEFORE AND THE MORNING OF SURGERY, THEN POST OP INSTILL 1 DROP THREE TIMES DAILY FOR 1 WEEK prednisoLON 2021-0 Yes START Unive rs E acetate 1 1-03 AFTER ity of % 00:00: SURGERY. [place] ophthalmic 00 INSTILL 1 Medi julissa suspension DROP INTO Bran ch drops RIGHT EYE THREE TIMES DAILY FOR 1 WEEK THEN DECREASE TO 1 DROP TWICE DAILY FOR 1 WEEK, THEN 1 DROP ONCE DAILY FOR 2 WEEKS ofloxacin Yes INSTILL 1 Uni vers 0.3 % 1-03 DROP TO ity of ophthalmic 00:00: THE [place] solution 00 EYE THE Medical NIGHT Branch BEFORE AND THE MORNING OF SURGERY, THEN POST OP INSTILL 1 DROP THREE TIMES DAILY FOR 1 WEEK prednisoLON Yes START Unive rs E acetate 1 1-03 AFTER ity of % 00:00: SURGERY. [place] ophthalmic 00 INSTILL 1 Medi julissa suspension DROP INTO Bran ch drops RIGHT EYE THREE TIMES DAILY FOR 1 WEEK THEN DECREASE TO 1 DROP TWICE DAILY FOR 1 WEEK, THEN 1 DROP ONCE DAILY FOR 2 WEEKS sucralfate 2020-07 Yes TAKE 1 Unive rs 1 gram 2-27 TABLET BY ity of tablet 00:00: MOUTH [place] [address] THREE Medical TIMES Branch DAILY BEFORE MEAL(S) sucralfate 2020-07 Yes TAKE 1 Unive rs 1 gram 2-27 TABLET BY ity of tablet 00:00: MOUTH [address] Medical TIMES Branch DAILY BEFORE MEAL(S) sucralfate 2020-07 Yes TAKE 1 Unive rs 1 gram 2-27 TABLET BY ity of tablet 00:00: MOUTH [place] [address] THREE Medical TIMES Branch DAILY BEFORE MEAL(S) sucralfate 2020-07 Yes TAKE 1 Unive rs 1 gram 2-27 TABLET BY ity of tablet 00:00: MOUTH [address] Medical TIMES Branch DAILY BEFORE MEAL(S) semaglutide 2020-07 Yes [id number] inject Univers (OZEMPIC) 0-08 0.25 mg ity of 0.25 mg or 00:00: base [place] 0.5 mg(2 00 the skin Medical mg/1.5 mL) weekly. Branch PnIj Inject 0.25 mg weekly for 4 weeks, on week 5 increase to 0.5 mg weekly. semaglutide 2020-07 Yes [id number] inject Univers (OZEMPIC) 0-08 0.25 mg ity of 0.25 mg or 00:00: [place] 0.5 mg(2 00 the skin Medical mg/1.5 mL) weekly. Branch PnIj Inject 0.25 mg weekly for 4 weeks, on week 5 increase to 0.5 mg weekly. semaglutide 2020-07 Yes [id number] inject Univers (OZEMPIC) 0-08 0.25 mg ity of 0.25 mg or 00:00: [place] 0.5 mg(2 00 the skin Medical mg/1.5 mL) weekly. Branch PnIj Inject 0.25 mg weekly for 4 weeks, on week 5 increase to 0.5 mg weekly. semaglutide 2020-07 Yes [id number] inject Univers (OZEMPIC) 0-08 0.25 mg ity of 0.25 mg or 00:00: [place] 0.5 mg(2 00 the skin Medical mg/1.5 mL) weekly. Branch PnIj Inject 0.25 mg weekly for 4 weeks, on week 5 increase to 0.5 mg weekly. torsemide Yes Univers 10 mg 7-26 ity of tablet 00:00: [place] 00 Medical Branch torsemide Yes Univers 10 mg 7-26 ity of tablet 00:00: [place] 00 Medical Branch torsemide Yes Univers 10 mg 7-26 ity of tablet 00:00: [place] 00 Medical Branch torsemide Yes Univers 10 mg 7-26 ity of tablet 00:00: [place] 00 Medical Branch dapaglifloz Yes [id number] 10mg Take 1 Univers in 7-05 tablet by ity of (FARXIGA) 00:00: mouth [place] 10 mg 00 daily. Medical tablet Branch atorvastati Yes [id number] 40mg Take 1 Univers n 40 mg 7-05 tablet by ity of tablet 00:00: mouth at [place] 00 bedtime. Medical Branch glipizide-m Yes [id number] 2{tbl} Take 2 Univers etformin 7-05 tablets by ity o f 5-500 mg 00:00: mouth 2 [place] per tablet 00 (two) Medical times Branch daily before breakfast and dinner. valsartan-h Yes [id number] 1{tbl} Take 1 Univers ydrochlorot 7-05 tablet by ity of hiazide 00:00: mouth [place] 160-25 mg 00 daily. Medical per tablet Branch dapaglifloz Yes [id number] 10mg Take 1 Univers in 7-05 tablet by ity of (FARXIGA) 00:00: mouth [place] 10 mg 00 daily. Medical tablet Branch atorvastati Yes [id number] 40mg Take 1 Univers n 40 mg 7-05 tablet by ity of tablet 00:00: mouth at [place] 00 bedtime. Medical Branch glipizide-m Yes [id number] 2{tbl} Take 2 Univers etformin 7-05 tablets by ity o f 5-500 mg 00:00: mouth 2 [place] per tablet 00 (two) Medical times Branch daily before breakfast and dinner. valsartan-h Yes [id number] 1{tbl} Take 1 Univers ydrochlorot 7-05 tablet by ity of hiazide 00:00: mouth [place] 160-25 mg 00 daily. Medical per tablet Branch dapaglifloz Yes [id number] 10mg Take 1 Univers in 7-05 tablet by ity of (FARXIGA) 00:00: mouth [place] 10 mg 00 daily. Medical tablet Branch atorvastati Yes [id number] 40mg Take 1 Univers n 40 mg 7-05 tablet by ity of tablet 00:00: mouth at [place] 00 bedtime. Medical Branch glipizide-m Yes [id number] 2{tbl} Take 2 Univers etformin 7-05 tablets by ity o f 5-500 mg 00:00: mouth 2 [place] per tablet 00 (two) Medical times Branch daily before breakfast and dinner. valsartan-h Yes [id number] 1{tbl} Take 1 Univers ydrochlorot 7-05 tablet by ity of hiazide 00:00: mouth [place] 160-25 mg 00 daily. Medical per tablet Branch dapaglifloz Yes [id number] 10mg Take 1 Univers in 7-05 tablet by ity of (FARXIGA) 00:00: mouth [place] 10 mg 00 daily. Medical tablet Branch atorvastati Yes [id number] 40mg Take 1 Univers n 40 mg 7-05 tablet by ity of tablet 00:00: mouth at [place] 00 bedtime. Medical Branch glipizide-m Yes [id number] 2{tbl} Take 2 Univers etformin 7-05 tablets by ity o f 5-500 mg 00:00: mouth 2 [place] per tablet (two) Medical times Branch daily before breakfast and dinner. valsartan-h Yes [id number] 1{tbl} Take 1 Univers ydrochlorot 7-05 tablet by ity of hiazide 00:00: mouth [place] 160-25 mg 00 daily. Medical per tablet Branch pantoprazol Yes 40mg Take 40 mg Univers e 40 mg EC 6-30 by mouth ity o f tablet 00:00: daily. [place] [address] Medical Branch pantoprazol Yes 40mg Take 40 mg Univers e 40 mg EC 6-30 by mouth ity o f tablet 00:00: daily. [place] [address] Medical [place] pantoprazol Yes 40mg Take 40 mg Univers e 40 mg EC 6-30 by mouth ity o f tablet 00:00: daily. [place] [address] Medical [place] pantoprazol Yes 40mg Take 40 mg Univers e 40 mg EC 6-30 by mouth ity o f tablet 00:00: daily. [address] Immunizations Ordered Filled Immunization Date Status Comments [facility] e Immunization Name Name SARS-COV-2 COVID-19 2020-10-15 Completed Unive rsity of MODERNA VACCINE 00:00:00 [facility] SARS-COV-2 COVID-19 2020-10-15 Completed Unive rsity of MODERNA VACCINE 00:00:00 [facility] SARS-COV-2 COVID-19 2020-10-15 Completed Unive rsity of MODERNA VACCINE 00:00:00 [facility] SARS-COV-2 COVID-19 2020-10-15 Completed Unive rsity of MODERNA VACCINE 00:00:00 [facility] SARS-COV-2 COVID-19 2020-09-17 Completed Unive rsity of MODERNA VACCINE 00:00:00 [facility] SARS-COV-2 COVID-19 2020-09-17 Completed Unive rsity of MODERNA VACCINE 00:00:00 [facility] SARS-COV-2 COVID-19 2020-09-17 Completed Unive rsity of MODERNA VACCINE 00:00:00 [facility] SARS-COV-2 COVID-19 2020-09-17 Completed Unive rsity of MODERNA VACCINE 00:00:00 [facility] Vital Signs Vital Name Observation Time Observation Value Comments Source Systolic blood 2021-09-12 23:00:00 155 mm[Hg] Univer sity of pressure [facility] Diastolic blood 2021-09-12 23:00:00 80 mm[Hg] Unive rsity of pressure [facility] Heart rate 2021-09-12 23:00:00 90 /min [facility] Respiratory rate 2021-09-12 23:00:00 18 /min [facility] Oxygen saturation in 2021-09-12 23:00:00 99 /min [facility] Arterial blood by [place] [facility] Pulse oximetry [place] Body temperature 2021-09-12 20:39:[address] [facility] Body weight 2021-09-12 20:21:00 98.431 kg [facility] BMI 2021-09-12 20:21:00 36.11 kg/m2 [facility] Procedures Procedure Date / Time Performed Performing Clinician Sour e EXTERNAL PROVIDER 2021-09-20 06:01:00 Doctor Unassigned, No [facility] RECORDS Name Medical [place] XR CHEST 1 VW 2021-09-12 22:06:37 Stef Ma [facility] TROPONIN I 2021-09-12 22:02:00 Stef Ma [facility] BASIC METABOLIC PANEL 2021-09-12 22:02:00 Stef Ma [facility] (NA, K, CL, CO2, Medical Branch GLUCOSE, BUN, CREATININE, CA) CBC WITH DIFF 2021-09-12 22:02:00 Stef Ma [facility] N-TERMINAL PRO-BNP 2021-09-12 22:02:00 Stef Ma [facility] CONSENT/REFUSAL FOR 2021-09-12 20:18:07 [facility]igned, [facility] DIAGNOSIS AND Name Medical Branch TREATMENT MEDICAL 2021-08-14 06:01:00 Doctor Unassigned, No [facility] RELEASE/CLEARANCE Name Medical Branch FORMS Encounters Start End Encounter Admission Attending Care Care Encounter Source Date/Time Date/Time Type Type Clinicians Facility Department ID 2021-12-27 Outpatient ZACHARY [facility] [id number] [place] 15:33:35 MARIELA [id number] [facility] 2021-12-14 Outpatient [facility] [id number] [place] 09:44:05 [id number] [facility] 2022-01-28 2022-01-28 Outpatient Yung TOTH [facility] [id number] Univers 11:00:00 11:00:[address] [facility] 2022-01-28 2022-01-28 Outpatient R FARSHAD RUTHERFORD [facility] [id number] Univers 10:00:00 10:00:[id number] [facility] 2022-01-28 2022-01-28 Outpatient R FARSHAD RUTHERFORD [facility] [id number] Univers 10:00:00 10:00:[address] [facility] 2021-09-21 2021-09-21 Outpatient Yung BARNES [facility] [id number] Univers 10:30:00 11:27:[address] [facility] 2021-09-20 2021-09-20 Orders Doctor MONO [id number] Univers 00:00:00 00:00:00 Only Unassigned, HEMANTH [id number] ity of [place] [facility] [id number] Wade [id number] [facility] 009 Branch 2021-09-12 2021-09-12 Emergency [facility] [id number] Univers 14:22:00 17:34:00 [facility] 2021-09-12 2021-09-12 Emergency [facility] [id number] Univers 14:22:00 17:34:00 Stef S RA [id number] i ty of [place] [id number] [place] [facility] [id number] [facility] 084 Branch 2021-09-07 2021-09-07 [facility] [id number] Univers 10:30:00 10:30:00 ZULY km [facility] 2021-09-07 2021-09-07 Telephone [facility] [id number] Univers 00:00:00 00:00:00 CoCollage [id number] it y of [place] [id number] Wade as NABEEL?BLEA [phone] Tn dical [address] MEDICAL OFFICE [facility] 2021-08-14 2021-08-14 Orders Doctor MONO [id number] Univers 00:00:00 00:00:00 Only Unassigned, HEMANTH [id number] ity of [place] [facility] [id number] Wade as [phone] [address] 2021-08-09 2021-08-09 Outpatient R [facility] [id number] Univers 08:45:00 08:45:00 [facility] 2021-08-08 2021-08-08 Outpatient [facility] [id number] Univers 09:15:00 [facility] 2021-07-25 2021-07-25 Out[facility] OPH [id number] Univers 06:39:00 09:18:[address] [facility] 2021-07-23 2021-07-23 [facility]patient [facility]ung [facility] [id number] Univers 11:45:00 11:45:[address] [facility] 2020-09-07 2020-09-07 Refill [facility] [id number] 00:00:00 00:00:00 Susan Romero [id number] [place] [id number] Professio [id number] [address] Results Test Description Test Time Test Comments Results Result Comments Source TROPONIN I 2021-09-12 22:41:22 Test Item Value Reference Range Interpretation Comme nts TROPONIN I (test code = 0.017 ng/mL See_Comment [Au tomated message] The [id number]) system which ge nerated this result tra nsmitted reference range : <=0.034. The reference r dano was not used to int erpret this result as normal/abnormal . ALON (test code = ALON) Reference (Normal) Range (defined by the 99th percentile reference limit): <= 0.034 ng/mL Note: Cardiac troponin begins to rise 3-4 hours after the onset of ischemia. Repeat in 4-6 hours if the sample was drawn within 3-4 hours of the onset of the symptom and found normal. Diagnosis of myocardial injury is made with acute changes in cTn concentrations with at least one serial sample above the 99th percentile upper reference limit (URL), taken together with the patient's clinical presentation. Biotin has been reported to cause a negative bias, interpret results relative to patient's use of biotin. Lab Interpretation Normal (test code = 90436-5) [facility] [id number] 22:38:00 Test Item Value Reference Range Interpretation Comments NT-proBNP (test code 918 pg/mL See_Comment H [Autom ated = [id number]) message] The system which generated this result transmitted reference range : <=125. The reference range was not used to interpret this result as normal/abnormal . ALON (test code = ALON) Biotin has been reported to cause a negative bias, interpret results relative to patient's use of biotin. Lab Interpretation Abnormal (test code = 88476-9) [facility] (NA, K, CL, CO2, GLUCOSE, BUN, CREATININE, CA)2021-09-12 22:30:20 Test Item Value Reference Range Interpretation Comments NA (test code = 137 mmol/L 135-145 5516922894) K (test code = 4.4 mmol/L 3.5-5.0 3678000217) CL (test code = 103 mmol/L 98-108 1713221913) CO2 TOTAL (test code = 29 mmol/L 23-31 2581511539) AGAP (test code = 2-16 3976063605) BUN (test code = 21 mg/dL 7-23 6542167642) GLUCOSE (test code = 245 mg/dL 70-110 H 0947400891) CREATININE (test code = 1.05 mg/dL 0.50-1.04 H 6713685069) CALCIUM (test code = 9.2 mg/dL 8.6-10.6 8315648914) eGFR (test code = mL/min/1.73m2 1521651233) ALON (test code = ALON) Association of Glomerular Filtration Rate (GFR) and Staging of Kidney Disease* + --+ --+ ------+| GFR (mL/min/1.73 m2) ?| With Kidney Damage ?| ?Without Kidney Damage+ --------+ --------+ +| ?>90 ?| ?Stage one ?| ? Normal ?+ ---+ ---+ -------+| ?60-89 ?| ?Stage two ?| ? Decreased GFR ? + --+ --+ ------+| ?30-59 ?| ?Stage three ?| ? Stage three ? + --+ --+ ------+| ?15-29 ?| ?Stage four ? | ? Stage four ?+ ---+ ---+ -------+| ?<15 (or dialysis) ? ?| ?Stage five ? | ? Stage five ?+ ---+ ---+ -------+ *Each stage assumes the associated GFR level has been in effect for at least three months. ?Stages 1 to 5, with or without kidney disease, indicate chronic kidney disease. Notes: Determination of stages one and two (with eGFR >59mL/min/1.73 m2) requires estimation of kidney damage for at least three months as defined by structural or functional abnormalities of the kidney, manifested by either:Pathological abnormalities or Markers of kidney damage (including abnormalities in the composition of the blood or urine or abnormalities in imaging tests). Lab Interpretation Abnormal (test code = 23606-7) [facility] WITH [id number] 22:18:55 Test Item Value Reference Range Interpretation Comments WBC (test code = See_Comment [Automated 3477-2) message] The sy stem which generated this result transmitted reference range : 4.30 - 11.10 10*3/?L. The reference range was not used to interpret this result as normal/abnormal . RBC (test code = See_Comment L [Automated 209-8) message] The sy stem which generated this result transmitted reference range : 3.93 - 5.25 10*6/?L. The reference range was not used to interpret this result as normal/abnormal . HGB (test code = 10.1 g/dL 11.6-15.0 L 718-7) HCT (test code = 31.6 % 35.7-45.2 L 4544-3) MCV (test code = 82.7 fL 80.6-95.5 787-2) MCH (test code = 26.4 pg 25.9-32.8 785-6) MCHC (test code = 32.0 g/dL 31.6-35.1 786-4) RDW-SD (test code = 45.2 fL 39.0-49.9 41235-8) RDW-CV (test code = 15.0 % 12.0-15.5 788-0) PLT (test code = See_Comment [Automated 777-3) message] The sy stem which generated this result transmitted reference range : 166 - 358 10*3/ ?L. The reference r dano was not used to interpret this result as normal/abnormal . MPV (test code = 12.1 fL 9.5-12.9 45518-5) NRBC/100 WBC (test See_Comment [Automat ed code = [id number]) message] The system which generated this result transmitted reference range : 0.0 - 10.0 /100 WBCs. The refer ence range was not u sed to interpret th is result as normal/abnormal . NRBC x10^3 (test code <0.01 See_Comment [Auto mated = [id number]) message] The s ystem which generated this result transmitted reference range : 10*3/?L. The reference range was not used to interpret this result as normal/abnormal . GRAN MAT (NEUT) % 70.5 % (test code = 770-8) IMM GRAN % (test code 0.60 % = 7367121354) LYMPH % (test code = 18.8 % 736-9) MONO % (test code = 6.5 % 5905-5) EOS % (test code = 3.0 % 713-8) BASO % (test code = 0.6 % 706-2) GRAN MAT x10^3(ANC) 6.09 10*3/uL 1.88-7.09 (test code = 4436215691) IMM GRAN x10^3 (test 0.05 10*3/uL 0.00-0.06 code = 2683282013) LYMPH x10^3 (test code 1.62 10*3/uL 1.32-3.29 = 731-0) MONO x10^3 (test code 0.56 10*3/uL 0.33-0.92 = 742-7) EOS x10^3 (test code = 0.26 10*3/uL 0.03-0.39 711-2) BASO x10^3 (test code 0.05 10*3/uL 0.01-0.07 = 704-7) Lab Interpretation Abnormal (test code = 98158-8) [facility] [id number] 18:12:00 Test Item Value Reference Range Interpretation Comments POC-GLUCOSE METER 112 mg/dL 70-110 H : TESTED A T [facility] 6720 (BEAKER) (test code = [facility], 1538) 03538: Global Marketing Specialist/Techni gigi ID = [id number] for ZA VALA, ERANDY POCT-GLUCOSE [id number] 13:45:00 Test Item Value Reference Range Interpretation Comments POC-GLUCOSE METER 176 mg/dL 70-110 H : TESTED A T [facility] 6720 (BEAKER) (test code = [facility], 1538) 71673: Global Marketing Specialist/Techni gigi ID = [id number] for ZA VALA, ERANDY POCT-GLUCOSE [id number] 08:14:00 Test Item Value Reference Range Interpretation Comments POC-GLUCOSE METER 71 mg/dL 70-110 : TESTED A T [facility] 6720 (BEAKER) (test code = [facility], 1538) 70864: Global Marketing Specialist/Techni gigi ID = [id number] for ZACHARLES LADANETTENDY [id number] 05:21:00 Test Item Value Reference Range Interpretation Comments MAGNESIUM (BEAKER) (test code = 1.9 mg/dL 1.6-2.6 627) Global Marketing Specialist ID - [place] WBASIC METABOLIC [id number] 05:21:00 Test Item Value Reference Range Interpretation [...] S NOT APPLICABLE FOR DIALYSIS PATIEN TS. Global Marketing Specialist ID - CHEYENNE WCBC W/PLT COUNT & AUTO [id number] 04:48:00 Test Item Value Reference Range Interpretation [...] PERCENT (BEAKER) (test code = 2801) POCT-GLUCOSE [id number] 22:35:00 Test Item Value Reference Range Interpretation Comments POC-GLUCOSE METER 198 mg/dL 70-110 H : TESTED A T [facility] 6720 (BEAKER) (test code [facility], = 1538) 95306: Global Marketing Specialist/Techni gigi ID = [id number] for Egbe , Renee POCT-GLUCOSE [id number] 21:56:00 Test Item Value Reference Range Interpretation Comments POC-GLUCOSE METER 209 mg/dL 70-110 H : TESTED A T [facility] 6720 (BEAKER) (test code = [facility], 1538) 68698: Global Marketing Specialist/Techni gigi ID = [id number] for WE NZY, EPEKA POCT-GLUCOSE [id number] 20:07:00 Test Item Value Reference Range Interpretation Comments POC-GLUCOSE METER 205 mg/dL 70-110 H : TESTED A T [facility] 6720 (BEAKER) (test code = [facility], 1538) 97395: Global Marketing Specialist/Techni gigi ID = [id number] for ME MALIK, LAURA POCT-GLUCOSE [id number] 17:43:00 Test Item Value Reference Range Interpretation Comments POC-GLUCOSE METER 112 mg/dL 70-110 H : TESTED A T [facility] 6720 (BEAKER) (test code = [facility], 1538) 43084: Global Marketing Specialist/Techni gigi ID = [id number] for REVA-MILADY, Isac NGKARA POCT-GLUCOSE [id number] 17:03:00 Test Item Value Reference Range Interpretation Comments POC-GLUCOSE METER 57 mg/dL 70-110 L : TESTED A T [facility] 6720 (BEAKER) (test code = [facility], 1538) 29342: Global Marketing Specialist/Techni gigi ID = [id number] for TAYL OR-MILADY, SHIKARA POCT-GLUCOSE [id number] 16:46:00 Test Item Value Reference Range Interpretation Comments POC-GLUCOSE METER 57 mg/dL 70-110 L : TESTED A T [facility] 6720 (BEAKER) (test code = [facility], 1538) 58239: Global Marketing Specialist/Techni gigi ID = [id number] for TAYL OR-MILADY, SHIKARA POCT-GLUCOSE [id number] 13:18:00 Test Item Value Reference Range Interpretation Comments POC-GLUCOSE METER 197 mg/dL 70-110 H : TESTED A T [facility] 6720 (BEAKER) (test code = [facility], 1538) 89601: Global Marketing Specialist/Techni gigi ID = [id number] for REVA-MILADY, S BERENICEKARA POCT-GLUCOSE [id number] 08:23:00 Test Item Value Reference Range Interpretation Comments POC-GLUCOSE METER 294 mg/dL 70-110 H : TESTED A T [facility] 6720 (BEAKER) (test code = [facility], 1538) 95153: Global Marketing Specialist/Techni gigi ID = [id number] for REVA-MILADY, S HIKARA [id number] 05:37:00 Test Item Value Reference Range Interpretation Comments MAGNESIUM (BEAKER) (test code = 1.9 mg/dL 1.6-2.6 627) Global Marketing Specialist ID - JEANA MBASIC METABOLIC [id number] 05:37:00 Test Item Value Reference Range Interpretation [...] S NOT APPLICABLE FOR DIALYSIS PATIEN TS. Global Marketing Specialist ID - JEANA MCBC W/PLT COUNT & AUTO [id number] 04:37:00 Test Item Value Reference Range Interpretation [...] PERCENT (BEAKER) (test code = 2801) POCT-GLUCOSE [id number] 22:58:00 Test Item Value Reference Range Interpretation Comments POC-GLUCOSE METER 393 mg/dL 70-110 H : TESTED A T [facility] 6720 ([facility]) (test code = [facility], 153) 91943: Global Marketing Specialist/Techni gigi ID = [id number] for ITE, NEVILLE POCT-GLUCOSE [id number] 22:25:00 Test Item Value Reference Range Interpretation Comments POC-GLUCOSE METER 409 mg/dL 70-110 HH : Notified RN/MD: ([facility]) (test code = TESTED AT [facility] 6720 153) [facility], 93147: Global Marketing Specialist/Techni gigi ID = [id number] for WH ITE, NEVILLE POCT-GLUCOSE [id number] 17:43:00 Test Item Value Reference Range Interpretation Comments POC-GLUCOSE METER 227 mg/dL 70-110 H : TESTED A T [facility] 6720 ([facility]) (test code = [facility], 153) 32059: Global Marketing Specialist/Techni gigi ID = [id number] for GONZALEZ VILLEGAS POCT-GLUCOSE [id number] 13:20:00 Test Item Value Reference Range Interpretation Comments POC-GLUCOSE METER 335 mg/dL 70-110 H : TESTED A T [facility] 6720 (BEAKER) (test code = [facility]ATHEN Barragan [facility], 1538) 61760: Global Marketing Specialist/Techni gigi ID = [id number] for GONZALEZ VILLEGAS POCT-GLUCOSE [id number] 07:31:00 Test Item Value Reference Range Interpretation Comments POC-GLUCOSE METER 182 mg/dL 70-110 H : TESTED A T [facility] 6720 (BEAKER) (test code = [facility], 1538) 41058: Global Marketing Specialist/Techni gigi ID = [id number] for GONZALEZ VILLEGAS [id number] 05:42:00 Test Item Value Reference Range Interpretation Comments PHOSPHORUS (BEAKER) (test code = 3.0 mg/dL 2.3-4.7 604) Global Marketing Specialist ID - JEANA [id number] 05:42:00 Test Item Value Reference Range Interpretation Comments MAGNESIUM (BEAKER) (test code = 2.1 mg/dL 1.6-2.6 627) Global Marketing Specialist ID - JEANA MBASIC METABOLIC [id number] 05:42:00 Test Item Value Reference Range Interpretation [...] S NOT APPLICABLE FOR DIALYSIS PATIEN TS. Global Marketing Specialist ID - JEANA MCBC (HEMOGRAM ONLY)2019-08-18 05:07:00 [...] 0-0 (BEAKER) (test code = 413) CALCIUM, [id number] 04:59:00 Test Item Value Reference Range Interpretation Comments CALCIUM IONIZED (BEAKER) (test 1.07 mmol/L 1.12-1.27 L code = 698) PH, BLOOD (BEAKER) (test code = 7.54 1810) POCT-GLUCOSE [id number] 00:24:00 Test Item Value Reference Range Interpretation Comments POC-GLUCOSE METER 252 mg/dL 70-110 H : TESTED A T [facility] 6720 (BEAKER) (test code = [facility] [place], 1538) 10604: Global Marketing Specialist/Techni gigi ID = [id number] for RAJESH CHONG MR, CARDIAC, [id number] 19:05:00Reason for exam:->MyocarditisFINAL REPORT Cardiovascular MRI - [...] Zenon Carrasquillo MDReport Verified Date/Time: 08/17/2019 19:05:37 POCT-GLUCOSE METER 2019-08-17 17:57:00 Test Item Value Reference Range Interpretation Comments POC-GLUCOSE METER 292 mg/dL 70-110 H : TESTED A T [facility] 6720 (BEAKER) (test code = [facility], 1538) 52035: Global Marketing Specialist/Techni gigi ID = [id number] for BELL MILAN POCT-GLUCOSE [id number] 12:03:00 Test Item Value Reference Range Interpretation Comments POC-GLUCOSE METER 203 mg/dL 70-110 H : TESTED A T [facility] 6720 (BEAKER) (test code = [employer] R [facility], 1538) 18935: Global Marketing Specialist/Techni gigi ID = [id number] for BELL MILAN POCT-GLUCOSE [id number] 09:04:00 Test Item Value Reference Range Interpretation Comments POC-GLUCOSE METER 175 mg/dL 70-110 H : TESTED A T [facility] 6720 (BEAKER) (test code = [facility] R [facility], 1538) 39558: Global Marketing Specialist/Techni gigi ID = [id number] for LIZ ROSADO RAD, CHEST, 1 VIEW, NON [id number] 07:08:00Reason for exam:- >AtelectasisShould this be performed [...] MDReport Verified Date/Time: 08/17/2019 07:08:44 Reading Location: [facility]iology Reading Room [id number] 04:49:00 Test Item Value Reference Range Interpretation Comments MAGNESIUM (BEAKER) 2.3 mg/dL 1.6-2.6 Specimen moderately (test code = 627) hemolyzed Global Marketing Specialist ID - JEANA [id number] 04:49:00 Test Item Value Reference Range Interpretation Comments PHOSPHORUS (BEAKER) 2.8 mg/dL 2.3-4.7 Specimen moderately (test code = 604) hemolyzed Global Marketing Specialist ID - JEANA MBASIC METABOLIC [id number] 04:49:00 Test Item Value Reference Range Interpretation [...] S NOT APPLICABLE FOR DIALYSIS PATIEN TS. Global Marketing Specialist ID - JEANA MCALCIUM, [id number] 04:44:00 Test Item Value Reference Range Interpretation [...] 0-0 (BEAKER) (test code = 413) POCT-GLUCOSE [id number] 01:27:00 Test Item Value Reference Range Interpretation Comments POC-GLUCOSE METER 190 mg/dL 70-110 H : TESTED A T [facility] 6720 (BEAKER) (test code = [facility] [place], 1538) 89403: Global Marketing Specialist/Techni gigi ID = [id number] for October POCT-GLUCOSE [id number] 00:45:00 Test Item Value Reference Range Interpretation Comments POC-GLUCOSE METER 163 mg/dL 70-110 H : TESTED A T [facility] 6720 (BEAKER) (test code = [facility], 1538) 31412: Global Marketing Specialist/Techni gigi ID = [id number] for PA JUAN MANUEL HEREDIA POCT-GLUCOSE [id number] 18:11:00 Test Item Value Reference Range Interpretation Comments POC-GLUCOSE METER 159 mg/dL 70-110 H : TESTED A T [facility] 6720 (BEAKER) (test code = [facility], 1538) 96087: Global Marketing Specialist/Techni gigi ID = [id number] for VA LDIVIEZ, GONZALEZ POCT-GLUCOSE [id number] 12:01:00 Test Item Value Reference Range Interpretation Comments POC-GLUCOSE METER 265 mg/dL 70-110 H : TESTED A T [facility] 6720 (BEAKER) (test code = [facility], 1538) 11829: Global Marketing Specialist/Techni gigi ID = [id number] for VA LDIVIEZ, GONZALEZ POCT-GLUCOSE [id number] 09:38:00 Test Item Value Reference Range Interpretation Comments POC-GLUCOSE METER 258 mg/dL 70-110 H : TESTED A T [facility] 6720 (BEAKER) (test code = [facility], 1538) 21306: Global Marketing Specialist/Techni gigi ID = [id number] for VA LDIVIEZ, GONZALEZ BLOOD [id number] 08:00:00 Test Item Value Reference Range Interpretation Comments CULTURE (BEAKER) (test No growth in 5 days code = 1095) BLOOD [id number] 08:00:00 Test Item Value Reference Range Interpretation Comments CULTURE (BEAKER) (test No growth in 5 days code = 1095) RAD, CHEST, 1 VIEW, NON [id number] 07:07:00Reason for exam:->Mechanical ventilationShould this be performed at the bedside?->YesFINAL REPORT RAD, CHEST, 1 VIEW, NON DEPT INDICATION: Mechanical ventilation C OMPARISON: Prior day's exam FINDINGS: Portable frontal view of the chest. IMPRESSION: Support Lines: None. Lungs and pleura: Bibasilar subsegmental atelectasis versus atypical infection. Edema should be excluded clinically. No pneumothorax.Heart and mediastinum: Stable contours. Additional findings: None. Signed: JR Onur, Brady MDReport Verified Date/Time: 08/16/2019 07:07:14 Reading Location: [facility] Radiology Reading Room CALCIUM, [id number] 06:31:00 Test Item Value Reference Range Interpretation Comments CALCIUM IONIZED (BEAKER) (test 1.12 mmol/L 1.12-1.27 code = 698) PH, BLOOD (BEAKER) (test code = 7.40 1810) [id number] 05:20:00 Test Item Value Reference Range Interpretation Comments PHOSPHORUS (BEAKER) (test code = 3.2 mg/dL 2.3-4.7 604) Global Marketing Specialist ID Marisa QUINN [id number] 05:20:00 Test Item Value Reference Range Interpretation Comments MAGNESIUM (BEAKER) (test code = 2.3 mg/dL 1.6-2.6 627) Global Marketing Specialist ID - [place]NE WBASIC METABOLIC [id number] 05:20:00 Test Item Value Reference Range Interpretation [...] S NOT APPLICABLE FOR DIALYSIS PATIEN TS. Global Marketing Specialist ID Marisa [place] WCBC (HEMOGRAM ONLY)2019-08-16 05:06:00 Test Item Value [...] 0-0 (BEAKER) (test code = 413) POCT-GLUCOSE [id number] 23:36:00 Test Item Value Reference Range Interpretation Comments POC-GLUCOSE METER 370 mg/dL 70-110 H : TESTED A T [facility] 6720 (BEAKER) (test code = [facility], 153) 85392: Global Marketing Specialist/Techni gigi ID = [id number] for DO MATHUR NICOLASA POCT-GLUCOSE [id number] 17:52:00 Test Item Value Reference Range Interpretation Comments POC-GLUCOSE METER 264 mg/dL 70-110 H : TESTED A T [facility] 6720 (BEAKER) (test code = [facility], 1538) 45131: Global Marketing Specialist/Techni gigi ID = [id number] for BELL MILAN BASIC METABOLIC [id number] 17:16:00 Test Item Value Reference Range Interpretation [...] S NOT APPLICABLE FOR DIALYSIS PATIEN TS. Global Marketing Specialist ID - DARRIAN WPOCT-GLUCOSE [id number] 12:02:00 Test Item Value Reference Range Interpretation Comments POC-GLUCOSE METER 329 mg/dL 70-110 H : TESTED A T [facility] 6720 (BEAKER) (test code = [facility], 1538) 62117: Global Marketing Specialist/Techni gigi ID = [id number] for BELL MILAN POCT-GLUCOSE [id number] 08:08:00 Test Item Value Reference Range Interpretation Comments POC-GLUCOSE METER 162 mg/dL 70-110 H : TESTED A T [facility] 6720 (BEAKER) (test code = [facility] [employer] [facility], 1538) 83570: Global Marketing Specialist/Techni gigi ID = [id number] for BELL MILAN RAD, CHEST, 1 VIEW, NON [id number] 06:15:00Reason for exam:->Mechanical ventilationShould this be performed at the bedside?->YesFINAL REPORT RAD, CHEST, 1 VIEW, NON DEPT INDICATION: Mechanical ventilation C OMPARISON: Prior day's exam FINDINGS: Portable frontal view of the chest. IMPRESSION: Support Lines: Stable. Lungs and pleura: Unchanged scattered parenchymal opacities and and right pleural opacity. No pneumothorax.Heart and mediastinum: Stable contours. Additional findings: None. Signed: Farida Whitmoreeport Verified Date/Time: 08/15/2019 06:15:16 BLOOD GAS, [id number] 05:55:00 Test Item Value Reference Range Interpretation [...] (test code = 1819) 21.0 % CALCIUM, [id number] 05:55:00 Test Item Value Reference Range Interpretation Comments CALCIUM IONIZED (BEAKER) (test 1.09 mmol/L 1.12-1.27 L code = 698) PH, BLOOD (BEAKER) (test code = 7.43 1810) [id number] 04:48:00 Test Item Value Reference Range Interpretation Comments MAGNESIUM (BEAKER) 2.3 mg/dL 1.6-2.6 Specimen slightly (test code = 627) hemolyzed Global Marketing Specialist ID - CHEYENNE [id number] 04:48:00 Test Item Value Reference Range Interpretation Comments PHOSPHORUS (BEAKER) 3.2 mg/dL 2.3-4.7 Specimen slightly (test code = 604) hemolyzed Global Marketing Specialist ID - CHEYENNE WBASIC METABOLIC [id number] 04:48:00 Test Item Value Reference Range Interpretation [...] S NOT APPLICABLE FOR DIALYSIS PATIEN TS. Global Marketing Specialist ID - CHEYENNE WC (HEMOGRAM ONLY)2019-08-15 04:22:00 Test Item Value Reference [...] 0-0 (BEAKER) (test code = 413) POCT-GLUCOSE [id number] 23:25:00 Test Item Value Reference Range Interpretation Comments POC-GLUCOSE METER 165 mg/dL 70-110 H : TESTED A T [facility] 6720 (BEAKER) (test code = [facility], 1538) 89337: Global Marketing Specialist/Techni gigi ID = [id number] for NICOLASA BRYANT POCT-GLUCOSE [id number] 17:23:00 Test Item Value Reference Range Interpretation Comments POC-GLUCOSE METER 190 mg/dL 70-110 H : TESTED A T [facility] 6720 (BEAKER) (test code = [facility], 1538) 86240: Global Marketing Specialist/Techni gigi ID = [id number] for BELL MILAN [id number] 16:38:00 Test Item Value Reference Range Interpretation Comments POTASSIUM (BEAKER) 4.1 meq/L 3.5-5.1 Specimen slightly (test code = 379) hemolyzed Global Marketing Specialist ID - JEANA MPOCT-GLUCOSE [id number] 11:59:00 Test Item Value Reference Range Interpretation Comments POC-GLUCOSE METER 238 mg/dL 70-110 H : TESTED A T [facility] 6720 (BEAKER) (test code = [facility], 1538) 98651: Global Marketing Specialist/Techni gigi ID = [id number] for BELL MILAN RAD, CHEST, 1 VIEW, NON [id number] 08:50:00Reason for exam:->Mechanical ventilationShould this be performed [...] Slight worsening of pulmonary opacities. Signed: Maicol Jaimeort Verified Date/Time: 08/14/2019 0 8:50:12 Reading Location: [address] Consult Reading Room POCT-GLUCOSE [id number] 08:12:00 Test Item Value Reference Range Interpretation Comments POC-GLUCOSE METER 230 mg/dL 70-110 H : TESTED A T [facility] 6720 (BEAKER) (test code = [facility] [place], 1538) 07976: Global Marketing Specialist/Techni gigi ID = [id number] for BELL MILAN [id number] 07:22:00 Test Item Value Reference Range Interpretation Comments PHOSPHORUS (BEAKER) (test code = 4.1 mg/dL 2.3-4.7 604) Global Marketing Specialist ID - JEANA [id number] 07:22:00 Test Item Value Reference Range Interpretation Comments MAGNESIUM (BEAKER) (test code = 2.2 mg/dL 1.6-2.6 627) Global Marketing Specialist ID - JEANA MBASIC METABOLIC [id number] 07:22:00 Test Item Value Reference Range Interpretation [...] S NOT APPLICABLE FOR DIALYSIS PATIEN TS. Global Marketing Specialist ID - JEANA MCBC (HEMOGRAM ONLY)2019-08-14 03:02:00 [...] 0-0 (BEAKER) (test code = 413) CALCIUM, [id number] 03:02:00 Test Item Value Reference Range Interpretation Comments CALCIUM IONIZED (BEAKER) (test 1.10 mmol/L 1.12-1.27 L code = 698) PH, BLOOD (BEAKER) (test code = 7.38 1810) BLOOD GAS, [id number] 02:59:00 Test Item Value Reference Range Interpretation [...] (test code = 1819) 24.0 % POCT-GLUCOSE [id number] 23:18:00 Test Item Value Reference Range Interpretation Comments POC-GLUCOSE METER 218 mg/dL 70-110 H : TESTED A T [facility] 6720 (BEAKER) (test code = [facility], 1538) 20945: Global Marketing Specialist/Techni gigi ID = [id number] for NICOLASA BRYANT POCT-GLUCOSE [id number] 18:25:00 Test Item Value Reference Range Interpretation Comments POC-GLUCOSE METER 201 mg/dL 70-110 H : TESTED A T [facility] 6720 (BEAKER) (test code = [facility], 1538) 87938: Global Marketing Specialist/Techni gigi ID = [id number] for GONZALEZ VILLEGAS POCT-GLUCOSE [id number] 16:02:00 Test Item Value Reference Range Interpretation Comments POC-GLUCOSE METER 189 mg/dL 70-110 H : TESTED A T [facility] 6720 (BEAKER) (test code = [facility], 1538) 34124: Global Marketing Specialist/Techni gigi ID = [id number] for CO ONCE, BELGICA [id number] 12:13:00 Test Item Value Reference Range Interpretation Comments MAGNESIUM (BEAKER) 2.4 mg/dL 1.6-2.6 Specimen slightly (test code = 627) hemolyzed Global Marketing Specialist ID - JEANA [facility] 2 hours after oral potassium replacement completed or 30 min after intravenous potassium replacement. [id number] 12:13:00 Test Item Value Reference Range Interpretation Comments PHOSPHORUS (BEAKER) 3.8 mg/dL 2.3-4.7 Specimen slightly (test code = 604) hemolyzed Global Marketing Specialist ID - JEANA [facility] Pot[facility] level 2 hours after oral potassium replacement completed or 30 min after intravenous potassium replacement. [id number] 12:13:00 Test Item Value Reference Range Interpretation Comments POTASSIUM (BEAKER) 4.1 meq/L 3.5-5.1 Specimen slightly (test code = 379) hemolyzed Global Marketing Specialist ID - JEANA MCheck Serum Potassium level 2 hours after oral potassium replacement completed or 30 min after intravenous potassium replacement.BLOOD GAS, [id number] 11:52:00 Test Item Value Reference Range Interpretation [...] (test code = 1819) 36.0 % CALCIUM, [id number] 11:49:00 Test Item Value Reference Range Interpretation Comments CALCIUM IONIZED (BEAKER) (test 1.12 mmol/L 1.12-1.27 code = 698) PH, BLOOD (BEAKER) (test code = 7.45 1810) Check serum Ionized Calcium level after 4 hours after IV Calcium replacement. POCT-GLUCOSE [id number] 11:05:00 Test Item Value Reference Range Interpretation Comments POC-GLUCOSE METER 207 mg/dL 70-110 H : TESTED A T [facility] 6720 (BEAKER) (test code = [facility] [place] [facility], 1538) 81332: Global Marketing Specialist/Techni gigi ID = [id number] for CO ONCE, BELGICA BLOOD GAS, [id number] 08:57:00 Test Item Value Reference Range Interpretation [...] (test code = 1819) 40.0 % POCT-GLUCOSE [id number] 08:36:00 Test Item Value Reference Range Interpretation Comments POC-GLUCOSE METER 267 mg/dL 70-110 H : TESTED A T [facility] 6720 (BEAKER) (test code = [facility] [place], 1538) 19101: Global Marketing Specialist/Techni gigi ID = [id number] for CO ONCE, [place] RAD, CHEST, 1 VIEW, NON [id number] 08:19:00Reason for exam:->Mechanical ventilationShould this be performed [...] surgical changes.Additional findings: None. Signed: Vilma Nicole Verified Date/Time: 08/13/2019 08:19:28 Reading Location: [facility] Radiology Reading Room [id number] 05:56:00 Test Item Value Reference Range Interpretation Comments PHOSPHORUS (BEAKER) (test code = 4.5 mg/dL 2.3-4.7 604) Global Marketing Specialist ID - JEANA [id number] 05:56:00 Test Item Value Reference Range Interpretation Comments MAGNESIUM (BEAKER) (test code = 2.4 mg/dL 1.6-2.6 627) Global Marketing Specialist ID - JEANA MBASIC METABOLIC [id number] 05:56:00 Test Item Value Reference Range Interpretation [...] S NOT APPLICABLE FOR DIALYSIS PATIEN TS. Global Marketing Specialist ID - JEANA [facility] (HEMOGRAM ONLY)2019-08-13 05:45:00 Test Item Value Reference [...] (BEAKER) (test code = 413) BLOOD GAS, [id number] 05:45:00 Test Item Value Reference Range Interpretation [...] (test code = 1819) 40.0 % CALCIUM, [id number] 05:45:00 Test Item Value Reference Range Interpretation Comments CALCIUM IONIZED (BEAKER) (test 1.11 mmol/L 1.12-1.27 L code = 698) PH, BLOOD (BEAKER) (test code = 7.38 1810) LACTIC ACID, [id number] 05:44:00 Test Item Value Reference Range Interpretation Comments LACTATE BLOOD VENOUS (2) (BEAKER) 0.8 mmol/L 0.5-2.2 (test code = 2872) Global Marketing Specialist ID - JEANA MPOCT-GLUCOSE [id number] 00:27:00 Test Item Value Reference Range Interpretation Comments POC-GLUCOSE METER 261 mg/dL 70-110 H : TESTED A T [facility] 6720 (BEAKER) (test code = [facility], 1538) 75006: Global Marketing Specialist/Techni gigi ID = [id number] for DO October POCT-GLUCOSE [id number] 23:11:00 Test Item Value Reference Range Interpretation Comments POC-GLUCOSE METER 259 mg/dL 70-110 H : TESTED A T [facility] 6720 (BEAKER) (test code = [facility], 1538) 71087: Global Marketing Specialist/Techni gigi ID = [id number] for DO NNETTOctober POCT-GLUCOSE [id number] 18:03:00 Test Item Value Reference Range Interpretation Comments POC-GLUCOSE METER 272 mg/dL 70-110 H : TESTED A T [facility] 6720 (BEAKER) (test code = [facility], 1538) 82509: Global Marketing Specialist/Techni gigi ID = [id number] for ELI WK, YAKOV [id number] 13:20:00 Test Item Value Reference Range Interpretation Comments MAGNESIUM (BEAKER) 2.1 mg/dL 1.6-2.6 Specimen slightly (test code = 627) hemolyzed Global Marketing Specialist ID - AAHAMIDCheck Serum Potassium level 2 hours after oral potassium replacement completed or 30 min after intravenous potassium replacement. [id number] 13:20:00 Test Item Value Reference Range Interpretation Comments PHOSPHORUS (BEAKER) 3.4 mg/dL 2.3-4.7 Specimen slightly (test code = 604) hemolyzed Global Marketing Specialist ID - AAHAMIDCheck Serum Potassium level 2 hours after oral potassium replacement completed or 30 min after intravenous potassium replacement. [id number] 13:20:00 Test Item Value Reference Range Interpretation Comments POTASSIUM (BEAKER) 3.8 meq/L 3.5-5.1 Specimen slightly (test code = 379) hemolyzed Global Marketing Specialist ID - AAHAMIDCheck Serum Potassium level 2 hours after oral potassium replacement completed or 30 min after intravenous potassium replacement.CALCIUM, [id number] 13:10:00 Test Item Value Reference Range Interpretation Comments CALCIUM IONIZED (BEAKER) (test 1.12 mmol/L 1.12-1.27 code = 698) PH, BLOOD (BEAKER) (test code = 7.49 1810) Check serum Ionized Calcium level after 4 hours after IV Calcium replacement. BRONCHIAL CULTURE + GRAM [id number] 13:08:00 Test Item Value Reference Range Interpretation Comments CULTURE (BEAKER) (test code No growth = 1095) GRAM STAIN RESULT (BEAKER) <1+ WBCs (test code = 1123) GRAM STAIN RESULT (BEAKER) No organisms seen (test code = 46785) RAD, CHEST, 1 VIEW, NON [id number] 05:35:00Reason for exam:->Mechanical ventilationShould this be performed [...] [place] MDReport Verified Date/Time: 08/12/2019 05:35:26 CALCIUM, [id number] 04:40:00 Test Item Value Reference Range Interpretation Comments CALCIUM IONIZED (BEAKER) (test 1.11 mmol/L 1.12-1.27 L code = 698) PH, BLOOD (BEAKER) (test code = 7.50 1810) BLOOD GAS, [id number] 04:39:00 Test Item Value Reference Range Interpretation [...] (BEAKER) (test code = 1819) 40.0 % [id number] 03:53:00 Test Item Value Reference Range Interpretation Comments MAGNESIUM (BEAKER) 1.9 mg/dL 1.6-2.6 Specimen slightly (test code = 627) hemolyzed Global Marketing Specialist ID - [place] [id number] 03:53:00 Test Item Value Reference Range Interpretation Comments PHOSPHORUS (BEAKER) 3.6 mg/dL 2.3-4.7 Specimen slightly (test code = 604) hemolyzed Global Marketing Specialist ID - [place] WBASIC METABOLIC [id number] 03:53:00 Test Item Value Reference Range Interpretation [...] S NOT APPLICABLE FOR DIALYSIS PATIEN TS. Global Marketing Specialist ID - [place] [facility] (HEMOGRAM ONLY)2019-08-12 03:24:00 Test Item [...] 0-0 (BEAKER) (test code = 413) POCT-GLUCOSE [id number] 00:12:00 Test Item Value Reference Range Interpretation Comments POC-GLUCOSE METER 226 mg/dL 70-110 H : TESTED A T [facility] 6720 (BEAKER) (test code = NATHEN Barragan [facility], 1538) [address]: Global Marketing Specialist/Techni gigi ID = [id number] for DO ABDULLAHIOctober POCT-GLUCOSE [id number] 22:01:00 Test Item Value Reference Range Interpretation Comments POC-GLUCOSE METER 201 mg/dL 70-110 H : TESTED A T [facility] 6720 (BEAKER) (test code = NATHEN Barragan [facility], 1538) [address]: Global Marketing Specialist/Techni gigi ID = [id number] for Ana Hoover BLOOD GAS, [id number] 20:34:00 Test Item Value Reference Range Interpretation [...] (test code = 1819) 100.0 % GLUCOSE-STAT [id number] 20:34:00 Test Item Value Reference Range Interpretation Comments GLUCOSE RANDOM (BEAKER) (test code 212 mg/dL 70-110 H = 652) HGB/HCT (H&H) - STAT [id number] 20:34:00 Test Item Value Reference Range Interpretation Comments HEMOGLOBIN (BEAKER) (test code = 11.1 g/dL 12.0-15.0 L 410) HEMATOCRIT (BEAKER) (test code = 33.0 % 36.0-45.0 L 411) SODIUM NA-STAT [id number] 20:33:00 Test Item Value Reference Range Interpretation Comments SODIUM (BEAKER) (test code = 381) 141 meq/L 135-148 POTASSIUM-STAT [id number] 20:33:00 Test Item Value Reference Range Interpretation Comments POTASSIUM (BEAKER) (test code = 4.0 meq/L 3.6-5.5 379) OXYGEN SATURATION, [id number] 20:33:00 Test Item Value Reference Range Interpretation Comments O2 SATURATION (MEASURED) (BEAKER) 59.9 % (test code = 1455) [id number] 19:30:00 Test Item Value Reference Range Interpretation Comments PHOSPHORUS (BEAKER) 3.6 mg/dL 2.3-4.7 Specimen slightly (test code = 604) hemolyzed Global Marketing Specialist ID - BSCheck Serum Potassium level 2 hours after oral potassium replacement completed or 30min after intravenous potassium replacement.POTASSIUM 2019-08-11 19:03:00 Test Item Value Reference Range Interpretation Comments POTASSIUM (BEAKER) 4.9 meq/L 3.5-5.1 Specimen slightly (test code = 379) hemolyzed Global Marketing Specialist ID - BSCheck Serum Potassium level 2 hours after oral potassium replacement completed or 30min after intravenous potassium replacement.POCT- GLUCOSE [id number] 17:18:00 Test Item Value Reference Range Interpretation Comments POC-GLUCOSE METER 187 mg/dL 70-110 H : TESTED A T [facility] 6720 (BEAKER) (test code = NATHEN [place], 1538) [address]: Global Marketing Specialist/Techni gigi ID = [id number] for GONZALEZ VILLEGAS BLOOD GAS, [id number] 13:29:00 Test Item Value Reference Range Interpretation [...] (test code = 1819) 40.0 % POCT-GLUCOSE [id number] 12:31:00 Test Item Value Reference Range Interpretation Comments POC-GLUCOSE METER 354 mg/dL 70-110 H : TESTED A T [facility] 6720 (BEAKER) (test code = NATHEN [place], 1538) [address]: Global Marketing Specialist/Techni gigi ID = [id number] for GONZALEZ VILLEGAS [id number] 08:49:00 Test Item Value Reference Range Interpretation Comments MAGNESIUM (BEAKER) 2.4 mg/dL 1.6-2.6 Specimen moderately (test code = 627) hemolyzed Global Marketing Specialist ID - JEANA [id number] 08:49:00 Test Item Value Reference Range Interpretation Comments POTASSIUM (BEAKER) 3.8 meq/L 3.5-5.1 Specimen moderately (test code = 379) hemolyzed Global Marketing Specialist ID - JEANA MRAD, CHEST, 1 VIEW, NON [id number] 08:45:00Reason for exam:->Mechanical ventilationShould this be performed [...] surgical changes.Additional findings: None. Signed: Vilma Nicole MDRepnort[facility] Verified Date/Time: 08/11/2019 08:45:03 Reading Location: [facility] Reading Room [facility] PANEL [id number] 07:26:00 Test Item Value Reference Range Interpretation [...] [facility] using the ITS ComplianceArray Respiratory Panel. It is FDA cleared and has been verified and approved by the [facility] for clinical use on nasopharyngeal swab specimens.The performance of the FilmArrayRP has not been established in individuals who received influenza vaccine. Recent administration ofa nasal influenza vaccine may cause false positive results for Influenza A and/orInfluenza B.SHANDA, [id number] 07:18:00 Test Item Value Reference Range Interpretation Comments CALCIUM IONIZED (BEAKER) (test 1.13 mmol/L 1.12-1.27 code = 698) PH, BLOOD (BEAKER) (test code = 7.60 1810) [id number] 06:09:00 Test Item Value Reference Range Interpretation Comments MAGNESIUM (BEAKER) 2.2 mg/dL 1.6-2.6 Specimen slightly (test code = 627) hemolyzed Global Marketing Specialist ID - JEANA [id number] 06:09:00 Test Item Value Reference Range Interpretation Comments PHOSPHORUS (BEAKER) 1.7 mg/dL 2.3-4.7 L Specimen slightly (test code = 604) hemolyzed Global Marketing Specialist ID - JEANA MBASIC METABOLIC [id number] 06:09:00 Test Item Value Reference Range Interpretation [...] S NOT APPLICABLE FOR DIALYSIS PATIEN TS. Global Marketing Specialist ID - JEANA MPOCT-GLUCOSE [id number] 05:58:00 Test Item Value Reference Range Interpretation Comments POC-GLUCOSE METER 301 mg/dL 70-110 H : Notified RN/MD: Will (BEAKER) (test code = Repeat Test: TESTED AT 1538) [facility] [address] [facility], 7[address]: Global Marketing Specialist/Techni gigi ID = [id number] for DO MUSAOctober TROPONIN [id number] 05:46:00 Test Item Value Reference Range Interpretation [...] failure, acidosis, acute neurological disease, and persistent tachyarrhythmia.Global Marketing Specialist ID - JEANA [facility] (HEMOGRAM ONLY) 2019-08-11 [...] (BEAKER) (test code = 413) BLOOD GAS, [id number] 05:16:00 Test Item Value Reference Range Interpretation [...] code = 1819) 50.0 % OXYGEN SATURATION, [id number] 05:12:00 Test Item Value Reference Range Interpretation Comments O2 SATURATION (MEASURED) (BEAKER) 69.3 % (test code = 1455) TROPONIN [id number] 00:20:00 Test Item Value Reference Range Interpretation [...] failure, acidosis, acute neurological disease, and persistent tachyarrhythmia.Global Marketing Specialist ID - BSPOCT-GLUCOSE METER 2019-08-11 00:05:00 Test Item Value Reference Range Interpretation Comments POC-GLUCOSE METER 260 mg/dL 70-110 H : TESTED A T [facility] 6720 (BEAKER) (test code = NATHEN Barragan [place], 1538) [address]: Global Marketing Specialist/Techni gigi ID = [id number] for DO October [id number] 00:00:00 Test Item Value Reference Range Interpretation Comments MAGNESIUM (BEAKER) 2.2 mg/dL 1.6-2.6 Specimen slightly (test code = 627) hemolyzed Global Marketing Specialist ID - [id number] 00:00:00 Test Item Value Reference Range Interpretation Comments POTASSIUM (BEAKER) 3.6 meq/L 3.5-5.1 Specimen slightly (test code = 379) hemolyzed Global Marketing Specialist ID - BSBLOOD GAS, [id number] 23:59:00 Test Item Value Reference Range Interpretation [...] (test code = 1819) 50.0 % CALCIUM, [id number] 23:59:00 Test Item Value Reference Range Interpretation Comments CALCIUM IONIZED (BEAKER) (test 1.09 mmol/L 1.12-1.27 L code = 698) PH, BLOOD (BEAKER) (test code = 7.58 1810) Check serum Ionized Calcium level after 4 hours after IV Calcium replacement. RAPID INFLUENZA A&B [id number] 21:04:00 Test Item Value Reference Range Interpretation Comments RAPID INFLUENZA A AG (BEAKER) Negative Negative, Inconclusive (test code = 1622) RAPID INFLUENZA B AG (BEAKER) Negative Negative, Inconclusive (test code = 1623) BLOOD GAS, [id number] 20:08:00 Test Item Value Reference Range Interpretation [...] code = 1819) 50.0 % OXYGEN SATURATION, [id number] 19:14:00 Test Item Value Reference Range Interpretation Comments O2 SATURATION (MEASURED) (BEAKER) 63.1 % (test code = 1455) BLOOD GAS, [id number] 18:51:00 Test Item Value Reference Range Interpretation [...] (test code = 1819) 50.0 % TROPONIN [id number] 18:40:00 Test Item Value Reference Range Interpretation [...] failure, acidosis, acute neurological disease, and persistent tachyarrhythmia.Global Marketing Specialist ID - [id number] 18:32:00 Test Item Value Reference Range Interpretation Comments POTASSIUM (BEAKER) (test code = 3.7 meq/L 3.5-5.1 379) Global Marketing Specialist ID - [id number] 18:32:00 Test Item Value Reference Range Interpretation Comments MAGNESIUM (BEAKER) (test code = 2.6 mg/dL 1.6-2.6 627) Global Marketing Specialist ID - BSPOCT-GLUCOSE [id number] 17:52:00 Test Item Value Reference Range Interpretation Comments POC-GLUCOSE METER 305 mg/dL 70-110 H : TESTED A T [facility] 6720 (BEAKER) (test code = NATHEN [place], 1538) [address]: Global Marketing Specialist/Techni gigi ID = [id number] for Isac GOMEZ BLOOD GAS, [id number] 14:40:00 Test Item Value Reference Range Interpretation [...] code = 1819) 60.0 % OXYGEN SATURATION, [id number] 14:38:00 Test Item Value Reference Range Interpretation Comments O2 SATURATION (MEASURED) (BEAKER) 67.6 % (test code = 1455) RAD, CHEST, 1 VIEW, NON [id number] 14:31:00Reason for exam:->line placementFINAL REPORT RAD, CHEST, [...] Stable surgical changes.Additional findings: None. Signed: Vilma Nicoleort Verified Date/Time: 08/10/2019 14:31:42 Reading Location: [facility] Radiology Read ing Room [id number] 14:04:00 Test Item Value Reference Range Interpretation Comments MAGNESIUM (BEAKER) (test code = 1.9 mg/dL 1.6-2.6 627) Global Marketing Specialist ID - ROSIANGCBC W/PLT COUNT & AUTO [id number] 12:45:00 Test Item Value Reference Range Interpretation [...] (test code = 1+ few 963) POCT-GLUCOSE [id number] 12:10:00 Test Item Value Reference Range Interpretation Comments POC-GLUCOSE METER 366 mg/dL 70-110 H : TESTED A T [facility] 6720 (BEAKER) (test code = NATHEN [place], 1538) [address]: Global Marketing Specialist/Techni gigi ID = [id number] for Isac GOMEZ URINALYSIS W/ REFLEX URINE [id number] 11:01:00 Test Item Value Reference Range Interpretation [...] = 1584) SOURCE(BEAKER) (test code = 2795) Global Marketing Specialist ID - [auto]Global Marketing Specialist ID - [id number] 10:34:00 Test Item Value Reference Range Interpretation Comments PROCALCITONIN (BEAKER) (test code 20.02 ng/mL <0.05 HH = 3036) SEPSIS RISK (ng/mL)Low: 0.05-0.50Intermediate: 0.51-2.00High: >=2.01HEMOGLOBIN [id number] 10:24:00 Test Item Value Reference Range Interpretation Comments HEMOGLOBIN A1C (BEAKER) (test code = 10.0 % 4.3-6.1 H 368) TROPONIN [id number] 10:12:00 Test Item Value Reference Range Interpretation [...] failure, acidosis, acute neurological disease, and persistent tachyarrhythmia.Global Marketing Specialist ID - LACALCIUM, IONIZED 2019-08-10 07:39:00 Test Item Value Reference Range Interpretation Comments CALCIUM IONIZED (BEAKER) (test 0.98 mmol/L 1.12-1.27 L code = 698) PH, BLOOD (BEAKER) (test code = 7.50 1810) [id number] 07:29:00 Test Item Value Reference Range Interpretation Comments PHOSPHORUS (BEAKER) (test code = 3.3 mg/dL 2.3-4.7 604) Global Marketing Specialist ID - [id number] 07:29:00 Test Item Value Reference Range Interpretation Comments MAGNESIUM (BEAKER) (test code = 1.4 mg/dL 1.6-2.6 L 627) Global Marketing Specialist ID - BSLIPID [id number] 07:29:00 Test Item Value Reference Range Interpretation [...] Borderline 130-159 High 160-189 Very High >=190 Global Marketing Specialist ID - BSHEPATIC FUNCTION [id number] 07:29:00 Test Item Value Reference Range Interpretation [...] (test code = 12 U/L 6-55 347) Global Marketing Specialist ID - BSCOMPREHENSIVE METABOLIC [id number] 07:29:00 Test Item Value Reference Range Interpretation [...] S NOT APPLICABLE FOR DIALYSIS PATIEN TS. Global Marketing Specialist ID - BSB-TYPE NATRIURETIC FACTOR (BNP)2019-08-10 07:27:00 Test Item Value Reference Range Interpretation Comments B-TYPE NATRIURETIC PEPTIDE (BEAKER) 415 pg/mL 0-100 H (test code = 700) Global Marketing Specialist ID - BSTROPONIN [id number] 07:27:00 Test Item Value Reference Range Interpretation [...] failure, acidosis, acute neurological disease, and persistent tachyarrhythmia.Global Marketing Specialist ID - BSPROTHROMBIN TIME/INR 2019-08-10 07:09:00 Test [...] for patients wiht mechanical heart valves.LACTIC ACID, [id number] 07:09:00 Test Item Value Reference Range Interpretation Comments LACTATE BLOOD ARTERIAL (2) 2.1 mmol/L 0.5-2.2 (BEAKER) (test code = 2874) Global Marketing Specialist ID - [id number] 07:09:00 Test Item Value Reference Range Interpretation Comments FIBRINOGEN LEVEL (BEAKER) (test 455 mg/dl 225-434 H code = 658) [id number] 07:09:00 Test Item Value Reference Range Interpretation Comments PARTIAL THROMBOPLASTIN TIME 27.5 seconds 22.5-36.0 (BEAKER) (test code = 760) BLOOD GAS, [id number] 06:52:00 Test Item Value Reference Range Interpretation [...] 100.0 % RAD, CHEST, 1 VIEW, NON [id number] 06:03:00Reason for exam:->chfShould this be performed at [...] Date/Time: 08/10/2019 06:03:22 RAD, ABDOMEN/KUB, 1 VIEW [id number] 06:03:00Reason for exam:->check tube placementShould this be [...]
[2022-01-01] MEDS ORDERED: FAMOTIDINE 20 MG TAB ONE (13:51)
[2022-01-01 13:52] LABS: Absolute Lymphocytes (CBC) 1.1 K/uL (0.7-4.9); Hematocrit 34.3 % (36.0-45.0); Lymphocytes % 18.2 % (15.3-44.8); MPV 9.5 fL (7.6-11.3); RBC Red Blood Cell Count 4.41 M/uL (3.86-4.86)
[2022-01-01 14:00] LABS: Urine Blood Trace-intact (Negative); Urine Glucose 3+ (Negative); Urine Protein Trace (Negative); Urine Specific Gravity 1.015 (1.005-1.030); Urine pH 7.5 (5.0-7.0)
[2022-01-01 14:19] LABS: Albumin 3.7 g/dL (3.4-5.0); Bilirubin Total 0.4 mg/dL (0.2-1.0); Potassium 4.3 mmol/L (3.5-5.1); Protein, Total 8.5 g/dL (6.4-8.2); Troponin High Sensitivity 17.1 pg/mL (<58.9)
--- NOTE | 2022-01-01 14:57 | RAD REPORT ---
EXAM DESCRIPTION: CT - Abdomen Pelvis W Contrast - 01/01/2022 2:42 pm CLINICAL HISTORY: Abdominal pain COMPARISON: none. TECHNIQUE: Computed axial tomography of the abdomen pelvis was obtained. 100 cc Isovue-300 was admin istered intravenously. Oral contrast was not requested which limits evaluation of bowel and appendix All CT scans are performed using dose optimization technique as appropriate and may include automated exposure control or mA/KV adjustment according to patient size. FINDINGS: Small pericardial effusion. Cardiomegaly The liver, spleen, pancreas, adrenal and kidneys appear unremarkable. There is no evidence of diverticulitis. Fibroid uterus. Prominence of the endometrial stripe. Tubal ligation clips IMPRESSION: Fibroid uterus. Prominence of the endometrial stripe. Non emergent pelvic ultrasound recommended
--- NOTE | 2022-01-01 15:03 | EDPHYS ---
Physician Documentation [facility] Name: Ratna Ureña Age: 56 yrs Sex: Female : 1965 Arrival Date: 01/01/2022 Time: 11:36 Bed 10 Private MD: ED Physician Prasanna Natarajan HPI: 01/01 12:29 This 56 yrs old Black Female presents to ER via EMS with complaints of Nausea, Back rn Pain. 12:29 The patient presents to the emergency department with nausea, that is mild. Onset: The rn symptoms/episode began/occurred this morning. Possible causes: unknown. The symptoms are aggravated by nothing. The symptoms are alleviated by nothing. Associated signs and symptoms: Pertinent positives: belching, Pertinent negatives: fever, GI bleeding. Severity of symptoms: At their worst the symptoms were moderate in the emergency department the symptoms have improved. The patient has not experienced similar symptoms in the past. The patient has not recently seen a physician. Pt reports woke up today feeling nausea and back pain, no injury, no fever, no vomiting or diarrhea. Has been "belching a lot", but hasn't been able to get in with GI. Doesn't take antacids regularly, only tums as needed. . Historical: - Allergies: 12:17 No Known Allergies; ap3 - PMHx: 12:17 Diabetes - NIDDM; High Cholesterol; Hypertension; Vertigo; ap3 - Immunization history:: Client reports receiving the 2nd dose of the Covid vaccine. - Social history:: Smoking status: Patient denies any tobacco usage or history of. - Family history:: not pertinent. - Hospitalizations: : No recent hospitalization is reported. ROS: 12:29 Constitutional: Negative for fever, chills, and weight loss, Eyes: Negative for injury, rn pain, redness, and discharge, Cardiovascular: Negative for chest pain, palpitations, and edema, Respiratory: Negative for shortness of breath, cough, wheezing, and pleuritic chest pain, Abdomen/GI: Negative for abdominal pain, vomiting, diarrhea, and constipation, Back: + mid back pain : Negative for injury, bleeding, discharge, and swelling, MS/Extremity: Negative for injury and deformity, Skin: Negative for injury, rash, and discoloration, Neuro: Negative for headache, weakness, numbness, tingling, and seizure. Exam: 12:29 Constitutional: This is a well developed, well nourished patient who is awake, alert, rn and in no acute distress. Head/Face: Normocephalic, atraumatic. Cardiovascular: Regular rate and rhythm. No pulse deficits. Respiratory: No increased work of breathing, no retractions or nasal flaring. Abdomen/GI: Soft, non-tender Back: No spinal tenderness. No costovertebral tenderness. Full range of motion. Skin: Warm, dry with normal turgor. Normal color with no rashes, no lesions, and no evidence of cellulitis. MS/ Extremity: Pulses equal, no cyanosis. Neurovascular intact. Full, normal range of motion. Equal circumference. Neuro: Awake and alert, GCS 15, oriented to person, place, time, and situation. Cranial nerves II-XII grossly intact. Motor strength 5/5 in all extremities. Sensory grossly intact. Vital Signs: 12:13 BP 157 / 82; Pulse 85; Temp 98.7; Pulse Ox 100% ; ap3 12:18 Weight 98.43 kg; Height 5 ft. 3 in. (160.02 cm); ap3 13:48 BP 149 / 84; Pulse 86; Resp 18; Pulse Ox 100% on R/A; Pain 7/10; ld1 15:59 BP 139 / 86; Pulse 81; Resp 18; Pulse Ox 100% on R/A; ld1 12:18 Body Mass Index 38.44 (98.43 kg, 160.02 cm) ap3 MDM: 11:47 Patient medically screened. rn 14:59 Differential diagnosis: Nonspecific abd pain, gastritis, pancreatitis, viral rn gastroenteritis, gastroenteritis. Data reviewed: vital signs, nurses notes, lab test result(s), radiologic studies, CT scan, and as a result, I will discharge patient. Counseling: I had a detailed discussion with the patient and/or guardian regarding: the historical points, exam findings, and any diagnostic results supporting the discharge/admit diagnosis, lab results, radiology results, the need for outpatient follow up, to return to the emergency department if symptoms worsen or persist or if there are any questions or concerns that arise at home. Response to treatment: the patient's symptoms have markedly improved after treatment, and as a result, I will discharge patient. ED course: Pt felt much better shortly upon arrival, without intervention, and no acute findings on CT or bloodwork. Pt keeps belching. Will place on antacid and recommend GI f/u. Thickened endometrial stripe on CT, recommended TURBINE OPERATOR f/u. . 01/01 12:19 Order name: CBC with Diff; Complete Time: 14:26 rn 01/01 12:19 Order name: CMP; Complete Time: 14:26 rn 01/01 12:19 Order name: Lipase; Complete Time: 14:26 rn 01/01 12:19 Order name: CT Abd/Pelvis - IV Contrast Only; Complete Time: 14:59 rn 01/01 12:19 Order name: Troponin HS; Complete Time: 14:26 rn 01/01 14:01 Order name: Urine Dipstick-Ancillary; Complete Time: 14:26 EDCO 01/01 12:19 Order name: IV Saline Lock; Complete Time: 13:44 rn 01/01 12:19 Order name: Labs collected and sent; Complete Time: 13:44 rn 01/01 12:19 Order name: Urine Dipstick-Ancillary (obtain specimen); Complete Time: 13:44 rn 01/01 12:19 Order name: EKG; Complete Time: 12:20 rn 01/01 12:19 Order name: EKG - Nurse/Tech; Complete Time: 13:35 rn Administered Medications: 13:44 Drug: Pepcid (famotidine) 20 mg Route: IVP; Site: right antecubital; ld1 Disposition Summary: 01/01/22 15:02 Discharge Ordered Location: Home rn Problem: new rn Symptoms: have improved rn Condition: Stable rn Diagnosis - Eructation rn Followup: rn - With: Private Physician - When: As needed - Reason: Recheck today's complaints, Re-evaluation by your physician Discharge Instructions: - Discharge Summary Sheet rn - Food Choices for Gastroesophageal Reflux Disease, Adult rn - Gastroesophageal Reflux Disease, Adult rn Forms: - Medication Reconciliation Form rn - Thank You Letter rn - Antibiotic yarn spinner - Prescription Opioid Use rn Prescriptions: - Protonix 40 mg Oral Tablet - take 1 tablet by ORAL route once daily; 30 tablet; Refills: 0, Product rn Selection Permitted Signatures: Dispatcher [employer] EDPrasanna Prescott MD MD rn Prokisch, Amanda, RN RN ap3 Jessica Rockwell RN RN ld1
--- NOTE | 2022-01-01 15:03 | ER ---
Nurse's Notes [facility] Name: Ratna Ureña Age: 56 yrs Sex: Female : 1965 Arrival Date: 01/01/2022 Time: 11:36 Bed 10 Private MD: Diagnosis: Eructation Presentation: 01/01 12:13 Chief complaint: Patient states: when she got up this morning she began feeling ap3 nauseous. Patient states that feeling has since resolved, but she is now experiencing back pain. Patient states the pain has gotten better since her arrival with EMS. Coronavirus screen: At this time, the client does not indicate any symptoms associated with coronavirus-19. Ebola Screen: No symptoms or risks identified at this time. Initial Sepsis Screen: Does the patient meet any 2 criteria? No. Patient's initial sepsis screen is negative. Does the patient have a suspected source of infection? No. Patient's initial sepsis screen is negative. Risk Assessment: Do you want to hurt yourself or someone else? Patient reports no desire to harm self or others. Onset of symptoms was January 01, 2022. 12:13 Method Of Arrival: EMS: [facility] ap3 12:17 Acuity: ANTONIO 3 ap3 Triage Assessment: 12:16 General: Appears in no apparent distress. Behavior is calm, cooperative. Pain: ap3 Complains of pain in back. Cardiovascular: Patient's skin is warm and dry. Respiratory: Airway is patent Respiratory effort is even, unlabored. GI: pt has multiple belching episodes while in triage Reports nausea. Historical: - Allergies: 12:17 No Known Allergies; ap3 - PMHx: 12:17 Diabetes - NIDDM; High Cholesterol; Hypertension; Vertigo; ap3 - Immunization history:: Client reports receiving the 2nd dose of the Covid vaccine. - Social history:: Smoking status: Patient denies any tobacco usage or history of. - Family history:: not pertinent. - Hospitalizations: : No recent hospitalization is reported. Screenin:19 Abuse screen: Denies threats or abuse. Nutritional screening: No deficits noted. ap3 Tuberculosis screening: No symptoms or risk factors identified. 13:48 Fall Risk None identified. ld1 Assessment: 13:48 General: Appears in no apparent distress. comfortable, Behavior is calm, cooperative, ld1 appropriate for age. Pain: Complains of pain in back Pain does not radiate. Pain currently is 7 out of 10 on a pain scale. Neuro: Level of Consciousness is awake, alert, obeys commands, Oriented to person, place, time, situation. Cardiovascular: Capillary refill < 3 seconds Patient's skin is warm and dry. Respiratory: Airway is patent Respiratory effort is even, unlabored. GI: Abdomen is round non-distended, Reports belching for several weeks. : No signs and/or symptoms were reported regarding the genitourinary system. EENT: No signs and/or symptoms were reported regarding the EENT system. Derm: No signs and/or symptoms reported regarding the dermatologic system. Musculoskeletal: No signs and/or symptoms reported regarding the musculoskeletal system. 15:59 Reassessment: Patient appears in no apparent distress at this time. Patient and/or ld1 family updated on plan of care and expected duration. Pain level reassessed. Vital Signs: 12:13 BP 157 / 82; Pulse 85; Temp 98.7; Pulse Ox 100% ; ap3 12:18 Weight 98.43 kg; Height 5 ft. 3 in. (160.02 cm); ap3 13:48 BP 149 / 84; Pulse 86; Resp 18; Pulse Ox 100% on R/A; Pain 7/10; ld1 15:59 BP 139 / 86; Pulse 81; Resp 18; Pulse Ox 100% on R/A; ld1 12:18 Body Mass Index 38.44 (98.43 kg, 160.02 cm) ap3 ED Course: 11:36 Patient arrived in ED. rg4 11:46 Prasanna Natarajan MD is Attending Physician. rn 12:16 Triage completed. ap3 12:19 Arm band placed on right wrist. ap3 12:19 Patient has correct armband on for positive identification. Pulse ox on. NIBP on. ap3 12:52 Jessica Rockwell, RAMAN is Primary Nurse. ld1 13:48 No provider procedures requiring assistance completed. Inserted saline lock: 20 gauge ld1 in right antecubital area, using aseptic technique. Blood collected. 14:44 CT Abd/Pelvis - IV Contrast Only In Process Unspecified. EDMS 15:59 IV discontinued, intact, bleeding controlled, No redness/swelling at site. ld1 Administered Medications: 13:44 Drug: Pepcid (famotidine) 20 mg Route: IVP; Site: right antecubital; ld1 Medication: 13:48 VIS not applicable for this client. ld1 Outcome: 15:02 Discharge ordered by . rn 15:59 Discharged to home ambulatory. ld1 15:59 Condition: stable 15:59 Discharge instructions given to patient, Instructed on discharge instructions, follow up and referral plans. medication usage, Demonstrated understanding of instructions, follow-up care, medications, Prescriptions given X 1. 15:59 Patient left the ED. ld1 Signatures: Dispatcher [employer] EDMS Prasanna Natarajan MD MD rn Garcia, Rubi rg4 Fatimah Kong RN RN ap3 Jessica Rockwell RN RN ld1 Corrections: (The following items were deleted from the chart) 12:17 12:13 Acuity: ANTONIO 4 ap3 ap3
[2022-01-01 16:17] VITALS: O2SAT 100
[2022-01-01 16:18] VITALS: BP 139/86
[2022-01-01 16:20] VITALS: TEMP 98.7
--- NOTE | 2022-01-02 08:08 | EKG ---
Test Date: 2022-01-01 Test Time: 13:30:41 Acupressurist: LIAM MEASUREMENT RESULTS: Intervals: Rate: 80 LA: 174 QRSD: 146 QT: 450 QTc: 519 [place]: P: 62 LA: 174 QRS: -55 T: 89 INTERPRETIVE STATEMENTS: Normal sinus rhythm Left axis deviation Left bundle branch block Abnormal ECG Compared to ECG 01/01/2022 13:29:28 Left-axis deviation now present Left bundle-branch block now present Electronically Signed On 01-02-22 08:05:38 CDT by Davidson Lam
--- NOTE | 2022-01-02 08:08 | EKG ---
Test Date: 2022-01-01 Test Time: 13:29:28 [employer] Check[employer] Technician: LIAM MEASUREMENT RESULTS: Intervals: Rate: 0 [place]: QRSD: 0 QT: 0 QTc: 0 [place]: P: FL: QRS: 0 T: 0 INTERPRETIVE STATEMENTS: No QRS complexes found, no ECG analysis possible Compared to ECG 12/06/2021 09:40:09 Sinus rhythm no longer present Left bundle-branch block no longer present Electronically Signed On 01-02-22 08:05:39 CDT by Davidson Lam
== END 2022-01-01 15:59 | disposition home or self-care (01) ==
LOC: ER 11:33
DX: R14.2 Eructation (principal); E11.9 Type 2 diabetes mellitus without complications; I10 Essential (primary) hypertension
CPT/HCPCS: 93005 ×2; 85025; 36415; 81003; 84484; 83690; 80053; 74177; Q9967; 96374; 99284

== ENCOUNTER → 2023-07-28 | Emergency (ER) | payer BC ==
[~2023-07-28] MED LIST: DIPHENHYDRAMINE 50 MG/ML VIAL ONE; KETOROLAC 30 MG/ML INJ ONE; METOCLOPRAMIDE 10 MG/2mL INJ ONE
--- NOTE | 2023-07-28 07:50 | RAD REPORT ---
EXAM DESCRIPTION: CT - Head Brain Wo Cont - 07/28/2023 7:36 am CLINICAL HISTORY: HEADACHE Headache, drowsiness COMPARISON: Head Brain Wo Cont dated 08/10/2019 TECHNIQUE: All CT scans are performed using dose optimization technique as appropriate and may inclu de automated exposure control or mA/KV adjustment according to patient size. FINDINGS: No intracranial hemorrhage, hydrocephalus or extra-axial fluid collection.No areas of brai n edema or evidence of midline shift. The paranasal sinuses and mastoids are clear. The calvarium is intact. IMPRESSION: No acute intracranial abnormality.
[2023-07-28 08:16] LABS: Absolute Lymphocytes (CBC) 1.3 K/uL (0.7-4.9); Hematocrit 36.4 % (36.0-45.0); Lymphocytes % 20.5 % (15.3-44.8); MCV 82.6 fL (80-100); MPV 10.1 fL (7.6-11.3); Platelets 222 thou/uL (152-406)
[2023-07-28 08:31] LABS: Potassium 3.9 mEq/L (3.5-5.1)
--- NOTE | 2023-07-28 09:07 | EDPHYS ---
Physician Documentation [facility] Name: Ratna Ureña Age: 58 yrs Sex: Female : 1965 Arrival Date: 07/28/2023 Time: 06:57 Bed 19 Private MD: CAT GODINEZ ED Physician Moises Quintero HPI: 07/28 07:18 This 58 yrs old Black Female presents to ER via EMS with complaints of Headache, ms3 Weakness. 07:18 58-year-old female with past medical history of congestive heart failure, diabetes, ms3 lipidemia, hypertension, vertigo presents to the emergency department for headache and generalized weakness that began on waking up this morning. Patient rates her discomfort a 5 out of 10 and states it is in the frontal portion of her head. Patient denies any alleviating or inciting factors. Patient denies nausea, vomiting, diarrhea, abdominal pain, chest pain, shortness of breath. Historical: - Allergies: 07:08 No Known Allergies; iw - PMHx: 07:08 Congestive heart failure; Diabetes - NIDDM; High Cholesterol; Hypertension; Vertigo; iw ROS: 07:48 Constitutional: Negative for fever, and chills. Neck: Negative for injury, pain, and ms3 swelling, Cardiovascular: Negative for chest pain, and palpitations. Respiratory: Negative for shortness of breath, cough, wheezing, and pleuritic chest pain, Abdomen/GI: Negative for abdominal pain, nausea, vomiting, diarrhea, and constipation, MS/Extremity: Negative for injury and deformity, Skin: Negative for injury, rash, and discoloration, 07:48 Neuro: Positive for headache, 07:48 All other systems are negative, Exam: 07:48 Constitutional: This is a well developed, well nourished patient who is awake, alert, ms3 and in no acute distress. Head/Face: Normocephalic, atraumatic. Neck: Trachea midline, no cervical lymphadenopathy. Supple, full range of motion without nuchal rigidity, or vertebral point tenderness. No Meningismus. Chest/axilla: Normal chest wall appearance and motion. Nontender with no deformity. Cardiovascular: Regular rate and rhythm with a normal S1 and S2. No gallops, murmurs, or rubs. Normal PMI, no JVD. No pulse deficits. Respiratory: Lungs have equal breath sounds bilaterally, clear to auscultation and percussion. No rales, rhonchi or wheezes noted. No increased work of breathing, no retractions or nasal flaring. Abdomen/GI: Soft, non-tender, with normal bowel sounds. No distension or tympany. No guarding or rebound. No evidence of tenderness throughout. Skin: Warm, dry with normal turgor. Normal color with no rashes, no lesions, and no evidence of cellulitis. MS/ Extremity: Pulses equal, no cyanosis. Neurovascular intact. Full, normal range of motion. 07:48 Neuro: Orientation: to person, place, time \T\ situation. Mentation: is normal, Memory: is normal, Cranial nerves: CN I not tested, CN II- XII are normal as tested, Cerebellar function: normal finger to nose testing, Motor: is normal, Sensation: is normal, no obvious gross deficits, Vital Signs: 07:08 BP 175 / 85; Pulse 80; Resp 16; Temp 97.9; Pulse Ox 99% on R/A; Pain 5/10; iw 07:08 Pain Scale: Adult iw MDM: 07:16 Patient medically screened. ms3 07:48 Differential diagnosis: cluster headache, intracerebral hemorrhage, migraine, ms3 subarachnoid bleed, tension headache. 09:07 Data reviewed: vital signs, nurses notes, lab test result(s), radiologic studies, and ms3 as a result, I will discharge patient. I considered the following discharge prescriptions or medication management in the emergency department Medications were administered in the Emergency Department. See MAR. Independent interpretation of the following test(s) in the Emergency Department CT Scan: My interpretation is CT head without contrast images reviewed did not reveal ICH. Care significantly affected by the following chronic conditions: Diabetes, Hypertension. Counseling: I had a detailed discussion with the patient and/or guardian regarding the historical points, exam findings, and any diagnostic results supporting the discharge/admit diagnosis, lab results, radiology results, the need for outpatient follow up, to return to the emergency department if symptoms worsen or persist or if there are any questions or concerns that arise at home. Special discussion: I discussed with the patient/guardian in detail that at this point there is no indication for admission to the hospital. It is understood, however, that if the symptoms persist or worsen the patient needs to return immediately for re-evaluation. ED course: Discussed labs and CT head imaging results with patient. Patient to follow-up with her primary care physician in 2 to 3 days. Patient understands and agrees with plan. All questions were answered. Return precautions discussed include worsening symptoms, vomiting, syncope, or any other concerns. On reevaluation patient is alert and oriented x 4, no apparent distress, nontoxic-appearing, speaking full sentences. 07/28 07:17 Order name: CBC with Diff; Complete Time: 09:02 ms3 07/28 07:17 Order name: BMP; Complete Time: 09:02 ms3 07/28 07:17 Order name: CT Head Brain wo Cont; Complete Time: 07:51 ms3 Administered Medications: 08:36 Drug: diphenhydrAMINE IVP 25 mg IVP once Route: IVP; Site: right antecubital; iw 09:00 Follow up: Response: No adverse reaction iw 08:36 Drug: Ketorolac IVP 10 mg 10 mg IVP once Route: IVP; Site: right antecubital; iw 09:00 Follow up: Response: No adverse reaction iw 08:37 Drug: metoCLOPramide IVP 10 mg IVP once; over 1 to 2 minutes Route: IVP; Site: right iw antecubital; 09:10 Follow up: Response: No adverse reaction iw Disposition Summary: 07/28/23 09:06 Discharge Ordered Notes: Location: Home ms3 Condition: Stable ms3 Diagnosis - Headache ms3 - Essential (primary) hypertension ms3 Followup: ms3 - With: CAT GODINEZ - When: 2 - 3 days - Reason: Recheck today's complaints Discharge Instructions: - Discharge Summary Sheet ms3 - General Headache Without Cause ms3 - DASH Eating Plan ms3 Forms: - Medication Reconciliation Form ms3 - Thank You Letter ms3 - Antibiotic Education ms3 - Prescription Opioid Use ms3 - Patient Portal Instructions ms3 - Leadership Thank You Letter ms3 Signatures: Dispatcher [employer] Alexus Norman, Moises Haywood RN, DO DO ms3
--- NOTE | 2023-07-28 09:07 | ER ---
Nurse's Notes [facility] Name: Ratna Ureña Age: 58 yrs Sex: Female : 1965 Arrival Date: 07/28/2023 Time: 06:57 Bed 19 Private MD: CAT GODINEZ Diagnosis: Headache;Essential (primary) hypertension Presentation: 07/28 07:07 Chief complaint: EMS states: headache since 6 am , general weakness. Coronavirus iw screen: Client presents with at least one sign or symptom that may indicate coronavirus-19. 07:07 Method Of Arrival: EMS: [facility] iw 07:07 Ebola Screen: Patient negative for fever greater than or equal to 101.5 degrees iw Fahrenheit, and additional compatible Ebola Virus Disease symptoms Patient denies exposure to infectious person. Patient denies travel to an Ebola-affected area in the 21 days before illness onset. No symptoms or risks identified at this time. Risk Assessment: Do you want to hurt yourself or someone else? Patient reports no desire to harm self or others. Onset of symptoms was July 28, 2023. Care prior to arrival: Glucose check: 327. 07:08 Initial Sepsis Screen: Does the patient meet any 2 criteria? No. Patient's initial iw sepsis screen is negative. Does the patient have a suspected source of infection? No. Patient's initial sepsis screen is negative. 07:08 Acuity: ANTONIO 3 iw Triage Assessment: 08:00 Headache History: The patient has had previous headaches and this one is similar to iw previous episodes. General: Appears in no apparent distress. Behavior is calm, cooperative. Historical: - Allergies: 07:08 No Known Allergies; iw - PMHx: 07:08 Congestive heart failure; Diabetes - NIDDM; High Cholesterol; Hypertension; Vertigo; iw Screenin:00 [facility] ED Fall Risk Assessment (Adult) History of falling in the last 3 months, iw including since admission No falls in past 3 months (0 pts) Confusion or Disorientation No (0 pts) Intoxicated or Sedated No (0 pts) Impaired Gait No (0 pts) Mobility Assist Device Used No (0 pt) Altered Elimination No (0 pt) Score/Fall Risk Level 0 - 2 = Low Risk. Abuse screen: Denies threats or abuse. Denies injuries from another. Nutritional screening: No deficits noted. Tuberculosis screening: No symptoms or risk factors identified. Assessment: 08:00 General: Appears in no apparent distress. Behavior is calm, cooperative. Pain: iw Complains of pain in head. Neuro: Level of Consciousness is awake, alert, obeys commands, Oriented to person, place, time, situation, Moves all extremities. Cardiovascular: Respiratory: Respiratory effort is even, unlabored, Respiratory pattern is regular, symmetrical. Derm: Skin is intact, is healthy with good turgor. Musculoskeletal: Range of motion: intact in all extremities. Vital Signs: 07:08 BP 175 / 85; Pulse 80; Resp 16; Temp 97.9; Pulse Ox 99% on R/A; Pain 5/10; iw 07:08 Pain Scale: Adult iw ED Course: 07:01 Patient arrived in ED. rg4 07:01 CAT GODINEZ is Private Physician. rg4 07:03 Moises Quintero DO is Attending Physician. ms3 07:08 Triage completed. iw 07:08 Arm band placed on. iw 07:38 CT Head Brain wo Cont In Process Unspecified. EDMS 07:53 Alexus Jain, RN is Primary Nurse. iw 09:00 Patient has correct armband on for positive identification. Bed in low position. Call iw light in reach. Side rails up X 1. Adult w/ patient. Client placed on continuous cardiac and pulse oximetry monitoring. NIBP monitoring applied. 09:05 CAT GODINEZ is Referral Physician. ms3 09:12 No provider procedures requiring assistance completed. IV discontinued, intact, iw bleeding controlled, No redness/swelling at site. Pressure dressing applied. Administered Medications: 08:36 Drug: diphenhydrAMINE IVP 25 mg IVP once Route: IVP; Site: right antecubital; iw 09:00 Follow up: Response: No adverse reaction iw 08:36 Drug: Ketorolac IVP 10 mg 10 mg IVP once Route: IVP; Site: right antecubital; iw 09:00 Follow up: Response: No adverse reaction iw 08:37 Drug: metoCLOPramide IVP 10 mg IVP once; over 1 to 2 minutes Route: IVP; Site: right iw antecubital; 09:10 Follow up: Response: No adverse reaction iw Outcome: 09:06 Discharge ordered by . ms3 09:13 Discharged to iw 09:13 Condition: good 09:13 Discharge instructions given to patient, Instructed on discharge instructions, follow up and referral plans. Demonstrated understanding of instructions, follow-up care, 09:14 Patient left the ED. iw Signatures: Dispatcher [employer] Alexus Norman, RAMAN RN Alexandra More rg4 Moises Quintero DO DO ms3
[2023-07-28 09:19] VITALS: BP 175/85; TEMP 97.9; O2SAT 99
== END ==
LOC: ER 06:57
DX: R51.9 Headache, unspecified (principal); I10 Essential (primary) hypertension; E11.9 Type 2 diabetes mellitus without complications; I50.9 Heart failure, unspecified
CPT/HCPCS: 85025; 80048; 36415; 70450; 96375; 96374; 99284; J2765; J1200

== ENCOUNTER → 2023-09-01 | Emergency (ER) | payer BC ==
[2023-09-01 08:15] LABS: Absolute Lymphocytes (CBC) 1.1 K/uL (0.7-4.9); Hematocrit 35.3 % (36.0-45.0); Lymphocytes % 20.5 % (15.3-44.8); MCV 81.5 fL (80-100); MPV 9.7 fL (7.6-11.3); Platelets 173 thou/uL (152-406); RBC Red Blood Cell Count 4.33 M/uL (3.86-4.86)
[2023-09-01 08:35] LABS: Magnesium 1.9 mg/dL (1.6-2.4); Potassium 4.3 mEq/L (3.5-5.1); Troponin High Sensitivity 36.4 pg/mL (<58.9)
--- NOTE | 2023-09-01 08:51 | RAD REPORT ---
[facility] CLINICAL HISTORY: Near syncop COMPARISON: Chest Single View dated 04/27/2022; Chest Single View dated 09/14/2020; Chest Single View dated 08/10/2019; Chest Single View dated 08/10/2019 TECHNIQUE: Portable AP view of the chest. FINDINGS: The lungs are clear. No pneumothorax or effusion. The cardiomediastinal contours are unre markable. IMPRESSION: No acute cardiopulmonary process.
--- NOTE | 2023-09-01 09:53 | ER ---
Nurse's Notes [facility] Name: Ratna Ureña Age: 58 yrs Sex: Female : 1965 Arrival Date: 09/01/2023 Time: 07:26 Bed 20 Private MD: Diagnosis: Chronic kidney disease, stage 3 (moderate);Anemia, unspecified Presentation: 09/01 07:23 Chief complaint: EMS states: PATIENT WAS AT WORK THIS AM NOT FEELING WELL. 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 GLUCOSE 285. Coronavirus screen: Vaccine status: Patient reports receiving the 2nd dose of the covid vaccine. Client denies travel out of the [place] in the last 14 days. At this time, the client does not indicate any symptoms associated with coronavirus-19. Ebola Screen: Patient negative for fever greater than or equal to 101.5 degrees Fahrenheit, and additional compatible Ebola Virus Disease symptoms Patient denies exposure to infectious person. Patient denies travel to an Ebola-affected area in the 21 days before illness onset. No symptoms or risks identified at this time. Initial Sepsis Screen: Does the patient meet any 2 criteria? No. Patient's initial sepsis screen is negative. Does the patient have a suspected source of infection? No. Patient's initial sepsis screen is negative. Risk Assessment: Do you want to hurt yourself or someone else? Patient reports no desire to harm self or others. Onset of symptoms was September 01, 2023. 07:23 Method Of Arrival: EMS: [facility] db 07:23 Acuity: ANTONIO 2 db Triage Assessment: 07:41 General: Appears in no apparent distress. comfortable, Behavior is calm, cooperative. db Pain: Denies pain. Neuro: Level of Consciousness is awake, alert, obeys commands, Oriented to person, place, time, situation. Respiratory: Airway is patent Respiratory effort is even, unlabored, Respiratory pattern is regular, symmetrical. Historical: - Allergies: 07:41 No Known Allergies; db - Home Meds: 07:41 amlodipine oral 2.5 mL [Active]; Metformin Oral [Active]; losartan oral [Active]; db - PMHx: 07:41 Congestive heart failure; Diabetes - NIDDM; High Cholesterol; Hypertension; Vertigo; db - Immunization history:: Adult Immunizations unknown. - Social history:: Smoking status: Patient denies any tobacco usage or history of. Screenin:15 [facility] ED Fall Risk Assessment (Adult) History of falling in the last 3 months, db including since admission No falls in past 3 months (0 pts) Confusion or Disorientation No (0 pts) Intoxicated or Sedated No (0 pts) Impaired Gait No (0 pts) Mobility Assist Device Used No (0 pt) Altered Elimination No (0 pt) Score/Fall Risk Level 0 - 2 = Low Risk Oriented to surroundings, Maintained a safe environment. Abuse screen: Denies threats or abuse. Denies injuries from another. Nutritional screening: No deficits noted. Tuberculosis screening: No symptoms or risk factors identified. Assessment: 07:46 Reassessment: SEE TRIAGE FOR INITIAL ASSESSMENT. Reassessment: Patient appears in no db apparent distress at this time. Patient and/or family updated on plan of care and expected duration. Pain level reassessed. Patient is alert, oriented x 3, equal unlabored respirations, skin warm/dry/pink. General: Appears in no apparent distress. comfortable, Behavior is calm, cooperative. Neuro: Level of Consciousness is awake, alert, obeys commands, Oriented to person, place, time, situation. 08:17 Reassessment: XRAY AT PATIENT BEDSIDE. FAMILY AT BEDSIDE. db 08:17 Respiratory: Airway is patent Respiratory effort is even, unlabored, Respiratory db pattern is regular, symmetrical. Vital Signs: 07:23 BP 178 / 84; Pulse 81; Resp 18; Temp 98.3(O); Pulse Ox 98% on R/A; Weight 104.33 kg; db Height 5 ft. 5 in. ; 07:30 BP 153 / 82; Pulse 82; Resp 18; Pulse Ox 99% on R/A; db 08:00 BP 146 / 75; Pulse 85; Resp 18; Pulse Ox 97% on R/A; db 09:00 BP 150 / 98; Pulse 85; Resp 18; Pulse Ox 98% on R/A; db 09:30 BP 166 / 86; Pulse 87; Resp 18; Pulse Ox 98% on R/A; db 10:30 BP 171 / 91; Pulse 84; Resp 18; Pulse Ox 98% on R/A; db 07:23 Body Mass Index 38.27 (104.33 kg, 165.1 cm) db ED Course: 07:27 Patient arrived in ED. db 07:28 Moises Quintero DO is Attending Physician. ms3 07:41 Triage completed. db 07:41 Arm band placed on Patient placed in an exam room. db 08:14 Ana Nascimento, RN is Primary Nurse. db 08:14 Initial lab(s) drawn, by me, sent to lab. EKG done, reviewed by Moises Quintero DO. db Inserted saline lock: 22 gauge in right antecubital area, using aseptic technique. Blood collected. 08:36 XRAY Chest (1 view) In Process Unspecified. EDMS 09:52 Ron Hill DO is Referral Physician. ms3 10:43 Patient has correct armband on for positive identification. Bed in low position. Call db light in reach. Side rails up X 1. Provided Education on: DISCHARGE. Client placed on continuous cardiac and pulse oximetry monitoring. NIBP monitoring applied. 10:43 Warm blanket given. db 10:43 No provider procedures requiring assistance completed. IV discontinued, intact, db bleeding controlled, No redness/swelling at site. Administered Medications: No medications were administered Medication: 08:15 VIS not applicable for this client. db Outcome: 09:52 Discharge ordered by MD. ms3 10:43 Discharged to home ambulatory, db 10:43 Condition: stable 10:43 Discharge instructions given to patient, Instructed on discharge instructions, follow up and referral plans. 10:51 Patient left the ED. db Signatures: Dispatcher [employer] EDUT Moises Quintero DO DO ms3 Ana Nascimento, RN RN db
--- NOTE | 2023-09-01 09:53 | EDPHYS ---
Physician Documentation [facility] Name: Ratna Ureña Age: 58 yrs Sex: Female : 1965 Arrival Date: 09/01/2023 Time: 07:26 Bed 20 Private MD: ED Physician Moises Quintero HPI: 09/01 07:47 This 58 yrs old Black Female presents to ER via EMS with complaints of Near Syncope. ms3 07:47 58-year-old female with past medical history of congestive heart failure, diabetes, ms3 hyperlipidemia, hypertension, vertigo presents to the emergency department via [facility] for "not feeling right." Patient states she was at work when she began to feel warm and did not feel right. Patient denies any pain, loss of consciousness, headache, nausea, vomiting, shortness of breath. Patient describes the sensation as feeling warm all over. Historical: - Allergies: 07:41 No Known Allergies; db - Home Meds: 07:41 amlodipine oral 2.5 mL [Active]; Metformin Oral [Active]; losartan oral [Active]; db - PMHx: 07:41 Congestive heart failure; Diabetes - NIDDM; High Cholesterol; Hypertension; Vertigo; db - Immunization history:: Adult Immunizations unknown. - Social history:: Smoking status: Patient denies any tobacco usage or history of. ROS: 07:47 Constitutional: Negative for fever, and chills. Neck: Negative for injury, pain, and ms3 swelling, Cardiovascular: Negative for chest pain, and palpitations. Respiratory: Negative for shortness of breath, cough, wheezing, and pleuritic chest pain, Abdomen/GI: Negative for abdominal pain, nausea, vomiting, diarrhea, and constipation, MS/Extremity: Negative for injury and deformity, Skin: Negative for injury, rash, and discoloration, Exam: 07:47 Constitutional: This is a well developed, well nourished patient who is awake, alert, ms3 and in no acute distress. Head/Face: Normocephalic, atraumatic. Neck: Trachea midline, no cervical lymphadenopathy. Supple, full range of motion without nuchal rigidity, or vertebral point tenderness. No Meningismus. Chest/axilla: Normal chest wall appearance and motion. Nontender with no deformity. Cardiovascular: Regular rate and rhythm with a normal S1 and S2. No gallops, murmurs, or rubs. Normal PMI, no JVD. No pulse deficits. Respiratory: Lungs have equal breath sounds bilaterally, clear to auscultation and percussion. No rales, rhonchi or wheezes noted. No increased work of breathing, no retractions or nasal flaring. Abdomen/GI: Soft, non-tender, with normal bowel sounds. No distension or tympany. No guarding or rebound. No evidence of tenderness throughout. Skin: Warm, dry with normal turgor. Normal color with no rashes, no lesions, and no evidence of cellulitis. MS/ Extremity: Pulses equal, no cyanosis. Neurovascular intact. Full, normal range of motion. 08:00 ECG was reviewed by the Attending Physician. ms3 Vital Signs: 07:23 BP 178 / 84; Pulse 81; Resp 18; Temp 98.3(O); Pulse Ox 98% on R/A; Weight 104.33 kg; db Height 5 ft. 5 in. ; 07:30 BP 153 / 82; Pulse 82; Resp 18; Pulse Ox 99% on R/A; db 08:00 BP 146 / 75; Pulse 85; Resp 18; Pulse Ox 97% on R/A; db 09:00 BP 150 / 98; Pulse 85; Resp 18; Pulse Ox 98% on R/A; db 09:30 BP 166 / 86; Pulse 87; Resp 18; Pulse Ox 98% on R/A; db 10:30 BP 171 / 91; Pulse 84; Resp 18; Pulse Ox 98% on R/A; db 07:23 Body Mass Index 38.27 (104.33 kg, 165.1 cm) db MDM: 07:47 Patient medically screened. ms3 07:47 Differential Diagnosis: cardiac arrhythmia, emotional response, vasovagal episode. ms3 10:03 Data reviewed: vital signs, nurses notes, lab test result(s), EKG, radiologic studies, ms3 and as a result, I will discharge patient. Independent interpretation of the following test(s) in the Emergency Department EKG: See my EKG interpretation above. Historians other than the Patient: EMS: . Counseling: I had a detailed discussion with the patient and/or guardian regarding the historical points, exam findings, and any diagnostic results supporting the discharge/admit diagnosis, lab results, radiology results, the need for outpatient follow up, to return to the emergency department if symptoms worsen or persist or if there are any questions or concerns that arise at home. Special discussion: I discussed with the patient/guardian in detail that at this point there is no indication for admission to the hospital. It is understood, however, that if the symptoms persist or worsen the patient needs to return immediately for re-evaluation. ED course: Patient symptoms improved at this time, patient is alert and orient x 4, no apparent distress, nontoxic-appearing, speaking full sentences. Discussed elevated creatinine and patient states she has had elevated creatinine in the past. Advised patient to follow-up with Dr. Hill with nephrology and patient agrees. Patient to follow-up in 2 to 3 days. All questions were answered. Return precautions discussed include worsening symptoms, or any other concerns. 09/01 07:47 Order name: Basic Metabolic Panel; Complete Time: 08:51 ms3 09/01 07:47 Order name: CBC with Diff; Complete Time: 08:51 ms3 09/01 07:47 Order name: Magnesium; Complete Time: 08:51 ms3 09/01 07:47 Order name: Troponin HS; Complete Time: 08:51 ms3 09/01 09:00 Order name: Troponin HS; Complete Time: 09:43 ms3 09/01 07:47 Order name: XRAY Chest (1 view); Complete Time: 08:51 ms3 09/01 07:47 Order name: EKG; Complete Time: 07:48 ms3 09/01 07:47 Order name: Cardiac monitoring; Complete Time: 08:14 ms3 09/01 07:47 Order name: EKG - Nurse/Tech; Complete Time: 08:14 ms3 09/01 07:47 Order name: IV Saline Lock; Complete Time: 08:14 ms3 09/01 07:47 Order name: Labs collected and sent; Complete Time: 08:14 ms3 09/01 07:47 Order name: O2 Per Protocol; Complete Time: 08:14 ms3 09/01 07:47 Order name: O2 Sat Monitoring; Complete Time: 08:14 ms3 EC:00 Rate is 85 beats/min. Rhythm is regular. QRS [place] is Normal. [place] interval is normal. QRS ms3 interval is normal. Clinical impression: NSR w/ Non-specific ST/T Changes and LBBB. Interpreted by me. Reviewed by me. Administered Medications: No medications were administered Disposition Summary: 09/01/23 09:52 Discharge Ordered Notes: Location: Home ms3 Condition: Stable ms3 Diagnosis - Chronic kidney disease, stage 3 (moderate) ms3 - Anemia, unspecified ms3 Followup: ms3 - With: Ron Hill DO - When: 1 - 2 days - Reason: Recheck today's complaints Discharge Instructions: - Discharge Summary Sheet ms3 - Anemia ms3 - Chronic Kidney Disease, Adult, [id number] ms3 Forms: - Medication Reconciliation Form ms3 - Thank You Letter ms3 - Antibiotic Education ms3 - Prescription Opioid Use ms3 - Patient Portal Instructions ms3 - Leadership Thank You Letter ms3 Signatures: Dispatcher [employer] EDMS Moises Quintero DO DO ms3 Ana Nascimento RN RN db Corrections: (The following items were deleted from the chart) 07:48 07:47 58-year-old female with past medical history of congestive heart failure, ms3 diabetes, hyperlipidemia, hypertension, vertigo presents to the emergency department via [facility] for "not feeling right." Patient states she was at work when she began to feel warm and did not feel right. Patient denies any pain, loss of consciousness, headache, nausea, vomiting, shortness of breath.. ms3
[2023-09-01 11:02] VITALS: O2SAT 98
[2023-09-01 11:28] VITALS: BP 171/91
--- NOTE | 2023-09-01 13:33 | EKG ---
Test Date: 2023-09-01 Test Time: 07:56:58 Spiral Winding Machine Helper: ADRIENNE MEASUREMENT RESULTS: Intervals: Rate: 85 [place]: 184 QRSD: 146 QT: 440 QTc: 523 [place]: P: 71 [place]: 184 QRS: -28 T: 45 INTERPRETIVE STATEMENTS: Normal sinus rhythm Left bundle branch block Abnormal ECG Compared to ECG 04/27/2022 04:10:31 Sinus tachycardia no longer present Fusion complex(es) no longer present Left-axis deviation no longer present Electronically Signed On 09-01-23 13:32:01 NURSE CLINICAL by Eladio Newton
== END ==
LOC: ER 07:26
DX: E11.22 Type 2 diabetes mellitus with diabetic chronic kidney disease (principal); I13.0 Hypertensive heart and chronic kidney disease with heart failure and stage 1 through stage 4 chronic kidney disease, or unspecified chronic kidney disease; N18.30 Chronic kidney disease, stage 3 unspecified; I50.9 Heart failure, unspecified; D63.1 Anemia in chronic kidney disease
CPT/HCPCS: 36415; 71045; 80048; 83735; 84484; 85025; 93005